=== PATIENT | female | born 1945 | race Caucasian/White ===

== ENCOUNTER 2020-09-10 06:59 | Outpatient (REF) | payer MEDICARE, SELFPAY ==
[2020-09-10 11:09] LABS: MANUAL DIFF FLAG NO
[2020-09-10 11:28] LABS: Eosinophils Absolute Auto 0.1 X10*3/uL (0.0-0.4); Eosinophils Percent Auto 2.5 % (0-4); Hematocrit 43.2 % (37-47); Imm Gran Abs Auto 0.01 X10*3/uL (0.00-0.03); Imm Gran Pct Auto 0.3 % (0.0-0.4); Lymphocytes Absolute Auto 1.2 X10*3/uL (1.2-4.9); Lymphocytes Percent Auto 29.4 % (20-40); Mean Corpuscular HGB Conc 32.4 g/dl (31.0-35.0); Mean Corpuscular Hemoglobin 30.8 pg (27.0-33.0); Mean Corpuscular Volume 94.9 fL (80-98); Mean Platelet Volume 10.9 fL (9.4-12.3); Monocytes Absolute Auto 0.4 X10*3/uL (0.1-1.2); Monocytes Percent Auto 10.6 % (2-11); Neutrophils Absolute Auto 2.2 X10*3/uL (2.0-8.3); Neutrophils Percent Auto 56.2 % (45-73); Platelet Count 166 X10*3/uL (160-400); Red Blood Count 4.55 X10*6/uL (4.20-5.50)
[2020-09-10 11:48] LABS: Alanine Aminotransferase 24 U/L (0-31); Albumin Level 4.3 g/dL (3.5-5.0); Alkaline Phosphatase 57 U/L (39-117); Anion Gap 13 (12-20); Aspartate Amino Transferase 24 U/L (5-31); Bilirubin Total 0.5 mg/dL (0.0-1.0); Blood Urea Nitrogen 16 mg/dL (9-16); Calcium 8.9 mg/dL (8.4-10.2); Carbon Dioxide 27 mmol/L (22-29); Chloride 106 mmol/L (96-108); Cholesterol 165 mg/dL; Estimated Glomerular Filt Rate 53; Glucose Fasting 85 mg/dL (60-99); HDL Cholesterol 88 mg/dL; LDL Cholesterol Calculated 64 mg/dl; Potassium 4.1 mmol/l (3.3-5.1); Sodium 142 mmol/L (135-145); Total Protein 6.4 g/dL (6.5-8.0); Triglycerides 69 mg/dL
[2020-09-10 12:13] LABS: Folate 15.7 ng/mL (> or = 4.0); Vitamin B12 1002 pg/mL (200-900)
[2020-09-14 11:51] LABS: Vitamin D 25-OH, D2 <4 ng/mL; Vitamin D 25-OH, D3 48 ng/mL; Vitamin D 25-OH, Total 48 ng/mL (30-100)
== END 2020-09-10 07:00 | disposition home or self-care (01) ==
LOC: HO.HMGCLDS 06:59
PROVIDERS: PCP Internal Medicine; Visit Provider Internal Medicine
DX: E78.5 Hyperlipidemia, unspecified (principal); I25.10 Atherosclerotic heart disease of native coronary artery without angina pectoris; I10 Essential (primary) hypertension; E55.9 Vitamin D deficiency, unspecified
CPT/HCPCS: 36415; 80053; 80061; 82306; 82607; 82746; 85025

== ENCOUNTER 2021-03-05 06:52 | Outpatient (REF) | payer MEDICARE, SELFPAY ==
[2021-03-05 11:24] LABS: Glucose Urine UA NEG (NEG); Leukocyte Esterase Urine TRACE (NEG); Nitrite Urine NEG (NEG); Urine Blood NEG (NEG); Urine Ketones NEG (NEG); Urine Protein NEG (NEG-TRACE)
[2021-03-05 11:25] LABS: Appearance Urine CLEAR; Color Urine YELLOW
[2021-03-05 11:31] LABS: Hematocrit 42.3 % (37-47); Hemoglobin 13.5 g/dl (12.0-16.0); Mean Corpuscular HGB Conc 31.9 g/dl (31.0-35.0); Mean Corpuscular Hemoglobin 30.3 pg (27.0-33.0); Mean Corpuscular Volume 94.8 fL (80-98); Mean Platelet Volume 10.8 fL (9.4-12.3); Platelet Count 175 X10*3/uL (160-400); Red Blood Count 4.46 X10*6/uL (4.20-5.50); Red Cell Distribution Width 13.1 % (11.0-16.0); White Blood Count 3.7 X10*3/uL (4.8-10.8)
[2021-03-05 11:38] LABS: Bacteria Urine TRACE /LPF; RBC Urine 0-2 /HPF (0); Squamous Epithelial Cell Urine 1+ /LPF
[2021-03-05 11:46] LABS: Alanine Aminotransferase 20 U/L (0-31); Albumin Level 4.2 g/dL (3.5-5.0); Alkaline Phosphatase 55 U/L (39-117); Anion Gap 12 (12-20); Aspartate Amino Transferase 23 U/L (5-31); Bilirubin Total 0.4 mg/dL (0.0-1.0); Blood Urea Nitrogen 15 mg/dL (9-16); Calcium 8.6 mg/dL (8.4-10.2); Carbon Dioxide 28 mmol/L (22-29); Chloride 107 mmol/L (96-108); Cholesterol 164 mg/dL; Estimated Glomerular Filt Rate > 60; Glucose Fasting 86 mg/dL (60-99); HDL Cholesterol 87 mg/dL; LDL Cholesterol Calculated 63 mg/dl; Sodium 143 mmol/L (135-145); Total Protein 6.2 g/dL (6.5-8.0); Triglycerides 71 mg/dL
[2021-03-05 11:58] LABS: TSH reflex Free T4 2.34 uIU/mL (0.32-4.0)
== END 2021-03-05 06:53 | disposition home or self-care (01) ==
LOC: HO.HMGCLDS 06:52
PROVIDERS: PCP Internal Medicine; Referring Provider Internal Medicine Cardiovascular Disease; Visit Provider Internal Medicine
DX: I10 Essential (primary) hypertension (principal); E78.5 Hyperlipidemia, unspecified; I25.10 Atherosclerotic heart disease of native coronary artery without angina pectoris
CPT/HCPCS: 36415; 80053; 80061; 81001; 84443; 85027

== ENCOUNTER 2021-03-11 12:51 | Outpatient (REF) | payer MEDICARE, SELFPAY ==
[2021-03-11 14:08] LABS: Glucose Urine UA NEG (NEG); Leukocyte Esterase Urine NEG (NEG); MANUAL DIFF FLAG NO; Nitrite Urine NEG (NEG); PH 6.5 (5.0-8.0); Specific Gravity - Urine <= 1.005 (1.005-1.025); Urine Blood NEG (NEG); Urine Ketones NEG (NEG); Urine Protein NEG (NEG-TRACE)
[2021-03-11 14:12] LABS: Appearance Urine CLEAR; Color Urine STRAW
[2021-03-11 14:16] LABS: RBC Urine 0 /HPF (0); Squamous Epithelial Cell Urine 1+ /LPF; WBC Urine 0 /HPF (0-4)
[2021-03-11 14:25] LABS: Basophils Absolute Auto 0.1 X10*3/uL (0.0-0.2); Basophils Percent Auto 1.1 % (0-2); Eosinophils Absolute Auto 0.1 X10*3/uL (0.0-0.4); Eosinophils Percent Auto 2.2 % (0-4); Hematocrit 41.6 % (37-47); Hemoglobin 13.7 g/dl (12.0-16.0); Imm Gran Abs Auto 0.01 X10*3/uL (0.00-0.03); Imm Gran Pct Auto 0.2 % (0.0-0.4); Lymphocytes Absolute Auto 0.9 X10*3/uL (1.2-4.9); Lymphocytes Percent Auto 19.8 % (20-40); Mean Corpuscular HGB Conc 32.9 g/dl (31.0-35.0); Mean Corpuscular Hemoglobin 31.1 pg (27.0-33.0); Mean Corpuscular Volume 94.3 fL (80-98); Mean Platelet Volume 10.7 fL (9.4-12.3); Monocytes Absolute Auto 0.5 X10*3/uL (0.1-1.2); Monocytes Percent Auto 10.3 % (2-11); Neutrophils Percent Auto 66.4 % (45-73); Platelet Count 195 X10*3/uL (160-400); Red Blood Count 4.41 X10*6/uL (4.20-5.50); Red Cell Distribution Width 12.9 % (11.0-16.0); White Blood Count 4.6 X10*3/uL (4.8-10.8)
[2021-03-11 14:32] LABS: Estimated Average Glucose 105 mg/dL; Hemoglobin A1c % 5.3 %
[2021-03-11 14:43] LABS: Iron 99 mcg/dL (30-160); Percent Iron Saturation 26 % (15-50); Rheumatoid Factor < 15.0 IU/mL (<15.0); Total Iron Binding Capacity 375 mcg/dL (228-428); Unsaturated Iron Binding 276 ug/dL
[2021-03-11 14:54] LABS: Thyroid Stimulating Hormone 2.82 uIU/mL (0.32-4.0)
[2021-03-11 15:10] LABS: Folate > 20.0 ng/mL (> or = 4.0); Vitamin B12 959 pg/mL (200-900)
[2021-03-11 16:25] LABS: Erythrocyte Sedimentation Rate 7 MM/HR (0-20)
[2021-03-12 06:07] LABS: Thyroglobulin Antibodies <1 IU/mL (< or = 1)
[2021-03-12 11:41] LABS: Immunoglobulin G 609 mg/dL (600-1540)
[2021-03-12 12:33] LABS: Antibody to SS-A Antigen <1.0 NEG AI (<1.0 NEG); Antibody to SS-B Antigen <1.0 NEG AI (<1.0 NEG)
[2021-03-12 13:22] LABS: Complement C3 93 mg/dL (83-193)
[2021-03-12 13:46] LABS: Anti Nuclear Antibody Screen NEGATIVE (NEGATIVE)
[2021-03-16 07:17] LABS: Vitamin B6 53.7 ng/mL (2.1-21.7)
== END 2021-03-11 12:52 | disposition home or self-care (01) ==
LOC: HO.HMGCLDS 12:51
PROVIDERS: Internal Medicine; PCP Internal Medicine; Visit Provider Oral Medicinist
DX: I10 Essential (primary) hypertension (principal); E78.5 Hyperlipidemia, unspecified; I25.10 Atherosclerotic heart disease of native coronary artery without angina pectoris; K14.6 Glossodynia; K11.7 Disturbances of salivary secretion
CPT/HCPCS: 36415; 81001; 82607; 82746; 82784; 83036; 83540; 84207; 84443; 85025; 85652; 86038; 86039; 86160; 86235; 86431; 86800

== ENCOUNTER 2021-07-29 11:16 | Outpatient (REF) | payer MEDICARE, SELFPAY | END 2021-07-29 11:17 | disposition home or self-care (01) | LOC: HO.LNP 11:16 | PROVIDERS: Visit Provider Hospitalist | DX: R30.0 Dysuria (principal) | CPT/HCPCS: 87086 ==

== ENCOUNTER 2021-10-04 08:45 | Outpatient (REF) | payer MEDICARE, SELFPAY ==
--- NOTE | ~2021-10-04 | CT_ITS ---
EXAMINATION: CT SINUS WITHOUT CONTRAST CLINICAL INFORMATION: Chronic frontal sinusitis COMPARISON: None TECHNIQUE: Axial images through the paranasal sinuses without contrast. Sagittal and coronal reconstructions on the technologist workstation were performed. This CT examination was performed using dose optimization techniques as appropriate, variously including the following: *Automated exposure control *Adjustment of mA and/or kV according to patient size (this includes techniques or standardized protocols for targeted exams where dose is matched to indication/reason for exam; i.e. extremities or head) *Use of iterative reconstruction technique DLP: 72 mGy-cm FINDINGS: There is a small polyp or cyst in the floor of the left maxillary sinus and right posterior ethmoid sinus. The paranasal sinuses are otherwise clear. No opacification or air-fluid level to suggest sinusitis is seen. The ostiomeatal complexes are patent bilaterally. The nasal septum is deviated slightly to the right. There is a left kamilla bullosa. The orbits are normal. Visualized intracranial structures are normal. The mastoid air cells and middle ears are clear. The temporomandibular joints are normal. CT/CT sinus wo con IMPRESSION: Small polyps or cysts in the right maxillary sinus and right posterior ethmoid sinus. The paranasal sinuses are otherwise clear. No evidence of sinusitis.
== END 2021-10-04 08:46 | disposition home or self-care (01) ==
LOC: HO.CT 08:45
PROVIDERS: PCP Internal Medicine; Visit Provider Internal Medicine
DX: J32.1 Chronic frontal sinusitis (principal)
CPT/HCPCS: 70486

== ENCOUNTER → 2021-12-29 09:42 | Outpatient (REF) | payer MEDICARE, SELFPAY ==
--- NOTE | 2021-12-29 09:50 | ECG_ITS ---
Test Reason : preproc exam Blood Pressure : / mmHG Vent. Rate : 065 BPM Atrial Rate : 065 BPM P-R Int : 178 ms QRS Dur : 084 ms QT Int : 406 ms P-R-T Axes : 069 019 042 degrees QTc Int : 422 ms Normal sinus rhythm Low voltage QRS Borderline ECG No previous ECGs available Referred By: Po Mares Electronically Signed By:Jesus Kern
== END ==
LOC: HO.CARD 09:42
PROVIDERS: PCP Internal Medicine; Visit Provider Nurse Practitioner Family
DX: Z01.818 Encounter for other preprocedural examination (principal); I25.10 Atherosclerotic heart disease of native coronary artery without angina pectoris; I10 Essential (primary) hypertension; E78.00 Pure hypercholesterolemia, unspecified; M35.00 Sjogren syndrome, unspecified; M48.061 Spinal stenosis, lumbar region without neurogenic claudication
CPT/HCPCS: 93005

== ENCOUNTER 2021-12-31 11:21 | Outpatient (REF) | payer MEDICARE, SELFPAY ==
--- NOTE | ~2021-12-31 | US_ITS ---
EXAMINATION: US SOFT TISSUE NECK CLINICAL INFORMATION: Glossodynia COMPARISON: Sinus CT September 2021 TECHNIQUE: Grayscale and color imaging of the bilateral parotid and submandibular glands using a linear transducer FINDINGS: The parotid and submandibular glands are normal in echotexture and symmetric in size. No focal lesion, calcification or fluid collection is seen. No adjacent lymphadenopathy is seen. US/US soft tiss head and/or neck IMPRESSION: Normal-appearing bilateral parotid and submandibular glands.
== END 2021-12-31 11:22 | disposition home or self-care (01) ==
LOC: HO.HMGCX 11:21
PROVIDERS: Visit Provider Internal Medicine
DX: K14.6 Glossodynia (principal); K11.7 Disturbances of salivary secretion; M35.00 Sjogren syndrome, unspecified
CPT/HCPCS: 76536

== ENCOUNTER 2022-01-04 06:57 | Outpatient (REF) | payer MEDICARE, SELFPAY ==
[2022-01-04 11:36] LABS: MANUAL DIFF FLAG NO
[2022-01-04 11:45] LABS: Basophils Absolute Auto 0.1 X10*3/uL (0.0-0.2); Basophils Percent Auto 1.5 % (0-2); Eosinophils Absolute Auto 0.2 X10*3/uL (0.0-0.4); Eosinophils Percent Auto 3.9 % (0-4); Hemoglobin 13.3 g/dl (12.0-16.0); Imm Gran Abs Auto 0.01 X10*3/uL (0.00-0.03); Imm Gran Pct Auto 0.2 % (0.0-0.4); Lymphocytes Absolute Auto 1.1 X10*3/uL (1.2-4.9); Lymphocytes Percent Auto 26.4 % (20-40); Mean Corpuscular HGB Conc 32.4 g/dl (31.0-35.0); Mean Corpuscular Hemoglobin 30.4 pg (27.0-33.0); Mean Corpuscular Volume 93.8 fL (80.0-98.0); Mean Platelet Volume 11.6 fL (9.4-12.3); Monocytes Absolute Auto 0.6 X10*3/uL (0.1-1.2); Monocytes Percent Auto 14.3 % (2-11); Neutrophils Absolute Auto 2.2 x10*3/uL (2.0-8.3); Neutrophils Percent Auto 53.7 % (45-73); Platelet Count 176 X10*3/uL (160-400); Red Blood Count 4.37 X10*6/uL (4.20-5.50); Red Cell Distribution Width 12.3 % (11.0-16.0); White Blood Count 4.1 X10*3/uL (4.8-10.8)
[2022-01-04 11:52] LABS: INTERNATIONAL NORM RATIO 0.9 (0.9-1.1); Prothrombin Time 10.5 SEC (9.9-13.0)
[2022-01-04 11:54] LABS: Alanine Aminotransferase 35 U/L (0-31); Albumin Level 4.1 g/dL (3.5-5.0); Alkaline Phosphatase 103 U/L (39-117); Anion Gap 9 (12-20); Aspartate Amino Transferase 28 U/L (5-31); Bilirubin Total 0.4 mg/dL (0.0-1.0); Blood Urea Nitrogen 13 mg/dL (9-16); Calcium 9.2 mg/dL (8.4-10.2); Carbon Dioxide 30 mmol/L (22-29); Chloride 108 mmol/L (96-108); Estimated Glomerular Filt Rate > 60; Glucose Fasting 87 mg/dL (60-99); Potassium 3.9 mmol/L (3.3-5.1); Sodium 143 mmol/L (135-145); Total Protein 6.4 g/dL (6.5-8.0)
[2022-01-04 11:56] LABS: Partial Thromboplastin Time 29.8 SEC (24.1-38.0)
== END 2022-01-04 06:58 | disposition home or self-care (01) ==
LOC: HO.HMGCLDS 06:57
PROVIDERS: Absent Provider Neurological Surgery; PCP Internal Medicine; Referring Provider Internal Medicine Cardiovascular Disease; Visit Provider Nurse Practitioner Family
DX: Z01.818 Encounter for other preprocedural examination (principal); E78.00 Pure hypercholesterolemia, unspecified; I10 Essential (primary) hypertension; M35.00 Sjogren syndrome, unspecified; M48.061 Spinal stenosis, lumbar region without neurogenic claudication; I25.10 Atherosclerotic heart disease of native coronary artery without angina pectoris
CPT/HCPCS: 36415; 80053; 85025; 85610; 85730

== ENCOUNTER 2022-01-26 08:10 | Outpatient (REF) | payer MEDICARE, SELFPAY ==
[2022-01-26 08:22] LABS: MANUAL DIFF FLAG NO
[2022-01-26 08:33] LABS: Basophils Percent Auto 0.5 % (0-2); Eosinophils Absolute Auto 0.1 X10*3/uL (0.0-0.4); Eosinophils Percent Auto 1.6 % (0-4); Hematocrit 33.8 % (37.0-47.0); Imm Gran Abs Auto 0.02 X10*3/uL (0.00-0.03); Imm Gran Pct Auto 0.3 % (0.0-0.4); Lymphocytes Absolute Auto 0.9 X10*3/uL (1.2-4.9); Lymphocytes Percent Auto 14.8 % (20-40); Mean Corpuscular HGB Conc 32.5 g/dl (31.0-35.0); Mean Corpuscular Hemoglobin 29.8 pg (27.0-33.0); Mean Corpuscular Volume 91.6 fL (80.0-98.0); Mean Platelet Volume 11.1 fL (9.4-12.3); Monocytes Absolute Auto 0.6 X10*3/uL (0.1-1.2); Monocytes Percent Auto 9.5 % (2-11); Neutrophils Absolute Auto 4.6 x10*3/uL (2.0-8.3); Neutrophils Percent Auto 73.3 % (45-73); Platelet Count 180 X10*3/uL (160-400); Red Blood Count 3.69 X10*6/uL (4.20-5.50); Red Cell Distribution Width 12.4 % (11.0-16.0); White Blood Count 6.2 X10*3/uL (4.8-10.8)
[2022-01-26 08:46] LABS: Alanine Aminotransferase 51 U/L (0-31); Albumin Level 3.5 g/dL (3.5-5.0); Alkaline Phosphatase 92 U/L (39-117); Anion Gap 12 (12-20); Aspartate Amino Transferase 62 U/L (5-31); Bilirubin Total 0.6 mg/dL (0.0-1.0); Blood Urea Nitrogen 9 mg/dL (9-16); Calcium 8.2 mg/dL (8.4-10.2); Carbon Dioxide 26 mmol/L (22-29); Chloride 104 mmol/L (96-108); Estimated Glomerular Filt Rate > 60; Glucose Random 98 mg/dL (60-115); Potassium 3.6 mmol/L (3.3-5.1); Sodium 138 mmol/L (135-145); Total Protein 5.5 g/dL (6.5-8.0)
== END 2022-01-26 08:11 | disposition home or self-care (01) ==
LOC: HO.MMNH2L 08:10
PROVIDERS: Visit Provider Family Medicine
DX: Z98.890 Other specified postprocedural states (principal)
CPT/HCPCS: 36415; 80053; 85025

== ENCOUNTER 2022-01-31 00:43 | Outpatient (REF) | payer MEDICARE, SELFPAY ==
[2022-01-31 07:03] LABS: Hematocrit 33.9 % (37.0-47.0); Hemoglobin 10.8 g/dl (12.0-16.0); Mean Corpuscular HGB Conc 31.9 g/dl (31.0-35.0); Mean Corpuscular Hemoglobin 29.9 pg (27.0-33.0); Mean Corpuscular Volume 93.9 fL (80.0-98.0); Mean Platelet Volume 10.8 fL (9.4-12.3); Platelet Count 221 X10*3/uL (160-400); Red Blood Count 3.61 X10*6/uL (4.20-5.50); White Blood Count 6.1 X10*3/uL (4.8-10.8)
[2022-01-31 07:24] LABS: Anion Gap 14 (12-20); Blood Urea Nitrogen 11 mg/dL (9-16); Calcium 8.5 mg/dL (8.4-10.2); Carbon Dioxide 24 mmol/L (22-29); Chloride 109 mmol/L (96-108); Estimated Glomerular Filt Rate > 60; Glucose Random 89 mg/dL (60-115); Potassium 3.8 mmol/L (3.3-5.1); Sodium 143 mmol/L (135-145)
== END 2022-01-31 00:44 | disposition home or self-care (01) ==
LOC: HO.MMNH2L 00:43
PROVIDERS: Visit Provider Family Medicine
DX: Z98.890 Other specified postprocedural states (principal)
CPT/HCPCS: 36415; 80048; 85027

== ENCOUNTER 2022-02-07 00:32 | Outpatient (REF) | payer MEDICARE, SELFPAY | END 2022-02-07 00:33 | disposition home or self-care (01) | LOC: HO.MMNH2L 00:32 | PROVIDERS: Visit Provider Family Medicine | DX: Z13.89 Encounter for screening for other disorder (principal) ==

== ENCOUNTER 2022-02-07 13:00 | Outpatient (RCR) | payer MEDICARE, SELFPAY | END 2022-05-18 14:07 | disposition home or self-care (01) | LOC: HO.PTCHIC 13:00 | PROVIDERS: PCP Internal Medicine; Visit Provider Nurse Practitioner Family | DX: M43.26 Fusion of spine, lumbar region (principal); M85.88 Other specified disorders of bone density and structure, other site | CPT/HCPCS: 97110; 97162 ==

== ENCOUNTER 2022-04-20 07:01 | Outpatient (REF) | payer MEDICARE, SELFPAY ==
[2022-04-20 09:12] LABS: B Type Natriuretic Peptide < 10 pg/mL (<100)
[2022-04-20 11:11] LABS: MANUAL DIFF FLAG NO
[2022-04-20 11:43] LABS: Basophils Absolute Auto 0.1 X10*3/uL (0.0-0.2); Basophils Percent Auto 1.3 % (0-2); Eosinophils Absolute Auto 0.1 X10*3/uL (0.0-0.4); Eosinophils Percent Auto 3.5 % (0-4); Hematocrit 42.2 % (37.0-47.0); Hemoglobin 13.4 g/dl (12.0-16.0); Imm Gran Abs Auto 0.01 X10*3/uL (0.00-0.03); Imm Gran Pct Auto 0.3 % (0.0-0.4); Lymphocytes Absolute Auto 1.1 X10*3/uL (1.2-4.9); Lymphocytes Percent Auto 30.4 % (20-40); Mean Corpuscular HGB Conc 31.8 g/dl (31.0-35.0); Mean Corpuscular Hemoglobin 29.8 pg (27.0-33.0); Mean Platelet Volume 10.8 fL (9.4-12.3); Monocytes Absolute Auto 0.5 X10*3/uL (0.1-1.2); Monocytes Percent Auto 12.5 % (2-11); Platelet Count 181 X10*3/uL (160-400); Red Blood Count 4.49 X10*6/uL (4.20-5.50); White Blood Count 3.8 X10*3/uL (4.8-10.8)
[2022-04-20 11:44] LABS: Appearance Urine HAZY; Color Urine YELLOW; Glucose Urine UA NEG (NEG); Leukocyte Esterase Urine TRACE (NEG); Nitrite Urine POS (NEG); Urine Blood TRACE (NEG); Urine Ketones NEG (NEG); Urine Protein NEG (NEG-TRACE)
[2022-04-20 12:03] LABS: Bacteria Urine 2+ /LPF
[2022-04-20 12:04] LABS: Squamous Epithelial Cell Urine TRACE /LPF
[2022-04-20 12:04] LABS: Alanine Aminotransferase 22 U/L (0-31); Albumin Level 4.3 g/dL (3.5-5.0); Alkaline Phosphatase 74 U/L (39-117); Anion Gap 12 (12-20); Aspartate Amino Transferase 19 U/L (5-31); Bilirubin Total 0.3 mg/dL (0.0-1.0); Blood Urea Nitrogen 9 mg/dL (9-16); Calcium 9.7 mg/dL (8.4-10.2); Carbon Dioxide 27 mmol/L (22-29); Chloride 108 mmol/L (96-108); Cholesterol 162 mg/dL; Estimated Glomerular Filt Rate 57; Glucose Random 90 mg/dL (60-115); HDL Cholesterol 73 mg/dL; LDL Cholesterol Calculated 64 mg/dl; Potassium 3.8 mmol/L (3.3-5.1); Sodium 143 mmol/L (135-145); Total Protein 6.7 g/dL (6.5-8.0); Triglycerides 128 mg/dL
[2022-04-20 12:11] LABS: Free T4 (Free Thyroxine) 0.79 ng/dL (0.71-1.85); Thyroid Stimulating Hormone 3.52 uIU/mL (0.32-4.0); Vitamin D 25-OH Total 48.3 ng/mL (>30)
[2022-04-20 12:18] LABS: Vitamin B12 609 pg/mL (200-900)
[2022-04-20 12:33] LABS: Erythrocyte Sedimentation Rate 5 MM/HR (0-20)
== END 2022-04-20 07:02 | disposition home or self-care (01) ==
LOC: HO.HMGCLDS 07:01
PROVIDERS: Absent Provider Internal Medicine Cardiovascular Disease; Visit Provider Internal Medicine
DX: E78.00 Pure hypercholesterolemia, unspecified (principal); E55.9 Vitamin D deficiency, unspecified; I25.10 Atherosclerotic heart disease of native coronary artery without angina pectoris
CPT/HCPCS: 36415; 80053; 80061; 81001; 82306; 82607; 82746; 83880; 84439; 84443; 85025; 85652

== ENCOUNTER → 2022-04-26 08:44 | Outpatient (REF) | payer OTHER, SELFPAY ==
--- NOTE | 2022-04-26 08:51 | ECG_ITS ---
Test Reason : K11.7 Blood Pressure : / mmHG Vent. Rate : 075 BPM Atrial Rate : 075 BPM P-R Int : 174 ms QRS Dur : 084 ms QT Int : 384 ms P-R-T Axes : 071 034 060 degrees QTc Int : 428 ms Normal sinus rhythm Possible Left atrial enlargement Low voltage QRS Nonspecific T wave abnormality Abnormal ECG When compared with ECG of 29-DEC-2021 09:53, No significant change was found Referred By: Elva Davison Electronically Signed By:ALEJANDRO BETTENCOURT
== END ==
LOC: HO.CARD 08:44
PROVIDERS: Absent Provider Internal Medicine Cardiovascular Disease; PCP Internal Medicine; Visit Provider Internal Medicine
DX: K11.7 Disturbances of salivary secretion (principal)
CPT/HCPCS: 93005

== ENCOUNTER → 2022-07-29 07:50 | Outpatient (BNVA) | payer OTHER, SELFPAY | PROVIDERS: PCP Internal Medicine; Visit Provider Student in an Organized Health Care Education/Training Program | DX: M35.00 Sjogren syndrome, unspecified (principal) | CPT/HCPCS: 99202 ==

== ENCOUNTER 2022-08-01 07:14 | Outpatient (REF) | payer OTHER, SELFPAY ==
[2022-08-01 11:11] LABS: MANUAL DIFF FLAG NO
[2022-08-01 11:35] LABS: Basophils Absolute Auto 0.1 X10*3/uL (0.0-0.2); Basophils Percent Auto 1.7 % (0-2); Eosinophils Absolute Auto 0.1 X10*3/uL (0.0-0.4); Eosinophils Percent Auto 3.1 % (0-4); Hemoglobin 13.3 g/dl (12.0-16.0); Imm Gran Abs Auto 0.01 X10*3/uL (0.00-0.03); Imm Gran Pct Auto 0.2 % (0.0-0.4); Lymphocytes Absolute Auto 1.1 X10*3/uL (1.2-4.9); Lymphocytes Percent Auto 25.1 % (20-40); Mean Corpuscular HGB Conc 32.4 g/dl (31.0-35.0); Mean Corpuscular Hemoglobin 29.9 pg (27.0-33.0); Mean Corpuscular Volume 92.1 fL (80.0-98.0); Mean Platelet Volume 11.4 fL (9.4-12.3); Monocytes Absolute Auto 0.5 X10*3/uL (0.1-1.2); Monocytes Percent Auto 10.7 % (2-11); Neutrophils Absolute Auto 2.5 x10*3/uL (2.0-8.3); Neutrophils Percent Auto 59.2 % (45-73); Platelet Count 164 X10*3/uL (160-400); Red Blood Count 4.45 X10*6/uL (4.20-5.50); White Blood Count 4.2 X10*3/uL (4.8-10.8)
[2022-08-01 11:49] LABS: Alanine Aminotransferase 16 U/L (0-31); Albumin Level 4.3 g/dL (3.5-5.0); Alkaline Phosphatase 73 U/L (39-117); Anion Gap 14 (12-20); Aspartate Amino Transferase 18 U/L (5-31); Bilirubin Total 0.4 mg/dL (0.0-1.0); Blood Urea Nitrogen 13 mg/dL (9-16); C Reactive Protein 0.03 mg/dL (< or = 0.50); Calcium 9.1 mg/dL (8.4-10.2); Carbon Dioxide 27 mmol/L (22-29); Chloride 107 mmol/L (96-108); Estimated Glomerular Filt Rate > 60; Glucose Random 88 mg/dL (60-115); Potassium 4.1 mmol/L (3.3-5.1); Rheumatoid Factor < 15.0 IU/mL (<15.0); Sodium 144 mmol/L (135-145); Total Protein 6.5 g/dL (6.5-8.0)
[2022-08-01 12:14] LABS: Erythrocyte Sedimentation Rate 7 MM/HR (0-20)
[2022-08-03 00:36] LABS: Prot Elec - Albumin 4.2 g/dL (3.8-4.8); Prot Elec - Alpha1 0.3 g/dL (0.2-0.3); Prot Elec - Alpha2 0.7 g/dL (0.5-0.9); Prot Elec - Beta 1 0.5 g/dL (0.4-0.6); Prot Elec - Beta 2 0.3 g/dL (0.2-0.5); Prot Elec - Gamma 0.6 g/dL (0.8-1.7); Prot Elec - Total Protein 6.5 g/dL (6.1-8.1)
[2022-08-03 12:47] LABS: IgA 143 mg/dL (70-320); IgG 625 mg/dL (600-1540); IgM 36 mg/dL (50-300)
[2022-08-04 12:42] LABS: Immunoglobulin G Subclass 1 325 mg/dL (382-929); Immunoglobulin G Subclass 2 200 mg/dL (241-700); Immunoglobulin G Subclass 3 18 mg/dL (22-178); Immunoglobulin G Subclass 4 34.5 mg/dL (4-86); Immunoglobulin G Total 607 mg/dL (600-1540)
== END 2022-08-01 07:15 | disposition home or self-care (01) ==
LOC: HO.HMGCLDS 07:14
PROVIDERS: PCP Internal Medicine; Visit Provider Student in an Organized Health Care Education/Training Program
DX: M35.00 Sjogren syndrome, unspecified (principal)
CPT/HCPCS: 36415; 80053; 82784; 84165; 85025; 85652; 86140; 86334; 86431

== ENCOUNTER → 2022-08-26 08:54 | Outpatient (BNVA) | payer OTHER, SELFPAY | PROVIDERS: PCP Internal Medicine; Visit Provider Student in an Organized Health Care Education/Training Program | DX: M35.00 Sjogren syndrome, unspecified (principal) | CPT/HCPCS: 99212 ==

== ENCOUNTER 2022-12-19 11:43 | Outpatient (REF) | payer OTHER, SELFPAY ==
[2022-12-19 14:03] LABS: Appearance Urine Clear; Color Urine Yellow; Glucose Urine UA Negative (Negative); Leukocyte Esterase Urine Small (1+) (Negative); Nitrite Urine Positive (Negative); Specific Gravity - Urine <= 1.005 (1.005-1.025); UMIC TRIGGER UA YES; Urine Blood Trace (Negative); Urine Ketones Negative (Negative); Urine Protein Negative (Neg-Trace)
[2022-12-19 14:08] LABS: Bacteria Urine 4+ (None Seen); Hyaline Casts Urine 0-2 /LPF (0-2); MANUAL DIFF FLAG NO; RBC Urine 0-2 /HPF (0-2); Squamous Epithelial Cell Urine 0-2 /HPF (0-2)
[2022-12-19 14:21] LABS: Basophils Absolute Auto 0.1 X10*3/uL (0.0-0.2); Basophils Percent Auto 0.9 % (0-2); Eosinophils Absolute Auto 0.1 X10*3/uL (0.0-0.4); Eosinophils Percent Auto 2.2 % (0-4); Hematocrit 39.6 % (37.0-47.0); Imm Gran Abs Auto 0.02 X10*3/uL (0.00-0.03); Imm Gran Pct Auto 0.4 % (0.0-0.4); Lymphocytes Percent Auto 18.3 % (20-40); Mean Corpuscular HGB Conc 32.8 g/dl (31.0-35.0); Mean Corpuscular Hemoglobin 30.8 pg (27.0-33.0); Mean Corpuscular Volume 93.8 fL (80.0-98.0); Mean Platelet Volume 11.4 fL (9.4-12.3); Monocytes Absolute Auto 0.5 X10*3/uL (0.1-1.2); Monocytes Percent Auto 8.4 % (2-11); Neutrophils Absolute Auto 3.8 x10*3/uL (2.0-8.3); Neutrophils Percent Auto 69.8 % (45-73); Platelet Count 185 X10*3/uL (160-400); Red Blood Count 4.22 X10*6/uL (4.20-5.50); Red Cell Distribution Width 12.7 % (11.0-16.0); White Blood Count 5.5 X10*3/uL (4.8-10.8)
[2022-12-19 14:51] LABS: Alanine Aminotransferase 36 U/L (0-31); Albumin Level 4.1 g/dL (3.5-5.0); Alkaline Phosphatase 77 U/L (39-117); Anion Gap 15 (12-20); Aspartate Amino Transferase 18 U/L (5-31); Bilirubin Total 0.5 mg/dL (0.0-1.0); Blood Urea Nitrogen 16 mg/dL (9-16); Calcium 8.8 mg/dL (8.4-10.2); Carbon Dioxide 23 mmol/L (22-29); Chloride 107 mmol/L (96-108); Cholesterol 149 mg/dL; Estimated Glomerular Filt Rate > 60; Glucose Random 108 mg/dL (60-115); HDL Cholesterol 60 mg/dL; LDL Cholesterol Calculated 44 mg/dl; Potassium 3.9 mmol/L (3.3-5.1); Sodium 141 mmol/L (135-145); Total Protein 6.4 g/dL (6.5-8.0); Triglycerides 225 mg/dL
[2022-12-19 15:08] LABS: Folate 12.7 ng/mL (> or = 4.0); Free T4 (Free Thyroxine) 0.74 ng/dL (0.71-1.85); Thyroid Stimulating Hormone 1.75 uIU/mL (0.32-4.0); Vitamin B12 595 pg/mL (200-900)
== END 2022-12-19 11:44 | disposition home or self-care (01) ==
LOC: HO.HMGCLDS 11:43
PROVIDERS: Visit Provider Internal Medicine
DX: K14.6 Glossodynia (principal); E78.00 Pure hypercholesterolemia, unspecified
CPT/HCPCS: 36415; 80053; 80061; 81001; 82607; 82746; 84439; 84443; 85025

== ENCOUNTER 2023-04-21 06:50 | Outpatient (REF) | payer OTHER, SELFPAY ==
[2023-04-21 11:33] LABS: MANUAL DIFF FLAG NO
[2023-04-21 11:59] LABS: Basophils Absolute Auto 0.1 X10*3/uL (0.0-0.2); Basophils Percent Auto 1.3 % (0-2); Eosinophils Absolute Auto 0.2 X10*3/uL (0.0-0.4); Eosinophils Percent Auto 3.9 % (0-4); Hematocrit 41.7 % (37.0-47.0); Hemoglobin 13.4 g/dl (12.0-16.0); Imm Gran Abs Auto 0.01 X10*3/uL (0.00-0.03); Imm Gran Pct Auto 0.3 % (0.0-0.4); Lymphocytes Absolute Auto 1.2 X10*3/uL (1.2-4.9); Lymphocytes Percent Auto 30.5 % (20-40); Mean Corpuscular HGB Conc 32.1 g/dl (31.0-35.0); Mean Corpuscular Hemoglobin 30.5 pg (27.0-33.0); Mean Platelet Volume 10.9 fL (9.4-12.3); Monocytes Absolute Auto 0.4 X10*3/uL (0.1-1.2); Monocytes Percent Auto 11.3 % (2-11); Neutrophils Percent Auto 52.7 % (45-73); Platelet Count 187 X10*3/uL (160-400); Red Blood Count 4.39 X10*6/uL (4.20-5.50); Red Cell Distribution Width 13.3 % (11.0-16.0); White Blood Count 3.8 X10*3/uL (4.8-10.8)
[2023-04-21 12:13] LABS: Estimated Average Glucose 111 mg/dL; Hemoglobin A1c % 5.5 %
[2023-04-21 12:26] LABS: Alanine Aminotransferase 17 U/L (0-31); Alkaline Phosphatase 59 U/L (39-117); Anion Gap 12 (12-20); Aspartate Amino Transferase 17 U/L (5-31); Bilirubin Total 0.4 mg/dL (0.0-1.0); Blood Urea Nitrogen 12 mg/dL (9-16); Calcium 9.1 mg/dL (8.4-10.2); Carbon Dioxide 27 mmol/L (22-29); Chloride 109 mmol/L (96-108); Cholesterol 138 mg/dL; Estimated Glomerular Filt Rate > 60; Glucose Random 93 mg/dL (60-115); HDL Cholesterol 63 mg/dL; LDL Cholesterol Calculated 60 mg/dl; Potassium 4.1 mmol/L (3.3-5.1); Sodium 144 mmol/L (135-145); Total Protein 6.1 g/dL (6.5-8.0); Triglycerides 75 mg/dL
[2023-04-21 12:45] LABS: Folate 13.4 ng/mL (> or = 4.0); Free T4 (Free Thyroxine) 0.78 ng/dL (0.71-1.85); Thyroid Stimulating Hormone 2.41 uIU/mL (0.32-4.0); Vitamin B12 653 pg/mL (200-900)
== END 2023-04-21 06:51 | disposition home or self-care (01) ==
LOC: HO.HMGCLDS 06:50
PROVIDERS: Absent Provider Internal Medicine Cardiovascular Disease; PCP Internal Medicine; Visit Provider Internal Medicine
DX: E78.00 Pure hypercholesterolemia, unspecified (principal); R73.9 Hyperglycemia, unspecified
CPT/HCPCS: 36415; 80053; 80061; 82607; 82746; 83036; 84439; 84443; 85025

== ENCOUNTER 2023-05-10 08:08 | Outpatient (REF) | payer OTHER, SELFPAY ==
[2023-05-10 15:11] LABS: Appearance Urine Cloudy; Color Urine Yellow; Glucose Urine UA Negative (Negative); Leukocyte Esterase Urine Large (3+) (Negative); Nitrite Urine Negative (Negative); PH 6.5 (5.0-9.0); UMIC TRIGGER UA YES; Urine Blood Small (1+) (Negative); Urine Ketones Negative (Negative); Urine Protein Negative (Neg-Trace)
[2023-05-10 15:23] LABS: Bacteria Urine 2+ (None Seen); Squamous Epithelial Cell Urine 0-2 /HPF (0-2); WBC Urine >50 /HPF (0-5)
== END 2023-05-10 08:09 | disposition home or self-care (01) ==
LOC: HO.HMGCLDS 08:08
PROVIDERS: PCP Internal Medicine; Visit Provider Internal Medicine
DX: R30.0 Dysuria (principal)
CPT/HCPCS: 81001; 81003

== ENCOUNTER 2023-05-25 07:06 | Outpatient (REF) | payer OTHER, SELFPAY | END 2023-05-25 07:07 | disposition home or self-care (01) | LOC: HO.HMGCLDS 07:06 | PROVIDERS: PCP Internal Medicine; Visit Provider Internal Medicine | DX: N39.41 Urge incontinence (principal); R39.9 Unspecified symptoms and signs involving the genitourinary system | CPT/HCPCS: 81001 ==

== ENCOUNTER 2023-08-11 08:33 | Outpatient (AMB) | payer OTHER, SELFPAY ==
[2023-08-11 08:46] VITALS: BP 130/70; PULSE 80; TEMP 36.6; O2SAT 97; BMI 22.8
--- NOTE | 2023-08-11 08:46 | MHC.OFFWIV ---
Intake Vital Signs 08/11/23 08:46 Height 4 ft 11 in Weight 51.256 kg BMI 22.8 BP 130/70 Blood Pressure Location Rt brachial Position Sitting Pulse 80 Pulse Source Pulse Oximeter Temp 97.8 F Temp Source Temporal Artery Scan Pulse Oximetry (%) 97 Intake Visit Reasons: EP, UTI? Intake Note: pt is here for c/o possible uti Patient Tobacco Use Status: Never used Tobacco Allergies codeine Allergy (Unknown, Verified 08/11/23 08:46) Unknown hydrocodone [From Vicodin] Allergy (Unknown, Verified 08/11/23 08:46) Unknown tramadol Allergy (Unknown, Verified 08/11/23 08:46) Unknown Do you need a note to return to daycare/school/sports/work: No HPI HPI Comments History of Present Illness Details 0911 78 yo F presents w/ urinary frequency, urgency and dyuria X 2 days. Has frequent UTIs and this feels like her typical. No fevers, chills, cp, sob, nausea, vomiting, mcgill, back pain, hematuria PE benign Likely uti vs cystis unlikely sepsis, pylo, kidney stone Plan- atbx. PCP follow up. Advised to return w. new or worsening sx. 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 Lumbar stenosis Vitamin D deficiency HTN (hypertension) CAD (coronary artery disease) Surgical History History of back surgery H/O spinal fusion Family History Father Heart disease Mother Breast cancer Social History Housing: Apartment Alcohol intake: never Patient Tobacco Use Status: Never used Tobacco e-Cigarette/Vaping Use: Never Used Second Hand Smoke Exposure: No service: No Current occupational status: retired Cognitive needs: No Hearing needs: No Vision needs: Yes Review of Systems Const Details: Constitutional : No Weight loss, No Fever, No Chills, No Fatigue, No Malaise ENT/Mouth : No sore throat, No Rhinorrhea Eyes: No Eye Pain, No Swelling, No Redness Cardiovascular : No Chest Pain, No SOB, No Dyspnea on Exertion, No Orthopnea, No Edema, No Palpitations Respiratory : No Cough, No Sputum, No Wheezing Gastrointestinal : No Nausea, No Vomiting, No Diarrhea, No Constipation, No abdominal Pain, No Hematochezia, No Melena Genitourinary : + Dysuria, + Urinary Frequency, No Hematuria, Musculoskeletal : No joint pain, No Myalgias, No Joint Swelling Skin : No Skin Lesions, No rash Neuro : No Weakness, No Numbness, No Dizziness, No Headache Psych : No Anxiety/Panic, No Depression All other systems reviewed and are negative All systems reviewed & are unremarkable except as noted in HPI and below Physical Exam Vital Signs: Last Vital Signs Temp 97.8 F 08/11/23 08:46 Pulse 80 08/11/23 08:46 BP 130/70 08/11/23 08:46 Pulse Ox 97 08/11/23 08:46 BMI result Body Mass Index 22.8 vss Appearance: Alert.? Oriented X3.? No acute distress.? Head: Normocephalic, atraumatic, no step-offs or deformities Eyes: Pupils equal, round and reactive to light.? CVS: Normal heart rate and rhythm.? Pulses normal.? Respiratory: No respiratory distress.? Breath sounds normal.? Abdomen: Soft and nontender.? Skin: Skin warm and dry.? Normal skin color.? Normal skin turgor.? Extremities: No lower extremity edema.? No calf ttp. 5/5 strength to bilateral upper and lower extremities Back: No CVA tenderness bilaterally Neuro: Oriented X 3.? No motor deficit.? No sensory deficit. CN 2-12 intact Results AMB Urinalysis, Automated UA Leukoctes 500 Babs/uL Last Edit by Brooks Brar CMA on 08/11/23 08:55 UA Nitrite Negative Last Edit by Brooks Brar CMA on 08/11/23 08:55 UA Urobilinogen 0.2 mg/dL Last Edit by Brooks Brar CMA on 08/11/23 08:55 UA Protein 15 mg/dL Last Edit by Brooks Brar CMA on 08/11/23 08:55 UA pH 6.0 Last Edit by Brooks Brar CMA on 08/11/23 08:55 UA Blood 80 Davidson/uL Last Edit by Brooks Brar CMA on 08/11/23 08:55 UA Specific [place] 1.015 Last Edit by Brooks Brar CMA on 08/11/23 08:55 UA Ketone Negative Last Edit by Brooks Brar CMA on 08/11/23 08:55 UA Bilirubin 0 mg/dL Last Edit by Brooks Brar CMA on 08/11/23 08:55 UA Glucose 0 mg/dL Last Edit by Brooks Brar CMA on 08/11/23 08:55 Results Reviewed Results Reviewed: Laboratory Last Values Urine pH (Auto) 6.0 08/11/23 08:53 Specific [place] (Auto) 1.015 08/11/23 08:53 Urine Protein (Auto) 15 mg/dL 08/11/23 08:53 Glucose (UA)(Auto) 0 mg/dL 08/11/23 08:53 Urine Ketones (Auto) Negative 08/11/23 08:53 Urine Blood (Auto) 80 Davidson/uL 08/11/23 08:53 Urine Nitrite (Auto) Negative 08/11/23 08:53 Urine Bilirubin (Auto) 0 mg/dL 08/11/23 08:53 Urine Urobilinogen (Auto) 0.2 mg/dL 08/11/23 08:53 Leukocyte Esterase (Auto) 500 Babs/uL 08/11/23 08:53 Assessment & Plan Assessment & Plan (1) Acute UTI: Code(s): N39.0 - Urinary tract infection, site not specified Plan Take your medications as prescribed. If you were prescribed antibiotics today, it is important that you take your medication to their entirety, do not skip any doses, do not finish them early. Follow-up with your primary care provider this week. Return to the emergency department with new or worsening symptoms. In case of emergency call 911 Orders: Orders AMB Urinalysis Automated Today Z13.9 - Encounter for screening, unspecified Medications: New phenazopyridine (Pyridium) 200 mg PO TID 6 tabs 0RF 6 doses cefuroxime axetil 250 mg PO BID 14 tabs 0RF 7 days Coding Level of Care Code Est Pt Level 3 (53899) Diagnoses Acute UTI N39.0
== END 2023-08-11 10:39 | disposition home or self-care (01) ==
PROVIDERS: PCP Internal Medicine; Visit Provider Physician Assistant
DX: N39.0 Urinary tract infection, site not specified (principal); R35.0 Frequency of micturition
CPT/HCPCS: 81003; 99213

== ENCOUNTER 2023-08-23 08:27 | Outpatient (AMB) | payer OTHER, SELFPAY ==
[2023-08-23 08:41] VITALS: BP 120/70; PULSE 68; O2SAT 93; BMI 23.0
--- NOTE | 2023-08-23 08:41 | MHC.PC.OV ---
Vital Signs 08/23/23 08:41 Height 4 ft 11 in Weight 114 lb 2 oz BMI 23.0 BP 120/70 Blood Pressure Location Lt brachial Position Sitting Pulse 68 Pulse Source Pulse Oximeter Pulse Oximetry (%) 93 Oxygen Delivery Method Room Air Intake Visit Reasons: cad, HTN Intake Note: Patient is here to follow up on CAD, HTN. Deliverer Outside Required: No Rock Climbing Instructor: Not Required per policy Accompanied by: Self / Same As Patient Allergies codeine Allergy (Unknown, Verified 08/23/23 08:41) Unknown hydrocodone [From Vicodin] Allergy (Unknown, Verified 08/23/23 08:41) Unknown tramadol Allergy (Unknown, Verified 08/23/23 08:41) Unknown Tobacco use date assessed: 08/23/23 Fall risk assessment: No Falls in past year Last assessed Fall Risk: 08/23/23 Dental Screening Dental Screen Date: 08/23/23 Did you have a dental visit in the last 12 months?: Yes Did you have a dental problem in the last 6 months where you did not have access to dental care?: No Was dental information given to patient?: Patient has dentist HPI cad, HTN HPI Details 78-year-old female with Sjogren's disease burning mouth syndrome coronary artery disease hypertension generalized anxiety disorder hypercholesterolemia and GERD last seen in April 2023 having physical exam at that time. Patient is here for follow-up. Review of the notes August 11 [facility] for ch[facility] and dysuria patient was prescribed cefuroxime 250 twice a day for 7 days. No before that in June ER visit for headache status post pseudomeningocele drainage out patient with neurosurgeon question of high suspicion CSF. with coronary artery disease patient follows up with cardiology May 2023(non STEMI 2019 status post PCI LAD with transient ischemic cardiomyopathy) the spine drainage did not get solved and now with bump on the lumbar are. 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 Lumbar stenosis Vitamin D deficiency HTN (hypertension) CAD (coronary artery disease) Surgical History History of back surgery H/O spinal fusion Family History Father Heart disease Mother Breast cancer Social History Housing: Apartment Alcohol intake: never Patient Tobacco Use Status: Never used Tobacco e-Cigarette/Vaping Use: Never Used Second Hand Smoke Exposure: No service: No Current occupational status: retired Cognitive needs: No Hearing needs: No Vision needs: Yes Questionnaire Thrive Questionnaire Date Thrive assessed: 12/14/22 NGA-7 AMB Questionnaire NGA-7 Date NGA - 7 assessed: 12/14/22 Source: Developed by Drs. Kole Vazquez, Livia Marie, Caden Bowman and colleagues, with an educational justus from [employer]. Physical exam (Primary Care) Vital Signs: Last Vital Signs Pulse 68 08/23/23 08:41 BP 120/70 08/23/23 08:41 Pulse Ox 93 08/23/23 08:41 Oxygen Delivery Method Room Air 08/23/23 08:41 BMI result Body Mass Index 23.0 Tobacco/Smoking Status: Tobacco use Status Tobacco use date assessed 08/23/23 08/23/23 08:48 Patient Tobacco Use Status Never used Tobacco 08/23/23 08:41 e-Cigarette/Vaping Use Never Used 08/23/23 08:41 Thrive Assessment: Date of Thrive Assessment Date Thrive assessed 12/14/22 08/23/23 08:41 Const General: alert; No acute distress Eyes Conjunctivae: conjunctivae normal Resp Auscultation: clear to auscultation bilaterally Cardio Rate: regular rate Rhythm: regular rhythm GI Inspection: Yes normal to inspection Extrem General: Yes normal to inspection and No edema Office Procedures Flu Questionnaire Does the patient have a severe egg allergy?: No Does the patient have severe life threatening allergies?: No Does the patient have a fever or illness today?: No Has the patient ever had Guillain-Pointblank Syndrome?: No Has the patient ever had any past reaction to a flu shot?: No Comment: afebrile. patient consented for flu shot today. Immunizations flu vacc [id number] 6mos up(PF) 60 mcg(15 mcgx4)/0.5 mL IM syringe Performing Provider: Elva Davison MD [facility] Administered by: Gaurang Galdamez RN on 08/23/23 09:05 Dose Route Admin Location Dispensed Lot Number Expiration Date [place] [employer] 0.5 mL IM Left Deltoid 0.5 mL [id number] 05/19/24 [id number] [employer] VIS Given Date VIS Provided VIS Publication Date 08/23/23 Single Vaccine 21 Eligibility Eligibility Date Funding Source Not [facility] Eligible 08/23/23 Private Administration Comments: tolerated well Assessment and Plan Assessment & Plan (1) CAD (coronary artery disease): Comment: s/p NSTEMI SOWMYA 06/03/2019, Code(s): I25.10 - Atherosclerotic heart disease of [place]' coronary artery without angina pectoris Qualifiers: Associated angina: without angina Coronary Disease-Associated Artery/Lesion type: [place]' artery [place] vs. transplanted heart: [place]' heart Qualified Code(s): I25.10 - Atherosclerotic heart disease of [place]' coronary artery without angina pectoris Plan: Control the cholesterol, weight, blood pressure continue with aspirin 81 mg once a day (2) HTN (hypertension): Code(s): I10 - Essential (primary) hypertension Qualifiers: Hypertension type: primary hypertension Qualified Code(s): I10 - Essential (primary) hypertension Plan: Continue with blood pressure medication. Decrease salt intake and exercise patient on metoprolol 12.5 mg once a day and amlodipine 3.75 mg once a day (3) Sjogren's disease: Code(s): M35.00 - Sjogren syndrome, unspecified Plan: Continue with pilocarpine 5 mg once a day and cevilemine (4) Hypercholesterolemia: Code(s): E78.00 - Pure hypercholesterolemia, unspecified Plan: Avoid fried foods, chicken skin, eggs, butter margarine, pastries and meat. Be it pork or beef they have a lot of cholesterol April 2023 last blood work patient is on atorvastatin 40 mg once a day (5) GERD (gastroesophageal reflux disease): Code(s): K21.9 - Gastro-esophageal reflux disease without esophagitis Plan: Avoid the foods that causes that usually spicy foods, tomato products, juices, coffee, soda and foods that your sensitive to. After eating do not lie down, allow 3-4 hours before in lie down. And keep the head of bed above 30 degrees to avoid the acid from going up. (6) Generalized anxiety disorder: Comment: Decline any referral for counseling Code(s): F41.1 - Generalized anxiety disorder Plan: Continue with therapy (7) Status post lumbar spine surgery for decompression of spinal cord: Code(s): Z98.890 - Other specified postprocedural states Plan: Review of the notes was recently in the hospital for headache Orders: Orders Influenza [id number] Immunization Today Z23 - Encounter for immunization Medications: Refilled clonazepam 0.5 mg PO BEDTIME 90 days 90 tabs 1RF K14.6 - Glossodynia Coding Level of Care Code Est Pt Level 4 (56442) Diagnoses Coronary artery disease involving [place]lowa dee-ni' coronary artery of [place]' heart without angina pectoris I25.10 Associated angina: without angina Coronary Disease-Associated Artery/Lesion type: [place]' artery [place] vs. transplanted heart: [place]' heart Primary hypertension I10 Hypertension type: primary hypertension Sjogren's disease M35.00 Hypercholesterolemia E78.00 GERD (gastroesophageal reflux disease) K21.9 Generalized anxiety disorder F41.1 Status post lumbar spine surgery for decompression of spinal cord Z98.890
== END 2023-08-23 09:19 | disposition home or self-care (01) ==
PROVIDERS: PCP Internal Medicine; Visit Provider Internal Medicine
DX: I25.10 Atherosclerotic heart disease of native coronary artery without angina pectoris (principal); I10 Essential (primary) hypertension; M35.00 Sjogren syndrome, unspecified; E78.00 Pure hypercholesterolemia, unspecified; K21.9 Gastro-esophageal reflux disease without esophagitis; F41.1 Generalized anxiety disorder; Z98.890 Other specified postprocedural states; Z23 Encounter for immunization
CPT/HCPCS: 90471; 90686; 99214

== ENCOUNTER 2023-08-29 08:56 | Outpatient (AMB) | payer OTHER, SELFPAY ==
--- NOTE | 2023-08-29 10:56 | MHC.OFFWIV ---
Intake Vital Signs 08/29/23 11:04 Height 4 ft 11 in Weight 114 lb BMI 23.0 BP 122/70 Blood Pressure Location Rt brachial Position Sitting Pulse 74 Pulse Source Pulse Oximeter Temp 97.4 F Temp Source Temporal Artery Scan Pulse Oximetry (%) 98 Oxygen Delivery Method Room Air Intake Visit Reasons: EST/uti (lobby) Intake Note: pt is here for c/o uti Patient Tobacco Use Status: Never used Tobacco Allergies codeine Allergy (Unknown, Verified 08/29/23 11:04) Unknown hydrocodone [From Vicodin] Allergy (Unknown, Verified 08/29/23 11:04) Unknown tramadol Allergy (Unknown, Verified 08/29/23 11:04) Unknown Do you need a note to return to daycare/school/sports/work: Yes HPI HPI Comments History of Present Illness Details 78-year-old female history of UTIs presents for UTI symptoms. Patient has been experiencing lower vaginal pain burning with urination several days she attempted from the walk-in clinic but has been close. Denies fever chills new back pain. 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 Lumbar stenosis Vitamin D deficiency HTN (hypertension) CAD (coronary artery disease) Surgical History History of back surgery H/O spinal fusion Family History Father Heart disease Mother Breast cancer Social History Housing: Apartment Alcohol intake: never Patient Tobacco Use Status: Never used Tobacco e-Cigarette/Vaping Use: Never Used Second Hand Smoke Exposure: No service: No Current occupational status: retired Cognitive needs: No Hearing needs: No Vision needs: Yes Review of Systems Reports dysuria and Reports pelvic pain Physical Exam Vital Signs: Last Vital Signs Temp 97.4 F 08/29/23 11:04 Pulse 74 08/29/23 11:04 BP 122/70 08/29/23 11:04 Pulse Ox 98 08/29/23 11:04 Oxygen Delivery Method Room Air 08/29/23 11:04 BMI result Body Mass Index 23.0 Const General: healthy appearing, comfortable, no acute distress and alert Orientation/consciousness: patient oriented x3 Limitations: no limitations HEENT Head: Yes normal to inspection Ears: hearing grossly normal bilaterally Resp Effort & Inspection: normal respiratory effort and able to speak in complete sentences Cardio Rate: regular rate General: No CVA tenderness Back/Spine/Pelvis Back: No CVA tenderness Skin General skin exam: no rashes or lesions noted Neuro General: patient oriented x3 Extrem General: Yes normal to inspection Results AMB Urinalysis, Automated UA Leukoctes 500 Babs/uL Last Edit by Brooks Brar CMA on 08/29/23 11:13 UA Nitrite Negative Last Edit by Brooks Brar CMA on 08/29/23 11:13 UA Urobilinogen 0.2 mg/dL Last Edit by Brooks Brar CMA on 08/29/23 11:13 UA Protein 30 mg/dL Last Edit by Brooks Brar CMA on 08/29/23 11:13 UA pH 6.0 Last Edit by Brooks Brar CMA on 08/29/23 11:13 UA Blood 200 Davidson/uL Last Edit by Brooks Brar CMA on 08/29/23 11:13 UA Specific [place] 1.010 Last Edit by Brooks Brar CMA on 08/29/23 11:13 UA Ketone Negative Last Edit by Brooks Brar CMA on 08/29/23 11:13 UA Bilirubin 0 mg/dL Last Edit by Brooks Brar CMA on 08/29/23 11:13 UA Glucose 0 mg/dL Last Edit by Brooks Brar CMA on 08/29/23 11:13 Results Reviewed Results Reviewed: Laboratory Last Values Urine pH (Auto) 6.0 08/29/23 11:13 Specific [place] (Auto) 1.010 08/29/23 11:13 Urine Protein (Auto) 30 mg/dL 08/29/23 11:13 Glucose (UA)(Auto) 0 mg/dL 08/29/23 11:13 Urine Ketones (Auto) Negative 08/29/23 11:13 Urine Blood (Auto) 200 Davidson/uL 08/29/23 11:13 Urine Nitrite (Auto) Negative 08/29/23 11:13 Urine Bilirubin (Auto) 0 mg/dL 08/29/23 11:13 Urine Urobilinogen (Auto) 0.2 mg/dL 08/29/23 11:13 Leukocyte Esterase (Auto) 500 Babs/uL 08/29/23 11:13 Assessment & Plan Assessment & Plan (1) UTI (urinary tract infection): Code(s): N39.0 - Urinary tract infection, site not specified Plan signs and symptoms consistent with the UTI. urinalysis performed shows positive leukocytes. Will prescribed Keflex Discharge instructions, follow up and treatment are discussed with patient in my usual fashion. Alternatives in treatment are also discussed. The patient will return for worsening symptoms or as needed. Advised that any labs/imaging ordered will be followed up on and contact made if further treatment needed. Counseled that patient's condition may require further evaluation and/or treatment. Symptoms of concern for worsening disorder discussed in detail in my customary manner. Patient does verbalize understanding of the plan, there are no apparent barriers to communication. The patient is given the opportunity to ask questions and have them answered to his/her satisfaction Orders: Orders AMB Urinalysis Automated Today Z13.9 - Encounter for screening, unspecified Medications: New cephalexin 500 mg PO BID 7 days 14 caps 0RF Coding Level of Care Code Est Pt Level 3 (26912) Diagnoses UTI (urinary tract infection) N39.0
[2023-08-29 11:04] VITALS: BP 122/70; PULSE 74; TEMP 36.3; O2SAT 98; BMI 23.0
== END 2023-08-29 11:26 | disposition home or self-care (01) ==
PROVIDERS: PCP Internal Medicine; Visit Provider Physician Assistant
DX: N39.0 Urinary tract infection, site not specified (principal); R30.9 Painful micturition, unspecified
CPT/HCPCS: 81003; 99213

== ENCOUNTER 2023-09-07 09:00 | Outpatient (AMB) | payer OTHER, SELFPAY ==
--- NOTE | 2023-09-07 09:21 | AM.OFFWIN_ITS ---
Intake Vital Signs 09/07/23 09:22 Height 4 ft 11 in Weight 50.802 kg BMI 22.6 BP 130/70 Blood Pressure Location Rt brachial Position Sitting Pulse 52 Pulse Source Pulse Oximeter Temp 97.4 F Temp Source Temporal Artery Scan Intake Visit Reasons: EP, UTI? Intake Note: Pt is here c/o UTI symptoms. Patient Tobacco Use Status: Never used Tobacco Allergies codeine Allergy (Unknown, Verified 09/07/23 09:22) Unknown hydrocodone [From Vicodin] Allergy (Unknown, Verified 09/07/23:22) Unknown tramadol Allergy (Unknown, Verified 09/07/23:) Unknown Do you need a note to return to daycare/school/sports/work: No HPI HPI Comments History of Present Illness Details 923 78 year old femal hx of htn, anxiety pre ents w/ urinary frequency, urgency, dysuria X1 day worsening no fevers, chills, flank pain, nausea, vomiting, abdominal pain, chest pain or shortness of breath. Patient reports recurrent UTIs recently started started on estrace, and has been on 3 atbx per patient in a short amount of time. No recent urine cultures to review will send one today physical exam benign. Likely UTI ( 3+ lukeuks on dip) versus cystitis. Unlikely pyelonephritis, obstructing uropathy, sepsis. plan at this time is to discharge patient with antibiotics. Educated patient on diagnosis and treatment plan, answered all question, patient verbalizes understanding. At this time patient will be discharged home, advised to return with new or worsening symptoms. Educated on worrisome signs and symptoms and when to return. At this time I feel comfortable discharge home. 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 Lumbar stenosis Vitamin D deficiency HTN (hypertension) CAD (coronary artery disease) Surgical History History of back surgery H/O spinal fusion Family History Father Heart disease Mother Breast cancer Social History Housing: Apartment Alcohol intake: never Patient Tobacco Use Status: Never used Tobacco e-Cigarette/Vaping Use: Never Used Second Hand Smoke Exposure: No service: No Current occupational status: retired Cognitive needs: No Hearing needs: No Vision needs: Yes Review of Systems Const Details: Constitutional : No Weight loss, No Fever, No Chills, No Fatigue, No Malaise ENT/Mouth : No sore throat, No Rhinorrhea Eyes: No Eye Pain, No Swelling, No Redness Cardiovascular : No Chest Pain, No SOB, No Dyspnea on Exertion, No Orthopnea, No Edema, No Palpitations Respiratory : No Cough, No Sputum, No Wheezing Gastrointestinal : No Nausea, No Vomiting, No Diarrhea, No Constipation, No abdominal Pain, No Hematochezia, No Melena Genitourinary : No Dysuria, No Urinary Frequency, No Hematuria, Musculoskeletal : No joint pain, No Myalgias, No Joint Swelling Skin : No Skin Lesions, No rash Neuro : No Weakness, No Numbness, No Dizziness, No Headache Psych : No Anxiety/Panic, No Depression All other systems reviewed and are negative All systems reviewed & are unremarkable except as noted in HPI and below Physical Exam Vital Signs: Last Vital Signs Temp 97.4 F 09/07/23 09:22 Pulse 52 09/07/23 09:22 BP 130/70 09/07/23 09:22 BMI result Body Mass Index 22.6 vss Appearance: Alert.? Oriented X3.? No acute distress.? Head: Normocephalic, atraumatic, no step-offs or deformities Eyes: Pupils equal, round and reactive to light.? Neck: Normal inspection.? Neck supple.? CVS: Normal heart rate and rhythm.? Pulses normal.? Respiratory: No respiratory distress.? Breath sounds normal.? Abdomen: Soft and nontender.? Skin: Skin warm and dry.? Normal skin color.? Normal skin turgor.? Extremities: No lower extremity edema.? No calf ttp. 5/5 strength to bilateral upper and lower extremities Neuro: Oriented X 3.? No motor deficit.? No sensory deficit. CN 2-12 intact Results AMB Urinalysis, Automated UA Leukoctes 500 Babs/uL Last Edit by Raine Dasilva CMA on 09/07/23 09:36 UA Nitrite Negative Last Edit by Raine Dasilva CMA on 09/07/23 09:36 UA Urobilinogen 0.2 mg/dL Last Edit by Raine Dasilva, SONIYA on 09/07/23 09:36 UA Protein 15 mg/dL Last Edit by Raine Dasilva, SONIYA on 09/07/23 09:36 UA pH 6.0 Last Edit by Raine Dasilva, SONIYA on 09/07/23 09:36 UA Blood 80 [place]/uL Last Edit by Raine Dasilva, [employer] on 09/07/23 09:36 UA Specific [place] 1.015 Last Edit by Raine Dasilva, [employer] on 09/07/23 09:3 6 UA Ketone Negative Last Edit by Raine Dasilva, SONIYA on 09/07/23 09:36 UA Bilirubin 0 mg/dL Last Edit by Raine Dasilva, SONIYA on 09/07/23 09:36 UA Glucose 0 mg/dL Last Edit by Raine Dasilva, SONIYA on 09/07/23 09:36 Assessment & Plan Assessment & Plan (1) UTI symptoms: Code(s): R39.9 - Unspecified symptoms and signs involving the genitourinary system Plan Take your medications as prescribed. If you were prescribed antibiotics today, it is important that you take your medication to their entirety, do not skip any doses, do not finish them early. Follow-up with your primary care provider this week. Return to the emergency department with new or worsening symptoms. Such as fevers, chills, chest pain, shortness of breath, nausea, vomiting, dizziness, headache, vision changes, lethargy In case of emergency call 911 Orders: Orders AMB Urinalysis Automated Today Z13.9 - Encounter for screening, unspecified UA CC w/rflx Micro + Cult Today N39.0 - Urinary tract infection, site not specified Medications: New cefuroxime axetil 250 mg PO BID 7 days 14 tabs 0RF phenazopyridine (Pyridium) 200 mg PO TID 6 tabs 0RF 6 doses Coding Level of Care Code Est Pt Level 3 (61370) Diagnoses UTI symptoms R39.9
[2023-09-07 09:22] VITALS: BP 130/70; PULSE 52; TEMP 36.3; BMI 22.6
== END 2023-09-07 10:43 | disposition home or self-care (01) ==
PROVIDERS: PCP Internal Medicine; Visit Provider Physician Assistant
DX: Z13.9 Encounter for screening, unspecified (principal); R39.9 Unspecified symptoms and signs involving the genitourinary system
CPT/HCPCS: 81003; 99213

== ENCOUNTER 2023-09-07 13:24 | Outpatient (REF) | payer OTHER, SELFPAY ==
[2023-09-07 13:35] LABS: Appearance Urine Turbid; Color Urine Yellow; Glucose Urine UA Negative (Negative); Leukocyte Esterase Urine Large (3+) (Negative); Nitrite Urine Negative (Negative); PH 6.5 (5.0-9.0); UMIC TRIGGER UACC YES; Urine Blood Moderate (2+) (Negative); Urine Ketones Negative (Negative); Urine Protein Trace mg/dL (Neg-Trace)
[2023-09-07 13:40] LABS: Bacteria Urine 4+ (None Seen); Hyaline Casts Urine 0-2 /LPF (0-2); Squamous Epithelial Cell Urine 0-2 /HPF (0-2); UACC Culture Trigger YES; WBC Urine >50 /HPF (0-5)
== END 2023-09-07 13:25 | disposition home or self-care (01) ==
LOC: HO.LNP 13:24
PROVIDERS: Visit Provider Physician Assistant
DX: N39.0 Urinary tract infection, site not specified (principal)
CPT/HCPCS: 81001; 83993; 87086; 87088; 87186

== ENCOUNTER 2023-09-15 08:16 | Outpatient (AMB) | payer OTHER, SELFPAY ==
--- NOTE | 2023-09-15 08:27 | AM.OFFWIN_ITS ---
Intake Vital Signs 09/15/23 08:28 Height 4 ft 11 in Weight 116 lb 5 oz BMI 23.5 BP 128/82 Blood Pressure Location Rt brachial Position Sitting Pulse 82 Oxygen Delivery Method Room Air Intake Visit Reasons: EP ?UTI Patient Tobacco Use Status: Never used Tobacco Allergies codeine Allergy (Unknown, Verified 09/15/23 08:33) Unknown hydrocodone [From Vicodin] Allergy (Unknown, Verified 09/15/23 08:33) Unknown tramadol Allergy (Unknown, Verified 09/15/23 08:33) Unknown Medication List - Last Reviewed 09/15/23 by Elieser Kwong MA acetaminophen (Acetaminophen Extra Strength) 500 mg PO QID PRN amlodipine 3.75 mg PO DAILY aspirin 81 mg PO DAILY atorvastatin 40 mg PO DAILY Bifidobacterium infantis (Align) 4 mg PO DAILY 90 days calcium citrate (Citracal) PO BID cefuroxime axetil 250 mg PO BID 7 days cephalexin 500 mg PO BID 7 days cevimeline 1 cap PO BID cholecalciferol (vitamin D3) 25 mcg PO .3x per week clonazepam 0.5 mg PO BEDTIME 90 days cranberry extract 200 mg PO DAILY cyclosporine 0.05% (Restasis) 1 drp ophthalmic (eye) BID docusate sodium (Stool Softener) 100 mg PO BID estradiol 0.01%(0.1mg/gram) (Estrace) 1 g vaginal 2XW gabapentin 300 mg PO BEDTIME 90 days Lactobacillus rhamnosus GG (Culturelle) 1 cap PO DAILY metoprolol succinate ER 12.5 mg (1/2 x 25 mg) PO DAILY mirtazapine 15 mg PO BEDTIME omeprazole 40 mg PO BID 90 days pilocarpine HCl 5 mg PO DAILY polyethylene glycol 3350 (Miralax) 17 grams PO DAILY psyllium husk (Metamucil) 0.4 grams orally; 3x a week zolpidem ER 6.25 mg PO BEDTIME PRN 90 days HPI EP ?UTI HPI Details Patient is 78-year-old female came in today to be evaluated for possible urinary tract infection Patient was seen August 29 in walk-in clinic for similar symptoms of frequency and discomfort suprapubic She was treated with cephalexin Urine culture grew E coli sensitive to multiple medications This time I am prescribing Macrobid 100 mg b.i.d. for 7 days We will resend cultures again. 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 Lumbar stenosis Vitamin D deficiency HTN (hypertension) CAD (coronary artery disease) Surgical History History of back surgery H/O spinal fusion Family History Father Heart disease Mother Breast cancer Social History Housing: Apartment Alcohol intake: never Patient Tobacco Use Status: Never used Tobacco e-Cigarette/Vaping Use: Never Used Second Hand Smoke Exposure: No service: No Current occupational status: retired Cognitive needs: No Hearing needs: No Vision needs: Yes Review of Systems Const All systems reviewed & are unremarkable except as noted in HPI and below Physical Exam Vital Signs: Last Vital Signs Pulse 82 09/15/23 08:28 BP 128/82 09/15/23 08:28 Oxygen Delivery Method Room Air 09/15/23 08:28 BMI result Body Mass Index 23.5 Const General: no acute distress Orientation/consciousness: patient oriented x3 Eyes General: appearance normal, both eyes and all related structures Resp Effort & Inspection: normal respiratory effort and able to speak in complete sentences Auscultation: clear to auscultation bilaterally Cardio Other: S1 S2 GI Other: Mild suprapubic discomfort with deep pressure General: Yes no CVA tenderness Back/Spine/Pelvis Back: no CVA tenderness Neuro General: patient oriented x3 Psych Mental Status: mental status grossly normal Results AMB Urinalysis, Automated UA Leukoctes 500 Bbas/uL Last Edit by Vesna Mcknight CMA on 09/15/23 08:38 UA Nitrite Negative Last Edit by Vesna Mcknight CMA on 09/15/23 08:38 UA Urobilinogen 0.2 mg/dL Last Edit by Vesna Mcknight CMA on 09/15/23 08:38 UA Protein 0 mg/dL Last Edit by Vesna Mcknight CMA on 09/15/23 08:38 UA pH 6.0 Last Edit by Vesna Mcknight CMA on 09/15/23 08:38 UA Blood 80 [place]/uL Last Edit by Vesna Mcknight CMA on 09/15/23 08:38 UA Specific [place] 1.010 Last Edit by Vesna Mcknight CMA on 09/15/23 08:38 UA Ketone Negative Last Edit by Vesna Mcknight CMA on 09/15/23 08:38 UA Bilirubin 0 mg/dL Last Edit by Vesna Mcknight CMA on 09/15/23 08:38 UA Glucose 0 mg/dL Last Edit by Vesna Mcknight CMA on 09/15/23 08:38 Results Reviewed Results Reviewed: Laboratory Last Values Urine pH (Auto) 6.0 09/15/23 08:36 Specific [place] (Auto) 1.010 09/15/23 08:36 Urine Protein (Auto) 0 mg/dL 09/15/23 08:36 Glucose (UA)(Auto) 0 mg/dL 09/15/23 08:36 Urine Ketones (Auto) Negative 09/15/23 08:36 Urine Blood (Auto) 80 [place]/uL 09/15/23 08:36 Urine Nitrite (Auto) Negative 09/15/23 08:36 Urine Bilirubin (Auto) 0 mg/dL 09/15/23 08:36 Urine Urobilinogen (Auto) 0.2 mg/dL 09/15/23 08:36 Leukocyte Esterase (Auto) 500 Babs/uL 09/15/23 08:36 Assessment & Plan Assessment & Plan (1) Suprapubic discomfort: Code(s): R10.2 - Pelvic and perineal pain (2) Cystitis: Code(s): N30.90 - Cystitis, unspecified without hematuria (3) Frequency of urination: Code(s): R35.0 - Frequency of micturition (4) Multiple medical problems: Code(s): R69 - Illness, unspecified Plan Patient is 78-year-old female came in today to be evaluated for possible urinary tract infection Patient was seen August 29 in walk-in clinic for similar symptoms of frequency and discomfort suprapubic She was treated with cephalexin Urine culture grew E coli sensitive to multiple medications This time I am prescribing Macrobid 100 mg b.i.d. for 7 days We will resend cultures again. There is no fever chills is no nausea vomiting there is no new back pain We talked about personal hygiene as well I would recommend that she cleans herself with the water rather than tissue paper after urinating and bowel movement Patient says that she already have appointment with urologist in October that was booked through her PCP Orders: Orders AMB Urinalysis Automated Today Z13.9 - Encounter for screening, unspecified Urine Culture Today N30.90 - Cystitis, unspecified without hematuria, R10.2 - Pelvic and perineal pain, R35.0 - Frequency of micturition Medications: New nitrofurantoin monohyd/m-cryst 100 mg (Macrobid) must administer with a meal/food 100 mg PO Q12H 20 caps 0RF 10 days Coding Level of Care Code Est Pt Level 3 (76157) Diagnoses Suprapubic discomfort R10.2 Cystitis N30.90 Frequency of urination R35.0 Multiple medical problems R69
[2023-09-15 08:28] VITALS: BP 128/82; PULSE 82; BMI 23.5
== END 2023-09-15 09:05 | disposition home or self-care (01) ==
PROVIDERS: PCP Internal Medicine; Visit Provider Internal Medicine
DX: R10.2 Pelvic and perineal pain (principal); N30.90 Cystitis, unspecified without hematuria; R35.0 Frequency of micturition; R69 Illness, unspecified
CPT/HCPCS: 81003; 99213

== ENCOUNTER 2023-09-15 11:20 | Outpatient (REF) | payer OTHER, SELFPAY | END 2023-09-15 11:21 | disposition home or self-care (01) | LOC: HO.LNP 11:20 | PROVIDERS: Visit Provider Internal Medicine | DX: R10.2 Pelvic and perineal pain (principal); N30.90 Cystitis, unspecified without hematuria; R35.0 Frequency of micturition | CPT/HCPCS: 87086; 87088; 87186 ==

== ENCOUNTER 2023-10-30 08:50 | Outpatient (REF) | payer OTHER, SELFPAY ==
[2023-10-30 16:20] LABS: Urine Cytology See Pathology rpt
== END 2023-10-30 08:51 | disposition home or self-care (01) ==
LOC: HO.LAB 08:50
PROVIDERS: PCP Internal Medicine; Visit Provider Urology
DX: R35.0 Frequency of micturition (principal); N30.90 Cystitis, unspecified without hematuria; N32.81 Overactive bladder; R32 Unspecified urinary incontinence
CPT/HCPCS: 81003; 87086; 88112; 99202

== ENCOUNTER 2023-10-30 08:50 | Outpatient (AMB) | payer OTHER, SELFPAY ==
--- NOTE | 2023-10-30 08:50 | A.OFFVIS_ITS ---
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 Past Medical history Xerostomia, CAD, Htn, lumbar stenosis Surgical history includes but is not limited to back surgery The patient complains of daytime urinary frequency every 1-2 hours, urinary incontinence, wears a pad, denies nocturia wakes up about 4 AM and leaks before getting to the bathroom, denies hematuria, has dysuria associated with UTI symptoms, denies history of kidney stones, denies history of nicotine use. She states she was prescribed medication for her bladder symptoms in the past that made her dry mouth worse I have reviewed chart, urine cultures reviewed, the patient was last treated for UTI in August. States she has had more that 4 UTIs this year. The patient states she was advised and is using OTC cranberry supplements. I have discussed workup to include evaluation of the upper tracts and consideration for cystoscopy evaluation. 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 Lumbar stenosis Vitamin D deficiency HTN (hypertension) CAD (coronary artery disease) Surgical History History of back surgery H/O spinal fusion Family History Father Heart disease Mother Breast cancer Social History Housing: Apartment Alcohol intake: never Patient Tobacco Use Status: Never used Tobacco e-Cigarette/Vaping Use: Never Used Second Hand Smoke Exposure: No service: No Current occupational status: retired Cognitive needs: No Hearing needs: No Vision needs: Yes Review of Systems Const All systems reviewed & are unremarkable except as noted in HPI and below Reports no additional complaints Eyes Reports no additional complaints ENT Reports no additional complaints Card Denies dyspnea Resp Denies cough and Denies dyspnea GI Reports no additional complaints Reports no additional complaints Musc Reports no additional complaints Skin/Breast Denies rash and Denies unusual bruising Neuro Reports no additional complaints Psych Reports no additional complaints Endo Reports no additional complaints Juan Miguel/Lymph Reports no additional complaints Aller/Immun Reports no additional complaints Physical Exam Const General: cooperative, healthy appearing and no acute distress Orientation/consciousness: patient oriented x3 HEENT Head: Yes normal to inspection, Yes normocephalic and Yes atraumatic Eyes Conjunctivae: conjunctivae normal Neck Neck: Yes normal visual inspection and Yes trachea midline Chest Chest palpation & inspection: normal inspection of the chest Resp Effort & Inspection: normal respiratory effort Cardio Rate: regular rate GI Inspection: Yes normal to inspection Skin General skin exam: no rashes or lesions noted Neuro General: patient oriented x3 Extrem General: No edema Psych Appearance: grossly normal Results AMB Urinalysis, Automated UA Leukoctes 70 Babs/uL Last Edit by TANIA Cervantes on 10/30/23 09:24 1+ Arpit Aguayo 10/30/23 09:24 UA Nitrite Negative Last Edit by TANIA Cervantes on 10/30/23 09:24 UA Urobilinogen 0.2 mg/dL Last Edit by TANIA Cervantes on 10/30/23 09:2 4 UA Protein 0 mg/dL Last Edit by TANIA Cervantes on 10/30/23 09:24 UA pH 6.0 Last Edit by TANIA Cervantes on 10/30/23 09:24 UA Blood 10 [place]/uL Last Edit by Arpit Acharyairez, RMA on 10/30/23 09:24 UA Specific [place] 1.005 Last Edit by Arpit Aguayo A on 10/30/23 09: 24 UA Ketone Negative Last Edit by Arpit Aguayo A on 10/30/23 09:24 UA Bilirubin 0 mg/dL Last Edit by Xinandres Acharyablanca A on 10/30/23 09:24 UA Glucose 0 mg/dL Last Edit by Xinandres Acharyablanca A on 10/30/23 09:24 Results Reviewed Results Reviewed: Laboratory Last Values Urine pH (Auto) 6.0 10/30/23 08:52 Specific [place] (Auto) 1.005 10/30/23 08:52 Urine Protein (Auto) 0 mg/dL 10/30/23 08:52 Glucose (UA)(Auto) 0 mg/dL 10/30/23 08:52 Urine Ketones (Auto) Negative 10/30/23 08:52 Urine Blood (Auto) 10 [place]/uL 10/30/23 08:52 Urine Nitrite (Auto) Negative 10/30/23 08:52 Urine Bilirubin (Auto) 0 mg/dL 10/30/23 08:52 Urine Urobilinogen (Auto) 0.2 mg/dL 10/30/23 08:52 Leukocyte Esterase (Auto) 70 Babs/uL 10/30/23 08:52 Collected: 09/15/23 Status: COMP Req#: [id number] Received: 09/15/23 Source: [facility] Sp Desc: Clean Cat Subm Dr: Xin Ponce MD Ordered: Urine Culture Procedure Result Verified Site Urine Culture Final 09/17/23 Organism 1 Escherichia coli Quant > 100,000 cfu/mL E coli M.I.C. RX --------- --- Ampicillin 4 S Ceftriaxone <=0.25 S Gentamicin <=1 S Levofloxacin <=0.12 S Nitrofurantoin <=16 S Trimethoprim/Sulfamethoxazole <=20 S Assessment & Plan Assessment & Plan (1) Frequency of urination: Code(s): R35.0 - Frequency of micturition (2) Cystitis: Code(s): N30.90 - Cystitis, unspecified without hematuria (3) UTI (urinary tract infection): Code(s): N39.0 - Urinary tract infection, site not specified (4) OAB (overactive bladder): Code(s): N32.81 - Overactive bladder (5) Urinary incontinence: Code(s): R32 - Unspecified urinary incontinence Plan Plan: renal US Myrbetriq 50 mg daily FU office cysto urine c/s, urine cytology Orders: Orders AMB Urinalysis Automated Today Z13.9 - Encounter for screening, unspecified Medications: New mirabegron ER (Myrbetriq) 50 mg PO DAILY 90 tabs 3RF Patient Instructions: The patient had an opportunity to ask questions regarding treatment plan. All questions were answered.Laboratory studies and physical exam results were discussed and reviewed in detail. No major barriers to understanding were identified. The patient expressed understanding and agreement with the above treatment plan. The patient is aware they should contact our office by phone for worsening of their current condition or the appearance of new symptoms. Compliance is encouraged with any medications and followup testing that is ordered. It is a privilege to be allowed the opportunity to participate in the urologic care of your patient. If you have any questions or concerns regarding treatment for the above conditions please do not hesitate to contact me. The office telephone contact is [phone]. This note is constructed in part using voice recognition software. While every effort has been made to ensure accuracy professional model errors may have been included. Yours sincerely, Jimmy Mcgill MD Coding Level of Care Code New Pt Level 4 (19874) Diagnoses Frequency of urination R35.0 Cystitis N30.90 UTI (urinary tract infection) N39.0 OAB (overactive bladder) N32.81 Urinary incontinence R32
== END 2023-10-30 10:06 | disposition home or self-care (01) ==
PROVIDERS: PCP Internal Medicine; Visit Provider Urology
DX: R35.0 Frequency of micturition (principal); N30.90 Cystitis, unspecified without hematuria; N39.0 Urinary tract infection, site not specified; N32.81 Overactive bladder; R32 Unspecified urinary incontinence; Z13.9 Encounter for screening, unspecified
CPT/HCPCS: 99204

== ENCOUNTER 2023-12-11 12:49 | Outpatient (REF) | payer OTHER, SELFPAY ==
--- NOTE | ~2023-12-11 | US_ITS ---
EXAMINATION: US RETROPERITONEAL COMPLETE (RENAL) CLINICAL INFORMATION: Overactive bladder. COMPARISON: CT abdomen and pelvis 04/21/2017. TECHNIQUE: Real-time imaging of the kidneys and bladder. FINDINGS: RIGHT KIDNEY: 9.6 x 3.6 x 4.6 cm (SAG x AP x TRV). The kidney is normal in size, contour, and echogenicity. Renal cortical thickness is normal. No calculi or focal parenchymal lesions. No hydronephrosis. LEFT KIDNEY: 9.1 x 5.0 x 3.9 cm (SAG x AP x TRV). The kidney is normal in size, contour, and echogenicity. Renal cortical thickness is normal. No calculi or focal parenchymal lesions. No hydronephrosis. BLADDER: Well distended and normal. Bilateral ureteral jets are demonstrated. Prevoid bladder volume is 320 mL. Postvoid bladder volume is 21.5 mL. US/US retroperitoneal comp IMPRESSION: 1. Normal appearance of the kidneys. 2. Minimal post void residual.
== END 2023-12-11 12:50 | disposition home or self-care (01) ==
LOC: HO.HMGCX 12:49
PROVIDERS: PCP Internal Medicine; Visit Provider Urology
DX: N32.81 Overactive bladder (principal); R35.0 Frequency of micturition; R10.2 Pelvic and perineal pain; N30.90 Cystitis, unspecified without hematuria
CPT/HCPCS: 76770

== ENCOUNTER 2023-12-14 08:37 | Outpatient (AMB) | payer OTHER, SELFPAY ==
[2023-12-14 08:41] VITALS: BP 138/86; PULSE 74; O2SAT 99; BMI 23.0
--- NOTE | 2023-12-14 08:41 | MHC.PC.OV ---
Vital Signs 12/14/23 08:41 Height 4 ft 11 in Weight 114 lb 0.2 oz BMI 23.0 BP 138/86 Blood Pressure Location Lt brachial Position Sitting Pulse 74 Pulse Source Pulse Oximeter Pulse Oximetry (%) 99 Oxygen Delivery Method Room Air Intake Visit Reasons: Burning mouth syndrome State Inspector Required: No Allergies codeine Allergy (Unknown, Verified 12/14/23 08:41) Unknown hydrocodone [From Vicodin] Allergy (Unknown, Verified 12/14/23 08:41) Unknown tramadol Allergy (Unknown, Verified 12/14/23 08:41) Unknown Tobacco use date assessed: 12/14/23 Fall risk assessment: No Falls in past year Last assessed Fall Risk: 12/14/23 Dental Screening Dental Screen Date: 12/14/23 Was dental information given to patient?: Patient has dentist HPI Burning mouth syndrome HPI Details 78-year-old female with a history of coronary artery disease non STEMI 2019 status post PCI lad and transient ischemic cardiomyopathy subsequently having PCI to LAD hypertension Sjogren's disease hypercholesterolemia GERD generalized anxiety disorder coming in for follow-up. Patient has a history of lumbar spinal surgery with a leak on the lumbar area.. Review of the notes had an ultrasound done under urologist due to overactive bladder showing normal appearance of the kidneys and minimal postvoid . Patient was given Myrbetriq 50 mg residual November 2023 patient also has followed up with Cardiology November 2023 Dr. Hussein. 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 How often do you have a drink containing alcohol?: Never 2. How many drinks containing alcohol do you have on a typical day when you are drinking?: 1 or 2 3. How often do you have six or more drinks on one occasion?: Never Total Score: 0 NGA-7 AMB Questionnaire NGA-7 Date NGA - 7 assessed: 12/14/23 Source: Developed by Drs. Kole Vazquez, Livia Marie, Caden Bowman and colleagues, with an educational justus from [employer]. Physical exam (Primary Care) Vital Signs: Last Vital Signs Pulse 74 12/14/23 08:41 BP 138/86 12/14/23 08:41 Pulse Ox 99 12/14/23 08:41 Oxygen Delivery Method Room Air 12/14/23 08:41 BMI result Body Mass Index 23.0 Tobacco/Smoking Status: Tobacco use Status Tobacco use date assessed 12/14/23 12/14/23 08:47 Patient Tobacco Use Status Never used Tobacco 12/14/23 08:47 e-Cigarette/Vaping Use Never Used 12/14/23 08:47 Thrive Assessment: Date of Thrive Assessment Date Thrive assessed 12/14/22 12/14/23 08:47 Const General: alert; No acute distress Eyes Conjunctivae: conjunctivae normal Resp Auscultation: clear to auscultation bilaterally Cardio Rate: regular rate Rhythm: regular rhythm GI Inspection: Yes normal to inspection Extrem General: Yes normal to inspection and No edema Assessment and Plan Assessment & Plan (1) CAD (coronary artery disease): Comment: s/p NSTEMI SOWMYA 06/03/2019, Code(s): I25.10 - Atherosclerotic heart disease of [place] coronary artery without angina pectoris Qualifiers: Coronary Disease-Associated Artery/Lesion type: [place] artery [place] vs. transplanted heart: [place] heart Associated angina: without angina Qualified Code(s): I25.10 - Atherosclerotic heart disease of [place] coronary artery without angina pectoris Plan: Control the cholesterol, weight, blood pressure, continue with aspirin 81 mg once a day (2) HTN (hypertension): Code(s): I10 - Essential (primary) hypertension Qualifiers: Hypertension type: primary hypertension Qualified Code(s): I10 - Essential (primary) hypertension Plan: Continue with blood pressure medication. Decrease salt intake and exercise amlodipine 3.75 mg once a day metoprolol 12.5 mg once a day (3) Hypercholesterolemia: Code(s): E78.00 - Pure hypercholesterolemia, unspecified Plan: Avoid fried foods, chicken skin, eggs, butter margarine, pastries and meat. 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 But post procedure needs 4 days of lying down (6) OAB (overactive bladder): Code(s): N32.81 - Overactive bladder Plan: Patient follows up with urology and has been placed on mirabegron (7) Generalized anxiety disorder: Comment: Decline any referral for counseling Code(s): F41.1 - Generalized anxiety disorder Plan: Continue with present medication (8) Burning mouth syndrome: Code(s): K14.6 - Glossodynia Plan: Continue with present medication Orders: Orders Comprehensive Met. Panel 5 Months E78.00 - Pure hypercholesterolemia, unspecified Thyroid Stimulating Hormone 5 Months E78.00 - Pure hypercholesterolemia, unspecified Lipid Panel 5 Months E78.00 - Pure hypercholesterolemia, unspecified Vitamin D 25-OH Total 5 Months E78.00 - Pure hypercholesterolemia, unspecified Complete Blood Count Auto Diff 5 Months E78.00 - Pure hypercholesterolemia, unspecified Free T4 (Free Thyroxine) 5 Months E78.00 - Pure hypercholesterolemia, unspecified Vitamin B12 and Folate 5 Months E78.00 - Pure hypercholesterolemia, unspecified Coding Level of Care Code Est Pt Level 4 (37717) Diagnoses Coronary artery disease involving ven[place] coronary artery of [place] heart without angina pectoris I25.10 Coronary Disease-Associated Artery/Lesion type: [place] artery [place] vs. 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
== END 2023-12-14 09:14 | disposition home or self-care (01) ==
PROVIDERS: PCP Internal Medicine; Visit Provider Internal Medicine
DX: I25.10 Atherosclerotic heart disease of native coronary artery without angina pectoris (principal); M35.00 Sjogren syndrome, unspecified; I10 Essential (primary) hypertension; E78.00 Pure hypercholesterolemia, unspecified; K21.9 Gastro-esophageal reflux disease without esophagitis; G97.82 Other postprocedural complications and disorders of nervous system; N32.81 Overactive bladder; F41.1 Generalized anxiety disorder; K14.6 Glossodynia
CPT/HCPCS: 99214

== ENCOUNTER 2023-12-28 09:27 | Outpatient (AMB) | payer OTHER, SELFPAY ==
--- NOTE | 2023-12-28 09:32 | A.OFFVIS_ITS ---
Intake Intake Visit Reasons: cysto/US Intake Note: Patient presents today for a CYSTOSCOPY Procedure: Meds: Myrbetriq Allergies to Antibiotic: No Known Allergies Blood Thinner: Apirin Disposable Uro-G Cystoscope Cannula: Lot: [id number] Exp: 04/02/2025 Manager Alliance Required: No Accompanied by: Self / Same As Patient Allergies codeine Allergy (Unknown, Verified 12/28/23 09:33) Unknown hydrocodone [From Vicodin] Allergy (Unknown, Verified 12/28/23 09:33) Unknown tramadol Allergy (Unknown, Verified 12/28/23 09:33) Unknown HPI HPI Comments History of Present Illness Details Kavita is being evaluated for recurrent UTI she is here for office cystoscopy. She was last evaluated on 10/30/2023, started on Myrbetriq 50 mg daily for urinary symptoms of frequency. She is here in follow-up and had renal cell performed. Urine cytology sent on 10/30/2023-negative for malignant cells. Renal ultrasound performed on 12/11/2023-kidneys within normal limits. Cystoscopy findings: Multifocal erythematous changes no noted suggestive of cystitis Review of chart: 10/30/2023 Kavita is an 78-year-old female who is here for evaluation for recurrent UTI's. Past Medical history Xerostomia, CAD, Htn, lumbar stenosis Surgical history includes but is not limited to back surgery The patient complains of daytime urinary frequency every 1-2 hours, urinary incontinence, wears a pad, denies nocturia wakes up about 4 AM and leaks before getting to the bathroom, denies hematuria, has dysuria associated with UTI symptoms, denies history of kidney stones, denies history of nicotine use. She states she was prescribed medication for her bladder symptoms in the past that made her dry mouth worse I have reviewed chart, urine cultures reviewed, the patient was last treated for UTI in August. States she has had more that 4 UTIs this year. The patient states she was advised and is using OTC cranberry supplements. I have discussed workup to include evaluation of the upper tracts and consideration for cystoscopy evaluation. Plan: Cystoscopy findings consistent with cystitis. 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 Lumbar stenosis Vitamin D deficiency HTN (hypertension) CAD (coronary artery disease) Surgical History (Updated 12/28/23 @ 09:34 by TANIA Cervantes) Hx of cystoscopy History of back surgery H/O spinal fusion Family History Father Heart disease Mother Breast cancer Social History Housing: Apartment Alcohol intake: never Patient Tobacco Use Status: Never used Tobacco e-Cigarette/Vaping Use: Never Used Second Hand Smoke Exposure: No service: No Current occupational status: retired Cognitive needs: No Hearing needs: No Vision needs: Yes Office Procedures Cystoscopy Consent Discussed risk and benefit or proposed procedure with the patient. Information consent for procedure given to the patient. Discussed technical aspects, risks, benefits and alternatives in full. Addressed all of the patient's questions and concerns regarding the procedure. The patient demonstrated knowledge and under standing. They wish to proceed with this procedure. Preparation The patient was prepped in the usual manner. A specification manager was present and in the room. Genitalia was prepped with betadine solution in a sterile manner. Lidocaine Jelly 2% was placed into the urethra and 16Fr flexible Olympus cystoscope was inserted into the meatus after adequate lubrication. Procedure Time out per protocol performed. Bladder Inspection Bladder Inspection: The bladder was inspected in its entirety with utilization retroflexion displaying: Tumor(s): Erythematous changes noted Trabeculation: Not applicable Mucosal Erthema: [id number] Orifices: normal shape and position Urethra: normal Cystoscopy findings: Multifocal erythematous changes no noted suggestive of cystitis [id number] DISPOSABLE SCOPE URO-G FLEXIBLE SCOPE Procedure code (CPT) selection complete Office Meds lidocaine HCl 2 % mucosal jelly in applicator Performing Provider: Jimmy Mcgill MD Performing Location: [facility] [place] [facility] Administered by: Thaddeus Carvajal LPN on 12/28/23 09:57 Dose Route Admin Location Dispensed Lot Number Expiration Date NDC Client Relationship Consultant 10 mL intra-urethral 20 mL naproxen 500 mg tablet Performing Provider: Jimmy Mcgill MD Performing Location: [facility] [place] [facility] Administered by: Thaddeus Carvajal LPN on 12/28/23 09:57 Dose Route Admin Location Dispensed Lot Number Expiration Date NDC Client Relationship Consultant 500 mg PO 1 tab ciprofloxacin HCl 500 mg tablet Performing Provider: Jimmy Mcgill MD Performing Location: [facility] [place] [facility] Administered by: Thaddeus Carvajal LPN on 12/28/23 09:57 Dose Route Admin Location Dispensed Lot Number Expiration Date NDC Client Relationship Consultant 500 mg PO 1 tab Results AMB Urinalysis, Automated UA Leukoctes 125 Babs/uL Last Edit by TANIA Cervatnes on 12/28/23 09:54 2+ Arpit Aguayo 12/28/23 09:54 UA Nitrite Positive Last Edit by TANIA Cervantes on 12/28/23 10:19 UA Nitrite previously reported as Negative Arpit Aguayo 12/28/23 10:19 UA Urobilinogen 0.2 mg/dL Last Edit by TANIA Cervantes on 12/28/23 09:5 4 UA Protein 15 mg/dL Last Edit by TANIA Cervantes on 12/28/23 09:54 UA pH 7.0 Last Edit by TANIA Cervantes on 12/28/23 09:54 UA Blood 25 [place]/uL Last Edit by TANIA Cervantes on 12/28/23 09:54 1+ Arpit Aguayo 12/28/23 09:54 UA Specific [place] 1.010 Last Edit by TANIA Cervantes on 12/28/23 09: 54 UA Ketone Negative Last Edit by TANIA Cervantes on 12/28/23 09:54 UA Bilirubin 0 mg/dL Last Edit by TANIA Cervantes on 12/28/23 09:54 UA Glucose 0 mg/dL Last Edit by TANIA Cervantes on 12/28/23 09:54 Results Reviewed Results Reviewed: Laboratory Last Values Urine pH (Auto) 7.0 12/28/23 09:52 Specific [place] (Auto) 1.010 12/28/23 09:52 Urine Protein (Auto) 15 mg/dL 12/28/23 09:52 Glucose (UA)(Auto) 0 mg/dL 12/28/23 09:52 Urine Ketones (Auto) Negative 12/28/23 09:52 Urine Blood (Auto) 25 [place]/uL 12/28/23 09:52 Urine Nitrite (Auto) Positive 12/28/23 09:52 Urine Bilirubin (Auto) 0 mg/dL 12/28/23 09:52 Urine Urobilinogen (Auto) 0.2 mg/dL 12/28/23 09:52 Leukocyte Esterase (Auto) 125 Babs/uL 12/28/23 09:52 Date of Service: 12/11/23 EXAMINATION: US RETROPERITONEAL COMPLETE (RENAL) CLINICAL INFORMATION: Overactive bladder. COMPARISON: CT abdomen and pelvis 04/21/2017. TECHNIQUE: Real-time imaging of the kidneys and bladder. FINDINGS: RIGHT KIDNEY: 9.6 x 3.6 x 4.6 cm (SAG x AP x TRV). The kidney is normal in size, contour, and echogenicity. Renal cortical thickness is normal. No calculi or focal parenchymal lesions. No hydronephrosis. LEFT KIDNEY: 9.1 x 5.0 x 3.9 cm (SAG x AP x TRV). The kidney is normal in size, contour, and echogenicity. Renal cortical thickness is normal. No calculi or focal parenchymal lesions. No hydronephrosis. BLADDER: Well distended and normal. Bilateral ureteral jets are demonstrated. Prevoid bladder volume is 320 mL. Postvoid bladder volume is 21.5 mL. IMPRESSION: 1. Normal appearance of the kidneys. 2. Minimal post void residual. Assessment & Plan Assessment & Plan (1) Frequency of urination: Code(s): R35.0 - Frequency of micturition (2) Cystitis: Code(s): N30.90 - Cystitis, unspecified without hematuria (3) UTI (urinary tract infection): Code(s): N39.0 - Urinary tract infection, site not specified (4) OAB (overactive bladder): Code(s): N32.81 - Overactive bladder (5) Urinary incontinence: Code(s): R32 - Unspecified urinary incontinence Plan Cystoscopy findings consistent with cystitis. Antibiotic suppressive therapy Bactrim daily Orders: Orders AMB Cystoscopy 12/28/23 N32.81 - Overactive bladder, R35.0 - Frequency of micturition, N39.41 - Urge incontinence Urine Culture 12/28/23 N39.0 - Urinary tract infection, site not specified AMB Urinalysis Automated 12/28/23 Z13.9 - Encounter for screening, unspecified Medications: New sulfamethoxazole-trimethoprim 800-160 mg (Bactrim DS) 1 tab PO BID 10 tabs 0RF sulfamethoxazole-trimethoprim 400-80 mg (Bactrim) 1 tab PO DAILY 45 tabs 0RF Coding Level of Care Code Est Pt Level 4 (95823) Diagnoses Frequency of urination R35.0 Cystitis N30.90 UTI (urinary tract infection) N39.0 OAB (overactive bladder) N32.81 Urinary incontinence R32 CPT Codes Cystoscopy - CPT: 32081-[id number] ([id number])
== END 2023-12-28 10:26 | disposition home or self-care (01) ==
PROVIDERS: PCP Internal Medicine; Visit Provider Urology
DX: N30.90 Cystitis, unspecified without hematuria (principal)
CPT/HCPCS: 52000; 99214

== ENCOUNTER 2023-12-28 09:27 | Outpatient (REF) | payer OTHER, SELFPAY | END 2023-12-28 09:28 | disposition home or self-care (01) | LOC: HO.LAB 09:27 | PROVIDERS: PCP Internal Medicine; Visit Provider Urology | DX: N39.0 Urinary tract infection, site not specified (principal); N32.81 Overactive bladder; R35.0 Frequency of micturition; N39.41 Urge incontinence | CPT/HCPCS: 52000; 81003; 87086; 99212 ==

== ENCOUNTER 2024-03-01 09:33 | Outpatient (REF) | payer OTHER, SELFPAY ==
[2024-03-01 10:56] LABS: Appearance Urine Turbid; Color Urine Yellow; Glucose Urine UA Negative (Negative); Leukocyte Esterase Urine Large (3+) (Negative); Nitrite Urine Negative (Negative); PH 6.5 (5.0-9.0); UMIC TRIGGER UA YES; Urine Blood Small (1+) (Negative); Urine Ketones Negative (Negative); Urine Protein Negative (Neg-Trace)
[2024-03-01 11:15] LABS: Bacteria Urine 2+ (None Seen); WBC Urine >50 /HPF (0-5)
== END 2024-03-01 09:34 | disposition home or self-care (01) ==
LOC: HO.HMGCLDS 09:33
PROVIDERS: PCP Internal Medicine; Visit Provider Urology
DX: N39.0 Urinary tract infection, site not specified (principal)
CPT/HCPCS: 81001; 87086

== ENCOUNTER 2024-03-28 10:07 | Outpatient (AMB) | payer OTHER, SELFPAY ==
--- NOTE | 2024-03-28 10:11 | A.OFFVIS_ITS ---
Intake Visit Reasons: 3m follow up Intake Note: Patient presents today for a 3 months follow-up: Meds- Myrbetriq Allergies to Antibiotic- No Known Allergies Blood Thinner- Aspirin PVR, 100 mL Assistant Corporation Counsel Required: No Accompanied by: Self / Same As Patient Allergies codeine Allergy (Unknown, Verified 03/28/24 10:13) Unknown hydrocodone [From Vicodin] Allergy (Unknown, Verified 03/28/24 10:13) Unknown tramadol Allergy (Unknown, Verified 03/28/24 10:13) Unknown Medication List - Last Reconciled 03/28/24 by Jimmy Mcgill MD acetaminophen (Acetaminophen Extra Strength) 500 mg PO QID PRN amlodipine 3.75 mg PO DAILY aspirin 81 mg PO DAILY atorvastatin 40 mg PO DAILY Bifidobacterium infantis (Align) 4 mg PO DAILY 90 days calcium citrate (Citracal) PO BID cevimeline 1 cap PO BID cholecalciferol (vitamin D3) 25 mcg PO .3x per week clonazepam 0.5 mg PO BEDTIME 90 days cranberry extract 400 mg PO DAILY cyclosporine 0.05% (Restasis) 1 drp ophthalmic (eye) BID docusate sodium (Stool Softener) 100 mg PO BID estradiol 0.01%(0.1mg/gram) (Estrace) 1 g vaginal 2XW gabapentin 300 mg PO BEDTIME 90 days Lactobacillus rhamnosus GG (Culturelle) 1 cap PO DAILY metoprolol succinate ER 12.5 mg (1/2 x 25 mg) PO DAILY mirabegron ER (Myrbetriq) 50 mg PO DAILY mirtazapine 15 mg PO BEDTIME nitrofurantoin monohyd/m-cryst 100 mg (Macrobid) 100 mg PO BID 3 days omeprazole 40 mg PO BID 90 days pilocarpine HCl 5 mg PO DAILY polyethylene glycol 3350 (Miralax) 17 grams PO DAILY psyllium husk (Metamucil) 0.4 grams orally; 3x a week zolpidem ER 6.25 mg PO BEDTIME PRN 90 days HPI Comments Details: 03/28/24--Kavita is an 78-year-old female who is here for evaluation for recurrent UTI's and OAB symptoms. Past Medical history Xerostomia, CAD, Htn, lumbar stenosis Surgical history includes but is not limited to back surgery. She is currently on Keflex antibiotic suppression therapy. Pt had UTI symptoms last month. She was treated with Macrobid. She states currently she is doing well denies dysuria or gross hematuria. plan Cont. Myrbetriq 25 mg daily, cranberry supplementation, discont Abx suppression, fu in 4 months. Review of chart: 12/28/23--Kavita is being evaluated for recurrent UTI she is here for office cystoscopy. She was last evaluated on 10/30/2023, started on Myrbetriq 50 mg daily for urinary symptoms of frequency. She is here in follow-up and had renal cell performed. Urine cytology sent on 10/30/2023-negative for malignant cells. Renal ultrasound performed on 12/11/2023-kidneys within normal limits. Cystoscopy findings: Multifocal erythematous changes no noted suggestive of cystitis. Plan: Cystoscopy findings consistent with cystitis. Antibiotic suppressive therapy Bactrim daily 10/30/2023 Kavita is an 78-year-old female who is here for evaluation for recurrent UTI's. Past Medical history Xerostomia, CAD, Htn, lumbar stenosis Surgical history includes but is not limited to back surgery The patient complains of daytime urinary frequency every 1-2 hours, urinary incontinence, wears a pad, denies nocturia wakes up about 4 AM and leaks before getting to the bathroom, denies hematuria, has dysuria associated with UTI symptoms, denies history of kidney stones, denies history of nicotine use. She states she was prescribed medication for her bladder symptoms in the past that made her dry mouth worse. I have reviewed chart, urine cultures reviewed, the patient was last treated for UTI in August. States she has had more that 4 UTIs this year. The patient states she was advised and is using OTC cranberry supplements. I have discussed workup to include evaluation of the upper tracts and consideration for cystoscopy evaluation. 03/28/24--plan Cont. 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 Lumbar stenosis Vitamin D deficiency HTN (hypertension) CAD (coronary artery disease) Surgical History Hx of cystoscopy History of back surgery H/O spinal fusion Family History Father Heart disease Mother Breast cancer Social History Housing: Apartment Alcohol intake: never Patient Tobacco Use Status: Never used Tobacco e-Cigarette/Vaping Use: Never Used Second Hand Smoke Exposure: No service: No Current occupational status: retired Cognitive needs: No Hearing needs: No Vision needs: Yes Review of Systems Const All systems reviewed & are unremarkable except as noted in HPI and below Reports no additional complaints Eyes Reports no additional complaints ENT Reports no additional complaints Card Reports no additional complaints Resp Reports no additional complaints GI Reports no additional complaints Reports as per HPI Musc Reports no additional complaints Skin/Breast Reports system reviewed and no additional complaints, except as documented Neuro Reports no additional complaints Psych Reports no additional complaints Endo Reports no additional complaints Juan Miguel/Lymph Reports no additional complaints Aller/Immun Reports no additional complaints Office Procedures Post Void Residual Post Residual Void Post Void Residual (PVR): 100 [id number] Void Residual by ultrasound Results AMB Urinalysis, Automated UA Leukoctes 0 Babs/uL Last Edit by TANIA Cervantes on 03/28/24 10:29 UA Nitrite Negative Last Edit by TANIA Cervantes on 03/28/24 10:29 UA Urobilinogen 0.2 mg/dL Last Edit by TANIA Cervantes on 03/28/24 10:2 9 UA Protein 0 mg/dL Last Edit by TANIA Cervantes on 03/28/24 10:29 UA pH 6.5 Last Edit by TANIA Cervantes on 03/28/24 10:29 UA Blood 25 Davidson/uL Last Edit by TANIA Cervantes on 03/28/24 10:29 1+ Arpit Aguayo 03/28/24 10:29 UA Specific [place] 1.010 Last Edit by TANIA Cervantes on 03/28/24 10: 29 UA Ketone Negative Last Edit by TANIA Crevantes on 03/28/24 10:29 UA Bilirubin 0 mg/dL Last Edit by TANIA Cervantes on 03/28/24 10:29 UA Glucose 0 mg/dL Last Edit by TANIA Cervantes on 03/28/24 10:29 Results Reviewed Results Reviewed: Laboratory Last Values Urine pH (Auto) 6.5 03/28/24 10:28 Specific [place] (Auto) 1.010 03/28/24 10:28 Urine Protein (Auto) 0 mg/dL 03/28/24 10:28 Glucose (UA)(Auto) 0 mg/dL 03/28/24 10:28 Urine Ketones (Auto) Negative 03/28/24 10:28 Urine Blood (Auto) 25 Davidson/uL 03/28/24 10:28 Urine Nitrite (Auto) Negative 03/28/24 10:28 Urine Bilirubin (Auto) 0 mg/dL 03/28/24 10:28 Urine Urobilinogen (Auto) 0.2 mg/dL 03/28/24 10:28 Leukocyte Esterase (Auto) 0 Babs/uL 03/28/24 10:28 Collected: 03/01/24 Status: COMP Req#: [id number] Received: 03/01/24-1027 Source: [facility] Sp Desc: Clean Cat Subm Dr: Jimmy Mcgill MD Ordered: Urine Culture Procedure Result Verified Urine Culture Final 03/03/24 Organism 1 Streptococcus viridans group Quant > 100,000 cfu/mL Susceptibility not routinely performed on this isolate. Assessment & Plan Assessment & Plan (1) Frequency of urination: Code(s): R35.0 - Frequency of micturition Category: Medical (2) Cystitis: Code(s): N30.90 - Cystitis, unspecified without hematuria Category: Medical (3) UTI (urinary tract infection): Code(s): N39.0 - Urinary tract infection, site not specified Category: Medical (4) OAB (overactive bladder): Code(s): N32.81 - Overactive bladder Category: Medical (5) Urinary incontinence: Code(s): R32 - Unspecified urinary incontinence Category: Medical Plan Cont. Myrbetriq 25 mg daily, cranberry supplementation, discont Abx suppression, fu in 4 months Orders: Orders AMB Post Void Residual by ultrasound Today N39.8 - Other specified disorders of urinary system AMB Urinalysis Automated Today Z13.9 - Encounter for screening, unspecified Medications: Refilled mirabegron ER (Myrbetriq) 50 mg PO DAILY 90 tabs 3RF Discontinued cephalexin Discontinued Reason: Doctor's Order 250 mg PO ONCE 90 days 90 caps 1RF UTI suppression N39.0 - Urinary tract infection, site not specified Coding Level of Care Code Est Pt Level 4 (95853) Diagnoses Frequency of urination R35.0 Cystitis N30.90 UTI (urinary tract infection) N39.0 OAB (overactive bladder) N32.81 Urinary incontinence R32 CPT Codes Post Residual Void - PVR CPT Code: 02557-Vfob Void Residual by ultrasound ([id number])
== END 2024-03-28 10:52 | disposition home or self-care (01) ==
PROVIDERS: PCP Internal Medicine; Visit Provider Urology
DX: R35.0 Frequency of micturition (principal); N30.90 Cystitis, unspecified without hematuria; N39.0 Urinary tract infection, site not specified; N32.81 Overactive bladder; R32 Unspecified urinary incontinence; Z13.9 Encounter for screening, unspecified
CPT/HCPCS: 99214

== ENCOUNTER → 2024-03-28 10:07 | Outpatient (BNVA) | payer OTHER, SELFPAY | PROVIDERS: PCP Internal Medicine; Visit Provider Urology | DX: R35.0 Frequency of micturition (principal); R32 Unspecified urinary incontinence; N30.90 Cystitis, unspecified without hematuria; N39.0 Urinary tract infection, site not specified; N32.81 Overactive bladder | CPT/HCPCS: 51798; 81003; 99212 ==

== ENCOUNTER 2024-04-12 15:08 | Outpatient (REF) | payer OTHER, SELFPAY ==
[2024-04-12 16:39] LABS: Appearance Urine Cloudy; Color Urine Yellow; Glucose Urine UA Negative (Negative); Leukocyte Esterase Urine Large (3+) (Negative); Nitrite Urine Negative (Negative); PH 7.5 (5.0-9.0); UMIC TRIGGER UA YES; Urine Blood Moderate (2+) (Negative); Urine Ketones Negative (Negative); Urine Protein Negative (Neg-Trace)
[2024-04-12 16:42] LABS: Bacteria Urine None Seen (None Seen); Hyaline Casts Urine 0-2 /LPF (0-2); WBC Urine >50 /HPF (0-5)
== END 2024-04-12 15:09 | disposition home or self-care (01) ==
LOC: HO.HMGCLDS 15:08
PROVIDERS: PCP Internal Medicine; Visit Provider Urology
DX: N39.0 Urinary tract infection, site not specified (principal)
CPT/HCPCS: 81001; 87086

== ENCOUNTER 2024-04-14 04:28 | Emergency (ER) | payer OTHER, SELFPAY ==
--- NOTE | ~2024-04-14 | CT_ITS ---
EXAMINATION: CT abdomen pelvis w IV con CLINICAL INFORMATION: Reason for Exam abd pain COMPARISON: No prior CT available for comparison. TECHNIQUE: Multidetector volumetric imaging was performed from the superior aspect of the liver through the pubic symphysis 85 mL Omnipaque 350 injected Sagittal and coronal reformatted images were obtained on the technologist's workstation. This CT examination was performed using dose optimization techniques as appropriate, variously including the following: *Automated exposure control *Adjustment of mA and/or kV according to patient size (this includes techniques or standardized protocols for targeted exams where dose is matched to indication/reason for exam; i.e. extremities or head) *Use of iterative reconstruction technique DLP: 296 mGy-cm FINDINGS: LOWER THORAX: Included lung bases are clear. HEPATOBILIARY: No focal hepatic lesions. No biliary ductal dilatation. GALLBLADDER: Distended gallbladder, no gallstones. SPLEEN: Spleen is normal in size. PANCREAS: No focal mass or ductal dilatation. STOMACH AND GASTROINTESTINAL TRACT: Stomach is grossly unremarkable. No evidence of bowel obstruction. There is circumferential wall thickening involving the almost the entire colon and sigmoid colon, nonspecific CT finding and can be seen in patient with infection or inflammatory process, colitis, IBD, less commonly neoplastic. Ischemia is in the differential however is less likely given the large segment of involvement. ADRENALS: No adrenal nodules. KIDNEYS/URETERS: No hydronephrosis, stones or solid mass lesions. URINARY BLADDER: Partially decompressed. PELVIC VISCERA: There is left adnexal cyst 2.7 cm most likely of left ovarian origin, no free fluid or air in the pelvis. No bulky adenopathy. PERITONEUM: No free air or fluid. LYMPH NODES: No lymphadenopathy. VASCULAR:Abdominal aorta normal in size, no aneurysm found. 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 There is a fluid-filled cystic mass lower back measures 7 x 5.3 cm extending from the posterior element of vertebrae through the paravertebral muscle and subcutaneous fat abutting the skin dermis. The attenuation of which is similar to CSF fluid and may be synovial cyst or dural sac/nerve sheet cysts. CT/CT abdomen pelvis w IV con IMPRESSION: 1. There is circumferential wall thickening involving the almost the entire colon and sigmoid colon, nonspecific CT finding and can be seen in patient with infection or inflammatory process, colitis, IBD, less commonly neoplastic. Ischemia is in the differential however is less likely given the large segment of involvement. 2. Left adnexal cyst 2.7 cm most likely of left ovarian origin. Findings are overwhelmingly likely to represent a benign functional cyst and no followup imaging recommended. 3. 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 4. Large Fluid-filled cystic mass lower back 7 x 5.3 cm extending from the posterior element of vertebrae through the paravertebral muscle and subcutaneous fat abutting the skin dermis. The attenuation of which is similar to CSF fluid and may be synovial cyst or dural sac/versus nerve sheath cyst, recommend contrast-enhanced lumbar spine MRI for further investigation..
[2024-04-14 04:31] VITALS: BP 112/60; BP 133/68; PULSE 76; RESP 18; O2SAT 95; BMI 22.1
[2024-04-14 04:49] LABS: Basophils Percent Auto 0.3 % (0-2); Eosinophils Percent Auto 0.2 % (0-4); Hematocrit 40.8 % (37.0-47.0); Hemoglobin 13.6 g/dl (12.0-16.0); Imm Gran Abs Auto 0.04 X10*3/uL (0.00-0.03); Imm Gran Pct Auto 0.4 % (0.0-0.4); Lymphocytes Absolute Auto 0.3 X10*3/uL (1.2-4.9); MANUAL DIFF FLAG SCAN; Mean Corpuscular HGB Conc 33.3 g/dl (31.0-35.0); Mean Corpuscular Hemoglobin 31.1 pg (27.0-33.0); Mean Corpuscular Volume 93.4 fL (80.0-98.0); Mean Platelet Volume 9.9 fL (9.4-12.3); Monocytes Absolute Auto 0.2 X10*3/uL (0.1-1.2); Neutrophils Absolute Auto 9.8 x10*3/uL (2.0-8.3); Neutrophils Percent Auto 94.1 % (45-73); Platelet Count 141 X10*3/uL (160-400); Red Blood Count 4.37 X10*6/uL (4.20-5.50); Red Cell Distribution Width 12.5 % (11.0-16.0); SCAN SMEAR FLAG 1; White Blood Count 10.4 X10*3/uL (4.8-10.8)
[2024-04-14 05:04] LABS: Alanine Aminotransferase 14 U/L (0-31); Albumin Level 4.3 g/dL (3.5-5.0); Alkaline Phosphatase 60 U/L (39-117); Anion Gap 13 (12-20); Aspartate Amino Transferase 17 U/L (5-31); Bilirubin Total 0.6 mg/dL (0.0-1.0); Blood Urea Nitrogen 14 mg/dL (9-16); Calcium 9.3 mg/dL (8.4-10.2); Carbon Dioxide 23 mmol/L (22-29); Chloride 108 mmol/L (96-108); Creatinine Clr Calc Pharmacy 33.2; Estimated Glomerular Filt Rate 55; Glucose Random 156 mg/dL (60-115); Lipase 37 U/L (8-78); Potassium 3.8 mmol/L (3.3-5.1); Sodium 140 mmol/L (135-145); Total Protein 6.8 g/dL (6.5-8.0)
[2024-04-14 05:21] LABS: SLIDE REVIEW VERIFIED
[2024-04-14 06:02] VITALS: BP 117/66; PULSE 74; RESP 16; TEMP 36.7; O2SAT 94
--- NOTE | 2024-04-14 06:38 | ED.GENADULT ---
HPI - General Adult General Chief complaint: Nausea/Vomiting/Diarrhea Stated complaint: nausea, vomiting Time Seen by Provider: 04/14/24 06:37 Source: patient and EMS Mode of arrival: EMS Limitations: no limitations History of Present Illness ED Provider: Madonna Luke PA-C HPI narrative: Patient is an 78 year old assigned female at with a history of CAD, HTN, GERD, Sjogren's, OAB, and recurrent UTIs - follows with Dr. Mendoza, presenting to the emergency department today with abdominal pain, diarrhea, and nausea. Patient states that she has been on 2 different antibiotics over the last month for a recurrent UTI. Patient states that she was recently started on a new one on 04/13/2024. Patient states that she woke up with lower abdominal pain and multiple episodes of diarrhea. Patient states that her roomate did have c.diff. Patient denies any dizziness, lightheadedness, vomiting, fever, chills, blurry vision, double vision, loss of vision, chest pain, difficulty breathing, shortness of breath, back pain, night sweats, pain with urination, increased urinary frequency, increased urinary urgency, blood in her urine or stool, syncope or a near syncopal episode, recent trauma or falls, bowel incontinence, bladder incontinence, bowel retention, bladder retention, or any other complaints at this time. Onset (ago): hour(s) Location: abdomen Radiation: non-radiation Severity: mild Severity scale (1-10): 3 Relieving factors: none Exacerbating factors: none Associated symptoms: nausea/vomiting Treatments prior to arrival: none Related Data Home Medications ?Medication ?Instructions ?Recorded ?Confirmed aspirin 81 mg tablet,delayed 81 mg PO DAILY 09/16/20 03/28/24 release atorvastatin 40 mg tablet 40 mg PO DAILY 09/16/20 03/28/24 docusate sodium 100 mg capsule 100 mg PO BID 09/16/20 03/28/24 (Stool Softener) polyethylene glycol 3350 17 gram 17 g PO DAILY 09/16/20 03/28/24 oral powder packet (Miralax) Lactobacillus rhamnosus GG 10 1 cap PO DAILY 03/11/21 03/28/24 billion cell capsule (Culturelle) amlodipine 2.5 mg tablet 3.75 mg PO DAILY 09/10/21 03/28/24 cholecalciferol (vitamin D3) 25 25 mcg PO .3x per week 09/10/21 03/28/24 mcg (1,000 unit) capsule calcium citrate [Citracal] PO BID 07/29/22 03/28/24 cyclosporine 0.05 % eye drops in a 1 drp ophthalmic (eye) BID 07/29/22 03/28/24 dropperette (Restasis) psyllium husk 0.4 gram capsule 0.4 g PO .COMPLEX 02/27/23 03/28/24 (Metamucil) acetaminophen 500 mg tablet 500 mg PO QID PRN 05/01/23 03/28/24 (Acetaminophen Extra Strength) cranberry extract 200 mg capsule 400 mg PO DAILY 03/28/24 03/28/24 Previous Rx's ?Medication ?Instructions ?Recorded metoprolol succinate 25 mg 12.5 mg (1/2 x 25 mg) PO DAILY #90 03/29/23 tablet,extended release 24 hr tabs Bifidobacterium infantis 4 mg 4 mg PO DAILY 90 days #90 caps 11/27/23 capsule (Align) gabapentin 300 mg capsule 300 mg PO BEDTIME 90 days #90 caps 12/12/23 zolpidem 6.25 mg tablet,extended 6.25 mg PO BEDTIME PRN insomnia 90 01/24/24 release,multiphase days #90 tabs estradiol 0.01% (0.1 mg/gram) 1 g vaginal 2XW #42.5 grams 02/07/24 vaginal cream (Estrace) mirtazapine 15 mg tablet 15 mg PO BEDTIME #90 tabs 02/19/24 clonazepam 0.5 mg disintegrating 0.5 mg PO BEDTIME 90 days #90 tabs 02/28/24 tablet omeprazole 40 mg capsule,delayed 40 mg PO BID 90 days #180 caps 03/24/24 release pilocarpine HCl 5 mg tablet 5 mg PO DAILY PM #90 tabs 03/24/24 mirabegron 50 mg tablet,extended 50 mg PO DAILY #90 tabs 03/28/24 release 24 hr (Myrbetriq) cevimeline 30 mg capsule 1 cap PO BID #180 caps 04/10/24 nitrofurantoin 100 mg PO BID 5 days #10 caps 04/12/24 monohydrate/macrocrystals 100 mg capsule (Macrobid) Allergies Allergy/AdvReac Type Severity Reaction Status Date / Time codeine Allergy Unknown Unknown Verified 04/14/24 04:36 hydrocodone [From Vicodin] Allergy Unknown Unknown Verified 04/14/24 04:36 tramadol Allergy Unknown Unknown Verified 04/14/24 04:36 Review of Systems Constitutional: Constitutional: Reports no additional constitutional complaints, Denies chills, Denies fever(s) and Denies night sweats Eyes: Eyes: Reports no additional eye complaints, Denies blurry vision, Denies change in vision, Denies diplopia, Denies eye discharge, Denies loss of vision and Denies eye pain ENT: Denies dizziness Cardiovascular: Cardiovascular: Reports no additional cardiovascular complaints, Denies chest pain, Denies lightheadedness, Denies Loss of Consciousness and Denies dyspnea Respiratory: Respiratory: Reports no additional respiratory complaints and Denies dyspnea Gastrointestinal: Gastrointestinal: Reports no additional gastrointestinal complaints, Reports abdominal pain, Denies melena, Denies hematochezia, Denies change in bowel habits, Denies change in stool character, Reports diarrhea and Reports nausea Genitourinary: Genitourinary: Denies hematuria, Denies urinary frequency, Denies dysuria, Denies urinary incontinence, Denies urinary hesitancy and Denies urinary urgency Musculoskeletal: Musculoskeletal: Reports no additional musculoskeletal complaints, Denies numbness and Denies tingling Neurologic: Denies dizziness, Denies loss of vision, Denies numbness and Denies tingling Psychiatric: Psychiatric: Reports no additional psychiatric complaints Endocrine: Endocrine: Reports no additional endocrine complaints Hematologic/Lymphatic: Hematologic/Lymphatic: Reports no additional hematologic/lymphatic complaints Allergic/Immunologic: Allergic/Immunologic: Reports no additional allergic/immunologic complaints COUNT INCLUDES THE [facility] Past Medical History Attestation statement: The following information was validated with the patient. 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 Lumbar stenosis Vitamin D deficiency HTN (hypertension) CAD (coronary artery disease) Surgical History Hx of cystoscopy History of back surgery H/O spinal fusion Family History Family History Father Heart disease Mother Breast cancer Social History Social History Housing: Apartment Alcohol intake: never Patient Tobacco Use Status: Never used Tobacco Smoked in Last 30 Days: No e-Cigarette/Vaping Use: Never Used Second Hand Smoke Exposure: No Use of substances other than those prescribed or required for medical reasons: No Advance Directives: No Advance Directives Information Provided: Yes Do you have a plan to hurt others: No Plan service: No Current occupational status: retired Cognitive needs: No Hearing needs: No Vision needs: Yes Physical Exam ED Vital Signs: Vital Signs - 24 hr 04/14/24 04:31 04/14/24 06:02 04/14/24 07:25 Temperature 98.0 F 98.1 F Pulse Rate 76 74 80 Respiratory Rate 18 16 18 Blood Pressure 133/68 117/66 162/82 H Pulse Oximetry 95 94 94 Oxygen Delivery Method Room Air Room Air Room Air 04/14/24 11:38 04/14/24 12:05 Temperature 97.6 F 97.6 F Pulse Rate 84 84 Respiratory Rate 13 13 Blood Pressure 138/80 138/80 Pulse Oximetry 96 96 Oxygen Delivery Method Room Air Room Air BMI result Body Mass Index 22.1 Const General: cooperative, no acute distress, alert and awake Nutritional Appearance: well nourished Orientation/consciousness: patient oriented x3 Limitations: no limitations HENMT Head: Yes normal to inspection and Yes atraumatic Ears: hearing grossly normal bilaterally and external ears normal General nose exam: Normal external nose present, no nasal discharge noted and no epistaxis Face and sinus: Yes normal facial exam, No abrasion and No laceration Mouth: Normal oral and palatal mucosa present, no drooling and no muffled voice Eyes General: appearance normal, both eyes and all related structures Periorbital: periorbital findings normal Eyelids: Yes eyelids normal Conjunctivae: conjunctivae normal Pupils: Equal, round and reactive pupils present EOM: EOMs intact bilaterally Neck Neck: Yes normal visual inspection, Yes full ROM and Yes no lymphadenopathy Chest Chest palpation & inspection: normal inspection of the chest Resp Effort & Inspection: normal respiratory effort and able to speak in complete sentences GI Inspection: Yes normal to inspection Palpation (GI): Soft to palpation, not firm, nontender, no guarding and not rigid Neuro General: patient oriented x3 and moves all extremities Cranial nerves: Yes Equal, round and reactive pupils present Cognition (Neuro): normal cognition Motor exam (neuro): 5/5 motor strength present throughout Sensory Exam: Normal double simultaneous stimulation for sensation Coordination: [id number] test normal Extrem General: Yes normal to inspection, Yes full ROM and Yes capillary refill normal Psych Appearance: grossly normal Mental Status: mental status grossly normal Affect: normal affect Attitude: cooperative Thought process: Normal thought process present Thought content: Normal thought content present Insight: Good insight present (Psych) Medications Administered Discontinued Medications Generic Name Dose Route Start Last Admin Trade Name Wanda PRN Reason Stop Dose Admin Sodium Chloride 1,000 mls @ 999 mls/hr 04/14/24 06:45 04/14/24 09:17 Ns IV 04/14/24 07:45 Infused .Q1H1M RADHA Infusion Ceftriaxone Sodium 1 gm/ 50 mls @ 100 mls/hr 04/14/24 06:45 04/14/24 08:36 Sodium Chloride IV 04/14/24 07:14 Infused ONCE ONE Infusion Iohexol 85 ml 04/14/24 08:05 04/14/24 08:05 Iohexol 350 Mg/Ml 100 Ml Infus..Btl IV 04/14/24 08:06 85 ml ONCE ONE Administration Medical Decision Making Medical Decision Making [facility] Narrative: Patient is an 78 year old assigned female at with a history of CAD, HTN, GERD, Sjogren's, OAB, and recurrent UTIs presenting to the emergency department today with diarrhea and weakness. Patient's physical exam was unremarkable. Patient's blood work was unremarkable. Patient's CT abdomen pelvis showed evidence of colitis, a left adnexal cyst that requires no further imaging, and a fluid-filled cystic mass of the low back that is chronic for the patient after a failed back surgery. Patient's clinical presentation is most consistent with a colitis that is likely further aggravated by the patient taking her medication with yogurt. I explained to the patient that she should continue her course of Macrobid for her UTI and avoid taking it with dairy products as she continues to have diarrhea. I explained my physical exam findings as well as all test results to the patient. I answered all questions asked by the patient. I stressed the importance of the patient taking her medication as prescribed. I stressed the importance of the patient following up with her primary care provider and her urologist. I stressed the importance of the patient returning to the emergency department immediately if her symptoms were to worsen or if she were to develop any dizziness, shortness of breath, difficulty breathing, chest pain, blurry vision, loss of vision, nausea, vomiting, abdominal pain, fever, chills, back pain, or any other complaints. Patient verbalized agreement and understanding with this treatment plan and discharge. Differential Diagnosis Differential Diagnoses: The differential diagnosis associated with the presentation includes Colitis Medication reaction Admission/Observation Consideration of admission/observation: Escalation of care including admission/observation considered Patient would have been admitted to the hospital had her work up had any findings where hospital admission was appropriate and her clinical presentation warranted hospital admission. Lab Data [facility] Lab Attestation statement: I reviewed the patient's lab results. My interpretation of these results are in the [facility] Rationale portion of this note. 04/14/24 04:45 04/14/24 04:45 Labs: Lab Results 04/14/24 04/14/24 Range/Units 04:45 07:23 WBC 10.4 (4.8-10.8) X10*3/uL RBC 4.37 (4.20-5.50) X10*6/uL Hgb 13.6 (12.0-16.0) g/dl Hct 40.8 (37.0-47.0) % MCV 93.4 (80.0-98.0) fL MCH 31.1 (27.0-33.0) pg MCHC 33.3 (31.0-35.0) g/dl RDW 12.5 (11.0-16.0) % Plt Count 141 L (160-400) X10*3/uL MPV 9.9 (9.4-12.3) fL Immature Gran % (Auto) 0.4 (0.0-0.4) % Neut % (Auto) 94.1 H (45-73) % Lymph % (Auto) 3.0 L (20-40) % [place] % (Auto) 2.0 (2-11) % Eos % (Auto) 0.2 (0-4) % Baso % (Auto) 0.3 (0-2) % Lymph # (Auto) 0.3 L (1.2-4.9) X10*3/uL [place] # (Auto) 0.2 (0.1-1.2) X10*3/uL Eos # (Auto) 0.0 (0.0-0.4) X10*3/uL Baso # (Auto) 0.0 (0.0-0.2) X10*3/uL Abs Immat Gran (auto) 0.04 H (0.00-0.03) X10*3/uL Absolute Neuts (auto) 9.8 H (2.0-8.3) x10*3/uL Absolute Nucleated RBC 0.000 (0.0-0.012) X10*3/uL Nucleated RBC % (auto) 0.0 (0.0-0.2) /100WBC Smear Tech's Comments VERIFIED Sodium 140 (135-145) mmol/L Potassium 3.8 (3.3-5.1) mmol/L Chloride 108 (96-108) mmol/L Carbon Dioxide 23 (22-29) mmol/L Anion Gap 13 (12-20) BUN 14 (9-16) mg/dL Creatinine 0.97 (0.5-1.4) mg/dL Estim Creat Clear Calc 33.2 Estimated GFR 55 Random Glucose 156 H (60-115) mg/dL Lactic Acid 1.3 (0.5-2.0) mmol/L Calcium 9.3 (8.4-10.2) mg/dL Total Bilirubin 0.6 (0.0-1.0) mg/dL AST 17 (5-31) U/L ALT 14 (0-31) U/L Alkaline Phosphatase 60 (39-117) U/L Total Protein 6.8 (6.5-8.0) g/dL Albumin 4.3 (3.5-5.0) g/dL Lipase 37 (8-78) U/L Independent Interpretation I performed an independent interpretation of an: CT Scan Interpretation: My interpretation is in agreement with the radiologist's impression of this imaging study. EXAMINATION: CT abdomen pelvis w IV con CLINICAL INFORMATION: Reason for Exam abd pain COMPARISON: No prior CT available for comparison. TECHNIQUE: Multidetector volumetric imaging was performed from the superior aspect of the liver through the pubic symphysis 85 mL Omnipaque 350 injected Sagittal and coronal reformatted images were obtained on the technologist's workstation. This CT examination was performed using dose optimization techniques as appropriate, variously including the following: *Automated exposure control *Adjustment of mA and/or kV according to patient size (this includes techniques or standardized protocols for targeted exams where dose is matched to indication/reason for exam; i.e. extremities or head) *Use of iterative reconstruction technique DLP: 296 mGy-cm FINDINGS: LOWER THORAX: Included lung bases are clear. HEPATOBILIARY: No focal hepatic lesions. No biliary ductal dilatation. GALLBLADDER: Distended gallbladder, no gallstones. SPLEEN: Spleen is normal in size. PANCREAS: No focal mass or ductal dilatation. STOMACH AND GASTROINTESTINAL TRACT: Stomach is grossly unremarkable. No evidence of bowel obstruction. There is circumferential wall thickening involving the almost the entire colon and sigmoid colon, nonspecific CT finding and can be seen in patient with infection or inflammatory process, colitis, IBD, less commonly neoplastic. Ischemia is in the differential however is less likely given the large segment of involvement. ADRENALS: No adrenal nodules. KIDNEYS/URETERS: No hydronephrosis, stones or solid mass lesions. URINARY BLADDER: Partially decompressed. PELVIC VISCERA: There is left adnexal cyst 2.7 cm most likely of left ovarian origin, no free fluid or air in the pelvis. No bulky adenopathy. PERITONEUM: No free air or fluid. LYMPH NODES: No lymphadenopathy. VASCULAR:Abdominal aorta normal in size, no aneurysm found. 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 There is a fluid-filled cystic mass lower back measures 7 x 5.3 cm extending from the posterior element of vertebrae through the paravertebral muscle and subcutaneous fat abutting the skin dermis. The attenuation of which is similar to CSF fluid and may be synovial cyst or dural sac/nerve sheet cysts. CT/CT abdomen pelvis w IV con IMPRESSION: 1. There is circumferential wall thickening involving the almost the entire colon and sigmoid colon, nonspecific CT finding and can be seen in patient with infection or inflammatory process, colitis, IBD, less commonly neoplastic. Ischemia is in the differential however is less likely given the large segment of involvement. 2. Left adnexal cyst 2.7 cm most likely of left ovarian origin. Findings are overwhelmingly likely to represent a benign functional cyst and no followup imaging recommended. 3. 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 4. Large Fluid-filled cystic mass lower back 7 x 5.3 cm extending from the posterior element of vertebrae through the paravertebral muscle and subcutaneous fat abutting the skin dermis. The attenuation of which is similar to CSF fluid and may be synovial cyst or dural sac/versus nerve sheath cyst, recommend contrast-enhanced lumbar spine MRI for further investigation.. Dictated By: Zaira Hightower MD Signed By: Electronically signed by Zaira Hightower MD 04/14/24 [id number] Radiology Impression Discussion of test interpretation with radiology: I have reviewed the radiologist's reading. Independent Historian Clinical information obtained from an independent historian. History obtained from or confirmed by: EMS (EMS provided additional history and confirmed the history provided by the patient.) Discharge Plan Discharge Clinical Impression: Diarrhea, Colitis Patient Disposition: Home, Self-Care Instructions: Acute Diarrhea (ED), Colitis (ED) Additional Instructions: Follow up with your primary care provider. Return to the emergency department immediately if your symptoms worsen or if you develop any dizziness, shortness of breath, difficulty breathing, chest pain, blurry vision, loss of vision, nausea, vomiting, abdominal pain, fever, chills, back pain, or any other complaints. Prescriptions: No Action metoprolol succinate 25 mg tablet extended release 24 hr 12.5 mg PO DAILY Qty: 90 1RF Align 4 mg capsule 4 mg PO DAILY 90 Days Qty: 90 3RF gabapentin 300 mg capsule 300 mg PO BEDTIME 90 Days Qty: 90 3RF zolpidem 6.25 mg tablet,ext release multiphase 6.25 mg PO BEDTIME PRN (Reason: insomnia) 90 Days Qty: 90 1RF estradiol [Estrace] 0.01 % (0.1 mg/gram) cream 1 g vaginal 2XW Qty: 42.5 0RF mirtazapine 15 mg tablet 15 mg PO BEDTIME Qty: 90 1RF clonazepam 0.5 mg tablet,disintegrating 0.5 mg PO BEDTIME 90 Days Qty: 90 0RF omeprazole 40 mg capsule,delayed release(DR/EC) 40 mg PO BID 90 Days Qty: 180 0RF pilocarpine HCl 5 mg tablet 5 mg PO DAILY Qty: 90 0RF cevimeline 30 mg capsule 1 cap PO BID Qty: 180 0RF nitrofurantoin monohyd/m-cryst [Macrobid] 100 mg capsule 100 mg PO BID 5 Days Qty: 10 0RF Rx Instructions: must administer with a meal/food atorvastatin 40 mg tablet 40 mg PO DAILY aspirin 81 mg tablet,delayed release (DR/EC) 81 mg PO DAILY docusate sodium [Stool Softener] 100 mg capsule 100 mg PO BID polyethylene glycol 3350 [Miralax] 17 gram powder in packet 17 g PO DAILY calcium citrate PO BID Culturelle 10 billion cell capsule 1 cap PO DAILY cholecalciferol (vitamin D3) 25 mcg (1,000 unit) capsule 25 mcg PO .3x per week amlodipine 2.5 mg tablet 3.75 mg PO DAILY psyllium husk [Metamucil] 0.4 gram capsule 0.4 g PO .COMPLEX Rx Instructions: 0.4 grams orally; 3x a week acetaminophen [Acetaminophen Extra Strength] 500 mg tablet 500 mg PO QID PRN cyclosporine [Restasis] 0.05 % dropperette 1 drp ophthalmic (eye) BID Myrbetriq 50 mg tablet extended release 24 hr 50 mg PO DAILY Qty: 90 3RF cranberry extract 200 mg capsule 400 mg PO DAILY Rx Instructions: administer with a meal Referrals: Elva Davison MD [Primary Care Provider] - Interventions: ED Discharge Assessment Last Done: 04/14/24 12:05 Discharge Date/Time: 04/14/24 12:06 Print Language: [place]
[2024-04-14 07:25] VITALS: BP 162/82; PULSE 80; RESP 18; TEMP 36.7; O2SAT 94
[2024-04-14] MEDS: 0.9 % Sodium Chloride 1,000 ML 999 ML IV (07:36)
[2024-04-14] MEDS: cefTRIAXone sodium 1 GM in 0.9 % Sodium Chloride 50 ML IV (07:36)
[2024-04-14 07:42] LABS: Lactic Acid 1.3 mmol/L (0.5-2.0)
[2024-04-14] MEDS: iohexoL 350 MG/ML 100 ML INFUS..BTL 85 ML IV (08:05)
--- NOTE | 2024-04-14 08:21 | PC.NURSE ---
Pt alert and oriented, breathing even and unlabored, skin slightly clammy. Reports 4 episodes of diarrhea starting around 130AM this morning, nauseous and upset stomach. Reports recent ABX use for UTI (Macrobid). Denies any cough, vomiting, CP or SOB. VSS, afebrile at this time.
[2024-04-14 11:38] VITALS: BP 138/80; PULSE 84; RESP 13; TEMP 36.4; O2SAT 96
[2024-04-14 12:05] VITALS: BP 138/80; PULSE 84; RESP 13; TEMP 36.4; O2SAT 96
--- NOTE | 2024-04-16 12:39 | PC.NURSE ---
PT NOTIFIED OF STREP INFECTION R EYE. ABX SENT IN FOR CEFTIN BY ARNAUD [place]AY. PT AWARE MED SENT TO PHARMACY
== END 2024-04-14 12:06 | disposition home or self-care (01) ==
PROVIDERS: Physician Assistant Medical; Emergency Provider Student in an Organized Health Care Education/Training Program; PCP Internal Medicine
DX: K52.9 Noninfective gastroenteritis and colitis, unspecified (principal); I10 Essential (primary) hypertension; Z87.440 Personal history of urinary (tract) infections
CPT/HCPCS: 36415; 74177; 80053; 83605; 83690; 85025; 87040; 87147; 87205; 96361; 96374; 99284; J0696; Q9967

== ENCOUNTER 2024-04-24 07:03 | Outpatient (REF) | payer OTHER, SELFPAY ==
[2024-04-24 10:40] LABS: MANUAL DIFF FLAG NO
[2024-04-24 10:42] LABS: Basophils Absolute Auto 0.1 X10*3/uL (0.0-0.2); Basophils Percent Auto 1.5 % (0-2); Eosinophils Absolute Auto 0.1 X10*3/uL (0.0-0.4); Eosinophils Percent Auto 2.1 % (0-4); Hematocrit 39.8 % (37.0-47.0); Hemoglobin 13.2 g/dl (12.0-16.0); Imm Gran Abs Auto 0.01 X10*3/uL (0.00-0.03); Imm Gran Pct Auto 0.3 % (0.0-0.4); Lymphocytes Percent Auto 29.5 % (20-40); Mean Corpuscular HGB Conc 33.2 g/dl (31.0-35.0); Mean Corpuscular Hemoglobin 31.4 pg (27.0-33.0); Mean Corpuscular Volume 94.8 fL (80.0-98.0); Mean Platelet Volume 10.1 fL (9.4-12.3); Monocytes Absolute Auto 0.4 X10*3/uL (0.1-1.2); Monocytes Percent Auto 11.2 % (2-11); Neutrophils Absolute Auto 1.9 x10*3/uL (2.0-8.3); Neutrophils Percent Auto 55.4 % (45-73); Platelet Count 206 X10*3/uL (160-400); Red Cell Distribution Width 12.6 % (11.0-16.0); White Blood Count 3.4 X10*3/uL (4.8-10.8)
[2024-04-24 11:11] LABS: Alanine Aminotransferase 15 U/L (0-31); Albumin Level 4.1 g/dL (3.5-5.0); Alkaline Phosphatase 53 U/L (39-117); Anion Gap 13 (12-20); Aspartate Amino Transferase 19 U/L (5-31); Bilirubin Total 0.4 mg/dL (0.0-1.0); Blood Urea Nitrogen 10 mg/dL (9-16); Calcium 9.4 mg/dL (8.4-10.2); Carbon Dioxide 26 mmol/L (22-29); Chloride 107 mmol/L (96-108); Cholesterol 147 mg/dL (<200); Estimated Glomerular Filt Rate > 60; Glucose Random 85 mg/dL (60-115); HDL Cholesterol 63 mg/dL (>40); LDL Cholesterol Calculated 59 mg/dL (<100); Potassium 3.8 mmol/L (3.3-5.1); Sodium 142 mmol/L (135-145); Total Protein 6.6 g/dL (6.5-8.0); Triglycerides 125 mg/dL (<150)
[2024-04-24 11:13] LABS: Free T4 (Free Thyroxine) 0.67 ng/dL (0.71-1.85); Thyroid Stimulating Hormone 6.01 uIU/mL (0.32-4.0); Vitamin D 25-OH Total 55.2 ng/mL (>30)
[2024-04-24 11:23] LABS: Folate 8.2 ng/mL (> or = 4.0); Vitamin B12 728 pg/mL (200-900)
== END 2024-04-24 07:04 | disposition home or self-care (01) ==
LOC: HO.HMGCLDS 07:03
PROVIDERS: PCP Internal Medicine; Visit Provider Internal Medicine
DX: E78.00 Pure hypercholesterolemia, unspecified (principal)
CPT/HCPCS: 36415; 80053; 80061; 82306; 82607; 82746; 84439; 84443; 85025

== ENCOUNTER 2024-05-02 11:01 | Outpatient (AMB) | payer OTHER, SELFPAY ==
[2024-05-02 11:03] VITALS: BP 128/62; PULSE 63; O2SAT 98; BMI 22.5
--- NOTE | 2024-05-02 11:03 | A.OFFPC_ITS ---
Vital Signs 05/02/24 11:03 Height 5 ft Weight 115 lb BMI 22.5 BP 128/62 Blood Pressure Location Lt brachial Position Sitting Pulse 63 Pulse Source Pulse Oximeter Pulse Oximetry (%) 98 Oxygen Delivery Method Room Air Intake Visit Reasons: Annual Exam Allergies nitrofurantoin Allergy (Intermediate, Verified 05/02/24 11:17) colitis codeine Allergy (Unknown, Verified 05/02/24 11:03) Unknown hydrocodone [From Vicodin] Allergy (Unknown, Verified 05/02/24 11:03) Unknown tramadol Allergy (Unknown, Verified 05/02/24 11:03) Unknown Medication List - Last Reconciled 05/02/24 by Elva Montero Po, acetaminophen (Acetaminophen Extra Strength) 500 mg PO QID PRN amlodipine 3.75 mg PO DAILY aspirin 81 mg PO DAILY atorvastatin 40 mg PO DAILY Bifidobacterium infantis (Align) 4 mg PO DAILY 90 days calcium citrate (Citracal) PO BID cephalexin 250 mg PO ONCE cevimeline 1 cap PO BID cholecalciferol (vitamin D3) 25 mcg PO .3x per week clonazepam 0.5 mg PO BEDTIME 90 days cranberry extract 400 mg PO DAILY cyclosporine 0.05% (Restasis) 1 drp ophthalmic (eye) BID docusate sodium (Stool Softener) 100 mg PO BID estradiol 0.01%(0.1mg/gram) (Estrace) 1 g vaginal 2XW gabapentin 300 mg PO BEDTIME 90 days metoprolol succinate ER 12.5 mg (1/2 x 25 mg) PO DAILY mirabegron ER (Myrbetriq) 50 mg PO DAILY mirtazapine 15 mg PO BEDTIME omeprazole 40 mg PO BID 90 days pilocarpine HCl 5 mg PO DAILY polyethylene glycol 3350 (Miralax) 17 grams PO DAILY varenicline (Tyrvaya) 1 spray intranasal BID zolpidem ER 6.25 mg PO BEDTIME PRN 90 days Tobacco use date assessed: 12/14/23 Fall risk assessment: No Falls in past year Last assessed Fall Risk: 05/02/24 Dental Screening Dental Screen Date: 12/14/23 HPI Annual Exam HPI Details 79-year-old female with coronary artery disease hypertension hypercholesterolemia GERD generalized anxiety disorder overactive bladder and burning mouth syndrome last seen in 12/09/2023. Review of the notes ER visit in 04/14/2024 for nausea vomiting diarrhea patient had recurrent UTI and is being followed up by Urology and had recent new antibiotic given had a CT of the abdomen showing colitis. 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 Lumbar stenosis Vitamin D deficiency HTN (hypertension) CAD (coronary artery disease) Surgical History Hx of cystoscopy History of back surgery H/O spinal fusion Family History Father Heart disease Mother Breast cancer Social History Housing: Apartment Alcohol intake: never Patient Tobacco Use Status: Never used Tobacco e-Cigarette/Vaping Use: Never Used Second Hand Smoke Exposure: No service: No Current occupational status: retired Cognitive needs: No Hearing needs: No Vision needs: Yes Questionnaire PHQ-9 Over the last 2 weeks, how often have you been bothered by any of the following problems? 1. Little interest or pleasure in doing things: several days 2. Feeling down, depressed, or hopeless: several days 3. Trouble falling or staying asleep, or sleeping too much: several days 4. Feeling tired or having little energy: not at all 5. Poor appetite or overeating: not at all 6. Feeling bad about yourself - or that you are a failure or have let yourself or your family down: not at all 7. Trouble concentrating on things, such as reading the newspaper or watching television: not at all 8. Moving or speaking so slowly that other people could have noticed. Or the opposite - being so fidgety or restless that you have been moving around a lot more than usual: not at all 9. Thoughts that you would be better off or of hurting yourself in some way: not at all Total score: 3 Depression Screening Interpretation: Negative Depression Screening Done: Yes Source: Developed by Drs. Kole Vazquez, Livia Marie, Caden Bowman and colleagues, with an educational justus from [employer]. Thrive Questionnaire Date Thrive assessed: 05/02/24 I am a: Patient What is your living situation today?: I have a steady place to live Within the past 12 months, did the food you bought not last and you didn't have the money to get more?: Never true Within the past 12 months, did you worry whether your food would run out before you got money to buy more?: Never true Do you have trouble paying for medicines?: No Do you have trouble getting transportation to medical appointments?: No Do you have trouble paying your heating and electricity bill?: No Do you have trouble taking care of your child, family member or friend?: No Do you have trouble with day-to-day activities such as bathing, preparing meals, shopping, managing finances, etc.?: No Are you currently unemployed and looking for a job?: No Are you interested in more education?: No Currently or been in a relationship where the following occur: no concerns reported THRIVE Score: 0 AUDIT C Alcohol Use Questionnaire (AUDIT-C) 1. How often do you have a drink containing alcohol?: Never 2. How many drinks containing alcohol do you have on a typical day when you are drinking?: 1 or 2 3. How often do you have six or more drinks on one occasion?: Never Total Score: 0 NGA-7 AMB Questionnaire NGA-7 Date NGA - 7 assessed: 12/14/23 Source: Developed by Drs. Kole Vazquez, Livia Marie, Caden Bowman and colleagues, with an educational justus from [employer]. Review of Systems Const Denies poor appetite and Denies weakness Eyes Denies no additional complaints ENT Reports Normal hearing present, Denies dizziness, Denies nasal congestion, Denies tinnitus and Denies sore throat Card Denies chest pain, Denies syncope, Denies rapid heart rate and Denies dyspnea Resp Denies cough and Denies dyspnea GI Denies change in stool character, Reports constipation, Denies diarrhea, Denies nausea and Denies vomiting Denies urinary frequency, Denies difficulty voiding and Denies dysuria Neuro Reports Normal hearing present, Denies confusion, Denies dizziness, Denies syncope and Denies weakness Psych Denies confusion Physical exam (Primary Care) Vital Signs: Oxygen Delivery Method Room Air 05/02/24 11:03 BMI result Body Mass Index 22.5 Tobacco/Smoking Status: Tobacco use Status Tobacco use date assessed 12/14/23 12/14/23 08:47 Patient Tobacco Use Status Never used Tobacco 04/14/24 06:39 e-Cigarette/Vaping Use Never Used 12/14/23 08:47 Depression Screening Interpretation: Negative Thrive Assessment: Date of Thrive Assessment Date Thrive assessed 12/14/22 12/14/23 08:47 Currently or been in a relationship where the following occur: no concerns reported Const General: No confusion Orientation/consciousness: No confusion HENMT Head: Yes normocephalic Ears: external ears normal and TM's normal bilaterally Face and sinus: Yes normal facial exam Mouth: moist mucous membranes Throat: Yes tonsils normal Eyes Conjunctivae: conjunctivae normal Pupils: Equal, round and reactive pupils present and Pupil accommodation reflex normal Direct Ophthalmoscopy: normal light reflex Neck Neck: No lymphadenopathy Thyroid: Thyroid normal Chest Chest palpation & inspection: normal inspection of the chest Resp Effort & Inspection: normal respiratory effort and no audible wheezes Auscultation: clear to auscultation bilaterally, no crackles, no wheezes and lung sounds not diminished Cardio Rate: regular rate Rhythm: regular rhythm Peripheral pulses: radial pulses present and dorsalis pedis present GI Other: guaiac negative Palpation (GI): no masses Auscultation: normal bowel sounds and normoactive bowel sounds Rectal Exam - Female: deferred Skin General skin exam: no rashes or lesions noted Rashes: no rashes Neuro General: No confusion Cranial nerves: Yes Equal, round and reactive pupils present and Yes Normal hearing present Cognition (Neuro): normal cognition Gait exam (Neuro): Normal gait present Motor exam (neuro): 5/5 motor strength present throughout Deep tendon reflexes (DTR's): Right brachioradialis reflex intensity grade: 2+, Left brachioradialis reflex intensity grade: 2+, Right patellar reflex intensity grade: 2+ and Left patellar reflex intensity grade: 2+ Extrem General: No edema Assessment and Plan Assessment & Plan (1) Annual physical exam: Code(s): Z00.00 - Encounter for general adult medical examination without abnormal findings Plan: Patient is advised to eat healthy, keep well hydrated, keep active and have adequate sleep. (2) CAD (coronary artery disease): Comment: s/p NSTEMI SOWMYA 06/03/2019, Code(s): I25.10 - Atherosclerotic heart disease of [place] coronary artery without angina pectoris Qualifiers: Coronary Disease-Associated Artery/Lesion type: [place] artery [place] vs . transplanted heart: [place] heart Associated angina: without angina Qualified Code(s): I25.10 - Atherosclerotic heart disease of [place] coronary artery without angina pectoris Plan: Control the cholesterol, weight, blood pressure, diabetes continue with aspirin 81 mg once a day (3) HTN (hypertension): Code(s): I10 - Essential (primary) hypertension Qualifiers: Hypertension type: primary hypertension Qualified Code(s): I10 - Essential (primary) hypertension Plan: Continue with blood pressure medication. Decrease salt intake and exercise patient on amlodipine 3.75 mg once a day metoprolol 12.5 mg once a day (4) Lumbar stenosis: Comment: f/u [facility], November 2021 MRI lumbar spinal stenosis with exiting nerve root impingement Code(s): M48.061 - Spinal stenosis, lumbar region without neurogenic claudication Qualifiers: Neurogenic claudication status: without neurogenic claudication Qualified Code(s): M48.061 - Spinal stenosis, lumbar region without neurogenic claudication Plan: Continue with gabapentin 300 mg at bedtime (5) Generalized anxiety disorder: Comment: Decline any referral for counseling Code(s): F41.1 - Generalized anxiety disorder Plan: Continue with clonazepam as needed (6) Sjogren's disease: Code(s): M35.00 - Sjogren syndrome, unspecified Plan: Patient has been placed on cevimeline to help with the burning mouth syndrome (7) Hypercholesterolemia: Code(s): E78.00 - Pure hypercholesterolemia, unspecified Plan: Avoid fried foods, chicken skin, eggs, butter margarine, pastries and meat. Be it pork or beef they have a lot of cholesterol takes atorvastatin 40 mg once a day LDL goal of less than 70 and triglyceride of less than 150 (8) GERD (gastroesophageal reflux disease): Code(s): K21.9 - Gastro-esophageal reflux disease without esophagitis Plan: Avoid the foods that causes that usually spicy foods, tomato products, juices, coffee, soda and foods that your sensitive to. After eating do not lie down, allow 3-4 hours before in lie down. And keep the head of bed above 30 degrees to avoid the acid from going up. (9) OAB (overactive bladder): Code(s): N32.81 - Overactive bladder Plan: Timed voiding meaning every 1-2 hours even if you do not feel like urinating empty the bladder, avoid drinks with high sweet content like juices or caffeine that makes her urinate, 2 hours before you sleep hold liquids so that in the morning you do not get the bladder to be too full. Patient on mirabegron follows up with urology (10) Recurrent UTI: Code(s): N39.0 - Urinary tract infection, site not specified Plan: Patient follows up with urology Orders: Orders Complete Blood Count Auto Diff 2 Months N32.81 - Overactive bladder XR DEXA axial skeleton Today M48.061 - Spinal stenosis, lumbar region without neurogenic claudication, M81.0 - Age-related osteoporosis without current pathological fracture Coding Level of Care Code Est Pt Prev Care >65y(26453) Diagnoses Annual physical exam Z00.00 Coronary artery disease involving [place] coronary artery of [place] heart without angina pectoris I25.10 Coronary Disease-Associated Artery/Lesion type: [place] artery [place] vs. transplanted heart: [place] heart Associated angina: without angina Primary hypertension I10 Hypertension type: primary hypertension Spinal stenosis of lumbar region without neurogenic claudication M48.061 Neurogenic claudication status: without neurogenic claudication Generalized anxiety disorder F41.1 Sjogren's disease M35.00 Hypercholesterolemia E78.00 GERD (gastroesophageal reflux disease) K21.9 OAB (overactive bladder) N32.81 Recurrent UTI N39.0 Additional Codes PHQ-9 - 24661 - PHQ-9 Billing: ([id number])
== END 2024-05-02 11:49 | disposition home or self-care (01) ==
PROVIDERS: PCP Internal Medicine; Visit Provider Internal Medicine
DX: Z00.00 Encounter for general adult medical examination without abnormal findings (principal); M35.00 Sjogren syndrome, unspecified; I25.10 Atherosclerotic heart disease of native coronary artery without angina pectoris; I10 Essential (primary) hypertension; M48.061 Spinal stenosis, lumbar region without neurogenic claudication; F41.1 Generalized anxiety disorder; E78.00 Pure hypercholesterolemia, unspecified; K21.9 Gastro-esophageal reflux disease without esophagitis; N32.81 Overactive bladder; N39.0 Urinary tract infection, site not specified
CPT/HCPCS: 99397

== ENCOUNTER 2024-05-31 09:46 | Outpatient (REF) | payer OTHER, SELFPAY ==
--- NOTE | ~2024-05-31 | MM_ITS ---
EXAMINATION: BONE DENSITOMETRY CLINICAL INDICATION: Age-related osteoporosis without current pathological fracture. COMPARISON: This is the patient's baseline examination. TECHNIQUE: Using a [employer] DXA System (software version: 13.1) manufactured by [employer], dual-energy x-ray absorptiometry was performed of the lumbar spine and left hip. The images are of good technical quality. Summary results are attached. FINDINGS: LEFT FEMUR, NECK: BMD 0.857 g/cm2, Z-score 1.2, T-score -1.3, osteopenia. LEFT FEMUR, TOTAL: BMD 0.871 g/cm2, Z-score 1.3, T-score -1.1, osteopenia. AP SPINE L2-L4 (excluding L1): The data of L1-L4 has been changed to exclude the L1 vertebral body, because degenerative sclerosis at this level may cause overestimation of lumbar spine density. BMD 1.150 g/cm2, Z-score 1.9, T-score -0.4, normal. IDENTIFIED RISK FACTORS: Menopause, height loss. HISTORY OF FRACTURE: None listed. MEDICATIONS: Calcium, vitamin D. MM/XR DEXA axial skeleton IMPRESSION: 1. DIAGNOSIS: Osteopenia based on the lowest T-score value of -1.3 in the femoral neck applying World Health Organization criteria. 2. 10-YEAR FRACTURE RISK PREDICTION, FRAX: Major osteoporotic fracture (clinical spine, forearm, hip or shoulder) 12.0%. Hip fracture 2.9%. 3. Treatment Recommendations: NOF guidelines recommend consideration for treatment in postmenopausal women and men age 50 and older presenting with the following: -A hip or vertebral (clinical or morphometric) fracture. -T-score less than or equal to -2.5 at the femoral neck or spine after appropriate evaluation to exclude secondary causes. -Low bone mass at the hip or spine and a 10-year fracture probability by FRAX of greater than or equal to 3% for hip fracture or greater than or equal to 20% for major osteoporotic fracture based on the [place] adapted WHO algorithm. 4. Other Recommendations: All treatment decisions require clinical judgment and consideration of individual patient factors, including patient preferences, comorbidities, previous drug use, risk factors not captured in the FRAX model (e.g. frailty, falls, vitamin D deficiency, increased bone turnover, interval significant decline in bone density) and possible under or overestimation of fracture risk by FRAX. Additional medical evaluation for secondary cause of low bone mineral density may be appropriate. FUTURE SCAN RECOMMENDATION: People with diagnosed cases of osteoporosis or at high risk for fracture should have regular bone mineral density tests. For patients eligible for Medicare, routine testing is allowed once every 2 years. The testing frequency can be increased to one year for patients who have rapidly progressing disease, those who are receiving or discontinuing medical therapy to restore bone mass, or have additional risk factors.
== END 2024-05-31 09:47 | disposition home or self-care (01) ==
LOC: HO.MAMMO 09:46
PROVIDERS: PCP Internal Medicine; Visit Provider Internal Medicine
DX: M81.0 Age-related osteoporosis without current pathological fracture (principal); M48.061 Spinal stenosis, lumbar region without neurogenic claudication
CPT/HCPCS: 77080

== ENCOUNTER 2024-06-09 08:35 | Emergency (ER) | payer OTHER, SELFPAY ==
[2024-06-09 08:40] VITALS: BP 186/99; PULSE 80; RESP 16; TEMP 36.4; O2SAT 97; BMI 22.7
--- NOTE | 2024-06-09 08:51 | ED_ITS ---
HPI - Female Genitourinary General Chief complaint: Urogenital-Female Stated complaint: UTI Time Seen by Provider: 06/09/24 08:43 Source: patient Mode of arrival: ambulatory Limitations: no limitations History of Present Illness HPI Narrative: This is 79 years old patient presented to the emergency department with urinary symptoms since by a.m.. She states she has burning during urination. She has history of recurrent UTI she was on Keflex for 3 month. She had a cystoscopy done by urology with negative cytology ,renal ultrasound as well which was within normal limits. Cystoscopy finding were multifocal erythematous changes consistent with cystitis. No fever no vomiting no systemic symptoms reported by the patient MD elicited complaint: dysuria Onset (ago): hour(s) (4) Severity: mild Female Urogenital Radiation: Non-Radiating Quality of pain: cramping Consistency: constant Exacerbating factors: none Related Data Home Medications ?Medication ?Instructions ?Recorded ?Confirmed aspirin 81 mg tablet,delayed 81 mg PO DAILY 09/16/20 05/02/24 release atorvastatin 40 mg tablet 40 mg PO DAILY 09/16/20 05/02/24 docusate sodium 100 mg capsule 100 mg PO BID 09/16/20 05/02/24 (Stool Softener) polyethylene glycol 3350 17 gram 17 g PO DAILY 09/16/20 05/02/24 oral powder packet (Miralax) amlodipine 2.5 mg tablet 3.75 mg PO DAILY 09/10/21 05/02/24 cholecalciferol (vitamin D3) 25 25 mcg PO .3x per week 09/10/21 05/02/24 mcg (1,000 unit) capsule calcium citrate [Citracal] PO BID 07/29/22 05/02/24 cyclosporine 0.05 % eye drops in a 1 drp ophthalmic (eye) BID 07/29/22 05/02/24 dropperette (Restasis) acetaminophen 500 mg tablet 500 mg PO QID PRN 05/01/23 05/02/24 (Acetaminophen Extra Strength) cranberry extract 200 mg capsule 400 mg PO DAILY 03/28/24 05/02/24 cephalexin 250 mg capsule 250 mg PO ONCE 05/02/24 05/02/24 varenicline 0.03 mg/spray nasal 1 spray intranasal BID 05/02/24 05/02/24 spray (Tyrvaya) Previous Rx's ?Medication ?Instructions ?Recorded metoprolol succinate 25 mg 12.5 mg (1/2 x 25 mg) PO DAILY #90 03/29/23 tablet,extended release 24 hr tabs Bifidobacterium infantis 4 mg 4 mg PO DAILY 90 days #90 caps 11/27/23 capsule (Align) gabapentin 300 mg capsule 300 mg PO BEDTIME 90 days #90 caps 12/12/23 zolpidem 6.25 mg tablet,extended 6.25 mg PO BEDTIME PRN insomnia 90 01/24/24 release,multiphase days #90 tabs estradiol 0.01% (0.1 mg/gram) 1 g vaginal 2XW #42.5 grams 02/07/24 vaginal cream (Estrace) mirtazapine 15 mg tablet 15 mg PO BEDTIME #90 tabs 02/19/24 clonazepam 0.5 mg disintegrating 0.5 mg PO BEDTIME 90 days #90 tabs 02/28/24 tablet omeprazole 40 mg capsule,delayed 40 mg PO BID 90 days #180 caps 03/24/24 release pilocarpine HCl 5 mg tablet 5 mg PO DAILY PM #90 tabs 03/24/24 mirabegron 50 mg tablet,extended 50 mg PO DAILY #90 tabs 03/28/24 release 24 hr (Myrbetriq) cevimeline 30 mg capsule 1 cap PO BID #180 caps 04/10/24 cefpodoxime 100 mg tablet 100 mg PO BID #10 tabs 06/09/24 Allergies Allergy/AdvReac Type Severity Reaction Status Date / Time nitrofurantoin Allergy Intermediate colitis Verified 06/09/24 08:43 codeine Allergy Unknown Unknown Verified 06/09/24 08:43 hydrocodone [From Vicodin] Allergy Unknown Unknown Verified 06/09/24 08:43 tramadol Allergy Unknown Unknown Verified 06/09/24 08:43 Review of Systems Constitutional: Constitutional: Reports no additional constitutional complaints ENT: Reports system reviewed and no additional complaints, except as documented Cardiovascular: Cardiovascular: Reports no additional cardiovascular complaints Respiratory: Respiratory: Reports no additional respiratory complaints PMFSH Past Medical History Attestation statement: The following information was validated with the patient. 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 Lumbar stenosis Vitamin D deficiency HTN (hypertension) CAD (coronary artery disease) Surgical History Hx of cystoscopy History of back surgery H/O spinal fusion Family History Family History Father Heart disease Mother Breast cancer Social History Social History Housing: Apartment Alcohol intake: never Patient Tobacco Use Status: Never used Tobacco e-Cigarette/Vaping Use: Never Used Second Hand Smoke Exposure: No Advance Directives: Yes Advance Directives Information Provided: No Advance Directives on File: No Do you have a plan to hurt others: No Plan service: No Current occupational status: retired Cognitive needs: No Hearing needs: No Vision needs: Yes Physical Exam Vital Signs: Vital Signs: Last Vital Signs Temp 97.6 F 06/09/24 08:40 Pulse 80 06/09/24 08:40 Resp 16 06/09/24 08:40 BP 186/99 H 06/09/24 08:40 Pulse Ox 97 06/09/24 08:40 O2 Del Method Room Air 06/09/24 08:40 BMI result Body Mass Index 22.7 Const: Other: Anxious appearing not acute distress General: cooperative Orientation/consciousness: patient oriented x3 Limitations: no limitations HEENT: Head: Yes normal to inspection Mouth: Normal oral and palatal mucosa present Neck: Neck: Yes normal visual inspection Chest: Chest palpation & inspection: normal inspection of the chest Resp: Effort & Inspection: normal respiratory effort Auscultation: clear to auscultation bilaterally Cardio: Jugular venous distension: no JVD Rate: regular rate Rhythm: regular rhythm GI: Inspection: Yes normal to inspection Palpation (GI): Soft to palpation, not firm and nontender Percussion: Yes normal to percussion Skin: General skin exam: no rashes or lesions noted Lesions: no lesions Rashes: no rashes Neuro: General: patient oriented x3 Cranial nerves: Yes CN's II-XII intact bilaterally Course Reevaluation(s) Reevaluation #1: UA noted, more than 50 WBC, we will discharge the patient on p.o. antibiotic pending urinary culture, she is nontoxic she looks well I do not think she needs any blood work today Time: 09:33 Medical Decision Making Medical Decision Making [facility] Narrative: Patient presented with UTI symptoms will obtain UA and reassess Differential Diagnosis Differential Diagnoses: The differential diagnosis associated with the presentation includes UTI/pyelonephritis/cystitis Admission/Observation Consideration of admission/observation: Escalation of care including admission/observation considered Lab Data [facility] Lab Attestation statement: I reviewed the patient's lab results. Labs: Lab Results 06/09/24 Range/Units 09:08 Urine Color Yellow Urine Appearance Turbid Urine pH 6.5 (5.0-9.0) Ur Specific [place] 1.015 (1.005-1.025) Urine Protein 100 (2+) H (Neg-Trace) mg/dL Urine Glucose (UA) Negative (Negative) mg/dL Urine Ketones Negative (Negative) mg/dL Urine Blood Large (3+) H (Negative) Urine Nitrite Negative (Negative) Ur Leukocyte Esterase Large (3+) H (Negative) Urine RBC >20 H (0-2) /HPF Urine WBC >50 H (0-5) /HPF Ur Squamous Epith Cells 0-2 (0-2) /HPF Urine Bacteria 1+ (None Seen) Hyaline Casts 0-2 (0-2) /LPF External Record Review External record reviewed: Inpatient record and Office record Prescription Management I considered prescription management with: Antibiotic Discharge Plan Discharge Clinical Impression: Acute UTI Patient Disposition: Home, Self-Care Instructions: Acute Urinary Retention in Women (ED) Additional Instructions: You urinalysis showed inflammatory cell (WBC) we will start you on antibiotic pending the culture result please call your primary care provider or Urology for follow-up. If culture negative you can discontinue the antibiotic Prescriptions: New cefpodoxime 100 mg tablet 100 mg PO BID Qty: 10 0RF Rx Instructions: must administer with a meal/food No Action metoprolol succinate 25 mg tablet extended release 24 hr 12.5 mg PO DAILY Qty: 90 1RF Align 4 mg capsule 4 mg PO DAILY 90 Days Qty: 90 3RF gabapentin 300 mg capsule 300 mg PO BEDTIME 90 Days Qty: 90 3RF zolpidem 6.25 mg tablet,ext release multiphase 6.25 mg PO BEDTIME PRN (Reason: insomnia) 90 Days Qty: 90 1RF estradiol [Estrace] 0.01 % (0.1 mg/gram) cream 1 g vaginal 2XW Qty: 42.5 0RF mirtazapine 15 mg tablet 15 mg PO BEDTIME Qty: 90 1RF clonazepam 0.5 mg tablet,disintegrating 0.5 mg PO BEDTIME 90 Days Qty: 90 0RF omeprazole 40 mg capsule,delayed release(DR/EC) 40 mg PO BID 90 Days Qty: 180 0RF pilocarpine HCl 5 mg tablet 5 mg PO DAILY Qty: 90 0RF cevimeline 30 mg capsule 1 cap PO BID Qty: 180 0RF atorvastatin 40 mg tablet 40 mg PO DAILY aspirin 81 mg tablet,delayed release (DR/EC) 81 mg PO DAILY docusate sodium [Stool Softener] 100 mg capsule 100 mg PO BID polyethylene glycol 3350 [Miralax] 17 gram powder in packet 17 g PO DAILY calcium citrate PO BID cholecalciferol (vitamin D3) 25 mcg (1,000 unit) capsule 25 mcg PO .3x per week amlodipine 2.5 mg tablet 3.75 mg PO DAILY cephalexin 250 mg capsule 250 mg PO ONCE Tyrvaya 0.03 mg/spray spray, metered, non-aerosol 1 spray intranasal BID Rx Instructions: administer into each nostril; approximately 12 hours apart acetaminophen [Acetaminophen Extra Strength] 500 mg tablet 500 mg PO QID PRN cyclosporine [Restasis] 0.05 % dropperette 1 drp ophthalmic (eye) BID Myrbetriq 50 mg tablet extended release 24 hr 50 mg PO DAILY Qty: 90 3RF cranberry extract 200 mg capsule 400 mg PO DAILY Rx Instructions: administer with a meal Referrals: Po,Elva Montero MD [Primary Care Provider] - 2 days Print Language: Kinyarwanda
[2024-06-09 09:15] LABS: Appearance Urine Turbid; Color Urine Yellow; Glucose Urine UA Negative (Negative); Leukocyte Esterase Urine Large (3+) (Negative); Nitrite Urine Negative (Negative); PH 6.5 (5.0-9.0); Specific Gravity - Urine 1.015 (1.005-1.025); UMIC TRIGGER UACC YES; Urine Blood Large (3+) (Negative); Urine Ketones Negative (Negative); Urine Protein 100 (2+) mg/dL (Neg-Trace)
[2024-06-09 09:18] LABS: Bacteria Urine 1+ (None Seen); Hyaline Casts Urine 0-2 /LPF (0-2); RBC Urine >20 /HPF (0-2); Squamous Epithelial Cell Urine 0-2 /HPF (0-2); UACC Culture Trigger YES; WBC Urine >50 /HPF (0-5)
[2024-06-09 09:41] VITALS: BP 149/89; PULSE 77; RESP 18; TEMP 36.6; O2SAT 97
== END 2024-06-09 09:42 | disposition home or self-care (01) ==
PROVIDERS: Emergency Provider Emergency Medicine; PCP Internal Medicine
DX: N39.0 Urinary tract infection, site not specified (principal); R30.0 Dysuria; R25.2 Cramp and spasm; Z79.899 Other long term (current) drug therapy
CPT/HCPCS: 81001; 87086; 99282; 99283

== ENCOUNTER 2024-06-14 07:21 | Outpatient (REF) | payer OTHER, SELFPAY ==
[2024-06-14 10:20] LABS: Appearance Urine Clear; Color Urine Yellow; Glucose Urine UA Negative (Negative); Leukocyte Esterase Urine Small (1+) (Negative); Nitrite Urine Negative (Negative); UMIC TRIGGER UA YES; Urine Blood Negative (Negative); Urine Ketones Negative (Negative); Urine Protein Negative (Neg-Trace)
[2024-06-14 10:26] LABS: Bacteria Urine None Seen (None Seen); Hyaline Casts Urine 0-2 /LPF (0-2); RBC Urine 0-2 /HPF (0-2)
== END 2024-06-14 07:22 | disposition home or self-care (01) ==
LOC: HO.HMGCLDS 07:21
PROVIDERS: PCP Internal Medicine; Visit Provider Urology
DX: N39.0 Urinary tract infection, site not specified (principal); B95.2 Enterococcus as the cause of diseases classified elsewhere
CPT/HCPCS: 81001; 87086; 87088; 87186

== ENCOUNTER 2024-07-08 11:03 | Outpatient (REF) | payer OTHER, SELFPAY ==
[2024-07-08 13:11] LABS: MANUAL DIFF FLAG NO
[2024-07-08 13:30] LABS: Basophils Absolute Auto 0.1 X10*3/uL (0.0-0.2); Basophils Percent Auto 1.3 % (0-2); Eosinophils Absolute Auto 0.1 X10*3/uL (0.0-0.4); Eosinophils Percent Auto 1.8 % (0-4); Hematocrit 39.2 % (37.0-47.0); Hemoglobin 13.2 g/dl (12.0-16.0); Imm Gran Abs Auto 0.01 X10*3/uL (0.00-0.03); Imm Gran Pct Auto 0.2 % (0.0-0.4); Lymphocytes Absolute Auto 1.2 X10*3/uL (1.2-4.9); Lymphocytes Percent Auto 25.6 % (20-40); Mean Corpuscular HGB Conc 33.7 g/dl (31.0-35.0); Mean Corpuscular Hemoglobin 31.8 pg (27.0-33.0); Mean Corpuscular Volume 94.5 fL (80.0-98.0); Monocytes Absolute Auto 0.5 X10*3/uL (0.1-1.2); Monocytes Percent Auto 11.2 % (2-11); Neutrophils Absolute Auto 2.7 x10*3/uL (2.0-8.3); Neutrophils Percent Auto 59.9 % (45-73); Platelet Count 158 X10*3/uL (160-400); Red Blood Count 4.15 X10*6/uL (4.20-5.50); Red Cell Distribution Width 12.4 % (11.0-16.0); White Blood Count 4.6 X10*3/uL (4.8-10.8)
[2024-07-08 14:04] LABS: Free T4 (Free Thyroxine) 0.77 ng/dL (0.71-1.85); Thyroid Stimulating Hormone 1.86 uIU/mL (0.32-4.0)
== END 2024-07-08 11:04 | disposition home or self-care (01) ==
LOC: HO.HMGCLDS 11:03
PROVIDERS: PCP Internal Medicine; Visit Provider Internal Medicine
DX: R79.89 Other specified abnormal findings of blood chemistry (principal); N32.81 Overactive bladder
CPT/HCPCS: 36415; 84439; 84443; 85025

== ENCOUNTER 2024-07-29 11:42 | Outpatient (AMB) | payer OTHER, SELFPAY ==
--- NOTE | 2024-07-29 11:44 | A.OFFVIS_ITS ---
Intake Visit Reasons: 4m follow up/PVR Intake Note: Patient is Present for PVR/UA Check Urology Med: Myrbetriq,Cephalexin Antibiotic Allergy:Nitrofuratoin Blood Thinner: Aspirin Patient has a recent Urine Culture Done on 06/14/2024 and was treated with Levofloxacin Last PVR: 100 Todays PVR: 19 Patient states she is still taking Antibiotic that was last prescribed to her Currently she denies any symptoms of UTI Web Interface Developer Required: No Real Estate Underwriter: Real Estate Underwriter Present Accompanied by: Daughter Allergies nitrofurantoin Allergy (Intermediate, Verified 09/05/24 14:40) colitis codeine Allergy (Unknown, Verified 09/05/24 14:40) Unknown hydrocodone [From Vicodin] Allergy (Unknown, Verified 09/05/24 14:40) Unknown tramadol Allergy (Unknown, Verified 09/05/24 14:40) Unknown HPI Comments Details: 07/29/24--Kavita is an 79-year-old female who is here for evaluation for recurrent UTI's and OAB symptoms. Past Medical history Xerostomia, CAD, Htn, lumbar stenosis. She is currently on Keflex antibiotic suppression therapy. She has intermittent urinary incontinence on Myrbetriq 25 mg daily. Will cont Myrbetriq 25 mg daily, cranberry supplementation, discont Abx suppression, fu in 4 months. Review of chart: 03/28/24--Kavita is an 78-year-old female who is here for evaluation for recurrent UTI's and OAB symptoms. Past Medical history Xerostomia, CAD, Htn, lumbar stenosis Surgical history includes but is not limited to back surgery. She is currently on Keflex antibiotic suppression therapy. Pt had UTI symptoms last m onth. She was treated with Macrobid. She states currently she is doing well denies dysuria or gross hematuria. plan Cont. Myrbetriq 25 mg daily, cranberry supplementation, discont Abx suppression, fu in 4 months. 12/28/23--Kavita is being evaluated for recurrent UTI she is here for office cystoscopy. She was last evaluated on 10/30/2023, started on Myrbetriq 50 mg daily for urinary symptoms of frequency. She is here in follow-up and had renal cell performed. Urine cytology sent on 10/30/2023-negative for malignant cells. Renal ultrasound performed on 12/11/2023-kidneys within normal limits. Cystoscopy findings: Multifocal erythematous changes no noted suggestive of cystitis. Plan: Cystoscopy findings consistent with cystitis. Antibiotic suppressive therapy Bactrim daily 10/30/2023 Kavita is an 78-year-old female who is here for evaluation for recurrent UTI's. Past Medical history Xerostomia, CAD, Htn, lumbar stenosis. Surgical history includes but is not limited to back surgery. The patient complains of daytime urinary frequency every 1-2 hours, urinary incontinence, wears a pad, denies nocturia wakes up about 4 AM and leaks before getting to the bathroom, denies hematuria, has dysuria associated with UTI symptoms, denies history of kidney stones, denies history of nicotine use. She states she was prescribed medication for her bladder symptoms in the past that made her dry mouth worse. I have reviewed chart, urine cultures reviewed, the patient was last treated for UTI in August. States she has had more that 4 UTIs this year. The patient states she was advised and is using OTC cranberry supplements. I have discussed workup to include evaluation of the upper tracts and consideration for cystoscopy evaluation. 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 Lumbar stenosis Vitamin D deficiency HTN (hypertension) CAD (coronary artery disease) Surgical History Hx of cystoscopy History of back surgery H/O spinal fusion Family History Father Heart disease Mother Breast cancer Social History Housing: Apartment Alcohol intake: never Patient Tobacco Use Status: Never used Tobacco e-Cigarette/Vaping Use: Never Used Second Hand Smoke Exposure: No service: No Current occupational status: retired Cognitive needs: No Hearing needs: No Vision needs: Yes Review of Systems Const All systems reviewed & are unremarkable except as noted in HPI and below Reports no additional complaints Eyes Reports no additional complaints ENT Reports no additional complaints Card Reports no additional complaints Resp Reports no additional complaints GI Reports no additional complaints Reports as per HPI Musc Reports no additional complaints Skin/Breast Reports system reviewed and no additional complaints, except as documented Neuro Reports no additional complaints Psych Reports no additional complaints Endo Reports no additional complaints Juan Miguel/Lymph Reports no additional complaints Aller/Immun Reports no additional complaints Office Procedures Post Void Residual Post Residual Void Post Void Residual (PVR): 19 [id number]-[id number] Void Residual by ultrasound Results AMB Urinalysis, Automated UA Leukoctes 0 Babs/uL Last Edit by Arlyn Vu [facility] on 07/29/24 12:04 UA Nitrite Negative Last Edit by Arlyn Vu, A on 07/29/24 12:04 UA Urobilinogen 0.2 mg/dL Last Edit by Arlyn Vu, A on 07/29/24 12:0 4 UA Protein 0 mg/dL Last Edit by Arlyn Vu A on 07/29/24 12:04 UA pH 7.0 Last Edit by Arlyn Vu, A on 07/29/24 12:04 UA Blood 25 [place]/uL Last Edit by Arlyn Vu [facility] on 07/29/24 12:04 UA Specific [place] 1.005 Last Edit by Arlyn Vu [facility] on 07/29/24 12: 04 UA Ketone Negative Last Edit by Arlyn Vu, A on 07/29/24 12:04 UA Bilirubin 0 mg/dL Last Edit by Arlyn Vu, A on 07/29/24 12:04 UA Glucose 0 mg/dL Last Edit by Arlyn Vu, A on 07/29/24 12:04 Results Reviewed Results Reviewed: Laboratory Last Values Urine pH (Auto) 7.0 07/29/24 12:02 Specific [place] (Auto) 1.005 07/29/24 12:02 Urine Protein (Auto) 0 mg/dL 07/29/24 12:02 Glucose (UA)(Auto) 0 mg/dL 07/29/24 12:02 Urine Ketones (Auto) Negative 07/29/24 12:02 Urine Blood (Auto) 25 [place]/uL 07/29/24 12:02 Urine Nitrite (Auto) Negative 07/29/24 12:02 Urine Bilirubin (Auto) 0 mg/dL 07/29/24 12:02 Urine Urobilinogen (Auto) 0.2 mg/dL 07/29/24 12:02 Leukocyte Esterase (Auto) 0 Babs/uL 07/29/24 12:02 Collected: 03/01/24 Status: COMP Req#: [id number] Received: 03/01/24-1026 Source: [facility] Sp Desc: Clean Cat Subm Dr: Jimmy Mcgill MD Ordered: Urine Culture Procedure Result Verified Urine Culture Final 03/03/24 Organism 1 Streptococcus viridans group Quant > 100,000 cfu/mL Susceptibility not routinely performed on this isolate. Date of Service: 04/14/24 EXAMINATION: CT abdomen pelvis w IV con CLINICAL INFORMATION: Reason for Exam abd pain COMPARISON: No prior CT available for comparison. TECHNIQUE: Multidetector volumetric imaging was performed from the superior aspect of the liver through the pubic symphysis 85 mL Omnipaque 350 injected Sagittal and coronal reformatted images were obtained on the technologist's workstation. This CT examination was performed using dose optimization techniques as appropriate, variously including the following: *Automated exposure control *Adjustment of mA and/or kV according to patient size (this includes techniques or standardized protocols for targeted exams where dose is matched to indication/reason for exam; i.e. extremities or head) *Use of iterative reconstruction technique DLP: 296 mGy-cm FINDINGS: LOWER THORAX: Included lung bases are clear. HEPATOBILIARY: No focal hepatic lesions. No biliary ductal dilatation. GALLBLADDER: Distended gallbladder, no gallstones. SPLEEN: Spleen is normal in size. PANCREAS: No focal mass or ductal dilatation. STOMACH AND GASTROINTESTINAL TRACT: Stomach is grossly unremarkable. No evidence of bowel obstruction. There is circumferential wall thickening involving the almost the entire colon and sigmoid colon, nonspecific CT finding and can be seen in patient with infection or inflammatory process, colitis, IBD, less commonly neoplastic. Ischemia is in the differential however is less likely given the large segment of involvement. ADRENALS: No adrenal nodules. KIDNEYS/URETERS: No hydronephrosis, stones or solid mass lesions. URINARY BLADDER: Partially decompressed. PELVIC VISCERA: There is left adnexal cyst 2.7 cm most likely of left ovarian origin, no free fluid or air in the pelvis. No bulky adenopathy. PERITONEUM: No free air or fluid. LYMPH NODES: No lymphadenopathy. VASCULAR:Abdominal aorta normal in size, no aneurysm found. 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 There is a fluid-filled cystic mass lower back measures 7 x 5.3 cm extending from the posterior element of vertebrae through the paravertebral muscle and subcutaneous fat abutting the skin dermis. The attenuation of which is similar to CSF fluid and may be synovial cyst or dural sac/nerve sheet cysts. IMPRESSION: 1. There is circumferential wall thickening involving the almost the entire colon and sigmoid colon, nonspecific CT finding and can be seen in patient with infection or inflammatory process, colitis, IBD, less commonly neoplastic. Ischemia is in the differential however is less likely given the large segment of involvement. 2. Left adnexal cyst 2.7 cm most likely of left ovarian origin. Findings are overwhelmingly likely to represent a benign functional cyst and no followup imaging recommended. 3. 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 4. Large Fluid-filled cystic mass lower back 7 x 5.3 cm extending from the posterior element of vertebrae through the paravertebral muscle and subcutaneous fat abutting the skin dermis. The attenuation of which is similar to CSF fluid and may be synovial cyst or dural sac/versus nerve sheath cyst, recommend contrast-enhanced lumbar spine MRI for further investigation.. Assessment & Plan Assessment & Plan (1) Frequency of urination: Code(s): R35.0 - Frequency of micturition Category: Medical (2) Cystitis: Code(s): N30.90 - Cystitis, unspecified without hematuria Category: Medical (3) UTI (urinary tract infection): Code(s): N39.0 - Urinary tract infection, site not specified Category: Medical (4) OAB (overactive bladder): Code(s): N32.81 - Overactive bladder Category: Medical (5) Urinary incontinence: Code(s): R32 - Unspecified urinary incontinence Category: Medical Plan cont Myrbetriq 25 mg daily, cranberry supplementation, discont Abx suppression, fu in 4 months. Orders: Orders AMB Post Void Residual by ultrasound 07/29/24 R32 - Unspecified urinary incontinence AMB Urinalysis Automated 07/29/24 Z13.9 - Encounter for screening, unspecified Patient Instructions: The patient had an opportunity to ask questions regarding treatment plan. The patient expressed understanding and agreement with the above treatment plan. The patient is aware they should contact our office by phone for worsening of their current condition or the appearance of new symptoms. Compliance is encoura ged with any medications and followup testing that is ordered. It is a privilege to be allowed the opportunity to participate in the urologic care of your patient. If you have any questions or concerns regarding treatment for the above conditions please do not hesitate to contact me. The office telephone contact is [phone]. This note is constructed in part using voice recognition software. While every effort has been made to ensure accuracy senior engineer errors may have been included. Yours sincerely, Jimmy Mcgill MD Coding Level of Care Code Est Pt Level 3 (30756) Diagnoses Frequency of urination R35.0 Cystitis N30.90 UTI (urinary tract infection) N39.0 OAB (overactive bladder) N32.81 Urinary incontinence R32 CPT Codes Post Residual Void - PVR CPT Code: 56248-Abfq Void Residual by ultrasound ([id number])
== END 2024-07-29 12:26 | disposition home or self-care (01) ==
PROVIDERS: PCP Internal Medicine; Visit Provider Urology
DX: R35.0 Frequency of micturition (principal); N30.90 Cystitis, unspecified without hematuria; N39.0 Urinary tract infection, site not specified; N32.81 Overactive bladder; R32 Unspecified urinary incontinence
CPT/HCPCS: 99213

== ENCOUNTER → 2024-07-29 11:42 | Outpatient (BNVA) | payer OTHER, SELFPAY | PROVIDERS: PCP Internal Medicine; Visit Provider Urology | DX: R32 Unspecified urinary incontinence (principal); N32.81 Overactive bladder; N30.90 Cystitis, unspecified without hematuria; Z79.2 Long term (current) use of antibiotics | CPT/HCPCS: 51798; 81003; 99212 ==

== ENCOUNTER 2024-09-05 14:21 | Outpatient (AMB) | payer OTHER, SELFPAY ==
--- NOTE | 2024-09-05 14:34 | MHC.OFFVIS ---
Vital Signs 09/05/24 14:39 Height 5 ft Weight 114 lb 10.246 oz BMI 22.4 Intake Visit Reasons: Sjogren syndrome, Lip Bx Intake Note: This patient presents for sjogren's syndrome, Lip biopsy. Pt c/o; reports no complaints at this time. 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 Accompanied by: Other Relationship Allergies nitrofurantoin Allergy (Intermediate, Verified 09/05/24 14:40) colitis codeine Allergy (Unknown, Verified 09/05/24 14:40) Unknown hydrocodone [From Vicodin] Allergy (Unknown, Verified 09/05/24 14:40) Unknown tramadol Allergy (Unknown, Verified 09/05/24 14:40) Unknown Medication List - Last Reconciled 09/05/24 by Lefty Deshpande MD acetaminophen (Acetaminophen Extra Strength) 500 mg PO QID PRN amlodipine 3.75 mg PO DAILY aspirin 81 mg PO DAILY atorvastatin 40 mg PO DAILY Bifidobacterium infantis (Align) 4 mg PO DAILY 90 days calcium citrate (Citracal) PO BID cefpodoxime 100 mg PO BID cephalexin 250 mg PO ONCE cephalexin 250 mg PO ONCE 90 days cephalexin 250 mg PO ONCE 90 days cevimeline 1 cap PO BID cholecalciferol (vitamin D3) 25 mcg PO .3x per week clonazepam 0.5 mg PO BEDTIME 90 days cranberry extract 400 mg PO DAILY cyclosporine 0.05% (Restasis) 1 drp ophthalmic (eye) BID docusate sodium (Stool Softener) 100 mg PO BID estradiol 0.01%(0.1mg/gram) (Estrace) 1 g vaginal 2XW gabapentin 300 mg PO BEDTIME 90 days levofloxacin 250 mg PO DAILY 5 days metoprolol succinate ER 12.5 mg (1/2 x 25 mg) PO DAILY mirabegron ER (Myrbetriq) 50 mg PO DAILY mirtazapine 15 mg PO BEDTIME omeprazole 40 mg PO BID 90 days pilocarpine HCl 5 mg PO DAILY polyethylene glycol 3350 (Miralax) 17 grams PO DAILY varenicline (Tyrvaya) 1 spray intranasal BID zolpidem ER 6.25 mg PO BEDTIME PRN 90 days HPI HPI Sjogren syndrome, Lip Bx: Details: [age] year old female referred for a lip biopsy. She has a long history of arthritis, joint pains, severe mouth dryness and had been referred for lip biopsy to rule out Sjogren's disease. She says she was supposed to have this biopsy many years ago but she was on Brilinta so this was not done. She is being followed in [place] but seems to have had multiple visits already without any biopsy so she was eventually referred to me. 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 Lumbar stenosis Vitamin D deficiency HTN (hypertension) CAD (coronary artery disease) Surgical History Hx of cystoscopy History of back surgery H/O spinal fusion Family History Father Heart disease Mother Breast cancer Social History Housing: Apartment Alcohol intake: never Patient Tobacco Use Status: Never used Tobacco e-Cigarette/Vaping Use: Never Used Second Hand Smoke Exposure: No service: No Current occupational status: retired Cognitive needs: No Hearing needs: No Vision needs: Yes Review of Systems Const Denies chills and Denies fever(s) Card Denies chest pain, Denies dyspnea and Denies dyspnea on exertion Resp Denies cough, Denies dyspnea and Denies dyspnea on exertion GI Denies hematochezia and Denies change in bowel habits Denies hematuria Musc Reports abnormal gait, Reports back pain, Reports arthralgias and Reports limited range of motion Neuro Reports abnormal gait, Denies focal weakness and Denies convulsions Psych Denies depression and Denies mood swings Physical Exam Vital Signs: BMI result Body Mass Index 22.4 Const General: comfortable and no acute distress Orientation/consciousness: patient oriented x3 Neck Neck: Yes no lymphadenopathy Resp Auscultation: clear to auscultation bilaterally Cardio Rhythm: regular rhythm GI Palpation (GI): Soft to palpation, nontender and no guarding Neuro General: patient oriented x3 Office Procedures Excision Details: An area of the inner lower lip was prepped with Betadine. Lidocaine 1% was used for local anesthesia. I made wedge shaped excision of the lip mucosa and underlying fatty tissue measuring about 5 mm. I closed the incision with full-thickness chromic 4-0 interrupted sutures. There was good hemostasis afterwards. [id number] face/ear/eyelid/nose/lip/mucous membrane <0.5cm Procedure code (CPT) selection complete Assessment & Plan Assessment & Plan (1) Sjogren's disease: Code(s): M35.00 - Sjogren syndrome, unspecified Category: Medical Plan: She has a constellation of symptoms as described above suggestive of Sjogren's disease. She was referred to me for lip biopsy. I explained to the technique of this procedure. I reviewed the risks, benefits, and alternatives and she gave consent Lip biopsy was done here in the office today. She was given wound care instructions. We will send the results of the biopsy to her doctor in [facility]. Coding Level of Care Code New Pt Level 3 (16221) Diagnoses Sjogren's disease M35.00 CPT Codes Face/Ear/Eyelid/Nose/Lip/Mucous Membrane - CPT: 48873-[id number] face/ear/eyelid/nose/lip/mucous membrane <0.5cm ([id number])
[2024-09-05 14:39] VITALS: BMI 22.4
== END 2024-09-05 15:11 | disposition home or self-care (01) ==
PROVIDERS: PCP Internal Medicine; Visit Provider Surgery
DX: M35.00 Sjogren syndrome, unspecified (principal)
CPT/HCPCS: 11440; 99203

== ENCOUNTER 2024-09-05 14:21 | Outpatient (REF) | payer OTHER, SELFPAY | END 2024-09-05 14:22 | disposition home or self-care (01) | LOC: HO.LNP 14:21 | PROVIDERS: PCP Internal Medicine; Visit Provider Surgery | DX: M35.00 Sjogren syndrome, unspecified (principal) | CPT/HCPCS: 11440; 88305; 88312; 99202 ==

== ENCOUNTER → 2024-09-06 12:31 | Outpatient (BNVA) | payer OTHER, SELFPAY | PROVIDERS: PCP Internal Medicine ==

== ENCOUNTER 2024-09-06 12:57 | Outpatient (REF) | payer OTHER, SELFPAY ==
[2024-09-06 16:25] LABS: Appearance Urine Cloudy; Color Urine Yellow; Glucose Urine UA Negative (Negative); Leukocyte Esterase Urine Large (3+) (Negative); Nitrite Urine Negative (Negative); Specific Gravity - Urine <= 1.005 (1.005-1.025); UMIC TRIGGER UA YES; Urine Blood Moderate (2+) (Negative); Urine Ketones Negative (Negative); Urine Protein Negative (Neg-Trace)
[2024-09-06 16:58] LABS: Bacteria Urine None Seen (None Seen); Hyaline Casts Urine 0-2 /LPF (0-2); RBC Urine 0-2 /HPF (0-2); Squamous Epithelial Cell Urine 0-2 /HPF (0-2); WBC Urine 21-50 /HPF (0-5)
== END 2024-09-06 12:58 | disposition home or self-care (01) ==
LOC: HO.HMGCLDS 12:57
PROVIDERS: PCP Internal Medicine; Visit Provider Urology
DX: N39.0 Urinary tract infection, site not specified (principal); N32.81 Overactive bladder; R32 Unspecified urinary incontinence
CPT/HCPCS: 81001; 87086

== ENCOUNTER 2024-10-09 14:26 | Emergency (ER) | payer OTHER, SELFPAY ==
--- NOTE | ~2024-10-09 | XR_ITS ---
EXAMINATION: XR CHEST CLINICAL INFORMATION: SOB COMPARISON: Chest CT dated May 30, 2019. Chest x-ray dated October 08, 2017. TECHNIQUE: Portable AP view of the chest was obtained. FINDINGS: There is no acute radiographic finding. No infiltrate, effusion, pneumothorax, or adenopathy is seen. The cardiovascular structures, mediastinum, diaphragm and soft tissues appear unremarkable. Degenerative changes of the spine with partially imaged lumbar dextroscoliosis. XR/XR chest 1V IMPRESSION: No acute finding. Electronically signed by: Gregory Brooks MD 10/09/2024 03:43 PM [facility]
[2024-10-09 14:34] VITALS: BP 164/89; PULSE 77; O2SAT 99
--- NOTE | 2024-10-09 14:50 | ECG_ITS ---
Test Reason : SOB Blood Pressure : / mmHG Vent. Rate : 071 BPM Atrial Rate : 071 BPM P-R Int : 166 ms QRS Dur : 084 ms QT Int : 382 ms P-R-T Axes : 036 -13 015 degrees QTc Int : 415 ms Normal sinus rhythm Inferior infarct , age undetermined Cannot rule out Anterior infarct , age undetermined Abnormal ECG When compared with ECG of 26-APR-2022 08:59, Inferior infarct is now Present Referred By: Hiram Martinez Electronically Signed By:SAMEERA QUINTERO MD
--- NOTE | 2024-10-09 14:52 | ED_ITS ---
HPI - SOB/Dyspnea General Chief Complaint: Dyspnea Stated Complaint: difficulty breathing, vss Time Seen by Provider: 10/09/24 14:40 Source: patient and EMS Mode of arrival: EMS Limitations: no limitations History of Present Illness ED Provider: DR. Martinez HPI Narrative: 79-year-old female presented by EMS for evaluation of 2 weeks' history of shortness of breath that is worsening over the past 2 weeks, no cough, no fever, no chills, patient sleeps on recliner required the head to be high, there is exertional shortness of breath for any minimal exercises which is not normal for the patient, no lower extremity swelling or tenderness, no chest pain, patient progressively been having increased shortness of breath patient was blaming Sjogren's disease especially patient feels very dry throat, difficulty swallowing due to severe dryness. PCP told her to come to the ED for further evaluation. No recent prolonged immobilization, no recent travel, no lower extremity swelling or tenderness , no coughing, no fever, chills. Related Data Home Medications ?Medication ?Instructions ?Recorded ?Confirmed aspirin 81 mg tablet,delayed 81 mg PO DAILY 09/16/20 09/05/24 release atorvastatin 40 mg tablet 40 mg PO DAILY 09/16/20 09/05/24 docusate sodium 100 mg capsule 100 mg PO BID 09/16/20 09/05/24 (Stool Softener) polyethylene glycol 3350 17 gram 17 g PO DAILY 09/16/20 09/05/24 oral powder packet (Miralax) amlodipine 2.5 mg tablet 3.75 mg PO DAILY 09/10/21 09/05/24 cholecalciferol (vitamin D3) 25 25 mcg PO .3x per week 09/10/21 09/05/24 mcg (1,000 unit) capsule calcium citrate [Citracal] PO BID 07/29/22 09/05/24 cyclosporine 0.05 % eye drops in a 1 drp ophthalmic (eye) BID 07/29/22 09/05/24 dropperette (Restasis) acetaminophen 500 mg tablet 500 mg PO QID PRN 05/01/23 09/05/24 (Acetaminophen Extra Strength) cranberry extract 200 mg capsule 400 mg PO DAILY 03/28/24 09/05/24 cephalexin 250 mg capsule 250 mg PO ONCE 05/02/24 09/05/24 Previous Rx's ?Medication ?Instructions ?Recorded metoprolol succinate 25 mg 12.5 mg (1/2 x 25 mg) PO DAILY #90 03/29/23 tablet,extended release 24 hr tabs Bifidobacterium infantis 4 mg 4 mg PO DAILY 90 days #90 caps 11/27/23 capsule (Align) gabapentin 300 mg capsule 300 mg PO BEDTIME 90 days #90 caps 12/12/23 omeprazole 40 mg capsule,delayed 40 mg PO BID 90 days #180 caps 03/24/24 release mirabegron 50 mg tablet,extended 50 mg PO DAILY #90 tabs 03/28/24 release 24 hr (Myrbetriq) cefpodoxime 100 mg tablet 100 mg PO BID #10 tabs 06/09/24 cephalexin 250 mg capsule 250 mg PO ONCE UTI suppression 90 06/17/24 days #90 caps cephalexin 250 mg capsule 250 mg PO ONCE UTI suppression 90 06/17/24 days #90 caps levofloxacin 250 mg tablet 250 mg PO DAILY 5 days #5 tabs 06/17/24 cevimeline 30 mg capsule 1 cap PO BID #180 caps 07/10/24 zolpidem 6.25 mg tablet,extended 6.25 mg PO BEDTIME PRN insomnia 90 07/17/24 release,multiphase days #90 tabs varenicline 0.03 mg/spray nasal 1 spray intranasal BID #8.4 mL 07/26/24 spray (Tyrvaya) mirtazapine 15 mg tablet 15 mg PO BEDTIME #90 tabs 08/07/24 clonazepam 0.5 mg disintegrating 0.5 mg PO BEDTIME 90 days #90 tabs 08/20/24 tablet ciprofloxacin HCl 500 mg tablet 500 mg PO BID 5 days #10 tabs 09/09/24 estradiol 0.01% (0.1 mg/gram) 1 g vaginal 2XW #42.5 grams 09/17/24 vaginal cream (Estrace) pilocarpine HCl 5 mg tablet 5 mg PO DAILY PM #90 tabs 10/01/24 Allergies Allergy/AdvReac Type Severity Reaction Status Date / Time nitrofurantoin Allergy Intermediate colitis Verified 10/09/24 14:54 codeine Allergy Unknown Unknown Verified 10/09/24 14:54 hydrocodone [From Vicodin] Allergy Unknown Unknown Verified 10/09/24 14:54 tramadol Allergy Unknown Unknown Verified 10/09/24 14:54 Review of Systems 2 Review of Systems: All other systems are reviewed and are negative Constitutional: Reports as per HPI and Reports no additional constitutional complaints Eyes: Reports as per HPI and Reports no additional eye complaints Reports system reviewed and no additional complaints, except as documented Cardiovascular: Reports as per HPI and Reports no additional cardiovascular complaints Respiratory: Reports as per HPI and Reports no additional respiratory complaints Gastrointestinal: Reports as per HPI and Reports no additional gastrointestinal complaints Genitourinary: Reports no additional female genitourinary complaints Musculoskeletal: Reports no additional musculoskeletal complaints Skin/Breast: Reports system reviewed and no additional complaints, except as docu Psychiatric: Reports no additional psychiatric complaints Endocrine: Reports no additional endocrine complaints Hematologic/Lymphatic: Reports no additional hematologic/lymphatic complaints Allergic/Immunologic: Reports no additional allergic/immunologic complaints Reports system reviewed and no additional complaints, except as documented and Reports Abnormal speech present [facility] Past Medical History Medical History Multiple medical problems Headache Pre-operative clearance 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 Lumbar stenosis Vitamin D deficiency HTN (hypertension) CAD (coronary artery disease) Surgical History Hx of cystoscopy History of back surgery H/O spinal fusion Family History Family History Father Heart disease Mother Breast cancer Social History Social History Housing: Apartment Alcohol intake: never Patient Tobacco Use Status: Never used Tobacco Smoked in Last 30 Days: No e-Cigarette/Vaping Use: Never Used Second Hand Smoke Exposure: No Use of substances other than those prescribed or required for medical reasons: No Advance Directives: No Advance Directives Information Provided: Yes Do you have a plan to hurt others: No Plan service: No Current occupational status: retired Cognitive needs: No Hearing needs: No Vision needs: Yes Physical Exam 2 Vital Signs: Vital Signs: Last Vital Signs Temp 98.1 F 10/09/24 15:04 Pulse 73 10/09/24 15:04 Resp 14 10/09/24 15:04 BP 180/91 H 10/09/24 15:04 Pulse Ox 100 10/09/24 15:04 O2 Del Method Nasal Cannula 10/09/24 15:04 O2 Flow Rate 2 10/09/24 15:04 BMI result Body Mass Index 23.7 Vital signs have been reviewed and appear to be correct. Blood pressure elevated. Heart rate normal. Respiratory rate normal. Temperature normal. Oxygen saturation normal. Appearance: Alert. Oriented X3. No acute distress. Head: Normal external exam. Normocephalic. Atraumatic. No Denise signs noted. No raccoon eyes noted Eyes: PERRLA. EOMI. Conjunctiva and sclera normal. Eyelids normal. ENT: TM's Normal. Pharynx normal. Uvula midline. Moist mucous membranes. No trismus noted. No drooling noted. No muffled voice noted. Neck: Normal inspection. Neck supple. FROM. No adenopathy. Thyroid Normal. No meningeal signs. No neck mass noted. CVS: Normal heart rate and rhythm. Heart sound normal. No murmurs noted. Pulses normal throughout. Respiratory: No respiratory distress. Painless inspiration. Breath sounds normal. No wheezes/rales/rhonchi noted. Chest nontender. No accessory muscle usage noted or decreased air movement noted. Abdomen: Soft and nontender. Bowel sounds normal in all 4 quadrants. No distention noted. No organomegaly noted. No visible injury noted. Back: No CVA tenderness. Full range of motion noted. Skin: Skin warm and dry. Normal skin color. Normal skin turgor. No rashes/lesions/lacerations noted. Extremities: No lower extremity edema. Extremities exhibit normal range of motion. Extremities nontender. Neuro: Oriented X 3. Cranial nerve exam: II-XII are grossly intact No motor deficit. No sensory deficit. Reflexes normal. Course Reevaluation(s) Reevaluation #1: patient at low risk for pulmonary embolism was negative D-dimer. Negative troponin with no ischemic changes on the EKG. Chest x-ray is unremarkable for or acute infiltrate. Patient's symptoms is likely secondary to Sjogren's disease and upper respiratory dryness. 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 Time: 17:50 Medical Decision Making Differential Diagnosis Differential Diagnoses: The differential diagnosis associated with the presentation includes ( Pulmonary embolism, ACS, pneumonia, pneumothorax, pleural effusion, Sjogren syndrome, electrolyte derangement, severe anemia.) Admission/Observation Consideration of admission/observation: Escalation of care including admission/observation considered Lab Data MDM Lab Attestation statement: I reviewed the patient's lab results. 10/09/24 15:50 10/09/24 15:50 Labs: Lab Results 10/09/24 10/09/24 Range/Units 15:50 16:38 WBC 4.3 L (4.8-10.8) X10*3/uL RBC 4.18 L (4.20-5.50) X10*6/uL Hgb 12.8 (12.0-16.0) g/dl Hct 38.1 (37.0-47.0) % MCV 91.1 (80.0-98.0) fL MCH 30.6 (27.0-33.0) pg MCHC 33.6 (31.0-35.0) g/dl RDW 12.6 (11.0-16.0) % Plt Count 163 (160-400) X10*3/uL MPV 10.0 (9.4-12.3) fL Immature Gran % (Auto) 0.5 H (0.0-0.4) % Neut % (Auto) 69.9 (45-73) % Lymph % (Auto) 14.5 L (20-40) % Gonzales % (Auto) 12.1 H (2-11) % Eos % (Auto) 2.1 (0-4) % Baso % (Auto) 0.9 (0-2) % Lymph # (Auto) 0.6 L (1.2-4.9) X10*3/uL Gonzales # (Auto) 0.5 (0.1-1.2) X10*3/uL Eos # (Auto) 0.1 (0.0-0.4) X10*3/uL Baso # (Auto) 0.0 (0.0-0.2) X10*3/uL Abs Immat Gran (auto) 0.02 (0.00-0.03) X10*3/uL Absolute Neuts (auto) 3.0 (2.0-8.3) x10*3/uL Absolute Nucleated RBC 0.000 (0.0-0.012) X10*3/uL Nucleated RBC % (auto) 0.0 (0.0-0.2) /100WBC PT 10.6 L (10.9-12.4) SEC INR 0.9 (0.9-1.1) D-Dimer High Sensitivty < 150 NG/ML Sodium 140 (135-145) mmol/L Potassium 4.0 (3.3-5.1) mmol/L Chloride 106 (96-108) mmol/L Carbon Dioxide 25 (22-29) mmol/L Anion Gap 13 (12-20) BUN 13 (9-16) mg/dL Creatinine 0.76 (0.5-1.4) mg/dL Estim Creat Clear Calc 45.1 Estimated GFR > 60 Random Glucose 96 (60-115) mg/dL Lactic Acid 0.8 (0.5-2.0) mmol/L Calcium 9.3 (8.4-10.2) mg/dL Total Bilirubin 0.3 (0.0-1.0) mg/dL Direct Bilirubin 0.1 (0.0-0.5) mg/dL AST 25 (5-31) U/L ALT 23 (0-31) U/L Alkaline Phosphatase 89 (39-117) U/L Troponin I High Sens < 2.7 (<3.5-17.0) ng/L B-Natriuretic Peptide 17 (<100) pg/mL Total Protein 6.8 (6.5-8.0) g/dL Albumin 4.3 (3.5-5.0) g/dL Lipase 41 (8-78) U/L Urine Color Yellow Urine Appearance Clear Urine pH 7.5 (5.0-9.0) Ur Specific [place] <= 1.005 (1.005-1.025) Urine Protein Negative (Neg-Trace) mg/dL Urine Glucose (UA) Negative (Negative) mg/dL Urine Ketones Negative (Negative) mg/dL Urine Blood Negative (Negative) Urine Nitrite Negative (Negative) Ur Leukocyte Esterase Negative (Negative) Influenza Type A (PCR) NEGATIVE (Negative) Influenza Type B (PCR) NEGATIVE (Negative) RSV RNA Qual (PCR) NEGATIVE (Negative) SARS-CoV-2 RNA (RT-PCR) NEGATIVE (Negative) Independent Interpretation I performed an independent interpretation of an: Plain X-Ray ( Chest: No acute findings.) Radiology Impression Discussion of test interpretation with radiology: I have reviewed the radiologist's reading. Chronic Conditions Patient?s care impacted by: Other ( Sjogren syndrome) Scores Heart Score History: -0- slightly suspicious ECG: -1- non specific repolarization disturbance Age: -0- < or = 45 Risk factory: -1- 1 or 2 risk factors Troponin: -0- < or = normal limit Score: 2 Risk: 1.7% Wells DVT Alternative Dx as likely as or more likely than DVT: -2 Score: -2 2-tier Risk: unlikely risk (5%) 3-tier Risk: low risk (3%) Discharge Plan Discharge Clinical Impression: Sjogren's disease, Dyspnea Patient Disposition: Home, Self-Care Instructions: Sjogren Syndrome (DC) Prescriptions: No Action metoprolol succinate 25 mg tablet extended release 24 hr 12.5 mg PO DAILY Qty: 90 1RF Align 4 mg capsule 4 mg PO DAILY 90 Days Qty: 90 3RF gabapentin 300 mg capsule 300 mg PO BEDTIME 90 Days Qty: 90 3RF omeprazole 40 mg capsule,delayed release(DR/EC) 40 mg PO BID 90 Days Qty: 180 0RF levofloxacin 250 mg tablet 250 mg PO DAILY 5 Days Qty: 5 0RF cephalexin 250 mg capsule 250 mg PO ONCE 90 Days Qty: 90 1RF cephalexin 250 mg capsule 250 mg PO ONCE 90 Days Qty: 90 1RF cevimeline 30 mg capsule 1 cap PO BID Qty: 180 1RF zolpidem 6.25 mg tablet,ext release multiphase 6.25 mg PO BEDTIME PRN (Reason: insomnia) 90 Days Qty: 90 0RF Tyrvaya 0.03 mg/spray spray, metered, non-aerosol 1 spray intranasal BID Qty: 8.4 0RF Rx Instructions: administer into each nostril; approximately 12 hours apart mirtazapine 15 mg tablet 15 mg PO BEDTIME Qty: 90 0RF clonazepam 0.5 mg tablet,disintegrating 0.5 mg PO BEDTIME 90 Days Qty: 90 0RF ciprofloxacin HCl 500 mg tablet 500 mg PO BID 5 Days Qty: 10 0RF estradiol [Estrace] 0.01 % (0.1 mg/gram) cream 1 g vaginal 2XW Qty: 42.5 0RF pilocarpine HCl 5 mg tablet 5 mg PO DAILY Qty: 90 0RF cefpodoxime 100 mg tablet 100 mg PO BID Qty: 10 0RF Rx Instructions: must administer with a meal/food atorvastatin 40 mg tablet 40 mg PO DAILY aspirin 81 mg tablet,delayed release (DR/EC) 81 mg PO DAILY docusate sodium [Stool Softener] 100 mg capsule 100 mg PO BID polyethylene glycol 3350 [Miralax] 17 gram powder in packet 17 g PO DAILY calcium citrate PO BID cholecalciferol (vitamin D3) 25 mcg (1,000 unit) capsule 25 mcg PO .3x per week amlodipine 2.5 mg tablet 3.75 mg PO DAILY cephalexin 250 mg capsule 250 mg PO ONCE acetaminophen [Acetaminophen Extra Strength] 500 mg tablet 500 mg PO QID PRN cyclosporine [Restasis] 0.05 % dropperette 1 drp ophthalmic (eye) BID Myrbetriq 50 mg tablet extended release 24 hr 50 mg PO DAILY Qty: 90 3RF cranberry extract 200 mg capsule 400 mg PO DAILY Rx Instructions: administer with a meal Referrals: Po,Elva Montero MD [Primary Care Provider] - Sukhjinder Lopez MD [Physician] - Print Language: Chinese
[2024-10-09 14:53] VITALS: BMI 23.7
[2024-10-09 15:04] VITALS: BP 180/91; PULSE 73; RESP 14; TEMP 36.7; O2SAT 100
[2024-10-09 15:58] LABS: MANUAL DIFF FLAG NO
[2024-10-09 16:00] LABS: Basophils Percent Auto 0.9 % (0-2); Eosinophils Absolute Auto 0.1 X10*3/uL (0.0-0.4); Eosinophils Percent Auto 2.1 % (0-4); Hematocrit 38.1 % (37.0-47.0); Hemoglobin 12.8 g/dl (12.0-16.0); Imm Gran Abs Auto 0.02 X10*3/uL (0.00-0.03); Imm Gran Pct Auto 0.5 % (0.0-0.4); Lymphocytes Absolute Auto 0.6 X10*3/uL (1.2-4.9); Lymphocytes Percent Auto 14.5 % (20-40); Mean Corpuscular HGB Conc 33.6 g/dl (31.0-35.0); Mean Corpuscular Hemoglobin 30.6 pg (27.0-33.0); Mean Corpuscular Volume 91.1 fL (80.0-98.0); Monocytes Absolute Auto 0.5 X10*3/uL (0.1-1.2); Monocytes Percent Auto 12.1 % (2-11); Neutrophils Percent Auto 69.9 % (45-73); Platelet Count 163 X10*3/uL (160-400); Red Blood Count 4.18 X10*6/uL (4.20-5.50); Red Cell Distribution Width 12.6 % (11.0-16.0); White Blood Count 4.3 X10*3/uL (4.8-10.8)
[2024-10-09 16:10] LABS: INTERNATIONAL NORM RATIO 0.9 (0.9-1.1); Prothrombin Time 10.6 SEC (10.9-12.4)
[2024-10-09 16:13] LABS: D Dimer High Sensitivity < 150 NG/ML
[2024-10-09 16:15] LABS: Lactic Acid 0.8 mmol/L (0.5-2.0)
[2024-10-09 16:16] LABS: Alanine Aminotransferase 23 U/L (0-31); Albumin Level 4.3 g/dL (3.5-5.0); Alkaline Phosphatase 89 U/L (39-117); Anion Gap 13 (12-20); Aspartate Amino Transferase 25 U/L (5-31); Bilirubin Direct 0.1 mg/dL (0.0-0.5); Bilirubin Total 0.3 mg/dL (0.0-1.0); Blood Urea Nitrogen 13 mg/dL (9-16); Calcium 9.3 mg/dL (8.4-10.2); Carbon Dioxide 25 mmol/L (22-29); Chloride 106 mmol/L (96-108); Creatinine Clr Calc Pharmacy 45.1; Estimated Glomerular Filt Rate > 60; Glucose Random 96 mg/dL (60-115); Lipase 41 U/L (8-78); Sodium 140 mmol/L (135-145); Total Protein 6.8 g/dL (6.5-8.0)
[2024-10-09 16:22] LABS: B Type Natriuretic Peptide 17 pg/mL (<100)
[2024-10-09 16:29] LABS: Troponin-I High Sensitivity < 2.7 ng/L (<3.5-17.0)
[2024-10-09 16:52] LABS: Appearance Urine Clear; Color Urine Yellow; Glucose Urine UA Negative (Negative); Leukocyte Esterase Urine Negative (Negative); Nitrite Urine Negative (Negative); PH 7.5 (5.0-9.0); Specific Gravity - Urine <= 1.005 (1.005-1.025); Urine Blood Negative (Negative); Urine Ketones Negative (Negative); Urine Protein Negative (Neg-Trace)
[2024-10-09 17:05] LABS: Influenza A PCR NEGATIVE (Negative); Influenza B PCR NEGATIVE (Negative); Resp Syncy Virus RNA Qual PCR NEGATIVE (Negative); SARS COV2 PCR INHOUSE NEGATIVE (Negative)
== END 2024-10-09 18:56 | disposition home or self-care (01) ==
PROVIDERS: Emergency Provider Emergency Medicine; PCP Internal Medicine
DX: R06.02 Shortness of breath (principal); R06.00 Dyspnea, unspecified; M35.00 Sjogren syndrome, unspecified; Z03.818 Encounter for observation for suspected exposure to other biological agents ruled out; J38.3 Other diseases of vocal cords; E78.00 Pure hypercholesterolemia, unspecified; I10 Essential (primary) hypertension; Z79.82 Long term (current) use of aspirin; Z79.02 Long term (current) use of antithrombotics/antiplatelets; Z79.899 Other long term (current) drug therapy
CPT/HCPCS: 0241U; 36415; 71045; 80048; 80076; 81003; 83605; 83690; 83880; 84484; 85025; 85379; 85610; 87040; 93005; 99284; 99285

== ENCOUNTER → 2024-10-09 14:50 | Outpatient (BNV) | payer OTHER, SELFPAY | PROVIDERS: Emergency Provider Emergency Medicine; PCP Internal Medicine; Visit Provider Internal Medicine Cardiovascular Disease | DX: R06.02 Shortness of breath (principal) | CPT/HCPCS: 93010 ==

== ENCOUNTER 2024-10-11 14:49 | Outpatient (AMB) | payer OTHER, SELFPAY ==
--- NOTE | 2024-10-11 14:54 | A.OFFVIS_ITS ---
Vital Signs 10/11/24 14:55 Height 5 ft Weight 114 lb 0.64 oz BMI 22.3 BP 162/80 H Blood Pressure Location Lt brachial Position Sitting Pulse 72 Pulse Source Pulse Oximeter Pulse Oximetry (%) 99 Oxygen Delivery Method Room Air Intake Visit Reasons: ED follow up - Dyspnea Seasonal Recruiter Required: No Allergies nitrofurantoin Allergy (Intermediate, Verified 10/11/24 14:57) colitis codeine Allergy (Unknown, Verified 10/11/24 14:57) Unknown hydrocodone [From Vicodin] Allergy (Unknown, Verified 10/11/24 14:57) Unknown tramadol Allergy (Unknown, Verified 10/11/24 14:57) Unknown HPI Comments Details: The patient is here for pulmonary evaluation. The patient is an 79 year woman with a known history of Sjogren's presenting with worsening respiratory symptoms. Apparently she has been having issues with the breathing for some time. Although seems like it is getting worse. She feels a burning sensation in the throat feels like it throat is very dry and difficult to breathe as well as difficult to swallow. Denies any choking episodes. She does have reflux disease and she takes medications for that. Her symptoms became very severe and she call her primary care who recommended she go to the ER. There she had blood work done which is reassuring and she also had a chest x-ray done which also reassuring. A my examination she is able to take deep breath but in between she does have issues with shallow breathing. Denies any significant phlegm production. Denies any obvious aspiration events. 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 Lumbar stenosis Vitamin D deficiency HTN (hypertension) CAD (coronary artery disease) Surgical History Hx of cystoscopy History of back surgery H/O spinal fusion Family History Father Heart disease Mother Breast cancer Social History Housing: Apartment Alcohol intake: never Patient Tobacco Use Status: Never used Tobacco e-Cigarette/Vaping Use: Never Used Second Hand Smoke Exposure: No service: No Current occupational status: retired Cognitive needs: No Hearing needs: No Vision needs: Yes Review of Systems Const Denies fever(s) ENT Reports dysphagia and Reports dry mouth Card Denies chest pain, Reports dyspnea and Reports dyspnea on exertion Resp Reports pain on inspiration, Reports dyspnea, Reports dyspnea on exertion and Denies wheezing GI Reports dysphagia Musc Reports myalgias Skin/Breast Denies rash Neuro Reports no additional complaints Juan Miguel/Lymph Reports no additional complaints Aller/Immun Denies wheezing Physical Exam Vital Signs: Last Vital Signs Pulse 72 10/11/24 14:55 BP 162/80 H 10/11/24 14:55 Pulse Ox 99 10/11/24 14:55 Oxygen Delivery Method Room Air 10/11/24 14:55 BMI result Body Mass Index 22.3 Const General: comfortable HEENT Head: Yes normocephalic Neck Neck: Yes supple Chest Chest palpation & inspection: normal inspection of the chest Resp Effort & Inspection: tachypneic Auscultation: no crackles, no rales, no rhonchi, no wheezes and diminished lung sounds Cardio Heart sounds: S1 normal heart sound present and S2 normal heart sound present GI Palpation (GI): Soft to palpation Skin General skin exam: no rashes or lesions noted Extrem General: Yes no clubbing, cyanosis or edema Assessment & Plan Assessment & Plan (1) Dysphagia: Code(s): R13.10 - Dysphagia, unspecified Category: Medical Qualifiers: Dysphagia type: oral phase Qualified Code(s): R13.11 - Dysphagia, oral phase (2) Vocal cord dysfunction: Code(s): J38.3 - Other diseases of vocal cords Category: Medical (3) Dyspnea: Code(s): R06.00 - Dyspnea, unspecified Category: Medical Qualifiers: Dyspnea type: unspecified Qualified Code(s): R06.00 - Dyspnea, unsp ecified Plan start plaquenil start Breo barium swallow PFTs speech eval amd management for vocal cord dysfuction consider laryngoscopy / probe F/U 2-3 months Orders: Orders FL barium swallow 10/11/24 K21.9 - Gastro-esophageal reflux disease without esophagitis PFT pulmonary function test Today R06.00 - Dyspnea, unspecified Referrals Speech and Hearing Referral J38.3 - Other diseases of vocal cords Medications: New fluticasone furoate-vilanterol 100-25 mcg/dose (Breo Ellipta) 1 inh inhalation DAILY 30 days 60 ea 11RF hydroxychloroquine (Plaquenil) 200 mg PO DAILY 30 days 30 tabs 6RF Coding Level of Care Code New Pt Level 4 (19879) Diagnoses Oral phase dysphagia R13.11 Dysphagia type: oral phase Vocal cord dysfunction J38.3 Dyspnea, unspecified type R06.00 Dyspnea type: unspecified Time Spent (min) 40
[2024-10-11 14:55] VITALS: BP 162/80; PULSE 72; O2SAT 99; BMI 22.3
== END 2024-10-11 15:28 | disposition home or self-care (01) ==
PROVIDERS: PCP Internal Medicine; Visit Provider Hospitalist
DX: R13.11 Dysphagia, oral phase (principal); J38.3 Other diseases of vocal cords; R06.00 Dyspnea, unspecified
CPT/HCPCS: 99204

== ENCOUNTER → 2024-10-11 14:49 | Outpatient (BNVA) | payer OTHER, SELFPAY | PROVIDERS: PCP Internal Medicine; Visit Provider Hospitalist | DX: R06.00 Dyspnea, unspecified (principal); J38.3 Other diseases of vocal cords; R13.11 Dysphagia, oral phase | CPT/HCPCS: 99202 ==

== ENCOUNTER 2024-10-28 08:46 | Outpatient (AMB) | payer OTHER, SELFPAY ==
--- NOTE | 2024-10-27 20:12 | A.OFFVIS_ITS ---
Intake Visit Reasons: 3m follow up Intake Note: Patient is present for 3 month follow med review Urology Med: Myrbetriq Antibiotic Allergy: Nitrofurantoin Blood Thinner: Aspirin Patient Symptoms: No symptoms at this moment. Patient states she does not know if Carrollbetriq is helping, she cannot hold her urine Assurance Senior Manager Required: No Allergies nitrofurantoin Allergy (Intermediate, Verified 10/28/24 08:52) colitis codeine Allergy (Unknown, Verified 10/28/24 08:52) Unknown hydrocodone [From Vicodin] Allergy (Unknown, Verified 10/28/24 08:52) Unknown tramadol Allergy (Unknown, Verified 10/28/24 08:52) Unknown Medication List - Last Reconciled 10/28/24 by Jimmy Mcgill MD acetaminophen (Acetaminophen Extra Strength) 500 mg PO QID PRN amlodipine 3.75 mg PO DAILY aspirin 81 mg PO DAILY atorvastatin 40 mg PO DAILY Bifidobacterium infantis (Align) 4 mg PO DAILY 90 days calcium citrate (Citracal) PO BID cephalexin 250 mg PO ONCE 90 days cevimeline 1 cap PO BID cholecalciferol (vitamin D3) 25 mcg PO .3x per week clonazepam 0.5 mg PO BEDTIME 90 days cranberry extract 400 mg PO DAILY cyclosporine 0.05% (Restasis) 1 drp ophthalmic (eye) BID docusate sodium (Stool Softener) 100 mg PO BID estradiol 0.01%(0.1mg/gram) (Estrace) 1 g vaginal 2XW fluticasone furoate-vilanterol 100-25 mcg/dose (Breo Ellipta) 1 inh inhalation DAILY 30 days gabapentin 300 mg PO BEDTIME 90 days hydroxychloroquine (Plaquenil) 200 mg PO DAILY 30 days metoprolol succinate ER 12.5 mg (1/2 x 25 mg) PO DAILY mirtazapine 15 mg PO BEDTIME omeprazole 40 mg PO BID 90 days pilocarpine HCl 5 mg PO DAILY polyethylene glycol 3350 (Miralax) 17 grams PO DAILY varenicline (Tyrvaya) 1 spray intranasal BID vibegron (Gemtesa) 75 mg PO DAILY zolpidem ER 6.25 mg PO BEDTIME PRN 90 days HPI Comments Details: 10/28/24--Telehealth FU--3 month FU--Kavita is an 79-year-old female who is here for evaluation for recurrent UTI's and OAB symptoms. Past Medical history Xerostomia, CAD, Htn, lumbar stenosis. She was on Keflex antibiotic suppression therapy. She states she had a breakthrough infection and was seen at urgent care and treated with a different abx. She still has urinary incontinence on Myrbetriq 25 mg daily, I have discussed trial of gemtesa. Review of chart: 07/29/24--Kavita is an 79-year-old female who is here for evaluation for recurrent UTI's and OAB symptoms. Past Medical history Xerostomia, CAD, Htn, lumbar stenosis. She is currently on Keflex antibiotic suppression therapy. She has intermittent urinary incontinence on Myrbetriq 25 mg daily. Will cont Myrbetriq 25 mg daily, cranberry supplementation, discont Abx suppression, fu in 4 months. 03/28/24--Kavita is an 78-year-old female who is here for evaluation for recurrent UTI's and OAB symptoms. Past Medical history Xerostomia, CAD, Htn, lumbar stenosis Surgical history includes but is not limited to back surgery. She is currently on Keflex antibiotic suppression therapy. Pt had UTI symptoms last month. She was treated with Macrobid. She states currently she is doing well denies dysuria or gross hematuria. plan Cont. Myrbetriq 25 mg daily, cranberry supplementation, discont Abx suppression, fu in 4 months. 12/28/23--Kavita is being evaluated for recurrent UTI she is here for office cystoscopy. She was last evaluated on 10/30/2023, started on Myrbetriq 50 mg daily for urinary symptoms of frequency. She is here in follow-up and had renal cell performed. Urine cytology sent on 10/30/2023-negative for malignant cells. Renal ultrasound performed on 12/11/2023-kidneys within normal limits. Cystoscopy findings: Multifocal erythematous changes no noted suggestive of cystitis. Plan: Cystoscopy findings consistent with cystitis. Antibiotic suppressive therapy Bactrim daily 10/30/2023 Kavita is an 78-year-old female who is here for evaluation for recurrent UTI's. Past Medical history Xerostomia, CAD, Htn, lumbar stenosis. Surgical history includes but is not limited to back surgery. The patient complains of daytime urinary frequency every 1-2 hours, urinary incontinence, wears a pad, denies nocturia wakes up about 4 AM and leaks before getting to the bathroom, denies hematuria, has dysuria associated with UTI symptoms, denies history of kidney stones, denies history of nicotine use. She states she was prescribed medication for her bladder symptoms in the past that made her dry mouth worse. I have reviewed chart, urine cultures reviewed, the patient was last treated for UTI in August. States she has had more that 4 UTIs this year. The patient states she was advised and is using OTC cranberry supplements. I have discussed workup to include evaluation of the upper tracts and consideration for cystoscopy evaluation. 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 Lumbar stenosis Vitamin D deficiency HTN (hypertension) CAD (coronary artery disease) Surgical History Hx of cystoscopy History of back surgery H/O spinal fusion Family History Father Heart disease Mother Breast cancer Social History Housing: Apartment Alcohol intake: never Patient Tobacco Use Status: Never used Tobacco e-Cigarette/Vaping Use: Never Used Second Hand Smoke Exposure: No service: No Current occupational status: retired Cognitive needs: No Hearing needs: No Vision needs: Yes Review of Systems Const All systems reviewed & are unremarkable except as noted in HPI and below Reports no additional complaints Eyes Reports no additional complaints ENT Reports no additional complaints Card Reports no additional complaints Resp Reports no additional complaints GI Reports no additional complaints Reports as per HPI Musc Reports no additional complaints Skin/Breast Reports system reviewed and no additional complaints, except as documented Neuro Reports no additional complaints Psych Reports no additional complaints Endo Reports no additional complaints Juan Miguel/Lymph Reports no additional complaints Aller/Immun Reports no additional complaints Telehealth Telehealth Telehealth Platform: [facility] Location of provider rendering services: practice address Location of patient: address on file Patient Identification confirmed using: Name, : Yes Telehealth method: voice only Patient verbally consented to treatment: Yes Patient verbally consented to billing insurance company: Yes Patient informed of any privacy concerns related to visit: Yes Minutes spent on Phone/Video with Pt.: 18 Results Reviewed Results Reviewed: Collected: 03/01/24 Status: COMP Req#: [id number] Received: 03/01/24 Source: [facility] Sp Desc: Clean Cat Subm Dr: Jimmy Mcgill MD Ordered: Urine Culture Procedure Result Verified Urine Culture Final 03/03/24 Organism 1 Streptococcus viridans group Quant > 100,000 cfu/mL Susceptibility not routinely performed on this isolate. Date of Service: 04/14/24 EXAMINATION: CT abdomen pelvis w IV con CLINICAL INFORMATION: Reason for Exam abd pain COMPARISON: No prior CT available for comparison. TECHNIQUE: Multidetector volumetric imaging was performed from the superior aspect of the liver through the pubic symphysis 85 mL Omnipaque 350 injected Sagittal and coronal reformatted images were obtained on the technologist's workstation. This CT examination was performed using dose optimization techniques as appropriate, variously including the following: *Automated exposure control *Adjustment of mA and/or kV according to patient size (this includes techniques or standardized protocols for targeted exams where dose is matched to indication/reason for exam; i.e. extremities or head) *Use of iterative reconstruction technique DLP: 296 mGy-cm FINDINGS: LOWER THORAX: Included lung bases are clear. HEPATOBILIARY: No focal hepatic lesions. No biliary ductal dilatation. GALLBLADDER: Distended gallbladder, no gallstones. SPLEEN: Spleen is normal in size. PANCREAS: No focal mass or ductal dilatation. STOMACH AND GASTROINTESTINAL TRACT: Stomach is grossly unremarkable. No evidence of bowel obstruction. There is circumferential wall thickening involving the almost the entire colon and sigmoid colon, nonspecific CT finding and can be seen in patient with infection or inflammatory process, colitis, IBD, less commonly neoplastic. Ischemia is in the differential however is less likely given the large segment of involvement. ADRENALS: No adrenal nodules. KIDNEYS/URETERS: No hydronephrosis, stones or solid mass lesions. URINARY BLADDER: Partially decompressed. PELVIC VISCERA: There is left adnexal cyst 2.7 cm most likely of left ovarian origin, no free fluid or air in the pelvis. No bulky adenopathy. PERITONEUM: No free air or fluid. LYMPH NODES: No lymphadenopathy. VASCULAR:Abdominal aorta normal in size, no aneurysm found. 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 There is a fluid-filled cystic mass lower back measures 7 x 5.3 cm extending from the posterior element of vertebrae through the paravertebral muscle and subcutaneous fat abutting the skin dermis. The attenuation of which is similar to CSF fluid and may be synovial cyst or dural sac/nerve sheet cysts. IMPRESSION: 1. There is circumferential wall thickening involving the almost the entire colon and sigmoid colon, nonspecific CT finding and can be seen in patient with infection or inflammatory process, colitis, IBD, less commonly neoplastic. Ischemia is in the differential however is less likely given the large segment of involvement. 2. Left adnexal cyst 2.7 cm most likely of left ovarian origin. Findings are overwhelmingly likely to represent a benign functional cyst and no followup imaging recommended. 3. 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 4. Large Fluid-filled cystic mass lower back 7 x 5.3 cm extending from the posterior element of vertebrae through the paravertebral muscle and subcutaneous fat abutting the skin dermis. The attenuation of which is similar to CSF fluid and may be synovial cyst or dural sac/versus nerve sheath cyst, recommend contrast-enhanced lumbar spine MRI for further investigation.. Assessment & Plan Assessment & Plan (1) Frequency of urination: Code(s): R35.0 - Frequency of micturition Category: Medical (2) Cystitis: Code(s): N30.90 - Cystitis, unspecified without hematuria Category: Medical (3) OAB (overactive bladder): Code(s): N32.81 - Overactive bladder Category: Medical (4) Urinary incontinence: Code(s): R32 - Unspecified urinary incontinence Category: Medical (5) Recurrent UTI: Code(s): N39.0 - Urinary tract infection, site not specified Category: Medical Plan DC Myrbetriq replace with Gemtesa 75 mg daily, cont estrace cream. do not use applicator, use small amount on fingertip and apply vaginally M-F Medications: New vibegron (Gemtesa) 75 mg PO DAILY 30 tabs 10RF Changed From estradiol 0.01%(0.1mg/gram) (Estrace) 1 g vaginal 2XW 42.5 grams 0RF N39.0 - Urinary tract infection, site not specified To estradiol 0.01%(0.1mg/gram) (Estrace) Use pea-sized amount on fingertip placed vaginally Monday through Monday at bedtime vaginally as directed from medical doctor.; 42.5 grams 1RF Vaginal atrophy N39.0 - Urinary tract infection, site not specified Patient Instructions: The patient had an opportunity to ask questions regarding treatment plan. The patient expressed understanding and agreement with the above treatment plan. The patient is aware they should contact our office by phone for worsening of their current condition or the appearance of new symptoms. Compliance is encouraged with any medications and followup testing that is ordered. It is a privilege to be allowed the opportunity to participate in the urologic care of your patient. If you have any questions or concerns regarding treatment for the above conditions please do not hesitate to contact me. The office telephone contact is [phone]. This note is constructed in part using voice recognition software. While every effort has been made to ensure accuracy handmade tile artist errors may have been included. Yours sincerely, Jimmy Mcgill MD Coding Level of Care Code Tele Est Pt Level 4 (01067) Diagnoses Frequency of urination R35.0 Cystitis N30.90 OAB (overactive bladder) N32.81 Urinary incontinence R32 Recurrent UTI N39.0
--- OUTSIDE RECORDS SUMMARY | 2024-10-30 13:31 | XMS_ITS | Data Portability ---
Author Organization [employer] Address [address] [place] [id number] Care Team Providers Care Cyber Crime Investigator Name Role Phone JATIN CAMILA Primary Care Provider Assessment No assessment recorded. Plan of Treatment Reminders Order Date Submit Date Provider Last Modified By Organization Details Last Modified Time Details Appointments None record ed. Lab None record ed. Referral None record ed. Procedures None record ed. Surgeries None record ed. Imaging None record ed. Medication Orders None record ed. Patient TargetsNo targets recorded. Patient InstructionsNo instructions recorded. Reason for Referral None Reported. Medical Equipment None Reported. Medications Name Sig Start Date Stop Date Status Note LastModified by Organization Details LastModified Time atorvastatin 40 mg tablet TAKE 1 TABLET BY MOUTH ONCE DAILY active Not Available Not Available No t Available pilocarpine 5 mg tablet TAKE 1 TABLET BY MOUTH ONCE DAILY IN THE EVENING active Not Available Not Available Not Available cefuroxime axetil 250 mg tablet TAKE 1 TABLET BY MOUTH TWICE DAILY FOR 7 DAYS active Not Available Not Available No t Available cefpodoxime 100 mg tablet TAKE 1 TABLET BY MOUTH TWICE DAILY; MUST ADMINISTER WITH A MEAL/FOOD active Not Available Not Available No t Available sulfamethoxa zole 400 mg-trimethop rim 80 mg tablet TAKE 1 TABLET BY MOUTH ONCE DAILY active Not Available Not Available No t Available cephalexin 250 mg capsule TAKE 1 CAPSULE BY MOUTH ONCE DAILY FOR UTI SUPPRESSION FOR 90 DAYS active Not Available Not Available Not Available phenazopyrid ine 200 mg tablet TAKE 1 TABLET BY MOUTH THREE TIMES DAILY active Not Available Not Available Not Available amlodipine 2.5 mg tablet TAKE 1 & 1/2 (ONE & ONE-HALF) TABLETS BY MOUTH ONCE DAILY active Not Available Not Available No t Available levofloxacin 250 mg tablet TAKE 1 TABLET BY MOUTH ONCE DAILY FOR 5 DAYS active Not Available Not Available No t Available sulfamethoxa zole 800 mg-trimethop rim 160 mg tablet TAKE 1 TABLET BY MOUTH TWICE DAILY active Not Available Not Available No t Available omeprazole 40 mg capsule,krystyna yed release TAKE 1 CAPSULE BY MOUTH TWICE DAILY active Not Available Not Available No t Available cevimeline 30 mg capsule TAKE 1 CAPSULE BY MOUTH TWICE DAILY active Not Available Not Available No t Available gabapentin 300 mg capsule TAKE 1 CAPSULE BY MOUTH AT BEDTIME active Not Available Not Available No t Available mirtazapine 15 mg tablet TAKE 1 TABLET BY MOUTH AT BEDTIME active Not Available Not Available No t Available metoprolol succinate ER 25 mg tablet,exten ded release 24 hr TAKE 1/2 (ONE-HALF) TABLET BY MOUTH ONCE DAILY active Not Available Not Available No t Available estradiol 0.01% (0.1 mg/gram) vaginal cream INSERT 1 GRAM VAGINALLY 2 TIMES A WEEK active Not Available Not Available No t Available tobramycin 0.3 %-dexamethas one 0.1 % eye drops,suspen shelby INSTILL 1 DROP INTO LEFT EYE THREE TIMES DAILY FOR 7-10 DAYS active Not Available Not Available No t Available cyclosporine 0.05 % eye drops in a dropperette INSTILL 1 DROP INTO EACH EYE TWICE DAILY active Not Available Not Available Not Available clonazepam 0.5 mg disintegrati ng tablet DISSOLVE 1 TABLET IN MOUTH AT BEDTIME active Not Available Not Available No t Available nitrofuranto in monohydrate/ macrocrystal s 100 mg capsule TAKE 1 CAPSULE BY MOUTH TWICE DAILY WITH A MEAL/FOOD FOR 5 DAYS active Not Available Not Available N ot Available zolpidem ER 6.25 mg tablet,exten ded release,mult iphase TAKE 1 TABLET BY MOUTH AT BEDTIME NEEDED FOR INSOMNIA active Not Available Not Available No t Available sodium fluoride 1.1 %-potassium nitrate 5 % dental paste BRUSH TEETH DIRECTED active Not Available Not Available Not Available PreviDent 5000 Dry Mouth 1.1 % dental paste USE TO BRUSH TEETH DIRECTED BY THE DOCTOR active Not Available Not Available No t Available Align 4 mg capsule TAKE 1 CAPSULE BY MOUTH ONCE DAILY active Not Available Not Available No t Available Myrbetriq 50 mg tablet,exten ded release TAKE 1 TABLET BY MOUTH ONCE DAILY active Not Available Not Available No t Available Tyrvaya 0.03 mg/spray nasal spray USE 1 SPRAY IN EACH NOSTRIL TWICE DAILY active Not Available Not Available Not Available Vitals Date Recorded Oxygen saturation Oxygen saturation in Arterial blood by Pulse oximetry Body weight Heart rate Respiratory rate Body temperature Systolic blood pressure Diastolic blood pressure Provider Name and Address Organization Details Last Updated DateTime 4 98 % 98 % 63450.3 04 g 70 /min 18 /min 98.8 [degF] 176 mm[Hg] 96 mm[Hg] Not Available [facility] - production 14:26:10 Social History None recorded. Functional Status None recorded. Mental Status None recorded. Family History Nothing Reported. Medical History No medical history recorded. Gynecological HistoryNo gynecological history recorded. Obstetrics History GPAL:G 0 P 0 0 0 0 Past Encounters Encounter ID Performer Location Encounter Start Date Encounter Closed Date Diagnosis/Indication Diagnosis SNOMED-CT Code Diagnosis ICD10 Code [id number] Karo Hernandez MD [facility] [address] [place] [address] 07/24/2024 14:26:00 07/24/2024 22:33:12 Contusion of left great toe [id number] S90.112A Health Concerns Section Related Observation LastModified by Organization Detai ls LastModified Time None Recorded Concern Status LastModified by Organization Details LastModified Time None Recorded Advance Directives Directive None Recorded Payers Encounter Date Sequence Insurance Name Policy Number Policy Franklin Covered Member ID Franklin Member ID Guarantor Name 07/24/2024 1 [facility] - DOS ON OR AFTER 2023 - DUAL ELIGIBLE - CARE HOME OPTIONS AND ONE CARE (MEDICARE REPLACEMENT/ADV ANTAGE - HMO) Kavita Roman [id number] Kavita Roman Notes Date Note Type Note Provider Name and Address Organization Details Recorded Time 07/24/2024 text/html This is an 79yo F who presents for evaluation of her left great toe bruising and slight swelling. States yesterday she noticed some bruising near the toenail extending outward. There is not really any pain. She is able to walk without difficulty or pain. No known injury to the toe. No drainage or redness. Has been soaking it in Epsom salts. Wonders if there is anything that needs to be done about it. [facility] Nurse Triage Notes (Maura Benitez): Reason For Request: big toe on left foot is swollen and looks infected Chief Complaints: Injury PMH: Heart Disease Allergies: No Known Comments: Patient reporting signs of injury to 1st toe of left foot. Appears bruised and swollen. No drainage. Soaking in epsom salt. No known injury. Denies pain to toe. Patient is on a prophylactic antibiotic Keflex for frequent UTI. ................... ................... ................... ................... ................... ................... ................... ........ Decorator Mannequin Note From Truong Bragg: Pt redness discoloration in left big toe near nail bed. Pt denies pain but sts she feels something but can? t describe. Denies bleeding or discharge. Denies injury. Baseline vitals assessed , afebrile, pt able to walk without pain. [facility] contacted and advised pt to continue with epson salt soak. Pt advised to monitor for worsening pain redness or discharge/bleeding or tightness of area. Pt advised to go to ER if that occurs. Pt education on signs indicating the ER. Pt advised to follow up with pcp if symptoms persist. ................... ................... ................... ................... ................... ................... ................... ........ Disposition: Emil Hernandez MD [address] [facility],[address], [place], [address], RenrenmoneyCHRISTOPHE SCALES 07/24/2024 15:01:28 OBGyn Episode No OBEpisode recorded.
== END 2024-10-28 16:52 | disposition home or self-care (01) ==
LOC: HO.HUSH 08:46
PROVIDERS: PCP Internal Medicine; Visit Provider Urology
DX: R35.0 Frequency of micturition (principal); N32.81 Overactive bladder; R32 Unspecified urinary incontinence; N39.0 Urinary tract infection, site not specified
CPT/HCPCS: 99442

== ENCOUNTER 2024-11-04 08:44 | Outpatient (AMB) | payer OTHER, SELFPAY ==
--- NOTE | 2024-11-04 08:48 | A.OFFPC_ITS ---
Vital Signs 11/04/24 08:50 Height 5 ft Weight 113 lb 2 oz BMI 22.1 BP 120/80 Blood Pressure Location Lt brachial Position Sitting Intake Visit Reasons: sjogrens Intake Note: Patient is here to follow up on Sjogrens disease. Landscape Architect Required: No Barrel Lathe Operator Outside: Present Accompanied by: Staff Allergies nitrofurantoin Allergy (Intermediate, Verified 11/04/24 08:49) colitis codeine Allergy (Unknown, Verified 11/04/24 08:49) Unknown hydrocodone [From Vicodin] Allergy (Unknown, Verified 11/04/24 08:49) Unknown tramadol Allergy (Unknown, Verified 11/04/24 08:49) Unknown Tobacco use date assessed: 11/04/24 Fall risk assessment: No Falls in past year Last assessed Fall Risk: 11/04/24 Dental Screening Dental Screen Date: 12/14/23 HPI sjogrens HPI Details 79-year-old female with coronary artery disease hypertension hypercholesterolemia GERD generalized anxiety disorder overactive bladder and burning mouth syndrome last seen April 2024. In review of the notes, patient was seen by urology 10/2024 discontinued Myrbetriq and started on Gemtesa and continue on estrace cream. Patient was seen by Pulmonology 09/2024 started on plaquenil and Breo advised to do barium swallow and PFTs. [place] was [place] [facility] for shortness of breath negative workup.?Patient was seen by General surgery for lip biopsy which suggested Sjogren syndrome and was advised to follow up with concrete mixer loader truck mounted. She tells us today she has not yet started the Gemtesa but has been using the Estrace cream. She is on a daily antibiotic for bacterial colonization of the bladder and has also been having urinary tract infections. She did recently start on the hydroxychloroquine as prescribed by her cushion cover inspector. Still complaining of dry mouth and dry throat with difficulty swallowing. She has no other concerns today. 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 Lumbar stenosis Vitamin D deficiency HTN (hypertension) CAD (coronary artery disease) Surgical History Hx of cystoscopy History of back surgery H/O spinal fusion Family History Father Heart disease Mother Breast cancer Social History Housing: Apartment Alcohol intake: never Patient Tobacco Use Status: Never used Tobacco e-Cigarette/Vaping Use: Never Used Second Hand Smoke Exposure: No service: No Current occupational status: retired Cognitive needs: No Hearing needs: No Vision needs: Yes Questionnaire Thrive Questionnaire Date Thrive assessed: 05/02/24 NGA-7 AMB Questionnaire NGA-7 Date NGA - 7 assessed: 12/14/23 Source: Developed by Drs. Kole Vazquez, Livia Marie, Caden Bowman and colleagues, with an educational justus from [employer]. Review of Systems Const Denies body aches, Denies chills, Denies fever(s), Denies headache(s) and Denies poor appetite Eyes Reports no additional complaints ENT Details: Dry mouth and nose Reports dysphagia, Denies dizziness, Denies headache(s) and Denies odynophagia Card Denies chest pain, Denies edema, Denies irregular heart rhythm, Denies lightheadedness and Denies dyspnea Resp Denies cough and Denies dyspnea GI Denies abdominal pain, Reports dysphagia, Denies nausea, Denies odynophagia and Denies vomiting Reports no additional complaints Musc Reports no additional complaints and Denies abnormal gait Skin/Breast Reports system reviewed and no additional complaints, except as documented Neuro Denies abnormal gait, Denies dizziness and Denies headache(s) Psych Reports no additional complaints Physical exam (Primary Care) Vital Signs: Last Vital Signs BP 120/80 11/04/24 08:50 BMI result Body Mass Index 22.1 Tobacco/Smoking Status: Tobacco use Status Tobacco use date assessed 11/04/24 11/04/24 08:52 Patient Tobacco Use Status Never used Tobacco 11/04/24 08:52 e-Cigarette/Vaping Use Never Used 11/04/24 08:52 Thrive Assessment: Date of Thrive Assessment Date Thrive assessed 05/02/24 11/04/24 08:52 Const General: cooperative, healthy appearing, comfortable and no acute distress Orientation/consciousness: patient oriented x3 HENMT Head: Yes normocephalic Ears: hearing grossly normal bilaterally General nose exam: Normal external nose present Eyes General: appearance normal, both eyes and all related structures Conjunctivae: conjunctivae normal Neck Neck: Yes full ROM and Yes no lymphadenopathy Resp Effort & Inspection: normal respiratory effort Auscultation: clear to auscultation bilaterally, no crackles, no rales, no rhonchi and no wheezes Cardio Rate: regular rate Rhythm: regular rhythm Skin General skin exam: no rashes or lesions noted Neuro General: patient oriented x3 Gait exam (Neuro): Normal gait present Extrem General: Yes normal to inspection, Yes full ROM and No edema Psych Affect: normal affect Attitude: cooperative Insight: Good insight present (Psych) Judgement: Good judgement present (Psych) Coding Level of Care Code Est Pt Level 4 (08698) Diagnoses TSH elevation R79.89 Coronary artery disease involving [place] coronary artery of [place] heart without angina pectoris I25.10 Coronary Disease-Associated Artery/Lesion type: [place] artery [place] vs. transplanted heart: [place] heart Associated angina: without angina Primary hypertension I10 Hypertension type: primary hypertension Hypercholesterolemia E78.00 Sjogren's disease M35.00 GERD (gastroesophageal reflux disease) K21.9 Assessment & Plan Assessment & Plan (1) TSH elevation: Code(s): R79.89 - Other specified abnormal findings of blood chemistry Category: Medical Plan: Continue to monitor thyroid function testing. Last labs were normal. (2) CAD (coronary artery disease): Comment: s/p NSTEMI SOWMYA 06/03/2019, Code(s): I25.10 - Atherosclerotic heart disease of [place] coronary artery without angina pectoris Category: Medical Qualifiers: Coronary Disease-Associated Artery/Lesion type: [place] artery [place] vs. transplanted heart: [place] heart Associated angina: without angina Qualified Code(s): I25.10 - Atherosclerotic heart disease of [place] coronary artery without angina pectoris Plan: Advised good control of cholesterol, blood pressure and blood sugar. (3) HTN (hypertension): Code(s): I10 - Essential (primary) hypertension Category: Medical Qualifiers: Hypertension type: primary hypertension Qualified Code(s): I10 - Essential (primary) hypertension Plan: Continue on current blood pressure medication. Avoid salt intake and encourage healthy diet and regular exercise. (4) Hypercholesterolemia: Code(s): E78.00 - Pure hypercholesterolemia, unspecified Category: Medical Plan: Avoid foods that are high in cholesterol such as red meat, fried foods, eggs and baked goods. Triglyceride goal of less than 150 and LDL goal of less than 70. Continue on atorvastatin 40 mg. Ordered for updated blood work to be completed before next appointment. (5) Sjogren's disease: Code(s): M35.00 - Sjogren syndrome, unspecified Category: Medical Plan: Currently working with cushion cover inspector and urology for management. Does not have a concrete mixer loader truck mounted and declines 1 at this time. Recently started on hydroxychloroquine by pulmonology we will also order for barium swallow and pulmonary function testing. Follow up in 3 months (6) GERD (gastroesophageal reflux disease): Code(s): K21.9 - Gastro-esophageal reflux disease without esophagitis Category: Medical Plan: Avoid trigger foods such as citrus, tomato products, soda, caffeine, spicy foods and other foods that may be irritating to your stomach. Avoid laying flat 3-4 hours after eating and elevate the head of the bed 30 degrees to prevent acid from moving into the esophagus. Patient to complete barium swallow. Plan This note was constructed using voice recognition software. While every effort has been made to ensure accuracy and economic developer, still areas may have been included sometimes these areas may affect the content or meeting of the given symptoms. Total time spent caring for the patient today was 30 minutes. This includes time spent before the visit reviewing the chart, time spent during the visit, and time spent after the visit and documentation. Orders: Orders Lipid Panel Today E78.00 - Pure hypercholesterolemia, unspecified, I25.10 - Atherosclerotic heart disease of [place] coronary artery without angina pectoris TSH reflex Free T4 Today R79.89 - Other specified abnormal findings of blood chemistry, Z00.00 - Encounter for general adult medical examination without abnormal findings Free T4 (Free Thyroxine) Today R79.89 - Other specified abnormal findings of blood chemistry, Z00.00 - Encounter for general adult medical examination without abnormal findings Complete Blood Count Auto Diff Today I25.10 - Atherosclerotic heart disease of [place] coronary artery without angina pectoris, Z00.00 - Encounter for general adult medical examination without abnormal findings Comprehensive Met. Panel Today I25.10 - Atherosclerotic heart disease of [place] coronary artery without angina pectoris, Z00.00 - Encounter for general adult medical examination without abnormal findings Vitamin B12 and Folate Today E78.00 - Pure hypercholesterolemia, unspecified, Z00.00 - Encounter for general adult medical examination without abnormal findin gs Vitamin D 25-OH Total Today E78.00 - Pure hypercholesterolemia, unspecified, Z00.00 - Encounter for general adult medical examination without abnormal findings
[2024-11-04 08:50] VITALS: BP 120/80; BMI 22.1
--- OUTSIDE RECORDS SUMMARY | 2024-11-04 08:52 | XMS_ITS | Data Portability ---
Author Organization [employer] Address [address] [place] [phone] Care Team Providers Care Stripper Cutter Machine Name Role Phone JATIN CAMILA Primary Care [...] Available Not Available No t Available Align (B.infantis) 4 mg capsule TAKE 1 CAPSULE BY [...] and Address Organization Details Last Updated DateTime 98 % 98 % 08740.3 04 g 70 /min 18 /min 98.8 [...] Diagnosis/Indication Diagnosis SNOMED-CT Code Diagnosis ICD10 Code [id number] Karo Hernandez MD [facility] - [facility] [address] [place] [address] 07/24/2024 14:26:00 07/24/2024 22:33:12 Contusion of left great toe [id number] S90.112A Health Concerns Section Related Observation LastModified by Organization Detai ls LastModified Time None Recorded Concern Status LastModified by Organization Details LastModified Time None Recorded Advance Directives Directive None Recorded Payers Encounter Date Sequence Insurance Name Policy Number Policy Franklin Covered Member ID Franklin Member ID Guarantor Name 07/24/2024 1 [facility] - DOS ON OR AFTER 2023 - DUAL ELIGIBLE - [employer] OPTIONS AND ONE CARE (MEDICARE REPLACEMENT/ADV ANTAGE - HMO) Kavita Roman [id number] Kavita Roman Notes Date Note Type Note [...] ................... ................... ................... ................... ................... ................... ........ Agronomy Advisor Note From Truong Bragg: Pt redness discoloration in left big toe near nail bed. Pt denies pain but sts she feels something but can? t describe. Denies bleeding or discharge. Denies injury. Baseline vitals assessed , afebrile, pt able to walk without pain. [facility] [place] and advised pt to continue with epson jian soak. Pt advised to monitor for worsening pain redness or discharge/bleeding or tightness of area. Pt advised to go to ER if that occurs. Pt education on signs indicating the ER. Pt advised to follow up with pcp if symptoms persist. ................... ................... ................... ................... ................... ................... ................... ........ Disposition: Fulfilled Karo Hernandez MD [address] [facility],[address], [place], [address], CHRISTOPHE ALVAREZ 07/24/2024 15:01:28 OBGyn Episode No OBEpisode recorded.
== END 2024-11-04 09:46 | disposition home or self-care (01) ==
PROVIDERS: PCP Internal Medicine
DX: I25.10 Atherosclerotic heart disease of native coronary artery without angina pectoris (principal); M35.00 Sjogren syndrome, unspecified; I10 Essential (primary) hypertension; E78.00 Pure hypercholesterolemia, unspecified; K21.9 Gastro-esophageal reflux disease without esophagitis

== ENCOUNTER → 2024-11-04 08:44 | Outpatient (BNVA) | payer OTHER, SELFPAY | PROVIDERS: PCP Internal Medicine | DX: R79.89 Other specified abnormal findings of blood chemistry (principal); I25.10 Atherosclerotic heart disease of native coronary artery without angina pectoris; I10 Essential (primary) hypertension; E78.00 Pure hypercholesterolemia, unspecified; M35.00 Sjogren syndrome, unspecified; K21.9 Gastro-esophageal reflux disease without esophagitis | CPT/HCPCS: 99212 ==

== ENCOUNTER 2024-11-29 08:50 | Outpatient (REF) | payer OTHER, SELFPAY ==
--- OUTSIDE RECORDS SUMMARY | 2024-11-29 08:53 | XMS_ITS | Data Portability ---
Author Organization [employer] Address [address] [place] [phone] Care Team Providers Care Decorator Store Name Role Phone JATIN CAMILA Primary Care [...] Last Updated DateTime 98 % 98 % 88728.3 04 g 70 /min 18 /min 98.8 [...] Diagnosis/Indication Diagnosis SNOMED-CT Code Diagnosis ICD10 Code Diagnosis Note [id number] Karo Hernandez MD [facility] - [facility] [address] [place] [address] 07/24/2024 14:26:00 07/24/2024 22:33:12 Contusion of left great toe [id number] S90.112A As noted, we were called to see this patient regarding concerns of atraumatic left great toe bruising. Evaluation in the field was performed by my shop helper colleague, as noted above, I provided real-time direction and supervisio n for this visit. The evaluation revealed what looks like a contusion of the toe with no signs of cellulitis , abscess, gout. There is no reported hx of injury. She is ambulatory per baseline. No acute medical interventi on required at this time. Pt advised to keep a close watch on the toe for progressio n of sx. If infection develops such as paronychia , this would require face to face evaluation for drainage. She should f/u with her PCP. Primary care, considerpo diatry referral if continues or if ingrown nail develops. Dispositio n: Remain at home We discussed the need to seek care urgently/e mergently in the setting of any new or worsening serious symptoms. Health Concerns Section Related Observation LastModified by Organization Detai ls LastModified Time None Recorded Concern Status LastModified by Organization Details LastModified Time None Recorded Advance Directives Directive None Recorded Payers Encounter Date Sequence Insurance Name Policy Number Policy Franklin Covered Member ID Franklin Member ID Guarantor Name 07/24/2024 1 [facility] - DOS ON OR AFTER 2023 - DUAL ELIGIBLE - [employer] OPTIONS AND ONE CARE (MEDICARE REPLACEMENT/ADV ANTAGE - HMO) Kavita Roman [id number] Kavita Janie Jessie Notes Date Note Type Note Provider Name [...] that needs to be done about it. [facility] Nurse Triage Notes (Maura Benitez): Reason For [...] ................... ................... ................... ................... ................... ................... ........ Classifier Tender Note From Truong Bragg: Pt redness discoloration in left big toe near nail bed. Pt denies pain but sts she feels something but can? t describe. Denies bleeding or discharge. Denies injury. Baseline vitals assessed , afebrile, pt able to walk without pain. [facility] contacted and advised pt to continue with [...] ........ Disposition: Fulfilled Karo Hernandez MD [address] [facility],[address], [place], [address], CHRISTOPHE ALVAREZ 07/24/2024 15:01:28 OBGyn Episode No OBEpisode recorded.
--- NOTE | 2024-11-29 09:02 | PFT_ITS ---
Flows: FEV1: 118 % of predicted at 1.95 L FVC: 125 % of predicted at 2.70 L FEV1/FVC: 72 % Bronchodilator response: Absent Volumes: Total lung capacity: 105 % of predicted at 4.41 L Residual volume: 90 % of predicted at 1.71 L Slow vital capacity: 120 % of predicted at 2.70 L Expiratory reserve volume: 141 % of predicted at 0.74 L Diffusion capacity: Normal Impression: No obstructive or restrictive ventilatory defect. No bronchodilator response. Normal pulmonary function test. MTDD
== END 2024-11-29 08:51 | disposition home or self-care (01) ==
LOC: HO.RESP 08:50
PROVIDERS: PCP Internal Medicine; Visit Provider Hospitalist
DX: R06.00 Dyspnea, unspecified (principal)
CPT/HCPCS: 74230; 92611; 94010; 94640; 94727; 94729

== ENCOUNTER → 2024-11-29 09:02 | Outpatient (BNV) | payer OTHER, SELFPAY | PROVIDERS: PCP Internal Medicine; Visit Provider Internal Medicine Pulmonary Disease | DX: R06.00 Dyspnea, unspecified (principal) | CPT/HCPCS: 94060; 94727; 94729 ==

== ENCOUNTER 2024-11-29 09:48 | Outpatient (REF) | payer OTHER, SELFPAY ==
--- NOTE | ~2024-11-29 | FL_ITS ---
EXAMINATION: Modified Barium Swallow CLINICAL INFORMATION: Dysphagia. COMPARISON: None. TECHNIQUE: Modified barium swallow was performed under lateral fluoroscopy with patient in standing position. Barium mixed with solids and liquids of different consistencies was administered by the speech pathologist. Examination was recorded in the fluoroscopy suite. FINDINGS: Trace laryngeal penetration is seen with thin consistency barium. No subglottic aspiration was observed during this examination. There is moderate cricopharyngeal achalasia present. FLUOROSCOPY TIME: 1 minute Number of Spot Images: N/A DOSE AREA PRODUCT: 3403 uGy-m2 (microgray-meter squared) FL/FL Modified Barium Swallow IMPRESSION: 1. Trace laryngeal penetration with thin consistency barium. No subglottic aspiration was observed during this examination. 2. Moderate cricopharyngeal achalasia. Refer to the speech therapy report for further clarification This procedure was performed by Bill Foote PA-C, and supervised by Dr. Lund Electronically signed by: Tolu Lund MD 11/29/2024 05:12 PM [facility] [place]
--- NOTE | 2024-11-29 13:40 | MHC.SL.IMP ---
Date of Plan of Treatment: 11/29/24 Onset of Symptoms/Illness: 10/28/24 Date Treatment Started: 11/29/24 Admitting Diagnosis: Sj?gren's syndrome Primary Speech & Language Diagnosis: R13.12 Oropharyngeal Phase Dysphagia Secondary Speech & Language Diagnosis: Reason for Today's Visit: 22057 Modified Barium Swallow Study Comments: Pre-evaluation Dietary Consistencies: Regular Pre-evaluation Liquid Consistency: Thin Pre-evaluation Medication Administration: Whole with Puree Medical History: Other: See below Sj?gren's syndrome Dysphagia Vocal cord dysfunction Multiple medical problems Headache Pre-operative clearance 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 She reports that it takes her longer to eat now, and has to avoid certain textures. She reports strategies of cutting food up, chewing food well, and alternating bites and sips. She has additional diagnosis of GERD and is schedule for a Barium Swallow on 12/12/24. Oral Motor Exam Facial Symmetry: Normal for Patient Facial Movement: Oral-Facial Facial Miscellaneous Observations: Mouth Occlusion: Normal Oral-Facial Teeth Characteristics: Intact/Normal Oral-Facial Teeth Miscellaneous Observation: Oral-Facial Lip Pucker Description: Normal Oral-Facial Smile (Lips) Description: Normal Oral-Facial Puff Cheeks Description: Normal Oral-Facial Lip Miscellaneous Comment: Tongue Size: Normal Tongue Frenum Length: Normal Tongue Excursion Description: Normal Tongue Range of Movement Description: Tongue Speed of Movement Description: Tongue Strength of Movement (against opposing pressure): Tongue Movement Characteristics: Tongue Movement Miscellaneous Observation: Oral motor exam unremarkable. Oral Expression Ability: No Impairment Is patient able to manage secretions?: Yes Is patient able to produce volitional cough?: Yes Food and Liquid Trials: Oral Impairment: Lip Closure: 0=No labial escape Oral Impairment: Tongue Control During Bolus Hold: 0=Cohesive bolus between tongue to palatal seal Oral Impairment: Bolus Preparation/Mastication: 0=Timely and efficient chewing and mashing Oral Impairment: Bolus Transport/Lingual Motion: 0=Brisk tongue motion Oral Impairment: Oral Residue: 2=Residue collection on oral structures Oral Impairment:Initiation of Pharyngeal Swallow: 3=Bolus head in pyriforms Pharyngeal Impairment: Soft Palate Elevation: 0=No bolus between soft palate (SP)/pharyngeal wall (PW) Pharyngeal Impairment: Laryngeal Elevation: 1=Partial thyroid cartilage/arytenoids to epiglottic petiole movement Pharyngeal Impairment: Anterior Hyoid Excursion: 1=Partial anterior movement Pharyngeal Impairment: Epiglottic Movement: 0=Complete inversion Pharyngeal Impairment: Laryngeal Vestibular Closure:: 1=Incomplete: narrow column air/contrast in laryngeal vestibule Pharyngeal Impairment: Pharyngeal Stripping Wave: 0=Present: complete Pharyngeal Impairment: Pharyngeal Contraction: Did not test Pharyngeal Impairment: Pharyngoesophageal Segment Openin=Partial distention/partial duration: partial obstruction of flow Pharyngeal Impairment: Tongue Base (TB) Retraction: 2=Narrow column of contrast/air between TB and posterior PW Pharyngeal Impairment: Pharyngeal Residue: 1=Trace residue within or on pharyngeal structures Pharyngeal Impairment: Esophageal Clearance Upright Position: Did not test Impressions and Recommendations Clinical Observations: Year of Onset or Diagnosis: 2023 Current (pre-evaluation) Intake/Diet: Route: PO Diet Grade: Regular Liquid Consistencies: Thin Pre-Study Functional Oral Intake Scale (FOIS): 7- Total oral intake with no restrictions Pain: None reported at time of study Barriers to Learning: OBJECTIVE: Time-out: performed at 10:40 Evaluation Start: 10:45; Stop: 10:55 Patient Positioning: Seated 70-90 degrees Viewing Planes: LATERAL ONLY Contrast: MBSImP? Standardized Protocol using commercially prepared, standardized Barium viscosities, including: Varibar? THIN LIQUID (40% w/v, <15 cps) , Varibar? PUDDING (40% w/v, <5060-8250 cps) , 1/2 Shortbread Cookie (1 x1 x.25 ) MBSImP ID: [id number] MBSImP Results: Lip closure for intraoral bolus containment could not be assessed due to logistical reasons not related to physiologic impairment. Tongue control during bolus hold maintained a cohesive bolus held between tongue to palate seal. Bolus preparation and mastication could not be assessed; solid not given due to logistical reasons or safety concerns unrelated to oral impairment. Bolus transport/lingual motion was with brisk tongue motion. Oral residue was a collection on oral structures. Initiation of the pharyngeal swallow occurred when the bolus head was in the pyriform sinuses. Soft palate elevation resulted in no bolus between the soft palate and the pharyngeal wall. Laryngeal elevation was decreased, with partial superior movement of the thyroid cartilage/partial approximation of the arytenoids to the epiglottic petiole. Anterior hyoid excursion demonstrated partial anterior movement. Epiglottic movement resulted in complete inversion. Laryngeal vestibular closure was incomplete, with a narrow column of air/contrast noted within the laryngeal vestibule at the height of the swallow. Pharyngeal stripping wave could not be assessed due to logistical reasons not related to physiologic impairment. Pharyngeal contraction could not be determined due to logistical reasons not related to physiologic impairment. Pharyngoesophageal segment opening demonstrated partial distension/partial duration, with partial obstruction of bolus flow. Tongue base retraction allowed a narrow column of contrast or air between the retracted tongue base and the posterior pharyngeal wall. Pharyngeal residue was a trace within or on pharyngeal structures. Esophageal clearance in the upright position could not be assessed due to logistical reasons not related to physiologic impairment. Oral Impairment Score: 5 (absence of score, component 1component 3) Pharyngeal Impairment Score: 6 (absence of score, component 12component 13) Esophageal Impairment Score: --- (absence of score, component 17) Laryngeal Penetration and Aspiration: Neither penetration nor aspiration was observed in today's study with Cookie, Pudding-thick, Thin. SUMMARY: Kavita was provided Thin Liquids, Puree, and Regular Solids. No aspiration was observed across administrations. Some mild penetration remained above the airway but was spontaneously removed with subsequent swallows. Puree and Regular Solid resulted in [id number] oropharyngeal residue. With Regular Solids she complained that it was sticky and made her mouth dry. Despite this residue, no aspiration or penetration was observed with solid consistencies. SOCIAL SCIENCES RESEARCH SCIENTIST recommending Pt continue to avoid solid foods that give her difficulty swallowing. She is already cutting up foods and has a humidifier in her apartment. Further recommendations pending the results of her Upper GI Barium Swallow. Liquid Intake Recommendation: Thin Liquid Intake Strategies: Unrestricted Dietary Recommendations: Regular Medication Administration: Whole with Puree Please contact the pharmacy regarding appropriate crushable or liquid drug formulations that are available whenever modified delivery is recommended. Compensatory Strategies Recommended: Sitting Upright (90 deg) Small Bites and Sips Alternate Liquids/Solids Rate of Ingestion Change Supervision during eating and or drinking: None Needed Recommended Treatments: Recommendation for Speech Therapy: NA:Typical Evaluation Text Comment: PLAN: Intake Recommendations: Route: PO Diet Grade: IDDSI Levels: 7-Easy to Chew Liquid Consistencies: IDDSI Levels: 0-Thin Post-Study Functional Oral Intake Scale (FOIS): 6- Total oral intake with no special preparation, but must avoid specific foods or liquid items Prognosis for Improvement: The prognosis for the patient to meet nutritional needs by mouth is good based on degree of impairment, stimulability for treatment, level of motivation, support system. [facility] Goals: ? The patient will tolerate the least restrictive diet with a safe/efficient swallow to maintain adequate nutrition and hydration. Short Term Goals: ? Diet ? Guidelines - The patient will comply with/recall the following guidelines/strategies: Rate of Ingestion Change, Liquid Wash, Additional Swallow(s) per Bolus. ? Education - The patient will verbalize/demonstrate understanding of the results of this evaluation, the above recommendations, and the swallowing guidelines. Timeline to reassess: PRN Stone Layout Marker Clinician/Clinical Fellow: No Supervisory Statement: N/A Speech Language Pathologist: Jorge Rodriguez M.A., CCC-SOCIAL SCIENCES RESEARCH SCIENTIST
== END 2024-11-29 09:49 | disposition home or self-care (01) ==
LOC: HO.XRAY 09:48
PROVIDERS: PCP Internal Medicine; Visit Provider Hospitalist
DX: Z13.89 Encounter for screening for other disorder (principal)
CPT/HCPCS: 74230; 92611

== ENCOUNTER → 2024-11-29 10:30 | Outpatient (BNV) | payer OTHER, SELFPAY | PROVIDERS: PCP Internal Medicine; Visit Provider Physician Assistant Surgical | DX: R13.11 Dysphagia, oral phase (principal) | CPT/HCPCS: 74230 ==

== ENCOUNTER 2024-12-10 09:43 | Outpatient (AMB) | payer OTHER, SELFPAY ==
[2024-12-10 09:44] VITALS: BP 150/82; PULSE 70; O2SAT 100; BMI 22.6
--- NOTE | 2024-12-10 09:44 | MHC.OFFVIS ---
Vital Signs 12/10/24 09:44 Height 5 ft Weight 115 lb 11.883 oz BMI 22.6 BP 150/82 H Blood Pressure Location Rt brachial Position Sitting Pulse 70 Pulse Source Pulse Oximeter Pulse Oximetry (%) 100 Oxygen Delivery Method Room Air Intake Visit Reasons: Dyspnea/PFT/Barium Swallow Follow Up Allergies nitrofurantoin Allergy (Intermediate, Verified 12/10/24 09:48) colitis codeine Allergy (Unknown, Verified 12/10/24 09:48) Unknown hydrocodone [From Vicodin] Allergy (Unknown, Verified 12/10/24 09:48) Unknown tramadol Allergy (Unknown, Verified 12/10/24 09:48) Unknown HPI Comments Details: The patient is an 79 year woman with a known history of Sjogren's presenting with worsening respiratory symptoms. Apparently she has been having issues with the breathing for some time. Although seems like it is getting worse. She feels a burning sensation in the throat feels like it throat is very dry and difficult to breathe as well as difficult to swallow. Denies any choking episodes. She does have reflux disease and she takes medications for that. Her symptoms became very severe and she call her primary care who recommended she go to the ER. There she had blood work done which is reassuring and she also had a chest x-ray done which also reassuring. A my examination she is able to take deep breath but in between she does have issues with shallow breathing. Denies any significant phlegm production. Denies any obvious aspiration events. 12/10/2024 the patient is here for a pulmonary follow-up visit. Overall she is told about the same. Still having difficulty breathing and comfortable sensation of the throat area primarily later in the night. Moderate severity. Does affect her sleep. She does take sleep aids. She did undergo pulmonary function studies which we personally reviewed. Appears to have a mild degree of COPD. Otherwise her lung volumes and diffusing capacity within normal limits. In addition to that she did have the modified barium swallow done by the speech pathologist. She demonstrated some thin barium penetration to the larynx but no overt aspiration. Explained to the patient that that might be a component of microaspiration. 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 She is scheduled for have a barium swallow next week to better address the esophagus. I do believe that the issues with the esophagus may be affecting her overall symptoms. We talked about promotility agents. Will try dose of Reglan at nighttime to see if this provides relief. The Plaquenil did not really help. She denies any significant improvement. Her roommate also noticed that she was low more confused. Therefore is not worth trying higher dose. She has tried magic mouthwash in the past and also other compounds including oral prednisone. This be something reasonable for her to try. She is also on the inhaler. She will continue to use that daily. 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 Lumbar stenosis Vitamin D deficiency HTN (hypertension) CAD (coronary artery disease) Surgical History Hx of cystoscopy History of back surgery H/O spinal fusion Family History Father Heart disease Mother Breast cancer Social History Housing: Apartment Alcohol intake: never Patient Tobacco Use Status: Never used Tobacco e-Cigarette/Vaping Use: Never Used Second Hand Smoke Exposure: No service: No Current occupational status: retired Cognitive needs: No Hearing needs: No Vision needs: Yes Review of Systems Const Denies fever(s) ENT Reports dysphagia and Reports dry mouth Card Denies chest pain, Reports dyspnea and Reports dyspnea on exertion Resp Reports pain on inspiration, Reports dyspnea, Reports dyspnea on exertion and Denies wheezing GI Reports dysphagia Musc Reports myalgias Skin/Breast Denies rash Neuro Reports no additional complaints Juan Miguel/Lymph Reports no additional complaints Aller/Immun Denies wheezing Physical Exam Vital Signs: Last Vital Signs Pulse 70 12/10/24 09:44 BP 150/82 H 12/10/24 09:44 Pulse Ox 100 12/10/24 09:44 Oxygen Delivery Method Room Air 12/10/24 09:44 BMI result Body Mass Index 22.6 Const General: comfortable HEENT Head: Yes normocephalic Neck Neck: Yes supple Chest Chest palpation & inspection: normal inspection of the chest Resp Effort & Inspection: tachypneic Auscultation: no crackles, no rales, no rhonchi, no wheezes and diminished lung sounds Cardio Heart sounds: S1 normal heart sound present and S2 normal heart sound present GI Palpation (GI): Soft to palpation Skin General skin exam: no rashes or lesions noted Extrem General: Yes no clubbing, cyanosis or edema Assessment & Plan Assessment & Plan (1) Dysphagia: Code(s): R13.10 - Dysphagia, unspecified Category: Medical Qualifiers: Dysphagia type: oral phase Qualified Code(s): R13.11 - Dysphagia, oral phase (2) Vocal cord dysfunction: Code(s): J38.3 - Other diseases of vocal cords Category: Medical (3) Dyspnea: Code(s): R06.00 - Dyspnea, unspecified Category: Medical Qualifiers: Dyspnea type: unspecified Qualified Code(s): R06.00 - Dyspnea, unspecified (4) COPD (chronic obstructive pulmonary disease): Comment: mild based on PFTs Code(s): J44.9 - Chronic obstructive pulmonary disease, unspecified Category: Medical Qualifiers: COPD type: chronic bronchitis Chronic bronchitis type: simple Qualified Code(s): J41.0 - Simple chronic bronchitis (5) Achalasia of esophagus: Code(s): K22.0 - Achalasia of cardia Category: Medical Plan stop plaquenil continue Breo barium swallow, may benefit from endoscopy dysphagia techniques provided reglan daily as needed prednisolone suspension x 10-14 days F/U 2-3 months Medications: New prednisolone sodium phosphate 5 mg (5 mL) PO DAILY 70 mL 0RF 14 days metoclopramide HCl (Reglan) 5 mg PO DAILY PRN 30 tabs 1RF difficulty swallowing Coding Level of Care Code Est Pt Level 4 (89744) Complex EM visit Add On G2211 Diagnoses Oral phase dysphagia R13.11 Dysphagia type: oral phase Vocal cord dysfunction J38.3 Dyspnea, unspecified type R06.00 Dyspnea type: unspecified Simple chronic bronchitis J41.0 COPD type: chronic bronchitis Chronic bronchitis type: simple Achalasia of esophagus K22.0 Time Spent (min) 20
--- OUTSIDE RECORDS SUMMARY | 2024-12-10 10:40 | XMS_ITS | Data Portability ---
Author Organization [employer] [place] [employer] Address [address] [place] [id number] Care Team Providers Care Promos Executive Producer Name Role Phone JATIN CAMILA Primary Care [...] Last Updated DateTime 98 % 98 % 70811.3 04 g 70 /min 18 /min 98.8 [...] SNOMED-CT Code Diagnosis ICD10 Code Diagnosis Note [id number] Karo Hernandez MD [address] - [facility] [address] [place] [phone] 07/24/2024 14:26:00 07/24/2024 22:33:12 Contusion of left great toe [id number] S90.112A As noted, we were called to see this patient regarding concerns of atraumatic left great toe bruising. Evaluation in the field was performed by my career services representative colleague, as noted above, I provided real-time [...] Member ID Guarantor Name 07/24/2024 1 [facility] - DOS ON OR AFTER 2023 - DUAL ELIGIBLE - CARE HOME OPTIONS AND ONE CARE (MEDICARE REPLACEMENT/ADV ANTAGE - HMO) Kavita Roman [id number] Kavita Janie Jessie Notes Date Note Type [...] that needs to be done about it. [facility] Nurse Triage Notes (Maura Benitez): [...] ................... ................... ................... ................... ................... ................... ........ Ballistic Expert Note From Truong Bragg: Pt redness discoloration [...] ........ Disposition: Fulfilled Karo Hernandez MD [address] [facility],[address], [place], [phone], CHRISTOPHE ALVAREZ 07/24/2024 15:01:28 OBGyn Episode No OBEpisode recorded.
--- OUTSIDE RECORDS SUMMARY | 2024-12-10 10:40 | XMS_ITS | Clinical Summary ---
Author Organization [facility] Address [address] [place] [address] Care Team Providers Care Supervisor Opening And Picking Name Role Phone Elva Davison MD Primary Care Provider [phone] Surgical History Surgery Date Site/Laterality Comments TONSILLECTOMY ADENOIDECTOMY, BILATERAL MYRINGOTOMY AND TUBES PROCEDURE: PA TONSILLECTOMY & ADENOIDECTOMY <AGE 10 BACK SURGERY 01/19/2022 PROCEDURE: HISTORICAL BACK SURGERY; COMMENT: Lumbar decomp by Dr. Sawyer Medical History Medical History Date Comments Essential hypertension DX:Essent ial hypertension Hyperlipidemia DX:Hyperlipidemi a Sjogren syndrome, unspecified (CMS/HCC) DX:Sjogren syndrome, unspecified (HCC) Insomnia DX:Insomnia Social History Tobacco Use Types Packs/Day Years Used Date Smoking Tobacco: Never Smokeless Tobacco: Never Alcohol Use Standard Drinks/Week Comments No 0 (1 standard drink = 0.6 oz pur e alcohol) Sex and Gender Information Value Date Recorded Sex Assigned at Not on file Gender Identity Not on file Sexual Orientation Not on file Obstetrics History Last Filed Vital Signs Vital Sign Reading Time Taken Comments Blood Pressure 120/70 12/05/2023 7:39 AM EST Sit ting L Arm Pulse 88 12/05/2023 7:39 AM EST Temperature - - Respiratory Rate - - Oxygen Saturation - - Inhaled Oxygen Concentration - - Weight 52.2 kg (115 lb) 12/05/2023 7:39 AM EST Height 149.9 cm (4' 11 ) 12/05/2023 7:39 AM EST Body Mass Index 23.23 12/05/2023 7:39 AM EST Plan of Treatment Health Maintenance Due Date Last Done Comments Pneumococcal Vaccine: 65+ Ye ars (1 of 2 - PCV) 1949 DTaP,Tdap,and Td Vaccines (1 - Tdap) 1962 Zoster Vaccines (1 of 2) 1993 RSV Immunization Patients 60 + Years Old (1 - 1-dose 75+ series) 2018 Cholesterol Screening (Lipid Panel) 10/19/2022 Depression Screening 10/19/2022 Falls Risk Assessment 10/19/2022 Social Influencers of Health Screening 10/19/2022 Hypertension/CHF/CAD Annual BMP Blood Test 10/27/2022 COVID-19 Vaccine (1 - 2023-2 5 season) 2024 Influenza Vaccine (#1) 2024 Osteoporosis Screening (Bone Density Screening) 09/14/2031 09/14/2021 HIB Vaccines Aged Out No longer eligi ble based on patient's age to complete this topic HPV Vaccines Aged Out No longer eligi ble based on patient's age to complete this topic Hepatitis A Vaccines Aged Out No long er eligible based on patient's age to complete this topic Hepatitis B Vaccines Aged Out No long er eligible based on patient's age to complete this topic IPV Vaccines Aged Out No longer eligi ble based on patient's age to complete this topic MMR Vaccines Aged Out No longer eligi ble based on patient's age to complete this topic Meningococcal ACWY Vaccine Aged Out N o longer eligible based on patient's age to complete this topic RSV Immunization Patients Un ketty 20 months Aged Out No longer eligible b ased on patient's age to complete this topic Varicella Vaccines Aged Out No longer eligible based on patient's age to complete this topic Procedures Procedure Name Priority Date/Time Associated Diagnosis Comments [facility] DEXA AXIAL SKELETON Routine 09/14/2021 11:43 AM EDT Encounter for screening for osteoporosis from Last 3 Months or Most Recently Relevant to Health Maintenance Results * [facility] DEXA AXIAL SKELETON (09/14/2021 11:43 AM EDT) Anatomical Region Laterality Modality Mammography 09/14/2021 8:48 AM EDT Narrative 09/14/2021 11:43 AM EDT [facility] Diagnostic Imaging Department [address] [place] [id number] Patient: ??KAVITA NAVARRETE ?/Age/Sex: 1945 - 76 - F Unit#: ??[id number] ? Location/Status: ??SPDIMAM/REG CLI ? Mnemonic/Ordering Site: ??MAMDEXAAX/SPMAM Ordering Physician: ??DEX TOLENTINO MD Aravind Dexa Axial Skeleton - 09/14/21942 History: Low estrogen state due to menopause. Height loss. Comparison: 10/14/15 Findings: Bone densitometry is performed utilizing dual energy x-ray absorptiometry (DXA) in the [employer] unit. The lumbar spine and proximal femora are evaluated in the AP projection. The FRAX questionaire was completed. The results indicate low bone mass (osteopenia), with a right femoral neck T- score of -1.5. There have been statistically significant decreases in bone mineral density in the bilateral total femurs since the previous study. ??The detailed DEXA report will be mailed to the referring physician's office. Dual[employer]em[employer] FRAX: 10-year Probability of Fracture: Major Osteoporotic 12.4 percent ??Hip 3.0 percent. IMPRESSION: Osteopenia. [id number] Dictating Physician: ??ALCIDES VANESSA MD Electronically Signed by: ??ALCIDES VANESSA MD Dic Date/Time: ??09/14/21 1142 Sign date/Time: ??09/14/21 1143 Procedure Note Alcides Vanessa MD - 11/09/2022 [facility] Diagnostic Imaging Department [address] [place], [place] [id number] Patient: KAVITA NAVARRETE /Age/Sex: 1945 - 76 - F Unit#: [id number] Location/Status: SPDIMAM/REG CLI Mnemonic/Ordering Site: MAMDEXAAX/SPMAM Ordering Physician: DEX TOLENTINO MD Aravind Dexa Axial Skeleton - 09/14/21942 History: Low estrogen state due to menopause. Height loss. Comparison: 10/14/15 Findings: Bone densitometry is performed utilizing dual energy x-ray absorptiometry(DXA) in the [employer] unit. The lumbar spine and proximal femora areevaluated in the AP projection. The FRAX questionaire was completed. The results indicate low bone mass (osteopenia), with a right femoral neckT- score of -1.5. There have been statistically significant decreases inbone mineral density in the bilateral total femurs since the previous study.The detailed DEXA report will be mailed to the referring physician's office. [employer]em[employer] FRAX: 10-year Probability of Fracture: Major Osteoporotic 12.4 percent Hip 3.0 percent. IMPRESSION: Osteopenia. 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 Health Care Decision (hx) 09/23/2021 AD GARCIA DIRECTIVE Health Care Decision (hx) 09/23/2021 AD GARCIA DIRECTIVE Health Care Decision (hx) 09/23/2021 AD GARCIA DIRECTIVE Health Care Decision (hx) 09/23/2021 AD GARCIA DIRECTIVE Health Care Decision (hx) 09/23/2021 AD GARCIA DIRECTIVE Health Care Decision (hx) 09/23/2021 AD GARCIA DIRECTIVE Health Care Decision (hx) 09/23/2021 AD GARCIA DIRECTIVE Health Care Decision (hx) 09/23/2021 AD GARCIA DIRECTIVE Health Care Decision (hx) 09/23/2021 AD GARCIA DIRECTIVE Health Care Decision (hx) 09/23/2021 AD GARCIA DIRECTIVE Health Care Decision (hx) 09/23/2021 AD GARCIA DIRECTIVE Care Teams Supervisor Opening And Picking Relationship Specialty Start Date End Date Elva Davison MD [address] [place] [address] [address] [facility] [place] [address] PCP - General Internal Medicine 03/19/21
--- OUTSIDE RECORDS SUMMARY | 2024-12-10 10:40 | XMS_ITS ---
Author Organization [facility] Address Unknown Problems Problem Status Start Date End Date FUSION OF SPINE, LUMBAR LULY ON (Primary) (M43.26 - ICD-10-CM) ACTIVE 01/25/2022 ENCOUNTER FOR SURGICAL AFTER CARE FOLLOWING SURGERY ON THE NERVOUS SYSTEM (Z48.811 - ICD-10-CM) ACTIVE 01/25/2022 OTHER SPECIFIED DISORDERS OF BONE DENSITY AND STRUCTURE, OTHER SITE (M85.88 - ICD-10-CM) ACTIVE 01/25/2022 ESSENTIAL (PRIMARY) HYPERTENSION (I10 - ICD-10-CM) ACT RISA 01/26/2022 HYPERLIPIDEMIA, UNSPECIFIED (E78.5 - ICD-10-CM) ACTIVE 01/26/2022 Encounters Encounter Performer Performer Role Encounter Diagnoses Location Date Discharge - Discharged to home or self care - Home - Private home/apt. with no home health services [facility] 2 02:27 pm EST - 2 03:27 pm EDT Immunizations Vaccine Date SARS-COV-2 (COVID-19) 08/17/2021 12:00 a m EDT SARS-COV-2 (COVID-19) 01/12/2021 12:00 a m EST SARS-COV-2 (COVID-19) 01/12/2021 12:00 a m EST Social History
== END 2024-12-10 10:25 | disposition home or self-care (01) ==
PROVIDERS: PCP Internal Medicine; Visit Provider Hospitalist
DX: R13.11 Dysphagia, oral phase (principal); J38.3 Other diseases of vocal cords; R06.00 Dyspnea, unspecified; J41.0 Simple chronic bronchitis; K22.0 Achalasia of cardia
CPT/HCPCS: 99214; G2211

== ENCOUNTER → 2024-12-10 09:43 | Outpatient (BNVA) | payer OTHER, SELFPAY | PROVIDERS: PCP Internal Medicine; Visit Provider Hospitalist | DX: J38.3 Other diseases of vocal cords (principal); J41.0 Simple chronic bronchitis; K21.9 Gastro-esophageal reflux disease without esophagitis; K22.0 Achalasia of cardia; R13.11 Dysphagia, oral phase; R06.00 Dyspnea, unspecified | CPT/HCPCS: 99212 ==

== ENCOUNTER 2024-12-12 08:46 | Outpatient (REF) | payer OTHER, SELFPAY ==
--- NOTE | ~2024-12-12 | FL_ITS ---
EXAMINATION: XR FLUOROSCOPY UPPER GI WITH AIR CLINICAL INFORMATION: Dysphagia. COMPARISON: None TECHNIQUE: Fluoroscopic air contrast upper GI examination was performed utilizing standard techniques with thin and thick barium and effervescent granules. Numerous spot images were obtained. FINDINGS: It Program Engagement Director view of the lateral neck demonstrates a significant grade 1/2 anterolisthesis of C4 on C5 with mild facet subluxation. Severe disc degeneration C5-6 and C6-7. Lateral cine images of the oropharynx and hypopharynx demonstrate normal swallow mechanism with normal epiglottic inversion and soft palate elevation. Laryngeal penetration is seen with thick consistency barium. No tracheal penetration, glottic or subglottic aspiration identified. No nasopharyngeal reflux present. Hypopharyngeal structures appear normal without evidence of mass or diverticulum. There is moderate cricopharyngeal achalasia present. Dual and single contrast images of the esophagus demonstrate a normal caliber and contour. There is a granular appearance of the esophageal mucosa, suggestive of esophagitis. . No evidence of stricture, mass, or ulcerations are identified. Esophageal peristalsis is moderately disorganized. A small type I hiatal hernia is present. Significant gastroesophageal reflux is seen up to the thoracic inlet. Dual contrast and single contrast images of the stomach demonstrated a normal contour. The areae gastricae have a thickened appearance, suggestive of gastritis. There are multiple tiny foci of contrast pooling in the fundus and body of the stomach that may represent small mucosal erosions. No masses are present. Contrast freely passed into the gastric antrum and duodenal bulb without delay. Single and air-contrast images of the duodenal bulb demonstrate no abnormality. The duodenal sweep has a normal appearance, course, and mucosal fold appearance. The imaged proximal jejunum has a normal fold pattern and caliber. FLUOROSCOPY TIME: 5 minutes and seconds Number of Spot Images: 7 Number of Cine: 16 DOSE AREA PRODUCT: 2171 uGy-m2 (microgray-meter squared) FL/FL barium swallow IMPRESSION: 1. Laryngeal penetration with thick barium. 2. Moderate cricopharyngeal achalasia. 3. Granular appearance of the esophageal mucosa, suggestive of esophagitis. 4. Moderate esophageal dysmotility. 5. Small type I hiatal hernia with severe gastroesophageal reflux. 6. Thickened appearance of the areae gastricae. In addition there are multiple tiny foci of contrast pooling in the fundus and body of the stomach. These findings are suggestive of erosive gastritis. Recommend correlation with EGD. 7. Incidentally noted severe degenerative disc disease C5-6 and C6-7, and a grade 1/2 anterolisthesis C4 on C5. Cannot exclude C4-5 cord impingement given the appearance. This procedure was performed by Bill Foote PA-C, and supervised by Dr. Lund Electronically signed by: Tolu Lund MD 12/12/2024 04:[address] [facility]
--- OUTSIDE RECORDS SUMMARY | 2024-12-12 09:14 | XMS_ITS | Data Portability ---
Author Organization [facility] Address [address] [place] [id number] Care Team Providers Care Medical/Surgery Registered Nurse Name Role Phone JATIN CAMILA Primary Care [...] Last Updated DateTime 98 % 98 % 30022.3 04 g 70 /min 18 /min 98.8 [...] SNOMED-CT Code Diagnosis ICD10 Code Diagnosis Note [id number] Karo Hernandez MD [address] - [address] [address] [place] [address] 07/24/2024 14:26:00 07/24/2024 22:33:12 Contusion of left great toe [id number] S90.112A As noted, we were called to see this patient regarding concerns of atraumatic left great toe bruising. Evaluation in the field was performed by my stna colleague, as noted above, I provided real-time [...] Franklin Member ID Guarantor Name 07/24/2024 1 [facility] [place] - DOS ON OR AFTER 2023 - DUAL ELIGIBLE - HALF-WAY OPTIONS AND ONE CARE (MEDICARE REPLACEMENT/ADV ANTAGE - HMO) Kavita Roman [id number] Kavita Janie Jessie Notes Date Note Type [...] that needs to be done about it. [facility] Nurse Triage Notes (Maura Benitez): [...] ................... ................... ................... ................... ................... ................... ........ Topper Press Operator Note From Truong Bragg: Pt redness discoloration in left big toe near nail bed. Pt denies pain but sts she feels something but can? t describe. Denies bleeding or discharge. Denies injury. Baseline vitals assessed , afebrile, pt able to walk without pain. [facility] [place] and [...] ........ Disposition: Fulfilled Karo Hernandez MD [address] [facility],[address], [place], [address], CHRISOTPHE ALVAREZ 07/24/2024 15:01:28 OBGyn Episode No OBEpisode recorded.
== END 2024-12-12 08:47 | disposition home or self-care (01) ==
LOC: HO.XRAY 08:46
PROVIDERS: PCP Internal Medicine; Visit Provider Hospitalist
DX: K21.9 Gastro-esophageal reflux disease without esophagitis (principal)
CPT/HCPCS: 74220

== ENCOUNTER → 2024-12-12 08:48 | Outpatient (BNV) | payer OTHER, SELFPAY | PROVIDERS: PCP Internal Medicine; Visit Provider Physician Assistant Surgical | DX: R13.10 Dysphagia, unspecified (principal) | CPT/HCPCS: 74246 ==

== ENCOUNTER 2025-01-27 11:13 | Outpatient (AMB) | payer OTHER, SELFPAY ==
--- NOTE | 2025-01-27 11:18 | MHC.OFFVIS ---
Intake Visit Reasons: 6m follow up Intake Note: Patient is present for 6 month follow up Urology Med: Gemtesa Antibiotic Allergy: Nitrofurantoin Blood Thinner: Aspirin PVR: 0ml's Buttonhole Marker Required: No Allergies nitrofurantoin Allergy (Intermediate, Verified 02/03/25 09:01) colitis codeine Allergy (Unknown, Verified 02/03/25 09:01) Unknown hydrocodone [From Vicodin] Allergy (Unknown, Verified 02/03/25 09:01) Unknown tramadol Allergy (Unknown, Verified 02/03/25 09:01) Unknown Medication List - Last Reconciled 01/27/25 by Jimmy Mcgill MD acetaminophen (Acetaminophen Extra Strength) 500 mg PO QID PRN amlodipine 3.75 mg PO DAILY aspirin 81 mg PO DAILY atorvastatin 40 mg PO DAILY Bifidobacterium infantis (Align (B.infantis)) 4 mg PO DAILY 90 days calcium citrate (Citracal) PO BID cephalexin 250 mg PO ONCE 90 days cevimeline 1 cap PO BID cholecalciferol (vitamin D3) 25 mcg PO .3x per week clonazepam 0.5 mg PO BEDTIME 90 days cranberry extract 400 mg PO DAILY cyclosporine 0.05% (Restasis) 1 drp ophthalmic (eye) BID docusate sodium (Stool Softener) 100 mg PO BID estradiol 0.01%(0.1mg/gram) (Estrace) Use pea-sized amount on fingertip placed vaginally Monday through Monday at bedtime vaginally as directed from medical doctor.; fluticasone furoate-vilanterol 100-25 mcg/dose (Breo Ellipta) 1 inh inhalation DAILY 30 days gabapentin 300 mg PO BEDTIME 90 days hydroxychloroquine (Plaquenil) 200 mg PO DAILY 30 days metoclopramide HCl (Reglan) 5 mg PO DAILY PRN metoprolol succinate ER 12.5 mg (1/2 x 25 mg) PO DAILY mirtazapine 15 mg PO BEDTIME omeprazole 40 mg PO BID 90 days pilocarpine HCl 5 mg PO DAILY polyethylene glycol 3350 (Miralax) 17 grams PO DAILY vibegron (Gemtesa) 75 mg PO DAILY zolpidem ER 6.25 mg PO BEDTIME PRN 90 days HPI Comments Details: 01/27/25-- 79-year-old female presenting with recurrent UTIs and overactive bladder. She has been treated with Keflex for UTIs and more recently transitioned from Myrbetric to Gemtesa 75 mg daily, reporting significant symptomatic improvement with the latter. Additionally, she has a history of xerostomia and lumbar spinal stenosis. She states that her symptoms related to Sj?gren's syndrome are being managed by a transportation modeler, identifying significant esophageal inflammation and dysphagia. An endoscopy is planned to further evaluate these symptoms, and potential esophageal dilation is considered due to swallowing difficulties. Urinary Symptoms Review - Increased frequency of urination due to overactive bladder - Previously on Myrbetric, now on Gemtesa 75 mg, with notable improvement - Prior treatment with Keflex for recurrent UTIs Review of Systems - Oral Cavity: Reports dry mouth (xerostomia). - Musculoskeletal: Reports lumbar discomfort owing to spinal stenosis. - Respiratory: Reports breathing difficulties related to Sj?gren's syndrome. - Gastrointestinal: Reports difficulty swallowing due to esophageal inflammation. 10/28/24--Telehealth FU--3 month FU--Kavita is an 79-year-old female who is here for evaluation for recurrent UTI's and OAB symptoms. Past Medical history Xerostomia, CAD, Htn, lumbar stenosis. She was on Keflex antibiotic suppression therapy. She states she had a breakthrough infection and was seen at urgent care and treated with a different abx. She still has urinary incontinence on Myrbetriq 25 mg daily, I have discussed trial of gemtesa. 07/29/24--Kavita is an 79-year-old female who is here for evaluation for recurrent UTI's and OAB symptoms. Past Medical history Xerostomia, CAD, Htn, lumbar stenosis. She is currently on Keflex antibiotic suppression therapy. She has intermittent urinary incontinence on Myrbetriq 25 mg daily. Will cont Myrbetriq 25 mg daily, cranberry supplementation, discont Abx suppression, fu in 4 months. 03/28/24--Kavita is an 78-year-old female who is here for evaluation for recurrent UTI's and OAB symptoms. Past Medical history Xerostomia, CAD, Htn, lumbar stenosis Surgical history includes but is not limited to back surgery. She is currently on Keflex antibiotic suppression therapy. Pt had UTI symptoms last month. She was treated with Macrobid. She states currently she is doing well denies dysuria or gross hematuria. plan Cont. Myrbetriq 25 mg daily, cranberry supplementation, discont Abx suppression, fu in 4 months. 12/28/23--Kavita is being evaluated for recurrent UTI she is here for office cystoscopy. She was last evaluated on 10/30/2023, started on Myrbetriq 50 mg daily for urinary symptoms of frequency. She is here in follow-up and had renal cell performed. Urine cytology sent on 10/30/2023-negative for malignant cells. Renal ultrasound performed on 12/11/2023-kidneys within normal limits. Cystoscopy findings: Multifocal erythematous changes no noted suggestive of cystitis. Plan: Cystoscopy findings consistent with cystitis. Antibiotic suppressive therapy Bactrim daily 10/30/2023 Kavita is an 78-year-old female who is here for evaluation for recurrent UTI's. Past Medical history Xerostomia, CAD, Htn, lumbar stenosis. Surgical history includes but is not limited to back surgery. The patient complains of daytime urinary frequency every 1-2 hours, urinary incontinence, wears a pad, denies nocturia wakes up about 4 AM and leaks before getting to the bathroom, denies hematuria, has dysuria associated with UTI symptoms, denies history of kidney stones, denies history of nicotine use. She states she was prescribed medication for her bladder symptoms in the past that made her dry mouth worse. I have reviewed chart, urine cultures reviewed, the patient was last treated for UTI in August. States she has had more that 4 UTIs this year. The patient states she was advised and is using OTC cranberry supplements. I have discussed workup to include evaluation of the upper tracts and consideration for cystoscopy evaluation. 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 Lumbar stenosis Vitamin D deficiency HTN (hypertension) CAD (coronary artery disease) Surgical History Hx of cystoscopy History of back surgery H/O spinal fusion Family History Father Heart disease Mother Breast cancer Social History Housing: Apartment Alcohol intake: never Patient Tobacco Use Status: Never used Tobacco e-Cigarette/Vaping Use: Never Used Second Hand Smoke Exposure: No service: No Current occupational status: retired Cognitive needs: No Hearing needs: No Vision needs: Yes (Glasses) Review of Systems Const All systems reviewed & are unremarkable except as noted in HPI and below Reports no additional complaints Eyes Reports no additional complaints ENT Reports no additional complaints Card Reports no additional complaints Resp Reports no additional complaints GI Reports no additional complaints Reports as per HPI Musc Reports no additional complaints Skin/Breast Reports system reviewed and no additional complaints, except as documented Neuro Reports no additional complaints Psych Reports no additional complaints Endo Reports no additional complaints Juan Miguel/Lymph Reports no additional complaints Aller/Immun Reports no additional complaints Office Procedures Post Void Residual Post Residual Void Post Void Residual (PVR): 0 02822-Ucsq Void Residual by ultrasound Assessment & Plan Assessment & Plan (1) Frequency of urination: Code(s): R35.0 - Frequency of micturition Category: Medical (2) Cystitis: Code(s): N30.90 - Cystitis, unspecified without hematuria Category: Medical (3) OAB (overactive bladder): Code(s): N32.81 - Overactive bladder Category: Medical (4) Urinary incontinence: Code(s): R32 - Unspecified urinary incontinence Category: Medical (5) Recurrent UTI: Code(s): N39.0 - Urinary tract infection, site not specified Category: Medical Plan Plan The patient continues on Gemtesa 75 mg daily for overactive bladder, experiencing notable improvement. Orders: Orders AMB Urinalysis Automated 01/27/25 Z13.9 - Encounter for screening, unspecified Patient Instructions: The patient had an opportunity to ask questions regarding treatment plan. The patient expressed understanding and agreement with the above treatment plan. The patient is aware they should contact our office by phone for worsening of their current condition or the appearance of new symptoms. Compliance is encouraged with any medications and followup testing that is ordered. It is a privilege to be allowed the opportunity to participate in the urologic care of your patient. If you have any questions or concerns regarding treatment for the above conditions please do not hesitate to contact me. The office telephone contact is [phone]. This note is constructed in part using voice recognition software. While every effort has been made to ensure accuracy energy trader errors may have been included. Yours sincerely, Jimmy Mcgill MD Scribe Plan - Not visible on output: Patient was informed and verbally consented to the use of an ambient scribe for clinic note documentation during this visit. Coding Level of Care Code Est Pt Level 4 (67919) Diagnoses Frequency of urination R35.0 Cystitis N30.90 OAB (overactive bladder) N32.81 Urinary incontinence R32 Recurrent UTI N39.0 CPT Codes Post Residual Void - PVR CPT Code: 59211-Sbmo Void Residual by ultrasound ([id number])
--- OUTSIDE RECORDS SUMMARY | 2025-01-27 12:47 | XMS_ITS | Clinical Summary ---
Author Organization [facility] [address] [facility] Address [address] [place] [address] Phone Care Team Providers Care Fence Erector Name Role Phone Elva Davison MD Primary Care Provider [phone] Allergies No known active allergies Medications omeprazole (PriLOSEC) [address] capsule Take 1 capsule (40 mg total) by mouth 2 (two) times a day. Active metoprolol succinate (TOPROL-XL) 25 mg 24 hr tablet Take 0.5 tablets (12.5 mg total) by mouth 1 (one) time each day. Active amLODIPine (NORVASC) 2.5 mg tablet Take 1.5 tablets (3.75 mg total) by mouth 1 (one) time each day. Active mirtazapine (REMERON) 15 mg tablet Take 1 tablet (15 mg total) by mouth. at bedtime. 024 Active gabapentin (NEURONTIN) 300 mg capsule Take 1 capsule (300 mg total) by mouth. 019 Active clonazePAM (KlonoPIN) 0.5 mg disintegrating tablet DISSOLVE 1 TABLET IN MOUTH AT BEDTIME 024 Active pilocarpine (SALAGEN) 5 mg tablet Take 1 tablet (5 mg total) by mouth. Active estradioL (ESTRACE) 0.01 % (0.1 mg/gram) vaginal cream Insert 1 g into the vagina 2 (two) times a week. Active Align, B.infantis, 4 mg capsule Take 1 capsule by mouth 1 (one) time each day. Active aspirin 81 mg chewable tablet Chew 1 tablet (81 mg total). 019 Active calcium citrate (CALCITRATE) 100 mg (475 mg) tablet Take by mouth. Active calcium citrate-vitamin D3 (CALTRATE MAXIMUM) 315 mg-6.25 mcg (250 unit) per tablet Take 1 tablet by mouth daily. Active PreviDent 5000 Dry Mouth 1.1 % paste USE TO BRUSH TEETH DIRECTED BY THE DOCTOR Active prednisoLONE sodium phosphate (PEDIAPRED) 5 mg base/5 mL (6.7 mg/5 mL) solution TAKE 5 ML BY MOUTH DAILY FOR 14 DAYS Active metoclopramide (REGLAN) 5 mg tablet TAKE 1 TABLET BY MOUTH ONCE DAILY NEEDED FOR DIFFICULTY SWALLOWING. 025 Active vonoprazan 20 mg tabletIndications :Erosive gastritis Take 1 tablet by mouth 1 (one) time each day. 90 tablet 3 025 2025 Active atorvastatin (LIPITOR) 40 mg tablet Take 1 tablet by mouth once daily 90 tablet 1 025 Active atorvastatin (LIPITOR) 40 mg tablet Take 1 tablet (40 mg total) by mouth daily. 2024 Discontinued vonoprazan 20 mg tabletIndications :Erosive gastritis Take 1 tablet by mouth 1 (one) time each day. 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 Sawyer on 01/19/2022. She has had some degree of low pressure headaches since that time and had a follow-up appointment with his clinic at [place] a few months ago. The plan to treat this continued leak was to drain the collection in anticipation of a reexploration surgery to repair the dural defect again and keep her in the hospital with the head of bed flat for several days. The patient did not wish to be restricted in bed for prolonged hospitalization again as she has been adherent with the recommendations to avoid strenuous activity including swimming and is only walking. I suspect that this pseudomeningocele is quite organized now after a year and a half and that she has not been able to resorb the fluid due to granulation tissue from previous surgeries. I do not think there is a current and persistent leak but the way to test this without surgery would be to perform a myelogram. This pseudomeningocele creased pressure when sitting in a car and leaning back on it but there are no referred issues of numbness, tingling or pain in her legs. On exam, she is bright and alert with a grapefruit sized ballotable mass in the mid lumbar region under a well-healed incision. She rises from the chair easily and has full strength. We made the decision to drain the pseudomeningocele here today and place a pressure dressing over it to remain for the next 3 days. There may be some fluid that collects just from the underlying fat and soft tissue however, if she has a terrible persistent headaches with the redevelopment of a very large mass, then we will presume there is a patent defect and she will have to consider reexploration. Under sterile technique, the skin was prepped with Betadine and a 25-gauge needle inserted in the midline through the thin midline scar with the immediate return of clear fluid (presumed CSF) drained into a 10 cc syringe. The syringe is were exchanged keeping the same needle in place until the skin completely subsided for a total of 90 cc. Bacitracin ointment, gauze and tight Medipore tape were placed. The patient experienced headache when trying to rise from a seated position and was placed laying down on the exam table to rest and sip water. We will see her back before the end of the week. Fusion of spine, lumbar region 01/25/2022 CAD (coronary artery disease) 12/18/2020 Overview (12/20/2024): NSTEMI in 2019 revealing PCI of the LAD with other vessels at the time of her cath showed normal LM, LCX 30% with mid 40% lesion, and RCA <30% Last Assessment & Plan: Stable. No angina symptoms. LDL excellent. Will continue current regimen. Hyperlipidemia 12/18/2020 Overview (12/20/2024): Last Assessment & Plan: Well-controlled. Hypertension 12/18/2020 Overview (12/20/2024): Last Assessment & Plan: Overall well-controlled. Asked her to check blood pressure with dizziness. If BPV's disease was not low, could increase amlodipine to 5 mg daily. Ischemic cardiomyopathy 12/18/2020 Overview (12/20/2024): LVEF 25-30% at the time of her AK in 2019 Recovery to normal Last Assessment & Plan: LV function has recovered. Encounters Date Type Department Care Team Description 01/16/2025 Telephone Gastroenterology - [address] [facility] [address] [phone] Philip Kelly MD 01/15/2025 Telephone Gastroenterology - [address] [place] [phone] Laisha Glynn PA 12/20/2024 10:20 AM EST Office Visit Gastroenterology - [address] [address] Laisha Glynn PA Erosive gastritis (Primary Dx); Oropharyngeal dysphagia from Last 3 Months Surgical History Surgery Date Site/Laterality Comments TONSILLECTOMY ADENOIDECTOMY, BILATERAL MYRINGOTOMY AND TUBES PROCEDURE: OR TONSILLECTOMY & ADENOIDECTOMY <AGE 10 BACK SURGERY 01/19/2022 PROCEDURE: HISTORICAL BACK SURGERY; COMMENT: Lumbar decomp by Dr. Sawyer COLONOSCOPY 11/26/2013 LUMBAR SPINE SURGERY complicated by spinal fluid leak ESOPHAGOGASTRODUODENOSCOPY 09/27/2021 ESOPHAGOGASTRODUODENOSCOPY 06/05/2005 active gastric ulcer COLONOSCOPY 08/14/2008 ESOPHAGOGASTRODUODENOSCOPY 05/24/2006 ESOPHAGOGASTRODUODENOSCOPY 03/30/1999 COLONOSCOPY 08/14/1997 ESOPHAGOGASTRODUODENOSCOPY Medical History Medical History Date Comments Essential hypertension DX:Essent ial hypertension Hyperlipidemia DX:Hyperlipidemi a Sjogren syndrome, unspecified (CMS/HCC) DX:Sjogren syndrome, unspecified (HCC) Insomnia DX:Insomnia Chronic constipation GERD (gastroesophageal reflux disease) Arthritis Myocardial infarction (CMS/HCC) Family History Medical History Relation Name Comments Colon cancer Father's Sister Stroke Mother Eil Navarrete Colon polyps Sister 1 Colon polyps Sister 2 Relation Name Status Comments Father's Sister Mother Eli Navarrete Sister 1 Sister 2 Alive Social History Tobacco Use Types Packs/Day Years Used Date Smoking Tobacco: Never Smokeless Tobacco: Never Tobacco Cessation:Counseling Given: Not Answered Alcohol Use Standard Drinks/Week Comments No 0 (1 standard drink = 0.6 oz pur e alcohol) Comments Unknown Sex and Gender Information Value Date Recorded Sex Assigned at Not on file Legal Sex Female 5:11 PM EST Gender Identity Not on file Sexual Orientation Not on file Obstetrics History Last Filed Vital Signs Vital Sign Reading Time Taken Comments Blood Pressure 120/70 12/05/2023 7:39 AM EST Sit ting L Arm Pulse 88 12/05/2023 7:39 AM EST Temperature - - Respiratory Rate - - Oxygen Saturation - - Inhaled Oxygen Concentration - - Weight 52.6 kg (116 lb) 12/20/2024 9:57 AM EST Height 152.4 cm (5') 12/20/2024 9:57 AM EST Body Mass Index 22.65 12/20/2024 9:57 AM EST Plan of Treatment Upcoming Encounters Date Type Department Care Team (Late st Contact Info) Description 02/21/2025 12:30 PM EDT Appointment [facility] Endoscopy [address] [place] [phone] Philip Kelly MD [address] [address] 03/06/2025 10:30 AM EDT Office Visit Gastroenterology - [address] [phone] Philip Kelly MD [address] [address] Health Maintenance Due Date Last Done Comments Zoster Vaccines (1 of 2) 1993 RSV Immunization Patients 60+ Years Old (1 - 1-dose 75+ series) 2018 Cholesterol Screening (Lipid Panel) 10/19/2022 Depression Screening 10/19/2022 Falls Risk Assessment 10/19/2022 Social Influencers of Health Screening 10/19/2022 Hypertension/CHF/CAD Annual BMP Blood Test 10/27/2022 Osteoporosis Screening (Bone Density Screening) 09/14/2031 09/14/2021 DTaP,Tdap,and Td Vaccines (3 - Td or Tdap) 04/29/2032 04/29/2022, 06/20/2007 Pneumococcal Vaccine: 50+ Years Completed 02/16/2015, 08/26/2009, 08/17/1999 COVID-19 Vaccine Completed 09/11/2024, , 08/19/2022, Additional history exists Influenza Vaccine Completed 09/11/2024, , 08/31/2022, Additional history exists HIB Vaccines Aged Out No longer eligi [...] patient's age to complete this topic Meningococcal B Vacine Aged Out No lo nger eligible based on patient's age to complete this topic RSV Immunization Patients Under 20 months Aged Out No longer eligible based on patient's age to complete this topic Varicella Vaccines Aged Out No longer eligible based on patient's age to complete this topic Procedures Procedure Name Priority Date/Time Associated Diagnosis Comments COLONOSCOPY Routine 12/23/2024 10:03 AM EST EXTERNAL ENDOSCOPY REPORT Routine 12/23/2024 10:00 AM EST ARAVIND DEXA AXIAL SKELETON Routine 09/14/2021 11:43 AM EDT Encounter for screening for osteoporosis from Last 3 Months or Most Recently Relevant to Health Maintenance Results * COLONOSCOPY (12/23/2024 10:03 AM EST) Anatomical Region Laterality Modality Endoscopy us Historical Provider GI~PROCEDURE ORDERABLES F inal Result * External Endoscopy (12/23/2024 10:00 AM EST) Anatomical Region Laterality Modality Endoscopy us Historical Provider GI~PROCEDURE ORDERABLES F inal Result * ARAVIND DEXA AXIAL SKELETON (09/14/2021 11:43 AM EDT) Anatomical Region Laterality Modality Mammography 09/14/2021 8:48 AM EDT Narrative 09/14/2021 11:43 AM EDT [facility] Diagnostic Imaging Department [address] [place] [address] Patient: ??KAVITA NAVARRETE SR ?/Age/Sex: 1945 - 76 - F Unit#: ??[id number] ? Location/Status: ??SPDIMAM/REG CLI ? Mnemonic/Ordering Site: ??MAMDEXAAX/SPMAM Ordering Physician: ??DEX TOLENTINO MD Aravind Dexa Axial Skeleton - 09/14/21 9769 History: Low estrogen state due to menopause. Height loss. Comparison: 11/25/15 Findings: Bone densitometry is performed utilizing dual energy x-ray absorptiometry (DXA) in the [employer] unit. The lumbar spine and proximal femora [...] 12.4 percent ??Hip 3.0 percent. IMPRESSION: Osteopenia. [id number] Dictating Physician: ??ALCIDES VANESSA MD Electronically Signed by: ??ALCIDES VANESSA MD Dic Date/Time: ??09/14/21 1142 Sign date/Time: ??09/14/21 1143 Procedure Note Alcides Vanessa MD - 11/09/2022 [facility] Diagnostic Imaging Department [address] [place] [address] Patient: KAVITA NAVARRETE /Age/Sex: 1945 - 76 - F Unit#: [id number] [facility] Ordering Physician: DEX TOLENTINO MD Aravind Dexa Axial Skeleton - 09/14/21 - 4019 History: Low estrogen state due to menopause. Height loss. Comparison: 10/14/15 Findings: Bone densitometry is performed utilizing dual energy x-ray absorptiometry(DXA) in the [employer] unit. The lumbar spine and proximal femora [...] 12.4 percent Hip 3.0 percent. IMPRESSION: Osteopenia. [id number] Dictating Physician: ALCIDES VANESSA MD Electronically Signed by: ALCIDES VANESSA MD Dic Date/Time: 09/14/21 1142 Sign date/Time: 09/14/21 1143 Dex Tolentino MD IMG BI PROCEDURES Final Result from Last 3 Months or Most Recently Relevant to Health Maintenance Insurance [facility] Member Subscriber Plan / Payer (Ef fective 2024-Present) Name:Kavita Navarrete Sr Relation to Subscriber:Self Name:Kavita Navarrete Sr Payer ID:[id number] Group ID:[id number] Type:Not on file Address: [address] [place] [address] MEDICAID - [place] Advance Directives Documents on File Type Date Recorded 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
--- OUTSIDE RECORDS SUMMARY | 2025-01-27 12:47 | XMS_ITS | Encounter Summary ---
Author Organization [facility] [place] [address] Care Team Providers Care Vehicle Technician Name Role Phone Elva Davison MD Primary Care Provider Encounter Details Date Type Department Care Team ([facility] st Contact Info) Description 01/16/2025 Telephone Gastroenterology - [address] [facility] [address] [place] [phone] Philip Kelly MD [address] [place] [address] Social History Tobacco Use Types Packs/Day Years Used Date Smoking Tobacco: Never Smokeless Tobacco: Never Alcohol Use Standard Drinks/Week Comments No 0 (1 standard drink = 0.6 oz pur e alcohol) Comments Unknown Sex and Gender Information Value Date Recorded Sex Assigned at Not on file Legal Sex Female 5:11 PM EST Gender Identity Not on file Sexual Orientation Not on file documented as of this encounter Progress Notes * Debbie Kat MA - 01/16/2025 2:32 PM EST SPOKE WITH PT. SHE IS WORKING WITH [facility] TO GET HER RX. * Debbie Kat MA - 01/16/2025 2:25 PM EST CALLED 3 TIMES. PHONE LINE IS BUSY. * Roxana Nair - 01/16/2025 1:56 PM EST Pt calling in regards of rx, states she needs to speak to someone brianne about it, please advise documented in this encounter Plan of Treatment Upcoming Encounters Date Type Department Care Team (Late st Contact Info) Description 02/21/2025 12:30 PM EDT Appointment [facility] Endoscopy [address] [place] [phone] Philip Kelly MD [address] [address] 03/06/2025 10:30 AM EDT Office Visit Gastroenterology - [address] [phone] Philip Kelly MD [address] [address] documented as of this encounter Visit Diagnoses Not on filedocumented in this encounter Care Teams Vehicle Technician Relationship Specialty Start Date End Date Saman, MD Elva [address] [place] [address] Dr Chiang [address] [facility] [place] [address] PCP - General Internal Medicine 03/19/21 documented as of this encounter
--- OUTSIDE RECORDS SUMMARY | 2025-01-27 12:47 | XMS_ITS ---
Author Organization [facility] Address [address] [place] [phone] Care Team Providers Care Uniform Attendant Name Role Phone Elva Davison Primary Care Provider Charity Weber [phone] REASON FOR VISIT SENIOR ENGINEERING TECH Encounters Encounter Location Date Provider Diagnosis [address] [address] 01/20/2025 Charity Champion Plan Of Treatment Next Appt Details Provider Name:Charity brooks, 04/09/2025 02:00:00 PM, [address] [place] [address], [phone], Progress Notes * Dante NAVARRETEOB: 3 (79 yo F)Acc No.[id number]:01/20/2025 Patient:?Grace NAVARRETEne :1945???Age:79 Y???Sex:Female Address:[facility] [place] [address] * true * Date:? Generated for Belkisi angi/Mackenzie/eTransmitting on:?01/27/2025 12:47 PM EDT
--- OUTSIDE RECORDS SUMMARY | 2025-01-27 12:47 | XMS_ITS | Encounter Summary ---
Author Organization [facility] [place] [address] Care Team Providers Care Web Development Intern Name Role Phone Elva Davison MD Primary Care Provider [phone] Encounter Details Date Type Department Care Team ([facility] st Contact Info) Description 01/15/2025 Telephone Gastroenterology - [address] [facility] [address] [place] [phone] Laisha Glynn PA [address] [place] [address] Social History Tobacco Use Types Packs/Day Years [...] Progress Notes * Debbie Kat MA - 01/15/2025 2:42 PM EST Spoke with patient. Patient is calling [facility] to check on RX * Marylu Menjivar - 01/15/2025 2:22 PM EST PT CALLED IN REGARDS TO THE REFILL STATUS OF THE VOQUENZA documented in this encounter Plan of Treatment Upcoming Encounters Date Type Department Care Team (Late st Contact Info) Description 02/21/2025 12:30 PM EDT Appointment [facility] Endoscopy [address] [place] [phone] Philip Kelly MD [address] [address] 03/06/2025 10:30 AM EDT Office Visit Gastroenterology - [address] [facility] [address] [phone] Philip Kelly MD [address] [address] documented as of this encounter Visit Diagnoses Not on filedocumented in this encounter Care Teams Web Development Intern Relationship Specialty Start Date End Date Saman, MD Elva [address] [place] [address] [address] [facility] [place] [address] PCP - General Internal Medicine 03/19/21 documented as of this encounter
--- OUTSIDE RECORDS SUMMARY | 2025-01-27 12:48 | XMS_ITS ---
Author Organization [facility] Care Team Providers Care Continuous Towel Roller Name Role Phone Mckay Cueva Unavailable Unavailable Anamaria Mathews Unavailable Unavailable Karo Romero Unavailable Unavailable Allergies and adverse reactions No Known Allergies Care Team Name Role Address Phone Organization Dates Mckay Cueva PCP [address], [address], [place] (Office): : [facility] 01/25/2022 - 02/02/2022 Anamaria Mathews Attending Physician [address], [address], [facility] (Office): : [facility] 01/25/2022 - 02/02/2022 Karo Romero Attending Physician [address] [place] [address], [address], [facility] (Office): [facility] 01/25/2022 - 02/02/2022 Immunizations Immunization Status Vaccine Details Vaccine Code CodeSystem Leonard e Notes SARS-COV-2 (COVID-19) completed SARS-COV-2 (COVID-19) vaccine, mRNA, spike protein, LNP, preservative free, 100 mcg/0.5mL dose or 50 mcg/0.25mL dose Step 1 of Multi-step with next step required 207 CVX created date: 01/28/2022 administered date: 08/17/2021 SARS-COV-2 (COVID-19) completed SARS-COV-2 (COVID-19) vaccine, mRNA, spike protein, LNP, preservative free, 100 mcg/0.5mL dose or 50 mcg/0.25mL dose Step 1 of Multi-step with next step required 207 CVX created date: 01/28/2022 administered date: 01/12/2021 SARS-COV-2 (COVID-19) completed SARS-COV-2 (COVID-19) vaccine, mRNA, spike protein, LNP, preservative free, 100 mcg/0.5mL dose or 50 mcg/0.25mL dose Step 1 of Multi-step with next step required 207 CVX created date: 01/28/2022 administered date: 01/12/2021 Mental Status Section Date Assessment Total Score Description 02/02/2022 BIMS 15 cognitively int act CAM 0 No delirium ind icated PHQ-9 00 Problems Problem # Description Date of onset Resolved Date Code CodeSystem Concern Status 1 ESSENTIAL (PRIMARY) HYPERTENSION 01/26/[address] active 2 HYPERLIPIDEMIA, UNSPECIFIED 01/26/[address] active 3 ENCOUNTER FOR SURGICAL AFTERCARE FOLLOWING SURGERY ON THE NERVOUS SYSTEM 01/25/[address] active 4 FUSION OF SPINE, LUMBAR REGION 01/25/[address] active 5 OTHER SPECIFIED DISORDERS OF BONE DENSITY AND STRUCTURE, OTHER SITE 01/25/[address] active Reason for Referral No Reasons for Referral Entered Social History Social History Observation Description Start Date End Date Code Code System Current Smoking Status Tobacco smoking consumption unknown 789332043 SNOMED CT Sex Assigned At Female 1945 [address]-8 [facility] Vital Signs Code Code System Vitals Name Values and Units Timing Information 9279-1 [facility] Respiratory Rate Value=18.0 Units=/m in 02/02/2022 8462-4 LOINC Blood Pressure-Diastolic Value=68 Un its=mmHg 02/02/2022 8480-6 LOINC Blood Pressure-Systolic Lquej=113 Un its=mmHg 02/02/2022 8310-5 [facility] Body Temperature Value=97.3 Units=?? F 02/02/2022 8867-4 [facility] Heart rate Value=72.0 Units=/min 98033-8 [facility] O2 % BldC Oximetry Value=96.0 Units= % 02/02/2022 90484-1 [facility] Pain Level Value=0.0 02/02/2022 8302-2 [facility] Height Value=60.0 Units=Inches 01/25/2022 41244-5 [facility] Weight Bgqaq=182.4 Units=Lbs 06/2022
--- OUTSIDE RECORDS SUMMARY | 2025-01-27 12:48 | XMS_ITS | Data Portability ---
Author Organization [place] [place] [facility] [employer] Address [address] [place] [address] Care Team Providers Care Traffic Warehouse Supervisor Name Role Phone JATIN CAMILA Primary Care [...] Last Updated DateTime 98 % 98 % 07410.3 04 g 70 /min 18 /min 98.8 [...] SNOMED-CT Code Diagnosis ICD10 Code Diagnosis Note 13222 Karo Hernandez MD Main - [facility] [address] [place] [address] 07/24/2024 14:26:00 07/24/2024 22:33:12 Contusion of left great toe [id number] 8738325 S90.112A As noted, we were called to see this patient regarding concerns of atraumatic left great toe bruising. Evaluation in the field was performed by my field sales engineer colleague, as noted above, I provided real-time [...] Franklin Member ID Guarantor Name 07/24/2024 1 [facility] - DOS ON OR AFTER 2023 - DUAL ELIGIBLE - PENITENTIARY OPTIONS AND ONE CARE (MEDICARE REPLACEMENT/ADV ANTAGE - HMO) Kavita Roman [id number] Kavita Janie Jessie Notes Date Note Type [...] that needs to be done about it. [facility] Nurse Triage Notes (Maura Benitez): Reason For [...] ................... ................... ................... ................... ................... ................... ........ Sweeper Operator Highways Note From Truong Bragg: Pt redness discoloration in left big toe near nail bed. Pt denies pain but sts she feels something but can? t describe. Denies bleeding or discharge. Denies injury. Baseline vitals assessed , afebrile, pt able to walk without pain. [facility] contacted and advised pt to continue with [...] ........ Disposition: Fulfilled Karo Hernandez MD 30 [facility],[address], [place], [address], ANAM CHRISTOPHE PERSAUD 07/24/2024 15:01:28 OBGyn Episode No OBEpisode recorded.
--- OUTSIDE RECORDS SUMMARY | 2025-01-27 12:48 | XMS_ITS | Patient Health Record ---
Author Organization [facility] Address [address] [place] [address] Care Team Providers Care Airline Security Representative Name Role Phone lEva Davison Primary Care Provider Charity Weber Unavailable [phone] Reason For Referral No Information Encounters Encounter Location Date Provider Diagnosis [facility] [address] [place] [address] 01/20/2025 Charity Champion Plan Of Treatment Next Appt Details Provider Name:Charity brooks, 04/09/2025 02:00:00 PM, [address] [place], [address], Insurance Providers Payer Name Payer Address Payer Phone Subscriber Number Group Number Insured Name Patient Relationship to Insured Coverage Start Date Coverage End Date [facility] [employer] Claims [address] [place] [id number] Kavita Roman Self - patient is the insured
== END 2025-01-27 11:59 | disposition home or self-care (01) ==
PROVIDERS: PCP Internal Medicine; Visit Provider Urology
DX: R35.0 Frequency of micturition (principal); N30.90 Cystitis, unspecified without hematuria; N32.81 Overactive bladder; R32 Unspecified urinary incontinence; N39.0 Urinary tract infection, site not specified
CPT/HCPCS: 99214

== ENCOUNTER → 2025-01-27 11:13 | Outpatient (BNVA) | payer OTHER, SELFPAY | PROVIDERS: PCP Internal Medicine; Visit Provider Urology | DX: R35.0 Frequency of micturition (principal); R32 Unspecified urinary incontinence; N30.90 Cystitis, unspecified without hematuria; N32.81 Overactive bladder; N39.0 Urinary tract infection, site not specified | CPT/HCPCS: 51798; 99212 ==

== ENCOUNTER 2025-01-30 09:28 | Outpatient (AMB) | payer OTHER, SELFPAY ==
--- NOTE | 2025-01-30 09:32 | MHC.OFFVIS ---
Vital Signs 01/30/25 09:33 Height 5 ft Weight 114 lb 10.246 oz BMI 22.4 BP 126/72 Blood Pressure Location Lt brachial Position Sitting Pulse 75 Pulse Source Pulse Oximeter Pulse Oximetry (%) 100 Oxygen Delivery Method Room Air Intake Visit Reasons: Dyspnea Allergies nitrofurantoin Allergy (Intermediate, Verified 01/30/25 09:37) colitis codeine Allergy (Unknown, Verified 01/30/25 09:37) Unknown hydrocodone [From Vicodin] Allergy (Unknown, Verified 01/30/25 09:37) Unknown tramadol Allergy (Unknown, Verified 01/30/25 09:37) Unknown HPI Comments Details: The patient is an 79 year woman with a known history of Sjogren's presenting with worsening respiratory symptoms. Apparently she has been having issues with the breathing for some time. Although seems like it is getting worse. She feels a burning sensation in the throat feels like it throat is very dry and difficult to breathe as well as difficult to swallow. Denies any choking episodes. She does have reflux disease and she takes medications for that. Her symptoms became very severe and she call her primary care who recommended she go to the ER. There she had blood work done which is reassuring and she also had a chest x-ray done which also reassuring. A my examination she is able to take deep breath but in between she does have issues with shallow breathing. Denies any significant phlegm production. Denies any obvious aspiration events. 12/10/2024 the patient is here for a pulmonary follow-up visit. Overall she is told about the same. Still having difficulty breathing and comfortable sensation of the throat area primarily later in the night. Moderate severity. Does affect her sleep. She does take sleep aids. She did undergo pulmonary function studies which we personally reviewed. Appears to have a mild degree of COPD. Otherwise her lung volumes and diffusing capacity within normal limits. In addition to that she did have the modified barium swallow done by the speech pathologist. She demonstrated some thin barium penetration to the larynx but no overt aspiration. Explained to the patient that that might be a component of microaspiration. 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 She is scheduled for have a barium swallow next week to better address the esophagus. I do believe that the issues with the esophagus may be affecting her overall symptoms. We talked about promotility agents. Will try dose of Reglan at nighttime to see if this provides relief. The Plaquenil did not really help. She denies any significant improvement. Her roommate also noticed that she was low more confused. Therefore is not worth trying higher dose. She has tried magic mouthwash in the past and also other compounds including oral prednisone. This be something reasonable for her to try. She is also on the inhaler. She will continue to use that daily. 01/30/2025 the patient is here for a pulmonary follow-up visit. She continues with similar symptoms difficulty breathing difficulty with choking episodes. She does have significant dysmotility. In addition to that likely microaspiration. She did try the prednisone but will keep her up at nighttime so she had to stop it. She wants to retry the hydroxychloroquine at the higher dose of 200 b.i.d.. That is okay. She develops any visual changes she can stop it. She does not have any medication interactions that I can see. She can try for a month and see if this is beneficial. In the meantime the patient should follow-up with Rheumatology based on the diagnosis and also to see there is any other alternative therapies. She does have an endoscopy scheduled soon to address the dysmotility and significant reflux disease. She continues on the Reglan that she has that at nighttime. She is monitoring closely for any tremors. This is because her symptoms are worse at nighttime. 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 Lumbar stenosis Vitamin D deficiency HTN (hypertension) CAD (coronary artery disease) Surgical History Hx of cystoscopy History of back surgery H/O spinal fusion Family History Father Heart disease Mother Breast cancer Social History Housing: Apartment Alcohol intake: never Patient Tobacco Use Status: Never used Tobacco e-Cigarette/Vaping Use: Never Used Second Hand Smoke Exposure: No service: No Current occupational status: retired Cognitive needs: No Hearing needs: No Vision needs: Yes Review of Systems Const Denies fever(s) ENT Reports dysphagia and Reports dry mouth Card Denies chest pain, Reports dyspnea and Reports dyspnea on exertion Resp Reports pain on inspiration, Reports dyspnea, Reports dyspnea on exertion and Denies wheezing GI Reports dysphagia Musc Reports myalgias Skin/Breast Denies rash Neuro Reports no additional complaints Juan Miguel/Lymph Reports no additional complaints Aller/Immun Denies wheezing Physical Exam Vital Signs: Last Vital Signs Pulse 75 01/30/25 09:33 BP 126/72 01/30/25 09:33 Pulse Ox 100 01/30/25 09:33 Oxygen Delivery Method Room Air 01/30/25 09:33 BMI result Body Mass Index 22.4 Const General: comfortable HEENT Head: Yes normocephalic Neck Neck: Yes supple Chest Chest palpation & inspection: normal inspection of the chest Resp Effort & Inspection: tachypneic Auscultation: no crackles, no rales, no rhonchi, no wheezes and diminished lung sounds Cardio Heart sounds: S1 normal heart sound present and S2 normal heart sound present GI Palpation (GI): Soft to palpation Skin General skin exam: no rashes or lesions noted Extrem General: Yes no clubbing, cyanosis or edema Assessment & Plan Assessment & Plan (1) Dysphagia: Code(s): R13.10 - Dysphagia, unspecified Category: Medical Qualifiers: Dysphagia type: oral phase Qualified Code(s): R13.11 - Dysphagia, oral phase (2) Vocal cord dysfunction: Code(s): J38.3 - Other diseases of vocal cords Category: Medical (3) Dyspnea: Code(s): R06.00 - Dyspnea, unspecified Category: Medical Qualifiers: Dyspnea type: unspecified Qualified Code(s): R06.00 - Dyspnea, unspecified (4) COPD (chronic obstructive pulmonary disease): Comment: mild based on PFTs Code(s): J44.9 - Chronic obstructive pulmonary disease, unspecified Category: Medical Qualifiers: COPD type: chronic bronchitis Chronic bronchitis type: simple Qualified Code(s): J41.0 - Simple chronic bronchitis (5) Achalasia of esophagus: Code(s): K22.0 - Achalasia of cardia Category: Medical (6) Sjogren's disease: Code(s): M35.00 - Sjogren syndrome, unspecified Category: Medical Plan Trial plaquenil 200mg BID continue Breo endoscopy pending, early February dysphagia techniques provided reglan daily as needed, monitor for tremors stpped prednisolone suspension stopped-causes insomnia Needs to f/u with Rheumatology F/U 4-6 months Medications: Changed From hydroxychloroquine (Plaquenil) 200 mg PO DAILY 30 days 30 tabs 6RF To hydroxychloroquine (Plaquenil) 200 mg PO BID 60 tabs 6RF 30 days Coding Level of Care Code Tele Est Pt Level 4 (74313) Complex EM visit Add On G2211 Diagnoses Oral phase dysphagia R13.11 Dysphagia type: oral phase Vocal cord dysfunction J38.3 Dyspnea, unspecified type R06.00 Dyspnea type: unspecified Simple chronic bronchitis J41.0 COPD type: chronic bronchitis Chronic bronchitis type: simple Achalasia of esophagus K22.0 Sjogren's disease M35.00 Time Spent (min) 17
[2025-01-30 09:33] VITALS: BP 126/72; PULSE 75; O2SAT 100; BMI 22.4
--- OUTSIDE RECORDS SUMMARY | 2025-01-30 11:07 | XMS_ITS | Encounter Summary ---
Author Organization [facility] [place] [address] Care Team Providers Care Machine Puller Name Role Phone Elva Davison MD Primary Care Provider [phone] Encounter Details Date Type Department Care Team ([facility] st Contact Info) Description 01/16/2025 Telephone Gastroenterology - [address] [facility] [address] [place] [phone] Philip Kelly MD [address] [place] [address] Social History Tobacco Use Types Packs/Day Years [...] Info) Description 02/21/2025 12:30 PM EDT Appointment [facility] Endoscopy [address] [place] [phone] Philip Kelly MD [address] [address] 03/06/2025 10:30 AM EDT Office Visit Gastroenterology - [address] [phone] Philip Kelly MD [address] [address] 04/25/2025 9:20 AM EDT Office Visit [facility] - [facility] [address] 300 [facility] 154 [place] [phone] Richelle Hussein MD 300 [facility] [address] [place] [address] documented as of this encounter Visit Diagnoses Not on filedocumented in this encounter Care Teams Machine Puller Relationship Specialty Start Date End Date Elva Davison MD [address] [place] [address] [address] [facility] [place] [address] PCP - General Internal Medicine 03/19/21 documented as of this encounter
--- OUTSIDE RECORDS SUMMARY | 2025-01-30 11:07 | XMS_ITS ---
Author Organization [facility] Address [address] [place] [address] Care Team Providers Care Painter Maintenance Name Role Phone Elva Davison Primary Care Provider Charity Weber [phone] REASON FOR VISIT MUTUAL FUNDS AGENT Encounters Encounter Location Date Provider Diagnosis [address] [address] 01/20/2025 Charity Champion Plan Of Treatment Next Appt Details Provider Name:Charity brooks, 04/09/2025 02:00:00 PM, [address] [place] [address], [phone], Progress Notes * Dante NAVARRETEOB: 3 (79 yo F)Acc No.[id number]:01/20/2025 Patient:?Grace NAVARRETEne :1945???Age:79 Y???Sex:Female Address:[facility] [place] [address] * true * Date:? Generated for Belkisi angi/Mackenzie/eTransmitting on:?01/30/2025 11:07 AM EDT
--- OUTSIDE RECORDS SUMMARY | 2025-01-30 11:07 | XMS_ITS | Clinical Summary ---
Author Organization [facility] Address [address] [place] [address] Phone Care Team Providers Care Track Maintainer Name Role Phone Elva Davison MD Primary Care Provider [phone] Allergies No known active allergies Medications omeprazole [...] MOUTH ONCE DAILY NEEDED FOR DIFFICULTY SWALLOWING. Active vonoprazan 20 mg tabletIndications :Erosive gastritis Take 1 tablet by mouth 1 (one) time each day. 90 tablet 3 025 2025 Active atorvastatin (LIPITOR) 40 mg tablet Take 1 tablet by mouth once daily 90 tablet 1 Active amLODIPine (NORVASC) 5 mg tablet Take 1 tablet (5 mg total) by mouth 1 (one) time each day. 30 each 1 025 2025 Active amLODIPine (NORVASC) 2.5 mg tablet Take 1.5 tablets (3.75 mg total) by mouth 1 (one) time each day. 2024 Discontinued atorvastatin (LIPITOR) 40 mg tablet Take 1 [...] a follow-up appointment with his clinic at [place] a few months ago. The plan to [...] LVEF 25-30% at the time of her [place] in 2019 Recovery to normal Last Assessment & Plan: LV function has recovered. Encounters Date Type Department Care Team Description 01/27/2025 Telephone [facility] - [address] [place] [phone] Richelle Hussein MD Hypertension 01/16/2025 Telephone Gastroenterology - [address] [place] [phone] Philip Kelly MD 01/15/2025 Telephone Gastroenterology - [address] [place] [address] Laisha Glynn PA 12/20/2024 10:20 AM EST Office Visit Gastroenterology - [address] [place] [phone] Laisha Glynn PA Erosive gastritis (Primary Dx); Oropharyngeal dysphagia from Last 3 Months Surgical History Surgery Date Site/Laterality Comments TONSILLECTOMY ADENOIDECTOMY, BILATERAL MYRINGOTOMY AND TUBES PROCEDURE: [place] TONSILLECTOMY & ADENOIDECTOMY <AGE 10 BACK SURGERY [...] GERD (gastroesophageal reflux disease) Arthritis Myocardial infarction (CMS/FORMERLY [facility]) Family History Medical History Relation Name Comments Colon cancer Father's Sister Stroke Mother Eli Navarrete Colon polyps Sister 1 Colon polyps [...] Info) Description 02/21/2025 12:30 PM EDT Appointment [facility] Endoscopy [address] [place] [phone] Philip Kelly MD [address] [address] 03/06/2025 10:30 AM EDT Office Visit Gastroenterology - [address] [facility] [address] [place] [address] Philip Kelly MD [address] [facility] [address] [place] [address] 04/25/2025 9:20 AM EDT Office Visit [facility] - [facility] [address] [facility] 154 [place] [phone] Richelle Hussein MD 300 [facility] 154 [place] [address] Health Maintenance Due Date Last Done Comments [...] AM EDT Narrative 09/14/2021 11:43 AM EDT [facility] Diagnostic Imaging Department [address] [place] [id number] Patient: ??KAVITA NAVARRETE SR ?/Age/Sex: 1945 - 76 - F Unit#: ??[id number] ? Location/Status: ??SPDIMAM/REG CLI ? Mnemonic/Ordering Site: ??MAMDEXAAX/SPMAM Ordering Physician: ??DEX TOLENTINO MD Aravind Dexa Axial Skeleton - 09/14/21942 History: Low estrogen state due to menopause. Height loss. Comparison: 10/14/15 Findings: Bone densitometry is performed utilizing dual energy x-ray absorptiometry (DXA) in the MedSocketigWellocities unit. The lumbar spine and proximal femora [...] 12.4 percent ??Hip 3.0 percent. IMPRESSION: Osteopenia. [id number] Dictating Physician: ??MERCEDES VANESSA MD Electronically Signed by: ??MERCEDES VANESSA MD Dic Date/Time: ??09/14/21 1142 Sign date/Time: ??09/14/21 1143 Procedure Note Mercedes Vanessa MD - 11/09/2022 [facility] Diagnostic Imaging Department [address] [place] [address] Patient: LANDONKAVITA SR /Age/Sex: 1945 - 76 - F Unit#: [id number] Location/Status: SPDIMAM/REG CLI Mnemonic/Ordering Site: MAMDEXAAX/SPMAM Ordering Physician: DEX TOLENTINO MD [facility] Dexa Axial Skeleton - 09/14/21942 History: Low estrogen state due to menopause. Height loss. Comparison: 10/14/15 Findings: Bone densitometry is performed utilizing dual energy x-ray absorptiometry(DXA) in the eMar unit. The lumbar spine and proximal femora [...] 12.4 percent Hip 3.0 percent. IMPRESSION: Osteopenia. 53512 Dictating Physician: MERCEDES VANESSA MD Electronically Signed by: MERCEDES VANESSA MD Dic Date/Time: 09/14/21 1142 Sign date/Time: 09/14/21 1143 us Dex Tolentino MD IMG BI PROCEDURES Final Result from Last 3 Months or Most Recently Relevant to Health Maintenance Insurance [facility] Member Subscriber Plan / Payer (Ef fective 2024-Present) Name:Kavita Navarrete Sr Relation to Subscriber:Self Name:Kavita Navarrete Sr Payer ID:[id number] Group ID:[id number] Type:Not on file Address: [address] [place] [address] MEDICAID - [place] Advance Directives Documents on File Type Date Recorded Patient Product Test Specialist Expl anation Health Care Decision (hx) 09/23/2021 [...] (hx) 09/23/2021 AD GARCIA DIRECTIVE Care Teams Track Maintainer Relationship Specialty Start Date End Date Elva Davison MD [address] [place] [address] [address] [facility] [place] [address] PCP - General Internal Medicine 03/19/21
--- OUTSIDE RECORDS SUMMARY | 2025-01-30 11:07 | XMS_ITS | Encounter Summary ---
Author Organization [facility] Address [address] [place] [address] Care Team Providers Care Senior Paralegal Name Role Phone Elva Davison MD Primary Care Provider [phone] Reason for Visit * Reason Onset Date Comments Hypertension 01/27/2025 Encounter Details Date Type Department Care Team (Late st Contact Info) Description 01/27/2025 Telephone [facility] - [facility] [address] [facility] 154 [place] [phone] Richelle Hussein MD 300 [facility] [address] [place] [address] Hypertension Social History Tobacco Use Types Packs/Day Years [...] as of this encounter Progress Notes * Lianna Marie RN - 01/28/2025 12:18 PM EDT I called patient to inquire where she wanted Amlodipine 5 mg qd #30 1 rf as requested sent. She stated [facility]. Ordered. She req 30 day supply 1 refill and stated will notify for a 90 day supply if she tolerates med/dose. I asked her to call in 1 week with readings or to send via My chart with date, time , BP pulse andto make sure she checks and documents in note that she checked 2 hrs after med. I advised she call sooner if any issues. * Yvonne Barnett MA - 01/27/2025 3:40 PM EDT Duplicate call on same NextImage Medicalhart message; pending provider review * Shikha Thornton - 01/27/2025 1:18 PM EDT Patient called and is concerned about her high blood pressure as of lately. Please give her a call back at [phone]. documented in this encounter Plan of Treatment Upcoming Encounters Date Type Department Care Team (Late st Contact Info) Description 02/21/2025 12:30 PM EDT Appointment [facility] Endoscopy [address] [place] [phone] Philip Kelly MD [address] [address] 03/06/2025 10:30 AM EDT Office Visit Gastroenterology - 299 [facility] [address] [address] Philip Kelly MD [address] [address] 04/25/2025 9:20 AM EDT Office Visit [facility] - [facility] [address] [phone] Richelle Hussein MD [address] [address] documented as of this encounter Visit Diagnoses Not on filedocumented in this encounter Care Teams Senior Paralegal Relationship Specialty Start Date End Date Elva Davison MD 2 [facility] [address] [facility] [place] [address] PCP - General Internal Medicine 03/19/21 documented as of this encounter
--- OUTSIDE RECORDS SUMMARY | 2025-01-30 11:07 | XMS_ITS | Data Portability ---
Author Organization [employer] [facility] Address [address] [place] [address] Care Team Providers Care Recording Studio Set Up Worker Name Role Phone JATIN CAMILA Primary Care Provider [phone] Assessment No assessment recorded. Plan of Treatment [...] Last Updated DateTime 98 % 98 % 51150.3 04 g 70 /min 18 /min 98.8 [...] SNOMED-CT Code Diagnosis ICD10 Code Diagnosis Note [id number] Karo Hernandez MD Main - instED [address] [place] [address] 07/24/2024 14:26:00 07/24/2024 22:33:12 Contusion of left great toe [id number] S90.112A As noted, we were called to see this patient regarding concerns of atraumatic left great toe bruising. Evaluation in the field was performed by my safety patrol officer colleague, as noted above, I provided real-time [...] Franklin Member ID Guarantor Name 07/24/2024 1 [facility] - DOS ON OR AFTER 2023 - DUAL ELIGIBLE - CARE HOME OPTIONS AND ONE CARE (MEDICARE REPLACEMENT/ADV ANTAGE - HMO) Kavita Roman [id number] Kavita Janie Jessie Notes Date Note Type [...] that needs to be done about it. [facility] Nurse Triage Notes (Maura Benitez): Reason For [...] ................... ................... ................... ................... ................... ................... ........ Culinary Worker Note From Truong Bragg: Pt redness discoloration in left big toe near nail bed. Pt denies pain but sts she feels something but can? t describe. Denies bleeding or discharge. Denies injury. Baseline vitals assessed , afebrile, pt able to walk without pain. [facility] contacted and advised pt to continue with [...] ........ Disposition: Fulfilled Karo Hernandez MD 30 [facility],[address], [place], [address], CHRISTOPHE ALVAREZ 07/24/2024 15:01:28 OBGyn Episode No OBEpisode recorded.
--- OUTSIDE RECORDS SUMMARY | 2025-01-30 11:07 | XMS_ITS | Encounter Summary ---
Author Organization [facility] [place] [address] Care Team Providers Care Product Management Intern Name Role Phone Elva Davison MD Primary Care Provider [phone] Encounter Details Date Type Department Care Team ([facility] st Contact Info) Description 01/15/2025 Telephone Gastroenterology - [address] [facility] [address] [place] [phone] Laisha Glynn PA [address] [place] [address] Social History Tobacco Use Types Packs/Day Years [...] Info) Description 02/21/2025 12:[address] [facility] Endoscopy [address] [place] [phone] Philip Kelly MD 299 [facility] [address] [place] [address] 03/06/2025 10:30 AM EDT Office Visit Gastroenterology - [address] [facility] [address] [place] [phone] Philip Kelly MD 299 [facility] [address] [place] [address] 04/25/2025 9:20 AM EDT Office Visit [facility] - [facility] [address] [facility] [address] [place] [phone] Richelle Hussein MD [address] [place] [address] documented as of this encounter Visit Diagnoses Not on filedocumented in this encounter Care Teams Product Management Intern Relationship Specialty Start Date End Date Elva Davison MD [address] [place] [address] [address] [facility] [place] [address] PCP - General Internal Medicine 03/19/21 documented as of this encounter
--- OUTSIDE RECORDS SUMMARY | 2025-01-30 11:08 | XMS_ITS ---
Author Organization [facility] Care Team Providers Care Carrier Driver Name Role Phone Mckay Cueva Unavailable Unavailable Anamaria Mathews Unavailable Unavailable Karo Romero Unavailable Unavailable Allergies and adverse reactions No Known Allergies Care Team Name Role Address Phone Organization Dates Mckay Cueva PCP [address], [address], [place] (Office): : [facility] 01/25/2022 - 02/02/2022 Anamaria Mathews Attending Physician [address], [address], [facility] (Office): : [facility] 01/25/2022 - 02/02/2022 Karo Romero Attending Physician [address] [place] [address], [address], [facility] (Office): [facility] 01/25/2022 - 02/02/2022 Immunizations Immunization Status Vaccine [...] Concern Status 1 ESSENTIAL (PRIMARY) HYPERTENSION 01/26/[address] active 2 HYPERLIPIDEMIA, UNSPECIFIED 01/26/[address] active 3 ENCOUNTER FOR SURGICAL AFTERCARE FOLLOWING SURGERY ON THE NERVOUS SYSTEM 01/25/[address] active 4 FUSION OF SPINE, LUMBAR REGION 01/25/[address] active 5 OTHER SPECIFIED DISORDERS OF BONE DENSITY AND STRUCTURE, OTHER SITE 01/25/[address] active Reason for Referral No Reasons for Referral Entered Social History Social History Observation Description Start Date End Date Code Code System Current Smoking Status Tobacco smoking consumption unknown 653431608 SNOMED CT Sex Assigned At Female 1945 35714-4 [facility] Vital Signs Code Code System Vitals Name Values and Units Timing Information 9279-1 [facility] Respiratory Rate Value=18.0 Units=/m in 02/02/2022 8462-4 LOINC Blood Pressure-Diastolic Value=68 Un its=mmHg 02/02/2022 8480-6 LOINC Blood Pressure-Systolic Wczaa=748 Un its=mmHg 02/02/2022 8310-5 [facility] Body Temperature Value=97.3 Units=?? F 02/02/2022 8867-4 [facility] Heart rate Value=72.0 Units=/min 06931-0 [facility] O2 % BldC Oximetry Value=96.0 Units= % 02/02/2022 25848-0 [facility] Pain Level Value=0.0 02/02/2022 8302-2 [facility] Height Value=60.0 Units=Inches 01/25/2022 89961-0 [facility] Weight Bozrn=829.4 Units=Lbs 06/2022
--- OUTSIDE RECORDS SUMMARY | 2025-01-30 11:08 | XMS_ITS | Patient Health Record ---
Author Organization [facility] Address [address] [place] [address] Care Team Providers Care Awake Overnight Monitor Name Role Phone Elva Davison Primary Care Provider Charity Weber Unavailable [phone] Reason For Referral No Information Encounters Encounter Location Date Provider Diagnosis [facility] [address] [place] [address] 01/20/2025 Charity Champion Plan Of Treatment Next Appt Details Provider Name:Charity brooks, 04/09/2025 02:00:00 PM, [address] [place], [address], Insurance Providers Payer Name Payer Address Payer Phone Subscriber Number Group Number Insured Name Patient Relationship to Insured Coverage Start Date Coverage End Date Pending Sale To [facility] [employer] Claims [address] [place] [id number] aKvita Roman Self - patient is the insured
== END 2025-01-30 10:02 | disposition home or self-care (01) ==
LOC: HO.HPS 09:28
PROVIDERS: PCP Internal Medicine; Visit Provider Hospitalist
DX: R06.00 Dyspnea, unspecified (principal); J41.0 Simple chronic bronchitis; R13.11 Dysphagia, oral phase; J38.3 Other diseases of vocal cords; K22.0 Achalasia of cardia; M35.00 Sjogren syndrome, unspecified
CPT/HCPCS: 99214; G2211

== ENCOUNTER → 2025-01-30 09:28 | Outpatient (BNVA) | payer OTHER, SELFPAY | PROVIDERS: PCP Internal Medicine; Visit Provider Hospitalist | DX: J38.3 Other diseases of vocal cords (principal); J41.0 Simple chronic bronchitis; R13.11 Dysphagia, oral phase; R06.00 Dyspnea, unspecified; K22.0 Achalasia of cardia; M35.00 Sjogren syndrome, unspecified | CPT/HCPCS: 99212 ==

== ENCOUNTER 2025-01-31 08:56 | Outpatient (REF) | payer OTHER, SELFPAY ==
--- OUTSIDE RECORDS SUMMARY | 2025-01-31 09:21 | XMS_ITS | Clinical Summary ---
Author Organization [facility] 299 [facility] Address [address] [place] [address] Phone Care Team Providers Care Oil Field Worker Name Role Phone Elva Davison MD Primary Care Provider [phone] Allergies No known active allergies Medications omeprazole (PriLOSEC) [address] capsule Take 1 capsule (40 mg total) by mouth 2 (two) times a day. Active metoprolol succinate (TOPROL-XL) 25 mg 24 hr tablet Take 0.5 tablets (12.5 mg total) by mouth 1 (one) time each day. Active mirtazapine (REMERON) 15 mg tablet Take 1 tablet (15 mg total) by mouth. at bedtime. Active gabapentin (NEURONTIN) 300 mg capsule Take [...] a follow-up appointment with his clinic at [place] a few months ago. The plan to [...] LVEF 25-30% at the time of her AR in 2019 Recovery to normal Last Assessment & Plan: LV function has recovered. Encounters Date Type Department Care Team Description 01/27/2025 Telephone [facility] - [address] [place] [phone] Richelle Hussein MD Hypertension 01/16/2025 Telephone Gastroenterology - [address] [place] [phone] Philip Kelly MD 01/15/2025 Telephone Gastroenterology - [address] [place] [address] Laisha Glynn PA 12/20/2024 10:20 AM EST Office Visit Gastroenterology - [address] [place] [phone] Laisha Glynn PA Erosive gastritis (Primary Dx); [...] (gastroesophageal reflux disease) Arthritis Myocardial infarction (CMS/FORMERLY [facility]) Family History Medical History Relation Name Comments [...] Description 02/21/2025 12:30 PM EDT Appointment [facility] Endoscopy [address] [place] [phone] Philip Kelly MD [address] [address] 03/06/2025 10:30 AM EDT Office Visit Gastroenterology - [address] [facility] [address] [place] [address] Philip Kelly MD [address] [place] [address] 04/25/2025 9:20 AM EDT Office Visit [facility] - [facility] [address] 300 [facility] [address] [place] [phone] Richelle Hussein MD 300 [facility] 154 [place] [address] Health Maintenance Due Date Last Done Comments [...] AM EDT Narrative 09/14/2021 11:43 AM EDT [facility] Diagnostic Imaging Department [address] [place] [id number] Patient: ??KAVITA NAVARRETE SR ?/Age/Sex: 1945 - 76 - F Unit#: ??[id number] ? Location/Status: ??SPDIMAM/REG CLI ? Mnemonic/Ordering Site: ??MAMDEXAAX/SPMAM Ordering Physician: ??DEX TOLENTINO MD Aravind Dexa Axial Skeleton - 09/14/21942 History: Low estrogen state due to menopause. Height loss. Comparison: 10/14/15 Findings: Bone densitometry is performed utilizing dual energy x-ray absorptiometry (DXA) in the [employer] unit. The lumbar spine and proximal femora [...] 12.4 percent ??Hip 3.0 percent. IMPRESSION: Osteopenia. [id number] Dictating Physician: ??MERCEDES VANESSA MD Electronically Signed by: ??MERCEDES VANESSA MD Dic Date/Time: ??09/14/21 1142 Sign date/Time: ??09/14/21 1143 Procedure Note Mercedes Vanessa MD - 11/09/2022 [facility] Diagnostic Imaging Department [address] [place] [address] Patient: LANDONKAVITA SR /Age/Sex: 1945 - 76 - F Unit#: [id number] Location/Status: SPDIMAM/REG CLI Mnemonic/Ordering Site: MAMDEXAAX/SPMAM Ordering Physician: DEX TOLENTINO MD [facility] Dexa Axial Skeleton - 09/14/21942 History: Low estrogen state due to menopause. Height loss. Comparison: 10/14/15 Findings: Bone densitometry is performed utilizing dual energy x-ray absorptiometry(DXA) in the [employer] unit. The lumbar spine and proximal femora [...] 12.4 percent Hip 3.0 percent. IMPRESSION: Osteopenia. [id number] Dictating Physician: MERCEDES VANESSA MD Electronically Signed by: MERCEDES VANESSA MD Dic Date/Time: 09/14/21 1142 Sign date/Time: 09/14/21 1143 us Dex Tolentino MD IMG BI PROCEDURES Final Result from Last 3 Months or Most Recently Relevant to Health Maintenance Insurance [facility] Member Subscriber Plan / Payer (Ef fective 2024-Present) Name:Kavita Navarrete Sr Relation to Subscriber:Self Name:Kavita Navarrete Sr Payer ID:[id number] Group ID:[id number] Type:Not on file Address: [address] [place] [address] MEDICAID - [place] Advance Directives Documents on File Type Date Recorded Patient Vehicle And Equipment Cleaner Expl anation Health Care Decision (hx) 09/23/2021 [...] (hx) 09/23/2021 AD GARCIA DIRECTIVE Care Teams Oil Field Worker Relationship Specialty Start Date End Date Elva Davison MD [address] [place] [address] [address] [facility] [place] [address] PCP - General Internal Medicine 03/19/21
--- OUTSIDE RECORDS SUMMARY | 2025-01-31 09:21 | XMS_ITS | Encounter Summary ---
Author Organization [facility] Address [address] [place] [address] Care Team Providers Care Geotechnical Intern Name Role Phone Elva Davison MD Primary Care Provider [phone] Reason for Visit * Reason Onset Date Comments Hypertension 01/27/2025 Encounter Details Date Type Department Care Team (Late st Contact Info) Description 01/27/2025 Telephone [facility] Associates - [facility] [address] [facility] [address] [place] [phone] Richelle Hussein MD 300 [facility] [address] [place] [address] Hypertension Social History Tobacco Use Types Packs/Day [...] 3:40 PM EDT Duplicate call on same Code71hart message; pending provider review * Shikha Thornton - 01/27/2025 1:18 PM EDT Patient called and is concerned about her high blood pressure as of lately. Please give her a call back at [phone]. documented in this encounter Plan of Treatment Upcoming Encounters Date Type Department Care Team (Late st Contact Info) Description 02/21/2025 12:30 PM EDT Appointment [facility] Endoscopy [address] [place] [phone] Philip Kelly MD [address] [address] 03/06/2025 10:30 AM EDT Office Visit Gastroenterology - 299 [facility] [address] [address] Philip Kelly MD [address] [address] 04/25/2025 9:20 AM EDT Office Visit [facility] - [facility] [address] [phone] Richelle Hussein MD [address] [address] documented as of this encounter Visit Diagnoses Not on filedocumented in this encounter Care Teams Geotechnical Intern Relationship Specialty Start Date End Date Elva Davison MD 2 [facility] [address] [facility] [place] [address] PCP - General Internal Medicine 03/19/21 documented as of this encounter
--- OUTSIDE RECORDS SUMMARY | 2025-01-31 09:21 | XMS_ITS | Patient Health Record ---
Author Organization [facility] Address [address] [place] [address] Care Team Providers Care Strategic Accounts Manager Name Role Phone Elva Davison Primary Care Provider Charity Weber Unavailable [phone] Reason For Referral No Information Encounters Encounter Location Date Provider Diagnosis [facility] [address] [place] [address] 01/20/2025 Charity Champion Plan Of Treatment Next Appt Details Provider Name:Charity brooks, 04/09/2025 02:00:00 PM, [address] [place], [address], Insurance Providers Payer Name Payer Address Payer Phone Subscriber Number Group Number Insured Name Patient Relationship to Insured Coverage Start Date Coverage End Date [facility] [employer] Claims [address] [place] [id number] Kavita Roman Self - patient is the insured
--- OUTSIDE RECORDS SUMMARY | 2025-01-31 09:21 | XMS_ITS ---
Author Organization [facility] Address [address] [place] [address] Care Team Providers Care Cryptological Technician Name Role Phone Elva Davison Primary Care Provider Charity Weber [phone] REASON FOR VISIT RESERVATIONS SPECIALIST Encounters Encounter Location Date Provider Diagnosis [address] [address] 01/20/2025 Charity Champion Plan Of Treatment Next Appt Details Provider Name:Charity brooks, 04/09/2025 02:00:00 PM, [address] [place] [address], [address], Progress Notes * Dante NAVARRETEOB: 3 (79 yo F)Acc No.[id number]:01/20/2025 Patient:?Grace NAVARRETEne :1945???Age:79 Y???Sex:Female Address:[facility] [place] [address] * true * Date:? Generated for Belkisi angi/Mackenzie/eTransmitting on:?01/31/2025 09:21 AM EDT
--- OUTSIDE RECORDS SUMMARY | 2025-01-31 09:21 | XMS_ITS | Encounter Summary ---
Author Organization [facility] [place] [address] Care Team Providers Care Radiation Oncology Nurse Name Role Phone Elva Davison MD Primary Care Provider [phone] Encounter Details Date Type Department Care Team ([facility] st Contact Info) Description 01/15/2025 Telephone Gastroenterology - 299 [address] [facility] [address] [place] [phone] Laisha Glynn PA [address] [place] [address] Social History Tobacco Use Types Packs/Day Years [...] Info) Description 02/21/2025 12:30 PM EDT Appointment [facility] Endoscopy [address] [place] [phone] Philip Kelly MD [address] [facility] [address] [place] [address] 03/06/2025 10:30 AM EDT Office Visit Gastroenterology - [address] [facility] [address] [place] [address] Philip Kelly MD 299 [facility] [address] [place] [address] 04/25/2025 9:20 AM EDT Office Visit [facility] Associates - [facility] [address] 300 [facility] 154 [place] [phone] Richelle Hussein MD [address] [place] [address] documented as of this encounter Visit Diagnoses Not on filedocumented in this encounter Care Teams Radiation Oncology Nurse Relationship Specialty Start Date End Date Elva Davison MD [address] [place] [address] [address] [facility] [place] [address] PCP - General Internal Medicine 03/19/21 documented as of this encounter
--- OUTSIDE RECORDS SUMMARY | 2025-01-31 09:21 | XMS_ITS | Encounter Summary ---
Author Organization [facility] [place] [address] Care Team Providers Care Brassiere Cup Mold Cutter Name Role Phone Elva Davison MD Primary Care Provider [phone] Encounter Details Date Type Department Care Team ([facility] st Contact Info) Description 01/16/2025 Telephone Gastroenterology - 299 [address] [facility] [address] [place] [phone] Philip Kelly MD [address] [place] [address] Social History Tobacco Use Types Packs/Day Years [...] Info) Description 02/21/2025 12:30 PM EDT Appointment [facility] Endoscopy [address] [place] [address] Philip Kelly MD [address] [address] 03/06/2025 10:30 AM EDT Office Visit Gastroenterology - [address] [phone] Philip Kelly MD [address] [address] 04/25/2025 9:20 AM EDT Office Visit [facility] Card[facility] Associates - [facility] [address] 300 [facility] 154 [place] [phone] Richelle Hussein MD 300 [facility] [address] [place] [address] documented as of this encounter Visit Diagnoses Not on filedocumented in this encounter Care Teams Brassiere Cup Mold Cutter Relationship Specialty Start Date End Date Elva Davison MD [address] [place] [address] Dr [address] [facility] [place] [address] PCP - General Internal Medicine 03/19/21 documented as of this encounter
--- OUTSIDE RECORDS SUMMARY | 2025-01-31 09:22 | XMS_ITS ---
Author Organization [facility] Care Team Providers Care Ski Lift Operator Name Role Phone Mckay Cueva Unavailable Unavailable Anamaria Mathews Unavailable Unavailable Karo Romero Unavailable Unavailable Allergies and adverse reactions No Known Allergies Care Team Name Role Address Phone Organization Dates Mckay Cueva PCP [address], [address], [place] (Office): : [facility] 01/25/2022 - 02/02/2022 Anamaria Mathews Attending Physician [address], [address], [facility] (Office): : [facility] 01/25/2022 - 02/02/2022 Karo Romero Attending Physician [address] [place] [address], [address], [facility] (Office): [facility] 01/25/2022 - 02/02/2022 Immunizations Immunization Status Vaccine [...] Concern Status 1 ESSENTIAL (PRIMARY) HYPERTENSION 01/26/[address] active 2 HYPERLIPIDEMIA, UNSPECIFIED 01/26/[address] active 3 ENCOUNTER FOR SURGICAL AFTERCARE FOLLOWING SURGERY ON THE NERVOUS SYSTEM 01/25/[address] active 4 FUSION OF SPINE, LUMBAR REGION 01/25/[address] active 5 OTHER SPECIFIED DISORDERS OF BONE DENSITY AND STRUCTURE, OTHER SITE 01/25/[address] active Reason for Referral No Reasons for Referral Entered Social History Social History Observation Description Start Date End Date Code Code System Current Smoking Status Tobacco smoking consumption unknown 887561192 SNOMED CT Sex Assigned At Female 1945 [address]-7 [facility] Vital Signs Code Code System Vitals Name Values and Units Timing Information 9279-1 [facility] Respiratory Rate Value=18.0 Units=/m in 02/02/2022 8462-4 LOINC Blood Pressure-Diastolic Value=68 Un its=mmHg 02/02/2022 8480-6 [facility]INC Blood Pressure-Systolic Vvtxp=462 Un its=mmHg 02/02/2022 8310-5 [facility] Body Temperature Value=97.3 Units=?? F 02/02/2022 8867-4 [facility] Heart rate Value=72.0 Units=/min 18400-9 [facility] O2 % BldC Oximetry Value=96.0 Units= % 02/02/2022 09522-8 [facility] Pain Level Value=0.0 02/02/2022 8302-2 [facility] Height Value=60.0 Units=Inches 01/25/2022 52614-6 [facility] Weight Sgdrg=118.4 Units=Lbs 06/2022
[2025-01-31 13:51] LABS: Appearance Urine Cloudy; Color Urine Yellow; Glucose Urine UA Negative (Negative); Leukocyte Esterase Urine Large (3+) (Negative); Nitrite Urine Negative (Negative); Specific Gravity - Urine <= 1.005 (1.005-1.025); UMIC TRIGGER UA YES; Urine Blood Moderate (2+) (Negative); Urine Ketones Negative (Negative); Urine Protein Negative (Neg-Trace)
[2025-01-31 14:13] LABS: Bacteria Urine 1+ (None Seen); Hyaline Casts Urine 0-2 /LPF (0-2); Squamous Epithelial Cell Urine 0-2 /HPF (0-2); WBC Urine >50 /HPF (0-5)
== END 2025-01-31 08:57 | disposition home or self-care (01) ==
LOC: HO.HMGCLDS 08:56
PROVIDERS: PCP Internal Medicine; Visit Provider Urology
DX: N39.0 Urinary tract infection, site not specified (principal); B96.89 Other specified bacterial agents as the cause of diseases classified elsewhere
CPT/HCPCS: 81001; 87086; 87088; 87186

== ENCOUNTER 2025-02-03 08:47 | Outpatient (AMB) | payer OTHER, SELFPAY ==
--- NOTE | 2025-02-03 08:52 | A.OFFPC_ITS ---
Vital Signs 02/03/25 08:55 Height 5 ft Weight 114 lb BMI 22.3 BP 122/74 Blood Pressure Location Lt brachial Position Sitting Pulse 71 Pulse Source Pulse Oximeter Temp 97.3 F Temp Source Temporal Artery Scan Pulse Oximetry (%) 100 Oxygen Delivery Method Room Air Intake Visit Reasons: sjogrens Intake Note: Patient is here to follow up on Sjorgrens. Group Home Counselor Required: No Administrative Job Titles: Present Accompanied by: Nurse Allergies nitrofurantoin Allergy (Intermediate, Verified 02/03/25 09:01) colitis codeine Allergy (Unknown, Verified 02/03/25 09:01) Unknown hydrocodone [From Vicodin] Allergy (Unknown, Verified 02/03/25 09:01) Unknown tramadol Allergy (Unknown, Verified 02/03/25 09:01) Unknown Medication List - Last Reconciled 02/03/25 by Fely Vang PA-C acetaminophen (Acetaminophen Extra Strength) 500 mg PO QID PRN amlodipine 5 mg PO DAILY aspirin 81 mg PO DAILY atorvastatin 40 mg PO DAILY Bifidobacterium infantis (Align (B.infantis)) 4 mg PO DAILY 90 days calcium citrate (Citracal) PO BID cephalexin 250 mg PO ONCE 90 days cevimeline 1 cap PO BID cholecalciferol (vitamin D3) 25 mcg PO .3x per week ciprofloxacin HCl 500 mg PO BID 5 days clonazepam 0.5 mg PO BEDTIME 90 days cranberry extract 400 mg PO DAILY cyclosporine 0.05% (Restasis) 1 drp ophthalmic (eye) BID docusate sodium (Stool Softener) 100 mg PO BID estradiol 0.01%(0.1mg/gram) (Estrace) Use pea-sized amount on fingertip placed vaginally Monday through Monday at bedtime vaginally as directed from medical doctor.; fluticasone furoate-vilanterol 100-25 mcg/dose (Breo Ellipta) 1 inh inhalation DAILY 30 days gabapentin 300 mg PO BEDTIME 90 days hydroxychloroquine (Plaquenil) 200 mg PO BID 30 days metoclopramide HCl (Reglan) 5 mg PO DAILY PRN metoprolol succinate ER 12.5 mg (1/2 x 25 mg) PO DAILY mirtazapine 15 mg PO BEDTIME pilocarpine HCl 5 mg PO DAILY polyethylene glycol 3350 (Miralax) 17 grams PO DAILY vibegron (Gemtesa) 75 mg PO DAILY vonoprazan (Voquezna) 20 mg PO DAILY zolpidem ER 6.25 mg PO BEDTIME PRN 90 days Tobacco use date assessed: 02/03/25 Fall risk assessment: 1 Fall in past year Last assessed Fall Risk: 02/03/25 Dental Screening Dental Screen Date: 02/03/25 Did you have a dental visit in the last 12 months?: Yes Did you have a dental problem in the last 6 months where you did not have access to dental care?: No Was dental information given to patient?: Patient has dentist HPI sjogrens HPI Details 79-year-old female with past medical his tory of coronary artery disease, hypertension, hypercholesterolemia, generalized anxiety disorder, GERD, overactive bladder and Sjogren's syndrome seen 10/2024 coming in for follow up. In review of the notes, patient was seen by pulmonology 01/30/2025 hydroxychloroquine was increased to twice daily, scheduled for endoscopy in February advised to follow up with Rheumatology.?Patient was seen by Urology 01/27/2025.?Seen by [facility] when 12/19/2024 recommending EGD for further evaluation of dysphagia. Presenting with a Urinary Tract Infection. She describes an acute onset of symptoms on a Monday morning with significant discomfort and urgency. Ciprofloxacin was prescribed subsequently following culture confirmation. In the past, similar UTI symptoms required the same antibiotic treatment. Hypertension management is ongoing. Amlodipine has been increased by motorcycle riding instructor recently due to marginally elevated measurements. Sj?gren's Syndrome is under investigation with the introduction of hydroxychloroquine recently ordered but requiring supervisor vat house consultation. EGD scheduled for 02/21/2025 by GI. 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 Lumbar stenosis Vitamin D deficiency HTN (hypertension) CAD (coronary artery disease) Surgical History Hx of cystoscopy History of back surgery H/O spinal fusion Family History Father Heart disease Mother Breast cancer Social History Housing: Apartment Alcohol intake: never Patient Tobacco Use Status: Never used Tobacco e-Cigarette/Vaping Use: Never Used Second Hand Smoke Exposure: No service: No Current occupational status: retired Cognitive needs: No Hearing needs: No Vision needs: Yes (Glasses) Questionnaire PHQ-9 Over the last 2 weeks, how often have you been bothered by any of the following problems? 1. Little interest or pleasure in doing things: not at all 2. Feeling down, depressed, or hopeless: not at all 3. Trouble falling or staying asleep, or sleeping too much: not at all 4. Feeling tired or having little energy: not at all 5. Poor appetite or overeating: not at all 6. Feeling bad about yourself - or that you are a failure or have let yourself or your family down: not at all 7. Trouble concentrating on things, such as reading the newspaper or watching television: not at all 8. Moving or speaking so slowly that other people could have noticed. Or the opposite - being so fidgety or restless that you have been moving around a lot more than usual: not at all 9. Thoughts that you would be better off or of hurting yourself in some way: not at all Total score: 0 Depression Screening Interpretation: Negative Depression Screening Done: Yes Source: Developed by Drs. Kole Vazquez, Livia Marie, Caden Bowman and colleagues, with an educational justus from [employer]. Thrive Questionnaire Date Thrive assessed: 02/03/25 I am a: Patient What is your living situation today?: I have a steady place to live Within the past 12 months, did the food you bought not last and you didn't have the money to get more?: Never true Within the past 12 months, did you worry whether your food would run out before you got money to buy more?: Never true Do you have trouble paying for medicines?: No Do you have trouble getting transportation to medical appointments?: No Do you have trouble paying your heating and electricity bill?: No Do you have trouble taking care of your child, family member or friend?: No Do you have trouble with day-to-day activities such as bathing, preparing meals, shopping, managing finances, etc.?: No Are you currently unemployed and looking for a job?: No Are you interested in more education?: No Please select the resources that you would like help with: None Currently or been in a relationship where the following occur: No concerns reported THRIVE Score: 0 AUDIT C Alcohol Use Questionnaire (AUDIT-C) 1. How often do you have a drink containing alcohol?: Never 3. How often do you have six or more drinks on one occasion?: Never Total Score: 0 NGA-7 AMB Questionnaire NGA-7 Date NGA - 7 assessed: 02/03/25 Feeling nervous, anxious, or on edge: 0 = Not at all Not being able to stop or control worryin = Not at all Worrying too much about different things: 0 = Not at all Trouble relaxin = Not at all Being so restless that it is hard to sit still: 0 = Not at all Becoming easily annoyed or irritable: 0 = Not at all Feeling afraid as if something awful might happen: 0 = Not at all Total NGA-7 score (0-4 normal; 5-9 mild; 10-14 moderate; 15-21 severe): 0 Source: Developed by Drs. Kole Vazquez, Livia Marie, Caden Bowman and colleagues, with an educational justus from [employer]. Review of Systems Const Denies body aches, Denies chills, Denies fever(s), Denies headache(s) and Denies poor appetite Eyes Reports no additional complaints ENT Reports dysphagia, Denies dizziness, Denies headache(s) and Reports odynophagia Card Denies chest pain, Denies syncope, Denies edema, Denies irregular heart rhythm, Denies lightheadedness and Denies dyspnea Resp Denies cough and Denies dyspnea GI Denies abdominal pain, Denies constipation, Reports dysphagia, Denies diarrhea, Denies nausea, Reports odynophagia and Denies vomiting Reports no additional complaints Musc Reports no additional complaints and Denies abnormal gait Skin/Breast Reports system reviewed and no additional complaints, except as documented Neuro Denies abnormal gait, Denies dizziness, Denies syncope and Denies headache(s) Psych Reports no additional complaints Physical exam (Primary Care) Vital Signs: Last Vital Signs Temp 97.3 F 02/03/25 08:55 Oxygen Delivery Method Room Air 02/03/25 08:55 BMI result Body Mass Index 22.3 Tobacco/Smoking Status: Tobacco use Status Tobacco use date assessed 11/04/24 02/03/25 08:53 Patient Tobacco Use Status Never used Tobacco 02/03/25 08:53 e-Cigarette/Vaping Use Never Used 02/03/25 08:53 PHQ-9: PHQ-9 Score PHQ-9: Total score 0 02/03/25 08:53 Depression Screening Interpretation: Negative Thrive Assessment: Date of Thrive Assessment Date Thrive assessed 02/03/25 02/03/25 08:53 Currently or been in a relationship where the following occur: No concerns reported Const General: cooperative, healthy appearing, comfortable and no acute distress Orientation/consciousness: patient oriented x3 HENMT Head: Yes normocephalic Ears: hearing grossly normal bilaterally General nose exam: Normal external nose present Eyes General: appearance normal, both eyes and all related structures Conjunctivae: conjunctivae normal Neck Neck: Yes full ROM and Yes no lymphadenopathy Resp Effort & Inspection: normal respiratory effort Auscultation: clear to auscultation bilaterally, no crackles, no rales, no rhonchi and no wheezes Cardio Rate: regular rate Rhythm: regular rhythm Skin General skin exam: no rashes or lesions noted Neuro General: patient oriented x3 Gait exam (Neuro): Normal gait present Extrem General: Yes normal to inspection, Yes full ROM and No edema Psych Affect: normal affect Attitude: cooperative Insight: Good insight present (Psych) Judgement: Good judgement present (Psych) Coding Level of Care Code Est Pt Level 3 (76757) Diagnoses TSH elevation R79.89 Coronary artery disease involving [place] coronary artery of [place] heart without angina pectoris I25.10 Coronary Disease-Associated Artery/Lesion type: [place] artery [place] vs. transplanted heart: [place] heart Associated angina: without angina Primary hypertension I10 Hypertension type: primary hypertension Hypercholesterolemia E78.00 Sjogren's disease M35.00 GERD (gastroesophageal reflux disease) K21.9 Achalasia of esophagus K22.0 Cystitis N30.90 Assessment & Plan Assessment & Plan (1) TSH elevation: Code(s): R79.89 - Other specified abnormal findings of blood chemistry Category: Medical Plan: Continue to monitor thyroid function testing. Last labs were normal. (2) CAD (coronary artery disease): Comment: s/p NSTEMI SOWMYA 06/03/2019, Code(s): I25.10 - Atherosclerotic heart disease of [place] coronary artery without angina pectoris Category: Medical Qualifiers: Coronary Disease-Associated Artery/Lesion type: [place] artery [place] vs. transplanted heart: [place] heart Associated angina: without angina Qualified Code(s): I25.10 - Atherosclerotic heart disease of [place] coronary artery without angina pectoris Plan: Advised good control of cholesterol, blood pressure and blood sugar. (3) HTN (hypertension): Code(s): I10 - Essential (primary) hypertension Category: Medical Qualifiers: Hypertension type: primary hypertension Qualified Code(s): I10 - Essential (primary) hypertension Plan: Continue on current blood pressure medication. Avoid salt intake and encourage healthy diet and regular exercise. (4) Hypercholesterolemia: Code(s): E78.00 - Pure hypercholesterolemia, unspecified Category: Medical Plan: Avoid foods that are high in cholesterol such as red meat, fried foods, eggs and baked goods. Triglyceride goal of less than 150 and LDL goal of less than 70. Continue on atorvastatin 40 mg. Reminded about blood work (5) Sjogren's disease: Code(s): M35.00 - Sjogren syndrome, unspecified Category: Medical Plan: Currently working with pcmh specialist and urology for management. Does not have a supervisor vat house at this time but was recommended to establish care with supervisor vat house by from pcm[facility] specialist. Recently started on hydroxychloroquine b.i.d. by pulmonology. Due to undergo EGD for dysphagia in February with her real estate inspector. Patient has not yet increased her Hydroxychloroquine advised to reach out to her eye doctor with any concerns and follow up with rheumatology in May. (6) GERD (gastroesophageal reflux disease): Code(s): K21.9 - Gastro-esophageal reflux disease without esophagitis Category: Medical Plan: Avoid trigger foods such as citrus, tomato products, soda, caffeine, spicy foods and other foods that may be irritating to your stomach. Avoid laying flat 3-4 hours after eating and elevate the head of the bed 30 degrees to prevent acid from moving into the esophagus. Barium swallow was completed by the patient which showed achalasia and pcmh specialist recommended following up with GI specialist. EGD scheduled for February. (7) Achalasia of esophagus: Code(s): K22.0 - Achalasia of cardia Category: Medical Plan: Has a endoscopy scheduled for February with [facility] (8) Cystitis: Code(s): N30.90 - Cystitis, unspecified without hematuria Category: Medical Plan: Currently on ciprofloxacin prescribed by urologist with symptom improvement. Plan The management plan includes continuing the current antibiotic regimen for the urinary tract infection and assessing the efficacy post-treatment. The patient should maintain the amlodipine dosage increase for hypertension with further monitoring leading up to follow-up care. Chronic Obstructive Pulmonary Disease will continue to be managed with the Breo Ellipta inhaler, focusing on improving expiratory function. For Sj?gren's Syndrome, we shall await rheumatology input for proper medication adjustment and treatment evaluation. The gastroenterology issues with GERD are pending more input from a scheduled endoscopy and involve addressing medication affordability issues. Blood pressure and routine bloodwork will be vital in helping guide future therapeutic decisions. This note was constructed using voice recognition software. While every effort has been made to ensure accuracy and construction project manager, still areas may have been included sometimes these areas may affect the content or meeting of the given symptoms. Total time spent caring for the patient today was 20 minutes. This includes time spent before the visit reviewing the chart, time spent during the visit, and time spent after the visit and documentation. Patient was informed and verbally consented to the use of an ambient scribe for clinic note documentation during this visit.
[2025-02-03 08:55] VITALS: BP 122/74; PULSE 71; TEMP 36.3; O2SAT 100; BMI 22.3
--- OUTSIDE RECORDS SUMMARY | 2025-02-03 09:06 | XMS_ITS | Encounter Summary ---
Author Organization [place] [address] Care Team Providers Care Remote Broadcast Engineer Name Role Phone Elva Davison MD Primary Care Provider Encounter Details Date Type Department Care Team ([facility] st Contact Info) Description 01/16/2025 Telephone Gastroenterology - [address] [place] [phone] Philip Kelly MD [address] [place] [address] Social History Tobacco Use Types Packs/Day Years [...] Description 02/21/2025 12:30 PM EDT Appointment [facility] Endoscopy [address] [place] [phone] Philip Kelly MD [address] [address] 03/06/2025 10:30 AM EDT Office Visit Gastroenterology - [address] [phone] Philip Kelly MD [address] [address] 04/25/2025 9:20 AM EDT Office Visit [facility] - [facility] [address] 300 [facility] [address] [place] [phone] Richelle Hussein MD 300 [facility] [address] [place] [address] documented as of this encounter Visit Diagnoses Not on filedocumented in this encounter Care Teams Remote Broadcast Engineer Relationship Specialty Start Date End Date Elva Davison MD [address] [place] [address] [address] [facility] [place] [address] PCP - General Internal Medicine 03/19/21 documented as of this encounter
--- OUTSIDE RECORDS SUMMARY | 2025-02-03 09:06 | XMS_ITS | Encounter Summary ---
Author Organization [facility] [place] [address] Care Team Providers Care Account Services Manager Name Role Phone Elva Davison MD Primary Care Provider [phone] Encounter Details Date Type Department Care Team ([facility] st Contact Info) Description 01/15/2025 Telephone Gastroenterology - [address] [facility] [address] [place] [phone] Laisha Glynn PA [address] [place] [address] Social History Tobacco Use Types Packs/Day Years [...] Info) Description 02/21/2025 12:30 PM EDT Appointment [facility] Endoscopy [address] [place] [phone] Philip Kelly MD [address] [facility] [address] [place] [address] 03/06/2025 10:30 AM EDT Office Visit Gastroenterology - [address] [facility] [address] [place] [phone] Philip Kelly MD 299 [facility] [address] [place] [address] 04/25/2025 9:20 AM EDT Office Visit [facility] - [facility] [address] 300 [facility] 154 [place] [phone] Richelle Hussein MD [address] [place] [address] documented as of this encounter Visit Diagnoses Not on filedocumented in this encounter Care Teams Account Services Manager Relationship Specialty Start Date End Date Elva Davison MD [address] [place] [address] Dr [address] [facility] [place] [address] PCP - General Internal Medicine 03/19/21 documented as of this encounter
--- OUTSIDE RECORDS SUMMARY | 2025-02-03 09:06 | XMS_ITS | Data Portability ---
Author Organization [employer] [place] [facility] [employer] Address [address] [place] [address] Care Team Providers Care Door Manager Name Role Phone JATIN CAMILA Primary Care [...] Last Updated DateTime 98 % 98 % 89652.3 04 g 70 /min 18 /min 98.8 [...] SNOMED-CT Code Diagnosis ICD10 Code Diagnosis Note [id number] Karo Hernandez MD Main - [facility] [address] [place] [address] 07/24/2024 14:26:00 07/24/2024 22:33:12 Contusion of left great toe [id number] S90.112A As noted, we were called to see this patient regarding concerns of atraumatic left great toe bruising. Evaluation in the field was performed by my gizzard peeler colleague, as noted above, I provided real-time [...] [place] Member ID Guarantor Name 07/24/2024 [facility] - DOS ON OR AFTER 2023 - DUAL ELIGIBLE - [facility] OPTIONS AND ONE CARE (MEDICARE REPLACEMENT/ADV ANTAGE - HMO) Kavita Roman [id number] Kavita Janie Jessie Notes Date Note Type [...] that needs to be done about it. [facility] Nurse Triage Notes (Maura Benitez): Reason [...] ................... ................... ................... ................... ................... ................... ........ Mule Packer Note From Truong Bragg: Pt redness discoloration in left big toe near nail bed. Pt denies pain but sts she feels something but can? t describe. Denies bleeding or discharge. Denies injury. Baseline vitals assessed , afebrile, pt able to walk without pain. [facility] contacted and advised pt [...] ........ Disposition: Fulfilled Karo Hernandez MD [address] [facility],[address], [place], [address], CHRISTOPHE ALVAREZ 07/24/2024 15:01:28 OBGyn Episode No OBEpisode recorded.
--- OUTSIDE RECORDS SUMMARY | 2025-02-03 09:06 | XMS_ITS ---
Author Organization [facility] Address [address] [place] [address] Care Team Providers Care Restaurant And Bar Manager Name Role Phone Elva Davison Primary Care Provider Charity Weber [phone] REASON FOR VISIT STEEL BURNER Encounters Encounter Location Date Provider Diagnosis [address] [address] 01/20/2025 Charity Champion Plan Of Treatment Next Appt Details Provider Name:Charity brooks, 04/09/2025 02:00:00 PM, [address] [place] [address], [phone], Progress Notes * Dante NAVARRETEOB: 3 (79 yo F)Acc No.[id number]:01/20/2025 Patient:?Grace NAVARRETEne :1945???Age:79 Y???Sex:Female Address:[facility] [place] [address] * true * Date:? Generated for Belkisi angi/Mackenzie/eTransmitting on:?02/03/2025 09:06 AM EDT
--- OUTSIDE RECORDS SUMMARY | 2025-02-03 09:06 | XMS_ITS | Encounter Summary ---
Author Organization [facility] Address [address] [place] [address] Care Team Providers Care Auto Garage Mechanic Name Role Phone Elva Davison MD Primary Care Provider [phone] Reason for Visit * Reason Onset Date Comments Hypertension 01/27/2025 Encounter Details Date Type Department Care Team (Late st Contact Info) Description 01/27/2025 Telephone [facility] - [facility] [address] 300 [facility] [address] [place] [phone] Richelle Hussein MD 300 [facility] [address] [place] [address] Hypertension Social History Tobacco Use Types Packs/Day [...] 3:40 PM EDT Duplicate call on same [facility] message; pending provider review * Shikha Thornton - 01/27/2025 1:18 PM EDT Patient called and is concerned about her high blood pressure as of lately. Please give her a call back at [phone]. documented in this encounter Plan of Treatment Upcoming Encounters Date Type Department Care Team (Late st Contact Info) Description 02/21/2025 12:30 PM EDT Appointment [facility] Endoscopy [address] [place] [phone] Philip Kelly MD [address] [address] 03/06/2025 10:30 AM EDT Office Visit Gastroenterology - 299 [facility] [address] [phone] Philip Kelly MD [address] [address] 04/25/2025 9:20 AM EDT Office Visit [facility] - [facility] [address] [phone] Richelle Hussein MD [address] [address] documented as of this encounter Visit Diagnoses Not on filedocumented in this encounter Care Teams Auto Garage Mechanic Relationship Specialty Start Date End Date Elva Davison MD 2 [facility] [address] [facility] [place] [address] PCP - General Internal Medicine 03/19/21 documented as of this encounter
--- OUTSIDE RECORDS SUMMARY | 2025-02-03 09:07 | XMS_ITS | Clinical Summary ---
Author Organization [facility] 299 [facility] Address [address] [place] [address] Phone Care Team Providers Care Aoc Aadc Operations Staff Officer Name Role Phone Elva Davison MD Primary Care Provider [phone] Allergies No known active allergies Medications omeprazole [...] a follow-up appointment with his clinic at [place] a few months ago. The plan to [...] LVEF 25-30% at the time of her [place] in 2019 Recovery to normal Last Assessment & Plan: LV function has recovered. Encounters Date Type Department Care Team Description 01/27/2025 Telephone [facility] - [address] [place] [phone] Richelle Hussein MD Hypertension 01/16/2025 Telephone Gastroenterology - [address] [place] [phone] Philip Kelly MD 01/15/2025 Telephone Gastroenterology - [address] [place] [phone] Laisha Glynn PA 12/20/2024 10:20 AM EST Office Visit Gastroenterology - [address] [place] [phone] Laisha Glynn PA Erosive gastritis (Primary Dx); Oropharyngeal dysphagia from Last 3 Months Surgical History Surgery Date Site/Laterality Comments TONSILLECTOMY ADENOIDECTOMY, BILATERAL MYRINGOTOMY AND TUBES PROCEDURE: [place] TONSILLECTOMY & ADENOIDECTOMY <AGE 10 BACK SURGERY [...] GERD (gastroesophageal reflux disease) Arthritis Myocardial infarction (CMS/[facility]) Family History Medical History Relation Name Comments [...] Info) Description 02/21/2025 12:30 PM EDT Appointment [facility] [address] [place] [phone] Philip Kelly MD [address] [address] 03/06/2025 10:30 AM EDT Office Visit Gastroenterology - [address] [facility] [address] [place] [address] Philip Kelly MD [address] [facility] [address] [place] [address] 04/25/2025 9:20 AM EDT Office Visit [facility] - [facility] [address] [facility] [address] [place] [phone] Richelle Hussein MD 300 [facility] [address] [place] [address] Health Maintenance Due Date Last Done Comments [...] AM EDT Narrative 09/14/2021 11:43 AM EDT [facility] Diagnostic Imaging Department [address] [place] [phone] Patient: ??KAVITA NAVARRETE SR ?/Age/Sex: 1945 - 76 - F Unit#: ??[id number] ? Location/Status: ??SPDIMAM/REG CLI ? Mnemonic/Ordering Site: ??MAMDEXAAX/SPMAM Ordering Physician: ??DEX TOLENTINO MD Aravind Dexa Axial Skeleton - 09/14/21942 History: Low estrogen state due to menopause. Height loss. Comparison: 10/14/15 Findings: Bone densitometry is performed utilizing dual energy x-ray absorptiometry (DXA) in the [employer] unit. The lumbar spine and proximal femora [...] 12.4 percent ??Hip 3.0 percent. IMPRESSION: Osteopenia. [id number] Dictating Physician: ??MERCEDES VANESSA MD Electronically Signed by: ??MERCEDES VANESSA MD Dic Date/Time: ??09/14/21 1142 Sign date/Time: ??09/14/21 1143 Procedure Note Mercedes Vanessa MD - 11/09/2022 [facility] Diagnostic Imaging Department [address] [place] [address] Patient: LANDONKAVITA SR /Age/Sex: 1945 - 76 - F Unit#: [id number] Location/Status: SPDIMAM/REG CLI Mnemonic/Ordering Site: MAMDEXAAX/SPMAM Ordering Physician: DEX TOLENTINO MD [facility] Dexa Axial Skeleton - 09/14/[address]42 History: Low estrogen state due to menopause. Height loss. Comparison: 10/14/15 Findings: Bone densitometry is performed utilizing dual energy x-ray absorptiometry(DXA) in the [employer] unit. The lumbar spine and proximal femora [...] 12.4 percent Hip 3.0 percent. IMPRESSION: Osteopenia. [id number] Dictating Physician: MERCEDES VANESSA MD Electronically Signed by: MERCEDES VANESSA MD Dic Date/Time: 09/14/21 1142 Sign date/Time: 09/14/21 1143 us Dex Tolentino MD IMG BI PROCEDURES Final Result from Last 3 Months or Most Recently Relevant to Health Maintenance Insurance [facility] Member Subscriber Plan / Payer (Ef fective 2024-Present) Name:Kavita Navarrete Sr Relation to Subscriber:Self Name:Kavita Navarrete Sr Payer ID:[id number] Group ID:[id number] Type:Not on file Address: [address] [place] [address] MEDICAID - [place] Advance Directives Documents on File Type Date Recorded Patient Train Driver Expl anation Health Care Decision (hx) 09/23/2021 [...] (hx) 09/23/2021 AD GARCIA DIRECTIVE Care Teams Aoc Aadc Operations Staff Officer Relationship Specialty Start Date End Date Elva Davison MD [address] [place] [address] Mariia [address] [facility] [place] [address] PCP - General Internal Medicine 03/19/21
--- OUTSIDE RECORDS SUMMARY | 2025-02-03 09:07 | XMS_ITS ---
Author Organization [facility] Care Team Providers Care Vinyl Flooring Installer Name Role Phone Mckay Cueva Unavailable Unavailable Anamaria Mathews Unavailable Unavailable Karo Romero Unavailable Unavailable Allergies and adverse reactions No Known Allergies Care Team Name Role Address Phone Organization Dates Mckay Cueva PCP [address], [address], [place] (Office): : [facility] 01/25/2022 - 02/02/2022 Anamaria Mathews Attending Physician [address], [address], [facility] (Office): : [facility] 01/25/2022 - 02/02/2022 Karo Romero Attending Physician [address] [place] [address], [address], [facility] (Office): [facility] 01/25/2022 - 02/02/2022 Immunizations Immunization [...] Concern Status 1 ESSENTIAL (PRIMARY) HYPERTENSION 01/26/[address] active 2 HYPERLIPIDEMIA, UNSPECIFIED 01/26/[address] active 3 ENCOUNTER FOR SURGICAL AFTERCARE FOLLOWING SURGERY ON THE NERVOUS SYSTEM 01/25/[address] active 4 FUSION OF SPINE, LUMBAR REGION 01/25/[address] active 5 OTHER SPECIFIED DISORDERS OF BONE DENSITY AND STRUCTURE, OTHER SITE 01/25/[address] active Reason for Referral No Reasons for Referral Entered Social History Social History Observation Description Start Date End Date Code Code System Current Smoking Status Tobacco smoking consumption unknown 079455799 SNOMED CT Sex Assigned At Female 1945 00064-1 [facility] Vital Signs Code Code System Vitals Name Values and Units Timing Information 9279-1 [facility] Respiratory Rate Value=18.0 Units=/m in 02/02/2022 8462-4 LOINC Blood Pressure-Diastolic Value=68 Un its=mmHg 02/02/2022 8480-6 LOINC Blood Pressure-Systolic Oosle=326 Un its=mmHg 02/02/2022 8310-5 [facility] Body Temperature Value=97.3 Units=?? F 02/02/2022 8867-4 [facility] Heart rate Value=72.0 Units=/min 30858-4 [facility] O2 % BldC Oximetry Value=96.0 Units= % 02/02/2022 92689-9 [facility] Pain Level Value=0.0 02/02/2022 8302-2 [facility] Height Value=60.0 Units=Inches 01/25/2022 13808-2 [facility] Weight Wzcjk=909.4 Units=Lbs 06/2022
--- OUTSIDE RECORDS SUMMARY | 2025-02-03 09:07 | XMS_ITS | Patient Health Record ---
Author Organization [facility] Address [address] [place] [address] Care Team Providers Care Boiler House Mechanic Name Role Phone Elva Davison Primary Care Provider Charity Weber Unavailable [phone] Reason For Referral No Information Encounters Encounter Location Date Provider Diagnosis [facility] [address] [place] [address] 01/20/2025 Charity Champion Plan Of Treatment Next Appt Details Provider Name:Charity brooks, 04/09/2025 02:00:00 PM, [address] [place], [address], Insurance Providers Payer Name Payer Address Payer Phone Subscriber Number Group Number Insured Name Patient Relationship to Insured Coverage Start Date Coverage End Date [facility] [employer] Claims [address] [place] [id number] Kavita Roman Self - patient is the insured
== END 2025-02-03 09:34 | disposition home or self-care (01) ==
LOC: HO.HMCH 08:48
PROVIDERS: PCP Internal Medicine
DX: R79.89 Other specified abnormal findings of blood chemistry (principal); M35.00 Sjogren syndrome, unspecified; I25.10 Atherosclerotic heart disease of native coronary artery without angina pectoris; I10 Essential (primary) hypertension; E78.00 Pure hypercholesterolemia, unspecified; K21.9 Gastro-esophageal reflux disease without esophagitis; K22.0 Achalasia of cardia; N30.90 Cystitis, unspecified without hematuria

== ENCOUNTER → 2025-02-03 08:47 | Outpatient (BNVA) | payer OTHER, SELFPAY | PROVIDERS: PCP Internal Medicine | DX: R79.89 Other specified abnormal findings of blood chemistry (principal); I25.10 Atherosclerotic heart disease of native coronary artery without angina pectoris; I10 Essential (primary) hypertension; E78.00 Pure hypercholesterolemia, unspecified; M35.00 Sjogren syndrome, unspecified; K21.9 Gastro-esophageal reflux disease without esophagitis; K22.0 Achalasia of cardia; N30.90 Cystitis, unspecified without hematuria | CPT/HCPCS: 99212 ==

== ENCOUNTER 2025-03-20 08:58 | Outpatient (REF) | payer OTHER, SELFPAY ==
--- OUTSIDE RECORDS SUMMARY | 2025-03-20 11:59 | XMS_ITS | Clinical Summary ---
Author Organization [facility] 299 [facility] Address [address] [place] [address] Phone Care Team Providers Care Party Bus Driver Name Role Phone Elva Davison MD Primary Care Provider [phone] Allergies Active Allergy Reactions Criticality Noted Date [...] EDT): Continue Voquenza as directed Sjogren's syndrome ([facility] V24) 12/20/2024 Neoplasm of uncertain behavior of [...] a follow-up appointment with his clinic at [place] a few months ago. The plan to [...] LVEF 25-30% at the time of her [place] in 2019 Recovery to normal Last Assessment & Plan: LV function has recovered. Hemangioma of skin and subcutaneous tissue 09/09 Other seborrheic keratosis 09/09/2020 Paresthesia of skin 09/09/2020 Benign neoplasm of skin of trunk 02/02/2015 Encounters Date Type Department Care Team Description 03/06/2025 10:30 AM EDT Office Visit Gastroenterology - [address] [phone] Laisha Glynn PA Oropharyngeal dysphagia (Primary Dx); Gastroesophageal reflux disease without esophagitis 02/21/2025 12:12 PM EDT Anesthesia Event [facility] Endoscopy [address] [place] [phone] Ottoniel Burt MD Hard, Shannon, CRNA 02/21/2025 11:20 AM EDT - 02/21/2025 11:59 PM EDT Hospital Encounter [facility] Endoscopy [address] [place] [phone] Philip Kelly MD Hard, Shannon, CRNA Dasilva, John E, MD Abnormal barium swallow; Dysphasia; Erosive gastritis Discharge Disposition: Home or Self Care 01/27/2025 Telephone [facility] - [facility] [address] 300 [facility] 154 [place] [phone] Richelle Hussein MD Hypertension 01/16/2025 Telephone Gastroenterology - [address] [place] [phone] Philip Kelly MD 01/15/2025 Telephone Gastroenterology - 299 [address] [facility] [address] [place] [address] Laisha Glynn PA from Last [...] TONSILLECTOMY ADENOIDECTOMY, BILATERAL MYRINGOTOMY AND TUBES PROCEDURE: HI TONSILLECTOMY & ADENOIDECTOMY <AGE 10 BACK SURGERY 01/19/2022 PROCEDURE: HISTORICAL BACK SURGERY; COMMENT: Lumbar decomp by Dr. Sawyer COLONOSCOPY 11/26/2013 LUMBAR SPINE SURGERY complicated by spinal fluid leak ESOPHAGOGASTRODUODENOSCOPY 09/27/2021 ESOPHAGOGASTRODUODENOSCOPY 06/05/2005 active gastric ulcer COLONOSCOPY 08/14/2008 ESOPHAGOGASTRODUODENOSCOPY 05/24/2006 ESOPHAGOGASTRODUODENOSCOPY 03/30/1999 COLONOSCOPY 08/14/1997 ESOPHAGOGASTRODUODENOSCOPY Medical History Medical History Date Comments Essential hypertension DX:Essent ial hypertension Hyperlipidemia DX:Hyperlipidemi a Sjogren syndrome, unspecifie d ([facility] V24) DX:Sjogren syndrome, unspeci fied ([facility]) Insomnia DX:Insomnia Chronic constipation GERD (gastroesophageal reflux [...] Description 04/25/2025 9:20 AM EDT Office Visit [facility] - [facility] [address] 300 [facility] [address] [place] [address] Richelle Hussein MD 300 [facility] [address] [place] [address] Health Maintenance Due Date Last Done Comments [...] Maintenance Results * EGD Anesthesia - MAC; [facility] ENDOSCOPY (02/21/2025 12:28 PM EDT) Anatomical [...] pathology results. Narrative 02/21/2025 12:28 PM EDT [facility] GI Patient Name: Kavita Navarrete Procedure Date: [...] Procedure Code(s): ? --- Professional --- ? 67752, Esophagogastroduodenoscopy, flexible, ? transoral; with transendoscopic balloon dilation of ? esophagus (less than 30 mm diameter) Diagnosis Code(s): ? --- Professional --- ? R13.12, Dysphagia, oropharyngeal phase CPT copyright 2020 [employer]. All rights reserved. The codes documented in this report are preliminary and upon produce associate review may be revised to meet current compliance requirements. MD Philip Godoy MD 02/21/2025 12:28:45 PM This report has been signed electronically.Philip Kelly MD Number of Addenda: 0 Note Initiated On: 02/21/2025 12:07 PM Scope In: Scope Out: ? Endoscopy Department at [facility] - [address] [place] [address], ? [place] [address] Procedure Note Philip Kelly MD - 02/21/2025 [facility] GI Patient Name: Kavita Navarrete Procedure Date: [...] for histology. Procedure Code(s): --- Professional --- 87115, Esophagogastroduodenoscopy, flexible, transoral; with transendoscopic balloon dilation of esophagus (less than 30 mm diameter) Diagnosis Code(s): --- Professional --- R13.12, Dysphagia, oropharyngeal phase CPT copyright 2020 [employer]. All rights reserved. The codes documented in this report are preliminary and upon produce associate reviewmay be revised to meet current compliance requirements. MD Philip Godoy MD 02/21/2025 12:28:45 PM This report has been signed electronically.Philip Kelly MD Number of Addenda: 0 Note Initiated On: 02/21/2025 12:07 PM Scope In: Scope Out: Endoscopy Department at [facility] - [address] [place] [phone] IMPRESSION: - Normal esophagus. - Normal stomach. [...] for intraepithelial eosinophils. 02/24/2025 9:12 AM EDT [facility] Gross Description A. Esophagus, biopsies mid and lower: Labeled biopsies esophagus . Received in formalin are three soft, white, red-stippled tissue fragments ranging from 0.25 cm to 0.45 cm in greatest diameter, which are wrapped in paper and submitted in toto in one cassette, three pieces, multiple levels. TS 02/24/2025 9:12 AM EDT [facility] Disclaimer Unless otherwise specified, all tissue is 10% NB formalin fixed and paraffin embedded. 02/24/2025 9:12 AM EDT [facility] Tissue Esophageal structure / Unknown 02/21/2025 12:21 PM EDT 02/21/2025 1:11 PM EDT Philip Kelly MD LAB PATHOLOGY ORDERABLES Final Result [facility] [address] [place] [address], * COLONOSCOPY (12/23/2024 10:03 AM EST) Anatomical Region Laterality Modality Endoscopy us Historical Provider GI~PROCEDURE ORDERABLES F inal Result * External Endoscopy (12/23/2024 10:00 AM EST) Anatomical Region Laterality Modality Endoscopy Historical Provider GI~PROCEDURE ORDERABLES F inal Result * ARAVIND DEXA AXIAL SKELETON (09/14/2021 11:43 AM EDT) Anatomical Region Laterality Modality Mammography 09/14/2021 8:48 AM EDT Narrative 09/14/2021 11:43 AM EDT [facility] Diagnostic Imaging Department [address] [place], [place] [id number] Patient: ??KAVITA NAVARRETE SR ?/Age/Sex: 1945 - 76 - F Unit#: ??[id number] ? Location/Status: ??SPDIMAM/REG CLI ? Mnemonic/Ordering Site: ??MAMDEXAAX/SPMAM Ordering Physician: ??DEX TOLENTINO MD Aravind Dexa Axial Skeleton - 09/14/21942 History: Low estrogen state due to menopause. Height loss. Comparison: 10/14/15 Findings: Bone densitometry is performed utilizing dual energy x-ray absorptiometry (DXA) in the [employer] unit. The lumbar spine and proximal femora [...] 12.4 percent ??Hip 3.0 percent. IMPRESSION: Osteopenia. [id number] Dictating Physician: ??MERCEDES VANESSA MD Electronically Signed by: ??MERCEDES VANESSA MD Dic Date/Time: ??09/14/21 1142 Sign date/Time: ??09/14/21 1143 Procedure Note Mercedes Vanessa MD - 11/09/2022 [facility] Diagnostic Imaging Department [address] [place] [address] Patient: LANDONKAVITA /Age/Sex: 1945 - 76 - F Unit#: [id number] Location/Status: SPDIMAM/REG CLI [facility]onic[facility] Ordering Physician: DEX TOLENTINO MD Aravind Dexa Axial Skeleton - 09/14/21 9694 History: Low estrogen state due to menopause. Height loss. Comparison: 10/14/15 Findings: Bone densitometry is performed utilizing dual energy x-ray absorptiometry(DXA) in the [employer] unit. The lumbar spine and proximal femora [...] 12.4 percent Hip 3.0 percent. IMPRESSION: Osteopenia. [id number] Dictating Physician: MERCEDES VANESSA MD Electronically Signed by: MERCEDES VANESSA MD Dic Date/Time: 09/14/21 1142 Sign date/Time: 09/14/21 1143 Dex Tolentino MD IMG BI PROCEDURES Final Result from Last 3 Months or Most Recently Relevant to Health Maintenance Insurance [facility] MEDICARE Member Subscriber Plan / Payer (Ef fective 2024-Present) Name:Kavita Navarrete Sr. Relation to Subscriber:Self Name:Kavita Navarrete Sr. 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
[2025-03-20 17:47] LABS: MANUAL DIFF FLAG NO
[2025-03-20 17:59] LABS: Basophils Absolute Auto 0.1 X10*3/uL (0.0-0.2); Basophils Percent Auto 1.7 % (0-2); Eosinophils Absolute Auto 0.1 X10*3/uL (0.0-0.4); Eosinophils Percent Auto 1.7 % (0-4); Hematocrit 43.4 % (37.0-47.0); Hemoglobin 14.3 g/dl (12.0-16.0); Imm Gran Abs Auto 0.02 X10*3/uL (0.00-0.03); Imm Gran Pct Auto 0.5 % (0.0-0.4); Lymphocytes Absolute Auto 0.6 X10*3/uL (1.2-4.9); Lymphocytes Percent Auto 15.3 % (20-40); Mean Corpuscular HGB Conc 32.9 g/dl (31.0-35.0); Mean Corpuscular Hemoglobin 30.8 pg (27.0-33.0); Mean Corpuscular Volume 93.5 fL (80.0-98.0); Mean Platelet Volume 10.5 fL (9.4-12.3); Monocytes Absolute Auto 0.6 X10*3/uL (0.1-1.2); Monocytes Percent Auto 13.6 % (2-11); Neutrophils Absolute Auto 2.8 x10*3/uL (2.0-8.3); Neutrophils Percent Auto 67.2 % (45-73); Platelet Count 197 X10*3/uL (160-400); Red Blood Count 4.64 X10*6/uL (4.20-5.50); Red Cell Distribution Width 12.6 % (11.0-16.0); White Blood Count 4.2 X10*3/uL (4.8-10.8)
[2025-03-20 18:01] LABS: Rheumatoid Factor 14.6 IU/mL (<15.0)
[2025-03-20 18:05] LABS: Alanine Aminotransferase 20 U/L (0-31); Aspartate Amino Transferase 24 U/L (5-31); C Reactive Protein 0.11 mg/dL (< or = 0.50); Estimated Glomerular Filt Rate > 60
[2025-03-20 18:50] LABS: Erythrocyte Sedimentation Rate 11 MM/HR (0-20)
[2025-03-23 22:08] LABS: Prot Elec - Albumin 4.1 g/dL (3.8-4.8); Prot Elec - Alpha1 0.3 g/dL (0.2-0.3); Prot Elec - Alpha2 0.8 g/dL (0.5-0.9); Prot Elec - Beta 1 0.5 g/dL (0.4-0.6); Prot Elec - Beta 2 0.3 g/dL (0.2-0.5); Prot Elec - Gamma 0.5 g/dL (0.8-1.7); Prot Elec - Total Protein 6.6 g/dL (6.1-8.1)
[2025-03-24 11:03] LABS: Complement C3 151 mg/dL
[2025-03-24 12:18] LABS: ANA Pattern 2 Nuclear, Speckled; ANA Pattern 3 Nuclear, Homogeneous; ANA Titer 2 1:40 titer; ANA Titer 3 1:40 titer; Anti Nuclear Antibody Pattern Nuclear, Nucleolar; Anti Nuclear Antibody Screen POSITIVE (NEGATIVE)
== END 2025-03-20 08:59 | disposition home or self-care (01) ==
LOC: HO.HKASLDS 08:58
PROVIDERS: PCP Internal Medicine; Visit Provider Internal Medicine Rheumatology
DX: Z13.89 Encounter for screening for other disorder (principal)
CPT/HCPCS: 36415; 82565; 84165; 84450; 84460; 85025; 85652; 86038; 86140; 86160; 86431

== ENCOUNTER 2025-03-20 08:58 | Outpatient (AMB) | payer OTHER, SELFPAY ==
--- NOTE | 2025-03-20 09:10 | A.OFFVIS_ITS ---
Vital Signs 03/20/25 09:20 Height 5 ft Weight 113 lb 15.664 oz BMI 22.3 BP 140/80 H Blood Pressure Location Lt brachial Position Sitting Pulse 72 Pulse Source Pulse Oximeter Pulse Oximetry (%) 100 Oxygen Delivery Method Room Air Intake Visit Reasons: SS Intake Note: Patient presents for SS follow up. Allergies nitrofurantoin Allergy (Intermediate, Verified 03/20/25 09:15) colitis codeine Allergy (Unknown, Verified 03/20/25 09:15) Unknown hydrocodone [From Vicodin] Allergy (Unknown, Verified 03/20/25 09:15) Unknown tramadol Allergy (Unknown, Verified 03/20/25 09:15) Unknown HPI HPI SS: Details: Since last visit in 2021, patient has seen multiple providers for evaluation of her sicca symptoms. She was seen by 4 different providers at [facility] who provided her with different recommendations. She was diagnosed with burning mouth syndrome and received a compounding oral treatment that resolved her burning mouth. She continues to have dry mouth and dry throat. Talking contributes to worsening dryness. She also has uncontrolled dry eyes that is causing her to have difficulty with seeing. Punctate plugs fell out. She saw equipment operator wage hand recently and was told to follow-up in 1 year. In the she had David's test and was found to have 0 on 1 eye and 3 on the other eye (positive result). One of her rn examiner told her that he was concerned that she had Sjogren syndrome in the eye. Denies joint pain. She is having difficulty with swallowing. She has had this addressed by other providers including calendar control clerk blood bank who has trialed hydroxychloroquine without benefit. She has been on hydroxychloroquine for 2 months. She had a trial with liquid prednisone that reduce dryness in her throat but caused insomnia. On PFT she has mild COPD and was diagnosed with achalasia, dysmotility and esophagitis on barium swallow 11/2024. EGD was scheduled for February. She takes cevimeline mean 30 mg b.i.d. and pilocarpine in between. None of her specialists recommended that she take cevimeline with pilocarpine. She also uses combination of XyliMelts and Biotene products. She had minor salivary gland biopsy by General surgery. 08/2024 Results of her chronic excision of the squamous mucosa no specific change; no salivary gland tissue was present in the specimen. Patient does not want to pursue another biopsy because she had a lot of pain and numbness at the incision site that took time to recover. 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 Lumbar stenosis Vitamin D deficiency HTN (hypertension) CAD (coronary artery disease) Surgical History Hx of cystoscopy History of back surgery H/O spinal fusion Family History Father Heart disease Mother Breast cancer Social History Housing: Apartment Alcohol intake: never Patient Tobacco Use Status: Never used Tobacco e-Cigarette/Vaping Use: Never Used Second Hand Smoke Exposure: No service: No Current occupational status: retired Cognitive needs: No Hearing needs: No Vision needs: Yes (Glasses) Review of Systems Const All systems reviewed & are unremarkable except as noted in HPI and below Physical Exam Vital Signs: Last Vital Signs Pulse 72 03/20/25 09:20 BP 140/80 H 03/20/25 09:20 Pulse Ox 100 03/20/25 09:20 Oxygen Delivery Method Room Air 03/20/25 09:20 BMI result Body Mass Index 22.3 Const Other: General: Comfortable CVS: RRR Oral: Dry mouth Lymph nodes: No cervical lymphadenopathy palpated. Respiratory: clear to auscultation bilaterally. Good respiratory effort Skin: No lesions seen MSK: Ulnar deviation of bilateral hands. No tender joints. No synovitis. Normal range of motion of upper extremity and lower extremity. Assessment & Plan Assessment & Plan (1) Sicca: Comment: Chronic history of dry eyes and dry mouth suggestive of clinical dx Sjogren syndrome. She also had burning mouth syndrome that resolved with compounded oral treatment prescribed by [facility] dental clinic. Negative NATHEN, SSA, SSB, rheumatoid factor, SPEP, normal inflammatory markers, normal IgG 4 subclasses, parotid ultrasound gland normal. She had minor salivary gland biopsy in August 2024 but sample did not have salivary gland for analysis. Patient does not wish to pursue another minor salivary gland biopsy due to pain and numbness that she experienced 4 months after procedure, which is understandable. I discussed repeating workup for Sjogren syndrome this visit as it has been many years since workup has been done. Dry eyes are worse than dry mouth. Code(s): M35.00 - Sjogren syndrome, unspecified Category: Medical Qualifiers: Sicca type: unspecified type Qualified Code(s): M35.00 - Sjogren syndrome, unspecified Plan: Ophthalmology referral to dry family engagement specialist for further evaluation of ocular Sjogren syndrome with David's test and evaluation for keratoconjunctivitis sicca. I am recommending Dr. Arguello for dry eye management. Labs ordered for Sjogren's syndrome workup Continue cevimeline 30 mg b.i.d. Discontinue pilocarpine Continue combination Biotene products and XyliMelts Discontinue hydroxychloroquine as it is not beneficial for sicca symptoms and Sjogren syndrome Bilateral hand x-rays ordered for further evaluation subclinical inflammatory arthritis as bilateral ulnar deviations in hands were noted on exam Follow up with GI for dysphagia management Return to clinic in 3 months (2) Dry eyes: Code(s): H04.123 - Dry eye syndrome of bilateral lacrimal glands Category: Medical (3) Ulnar deviation of hand: Code(s): M21.839 - Other specified acquired deformities of unspecified forearm Category: Medical Plan See above Orders: Orders NATHEN Reflex Titer and Pattern Today M35.00 - Sjogren syndrome, unspecified C Reactive Protein Today M35.00 - Sjogren syndrome, unspecified Creatinine Today M35.00 - Sjogren syndrome, unspecified Complete Blood Count Auto Diff Today M35.00 - Sjogren syndrome, unspecified Rheumatoid Factor Today M35.00 - Sjogren syndrome, unspecified Protein Electrophoresis, Serum Today M35.00 - Sjogren syndrome, unspecified XR hand RT min 3V Today M21.839 - Other specified acquired deformities of unspecified forearm Erythrocyte Sedimentation Rate Today M35.00 - Sjogren syndrome, unspecified Alanine Aminotransferase Today M35.00 - Sjogren syndrome, unspecified Aspartate Amino Transferase Today M35.00 - Sjogren syndrome, unspecified Complement C3 Today M35.00 - Sjogren syndrome, unspecified Complement C4 Today M35.00 - Sjogren syndrome, unspecified XR hand LT min 3V Today M21.839 - Other specified acquired deformities of unspecified forearm, M35.00 - Sjogren syndrome, unspecified Referrals Ophthalmology Referral H04.123 - Dry eye syndrome of bilateral lacrimal glands Coding Level of Care Code Est Pt Level 5 (17164) Complex EM visit Add On G2211 Diagnoses Sicca, unspecified type M35.00 Sicca type: unspecified type Dry eyes H04.123 Ulnar deviation of hand M21.839 Time Spent (min) 60
[2025-03-20 09:20] VITALS: BP 140/80; PULSE 72; O2SAT 100; BMI 22.3
--- OUTSIDE RECORDS SUMMARY | 2025-03-20 09:38 | XMS_ITS | Data Portability ---
Author Organization [employer] Address [address] [place] [address] Care Team Providers Care Reed Cleaner Name Role Phone JATIN CAMILA Primary Care Provider [phone] Assessment No assessment recorded. Plan of Treatment [...] Available No t Available omeprazole 40 mg capsule,krsytyna yed release TAKE 1 CAPSULE BY MOUTH [...] Last Updated DateTime 98 % 98 % 41961.3 04 g 70 /min 18 /min 98.8 [...] SNOMED-CT Code Diagnosis ICD10 Code Diagnosis Note [id number] Karo Hernandez MD Main - [facility] [address] [place] [address] 07/24/2024 14:26:00 07/24/2024 22:33:12 Contusion of left great toe [id number] 1236832 S90.112A As noted, we were called to see this patient regarding concerns of atraumatic left great toe bruising. Evaluation in the field was performed by my photography intern colleague, as noted above, I provided real-time [...] Franklin Member ID Guarantor Name 07/24/2024 1 [facility] - DOS ON OR AFTER 2023 - DUAL ELIGIBLE - USP OPTIONS AND ONE CARE (MEDICARE REPLACEMENT/ADV ANTAGE - HMO) Kavita Roman [id number] Kavita Janie Jessie Notes Date Note Type [...] that needs to be done about it. [facility] Nurse Triage Notes (Maura Benitez): [...] ................... ................... ................... ................... ................... ................... ........ Plastic Roller Note From Truong Bragg: Pt redness discoloration in left big toe near nail bed. Pt denies pain but sts she feels something but can? t describe. Denies bleeding or discharge. Denies injury. Baseline vitals assessed , afebrile, pt able to walk without pain. [facility] contacted and advised pt to continue with [...] ........ Disposition: Fulfilled Karo Hernandez MD [address] [facility],[address], [place], [address], CHRISTOPHE ALVAREZ 07/24/2024 15:01:28 OBGyn Episode No OBEpisode recorded.
--- OUTSIDE RECORDS SUMMARY | 2025-03-20 09:38 | XMS_ITS ---
Author Organization [facility] Address [address] [place] [address] Care Team Providers Care Airline Reservationist Name Role Phone Elva Davison Primary Care Provider Charity Weber [phone] REASON FOR VISIT FLY WINDER Encounters Encounter Location Date Provider Diagnosis [address] [address] 01/20/2025 Charity Champion Plan Of Treatment Next Appt Details Provider Name:Charity brooks, 04/09/2025 02:00:00 PM, [address] [place] [address], [phone], Progress Notes * Dante NAVARRETEOB: 3 (79 yo F)Acc No.[id number]:01/20/2025 Patient:?Kavita NAVARRETE :1945???Age:79 Y???Sex:Female Address:[facility] [place] [address] * true * Date:? Generated for Printi ng/Falinog/eTransmitting on:?03/20/2025 09:38 AM EDT
--- OUTSIDE RECORDS SUMMARY | 2025-03-20 09:38 | XMS_ITS | Clinical Summary ---
Author Organization [facility] [address] [facility] Address [address] [place] [address] Phone Care Team Providers Care Campaign Analyst Name Role Phone Elva Davison MD Primary Care Provider [phone] Allergies Active Allergy Reactions Criticality Noted Date Comments Codeine Dizziness 12/18/2020 Hydrocodone 02/08/2022 Medications mirtazapine (REMERON) 15 mg tablet Take 1 [...] cream Insert 1 g into the vagina 5 (five) times a week. Active Align, B.infantis, 4 mg capsule Take 1 capsule by mouth 1 (one) time each day. Active aspirin 81 mg chewable tablet Chew 1 tablet (81 mg total). 019 Active calcium citrate-vitamin D3 (CALTRATE MAXIMUM) 315 mg-6.25 mcg (250 unit) per tablet Take 1 tablet by mouth 2 (two) times a day. Active PreviDent 5000 Dry Mouth 1.1 % paste USE TO BRUSH TEETH DIRECTED BY THE DOCTOR 025 Active metoclopramide (REGLAN) 5 mg tablet TAKE 1 TABLET BY MOUTH ONCE DAILY NEEDED FOR DIFFICULTY SWALLOWING. 025 Active vonoprazan 20 mg tabletIndications :Erosive gastritis Take 1 tablet by mouth 1 (one) time each day. 90 tablet 3 025 2025 Active atorvastatin (LIPITOR) 40 mg tablet Take 1 tablet by mouth once daily 90 tablet 1 025 Active metoprolol succinate (TOPROL-XL) 25 mg 24 hr tablet Take 1/2 (one-half) tablet by mouth once daily 45 tablet 1 025 Active cholecalciferol (VITAMIN D-3) 25 mcg (1,000 unit) tablet Take 1 tablet (1,000 Units total) by mouth 3 (three) times a week. Active cephalexin (KEFLEX) 250 mg capsule TAKE 1 CAPSULE BY MOUTH ONCE DAILY FOR UTI SUPPRESSION FOR 90 DAYS Active Breo Ellipta 100-25 mcg/dose inhaler Inhale 1 puff by mouth 1 (one) time each day. 025 Active hydroxychloroquin e (PLAQUENIL) 200 mg tablet Take 1 tablet (200 mg total) by mouth 2 (two) times a day. 025 Active Gemtesa 75 mg tablet tablet 025 Active zolpidem CR (AMBIEN CR) 6.25 mg CR tablet TAKE 1 TABLET BY MOUTH AT BEDTIME NEEDED FOR INSOMNIA FOR 90 DAYS Active cevimeline (EVOXAC) 30 mg capsule Take 1 capsule (30 mg total) by mouth 2 (two) times a day. Active cycloSPORINE (RESTASIS) 0.05 % ophthalmic emulsion Administer 1 drop into both eyes 2 (two) times a day. Active docusate sodium (COLACE) 100 mg capsule Take 1 capsule (100 mg total) by mouth 2 times daily. Active cranberry fruit extract (CRANBERRY CONCENTRATE ORAL) Take by mouth. Active omeprazole (PriLOSEC) [address] capsule Take 1 capsule (40 mg total) by mouth 2 (two) times a day. Active phenazopyridine (PYRIDIUM) 200 mg tablet Take 1 tablet (200 mg total) by mouth. Active amLODIPine (NORVASC) 5 mg tablet Take 1 tablet by mouth once daily 90 tablet 2 025 Active omeprazole (PriLOSEC) [address] capsule Take 1 capsule (40 mg total) by mouth 2 (two) times a day. 2024 Discontinued prednisoLONE sodium phosphate (PEDIAPRED) 5 mg base/5 mL (6.7 mg/5 mL) solution TAKE 5 ML BY MOUTH DAILY FOR 14 DAYS 025 2024 Discontinued amLODIPine (NORVASC) 5 mg tablet Take 1 tablet (5 mg total) by mouth 1 (one) time each day. 30 each 1 025 2024 Discontinued polyethylene glycol (MIRALAX) 17 gram packet Take 17 g by mouth daily. 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 The plan to [...] week. Fusion of spine, lumbar region 01/25/2022 Disorder of bone 01/25/2022 Lumbar radiculopathy 11/29/2021 Disorder of pigmentation 09/22/2021 CAD (coronary artery disease) 12/18/2020 Overview (12/20/2024): [...] LVEF 25-30% at the time of her NH in 2019 Recovery to normal Last Assessment & Plan: LV function has recovered. Hemangioma of skin and subcutaneous tissue 09/09 Other seborrheic keratosis 09/09/2020 Paresthesia of skin 09/09/2020 Benign neoplasm of skin of trunk 02/02/2015 Encounters Date Type Department Care Team Description 03/06/2025 10:30 AM EDT Office Visit Gastroenterology - [address] [phone] Laisha Glynn PA Oropharyngeal dysphagia (Primary Dx); Gastroesophageal reflux disease without esophagitis 02/21/2025 12:12 PM EDT Anesthesia Event [facility] [address] [place] [phone] Ottoniel Burt MD Hard, Shannon, CRNA 02/21/2025 11:20 AM EDT - 02/21/2025 11:59 PM EDT Hospital Encounter [facility] [address] [place] [phone] Philip Kelly MD Hard, Shannon, CRNA Dasilva, John E, MD Abnormal barium swallow; Dysphasia; Erosive gastritis Discharge Disposition: Home or Self Care 01/27/2025 Telephone [facility] [address] [facility] [address] [place] [phone] Richelle Hussein MD Hypertension 01/16/2025 Telephone Gastroenterology - [address] [place] [phone] Philip Kelly MD 01/15/2025 Telephone Gastroenterology - [address] [facility] [address] [place] [address] Laisha Glynn PA from Last 3 Months Immunizations Name Administration Dates Next Due Influenza Quadravalent, 0.5m l (Fluad) 65yo and older 08/31/2022,08/26/2020 Influenza Quadravalent, 0.5m l (Fluzone High-dose) 65yo and older 08/31/2021 Influenza Quadrivalent, 0.5m l, preservative free (Fluarix; FluLaval; Fluzone) ages 6mo and older (Afluria) 3yo and older 08/23/2023 Influenza trivalent, 0.5mL ( Fluzone High-dose) 65yo and older 09/11/2024,08/23/2019,08/29/2018,08/03,08/26/2015 Moderna SARS-CoV-2 COVID-19, mRNA, LNP-S, preservative free 01/12/2021 Pneumococcal conjugate 13 va lent (Prevnar 13, PCV13) 2mo and older 02/16/2015 Pneumococcal polysaccharide 23 valent (Pneumovax 23) 2yo and older 08/26/2009,08/17/1999 Td Tetanus diptheria (Tdvax) 7yo and older 04/29/2022 Tdap Tetanus diptheria acell ular pertussis (Boostrix; Adacel) 7yo and older 06/20/2007 Surgical History Surgery Date Site/Laterality Comments TONSILLECTOMY ADENOIDECTOMY, BILATERAL MYRINGOTOMY AND TUBES PROCEDURE: [place] TONSILLECTOMY & ADENOIDECTOMY <AGE 12 BACK SURGERY 01/19/2022 PROCEDURE: HISTORICAL BACK SURGERY; COMMENT: Lumbar decomp by Dr. Sawyer COLONOSCOPY 11/26/2013 LUMBAR SPINE SURGERY complicated by spinal fluid leak ESOPHAGOGASTRODUODENOSCOPY 09/27/2021 ESOPHAGOGASTRODUODENOSCOPY 06/05/2005 active gastric ulcer COLONOSCOPY 08/14/2008 ESOPHAGOGASTRODUODENOSCOPY 05/24/2006 ESOPHAGOGASTRODUODENOSCOPY 03/30/1999 COLONOSCOPY 08/14/1997 ESOPHAGOGASTRODUODENOSCOPY Medical History Medical History Date Comments Essential hypertension DX:Essent ial hypertension Hyperlipidemia DX:Hyperlipidemi a Sjogren syndrome, unspecifie d ([facility] V24) DX:Sjogren syndrome, unspeci fied ([facility]) Insomnia DX:Insomnia Chronic constipation GERD (gastroesophageal reflux disease) Arthritis Myocardial infarction (CMS/H CC V24, CMS/HCC V28) Family History Medical History Relation Name Comments [...] drink = 0.6 oz pur e alcohol) Interpersonal Safety Answer Date Record ed Physical Abuse 02/21/2025 Verbal Abuse 02/21/2025 Comments No Sex and Gender Information Value Date Recorded Sex Assigned at Female 02/21/2025 11:11 AM EDT Legal Sex Female 5:11 PM EST Gender Identity Female 02/21/2025 11:11 AM EDT Sexual Orientation Straight 02/21/2025 11 :11 AM EDT Obstetrics History Last Filed Vital Signs Vital Sign Reading Time Taken Comments Blood Pressure 160/75 02/21/2025 12:49 PM EDT Pulse 65 02/21/2025 12:49 PM EDT Temperature 36.2 ??C (97.2 ??F) 02/21/2025 11:55 AM E DT Respiratory Rate 16 02/21/2025 12:49 PM EDT Oxygen Saturation 95% 02/21/2025 12:49 PM EDT Inhaled Oxygen Concentration - - Weight 51.7 kg (114 lb) 03/06/2025 10:13 AM EDT Height 152.4 cm (5') 03/06/2025 10:13 AM EDT Body Mass Index 22.26 03/06/2025 10:13 AM EDT Plan of Treatment Upcoming Encounters Date Type Department Care Team (Late st Contact Info) Description 04/25/2025 9:20 AM EDT Office Visit [facility] [address] [facility] [address] [place] [address] Richelle Hussein MD [address] [facility] [address] [place] [address] Health Maintenance Due Date Last Done Comments Zoster Vaccines (1 of 2) 1962 RSV Immunization Adult Patients (1 - 1-dose 75+ series) 2018 Cholesterol Screening (Lipid Panel) 10/19/2022 Depression Screening 10/19/2022 Medicare Annual Wellness Visit 10/19/2022 Social Influencers of Health Screening 10/19/2022 Hypertension/CHF/CAD Annual BMP Blood Test 10/27/2022 COVID-19 Vaccine (9 - Mixed Product risk season) 2025 09/11/2024, 09/04/2023, 08/19/2022, Additional history exists Falls Risk Assessment 02/21/2026 02/21/2025 Osteoporosis Screening (Bone Density Screening) 09/14/2031 09/14/2021 DTaP,Tdap,and Td Vaccines (3 - Td or Tdap) 04/29/2032 04/29/2022, 06/20/2007 Pneumococcal Vaccine: 50+ Years Completed 02/16/2015, 08/26/2009, 08/17/1999 Influenza Vaccine Completed 09/11/2024, , 08/31/2022, Additional [...] age to complete this topic Meningococcal B Vaccine Aged Out No l onger eligible based on patient's age to complete this topic RSV Immunization Patients Under 20 months Aged Out No longer eligible based on patient's age to complete this topic Varicella Vaccines Aged Out No longer eligible based on patient's age to complete this topic Procedures Procedure Name Priority Date/Time Associated Diagnosis Comments EGD Routine 02/21/2025 12:28 PM EDT Abnormal barium swallow Dysphasia Erosive gastritis TISSUE EXAM Routine 02/21/2025 12:21 PM EDT Abnormal barium swallow Dysphasia Erosive gastritis COLONOSCOPY Routine 12/23/2024 10:03 AM EST EXTERNAL ENDOSCOPY REPORT Routine 12/23/2024 10:00 AM EST ARAVIND DEXA AXIAL SKELETON Routine 09/14/2021 11:43 AM EDT Encounter for screening for osteoporosis from Last 3 Months or Most Recently Relevant to Health Maintenance Results * EGD Anesthesia - [facility]; [facility] ENDOSCOPY (02/21/2025 12:28 PM EDT) Anatomical Region Laterality Modality Endoscopy 02/21/2025 12:0 7 PM EDT Impressions 02/21/2025 12:28 PM EDT - Normal esophagus. ? - Normal stomach. ? - Normal examined duodenum. ? - Dilation performed at the cricopharyngeus. ? - Biopsies were taken with a cold forceps for ? histology in the middle third of the esophagus and in ? the lower third of the esophagus. Recommendation: ?- Mechanical soft diet. ? - Continue present medications. ? - Await pathology results. Narrative 02/21/2025 12:[address] [facility] GI Patient Name: Kavita Navarrete Procedure Date: 02/21/2025 12:07 PM Date of : 1945 Age: 79 Room: ROOM 15 Gender: Female Note Status: Finalized Attending MD: Philip Kelly MD, Procedure Date No Time: 02/21/2025 Procedure: ? Upper GI endoscopy Indications: ? Oropharyngeal phase dysphagia Providers: ? Philip Kelly MD Referring MD: ?Philip Kelly MD Medicines: ? Monitored Anesthesia Care Complications: ? No immediate complications. Estimated Blood Loss: ? Estimated blood loss was minimal. Procedure: ? After obtaining informed consent, the endoscope was ? passed under direct vision. Throughout the procedure, ? the patient's blood pressure, pulse, and oxygen ? saturations were monitored continuously. The Endoscope ? was introduced through the mouth, and advanced to the ? third part of duodenum. The upper GI endoscopy was ? accomplished without difficulty. The patient tolerated ? the procedure well. Findings: ?The esophagus was normal. ? The stomach was normal. ? The examined duodenum was normal. ? A TTS dilator was passed through the scope. Dilation ? with a 15-16.5-18 mm balloon dilator was performed to ? 18 mm at the cricopharyngeus. Slight tear noted. I ? also empirically dilated across the LES to 18 no tear ? noted. ? Biopsies were taken with a cold forceps in the middle ? third of the esophagus and in the lower third of the ? esophagus for histology. Procedure Code(s): ? --- Professional --- ? 73915, Esophagogastroduodenoscopy, flexible, ? transoral; with transendoscopic balloon dilation of ? esophagus (less than 30 mm diameter) Diagnosis Code(s): ? --- Professional --- ? R13.12, Dysphagia, oropharyngeal phase CPT copyright 2020 [employer]. All rights reserved. The codes documented in this report are preliminary and upon ui designer review may be revised to meet current compliance requirements. MD Philip Godoy MD 02/21/2025 12:28:45 PM This report has been signed electronically.Philip Kelly MD Number of Addenda: 0 Note Initiated On: 02/21/2025 12:07 PM Scope In: Scope Out: ? Endoscopy Department at [facility] - [address] [place] [address], ? [place] [address] Procedure Note Philip Kelly MD - 02/21/2025 [facility] Patient Name: Kavita Navarrete Procedure Date: 02/21/2025 12:07 PM Date of : 1945 Age: 79 Room: ROOM 15 Gender: Female Note Status: Finalized Attending MD: Philip Kelly MD, Procedure Date No Time: 02/21/2025 Procedure: Upper GI endoscopy Indications: Oropharyngeal phase dysphagia Providers: Philip Kelly MD Referring MD: Philip Kelly MD Medicines: Monitored Anesthesia Care Complications: No immediate complications. Estimated Blood Loss: Estimated blood loss was minimal. Procedure: After obtaining informed consent, the endoscope was passed under direct vision. Throughout theprocedure, the patient's blood pressure, pulse, and oxygen saturations were monitored continuously. TheEndoscope was introduced through the mouth, and advanced tothe third part of duodenum. The upper GI endoscopy was accomplished without difficulty. The patienttolerated the procedure well. Findings: The esophagus was normal. The stomach was normal. The examined duodenum was normal. A TTS dilator was passed through the scope.Dilation with a 15-16.5-18 mm balloon dilator was performedto 18 mm at the cricopharyngeus. Slight tear noted. I also empirically dilated across the LES to 18 notear noted. Biopsies were taken with a cold forceps in themiddle third of the esophagus and in the lower third ofthe esophagus for histology. Procedure Code(s): --- Professional --- 90216, Esophagogastroduodenoscopy, flexible, transoral; with transendoscopic balloon dilation of esophagus (less than 30 mm diameter) Diagnosis Code(s): --- Professional --- R13.12, Dysphagia, oropharyngeal phase CPT copyright 2020 [employer]. All rights reserved. The codes documented in this report are preliminary and upon ui designer reviewmay be revised to meet current compliance requirements. MD Philip Godoy MD 02/21/2025 12:28:45 PM This report has been signed electronically.Philip Kelly MD Number of Addenda: 0 Note Initiated On: 02/21/2025 12:07 PM Scope In: Scope Out: Endoscopy Department at [facility] - [address] [place] [phone] IMPRESSION: - Normal esophagus. - Normal stomach. - Normal examined duodenum. - Dilation performed at the cricopharyngeus. - Biopsies were taken with a cold forceps for histology in the middle third of the esophagus andin the lower third of the esophagus. Recommendation: - Mechanical soft diet. - Continue present medications. - Await pathology results. Philip Kelly MD GI~PROCEDURE ORDERABLES Final R esult * Tissue exam (02/21/2025 12:21 PM EDT) Final Diagnosis A. Esophagus, biopsies mid and lower: - Esophageal squamous mucosa with no specific pathologic changes. - Negative for intraepithelial eosinophils. 02/24/2025 9:[address] [facility] Gross Description A. Esophagus, biopsies mid and lower: Labeled biopsies esophagus . Received in formalin are three soft, white, red-stippled tissue fragments ranging from 0.25 cm to 0.45 cm in greatest diameter, which are wrapped in paper and submitted in toto in one cassette, three pieces, multiple levels. TS 02/24/2025 9:[address] [facility] Disclaimer Unless otherwise specified, all tissue is 10% NB formalin fixed and paraffin embedded. 02/24/2025 9:[address] [facility] Tissue Esophageal structure / Unknown 02/21/2025 12:21 PM EDT 02/21/2025 1:11 PM EDT Philip Kelly MD LAB PATHOLOGY ORDERABLES Final Result [facility] [address] [place] [address], * COLONOSCOPY (12/23/2024 10:03 AM EST) Anatomical Region Laterality Modality Endoscopy us Historical Provider GI~PROCEDURE ORDERABLES F inal Result * External Endoscopy (12/23/2024 10:00 AM EST) Anatomical Region Laterality Modality Endoscopy Historical Provider GI~PROCEDURE ORDERABLES F inal Result * ARAVIND DEXA AXIAL SKELETON (09/14/2021 11:43 AM EDT) Anatomical Region Laterality Modality Mammography 09/14/2021 8:48 AM EDT Narrative 09/14/2021 11:43 AM EDT [facility] Diagnostic Imaging Department [address] [place], [place] [id number] Patient: ??KAVITA NAVARRETE SR ?/Age/Sex: 1945 - 76 - F Unit#: ??[id number] ? Location/Status: ??SPDIMAM/REG CLI ? Mnemonic/Ordering Site: ??MAMDEXAAX/SPMAM Ordering Physician: ??DEX TOLENTINO MD Aravind Dexa Axial Skeleton - 09/14/21942 History: Low estrogen state due to menopause. Height loss. Comparison: 10/14/15 Findings: Bone densitometry is performed utilizing dual energy x-ray absorptiometry (DXA) in the ABPathfinderigQuarterly unit. The lumbar spine and proximal femora [...] 12.4 percent ??Hip 3.0 percent. IMPRESSION: Osteopenia. [id number] Dictating Physician: ??MERCEDES VANESSA MD Electronically Signed by: ??MERCEDES VANESSA MD Dic Date/Time: ??09/14/21 1142 Sign date/Time: ??09/14/21 1143 Procedure Note Mercedes Vanessa MD - 11/09/2022 [facility] Diagnostic Imaging Department [address] [place] [address] Patient: LANDONKAVITA /Age/Sex: 1945 - 76 - F Unit#: [id number] Location/Status: SPDIMAM/REG CLI [facility] Ordering Physician: DXE TOLENTINO MD Aravind Dexa Axial Skeleton - 09/14/21 3533 History: Low estrogen state due to menopause. Height loss. Comparison: 10/14/15 Findings: Bone densitometry is performed utilizing dual energy x-ray absorptiometry(DXA) in the ABPathfinderigQuarterly unit. The lumbar spine and proximal femora [...] 12.4 percent Hip 3.0 percent. IMPRESSION: Osteopenia. [id number] Dictating Physician: MERCEDES VANESSA MD Electronically Signed by: MERCEDES VANESSA MD Dic Date/Time: 09/14/21 1142 Sign date/Time: 09/14/21 1143 Dex Tolentino MD IMG BI PROCEDURES Final Result from Last 3 Months or Most Recently Relevant to Health Maintenance Insurance [facility] MEDICARE Member Subscriber Plan / Payer (Ef fective 2024-Present) Name:Kavita Navarrete Sr. Relation to Subscriber:Self Name:Kavita Navarrete Sr. Payer ID:[id number] Group ID:[id number] Type:Not on file Address: [facility] [address] [phone] Advance Directives Documents on File Type Date Recorded Patient [place] Electronic Expl anation Health Care Decision (hx) 09/23/2021 [...] (hx) 09/23/2021 AD GARCIA DIRECTIVE Care Teams Campaign Analyst Relationship Specialty Start Date End Date Elva Davison MD [address] [place] [address] Dr [address] [facility] [place] [address] PCP - General Internal Medicine 03/19/21
--- OUTSIDE RECORDS SUMMARY | 2025-03-20 09:38 | XMS_ITS | Patient Health Record ---
Author Organization [facility] Address [address] [place] [address] Care Team Providers Care Pick And Shovel Man Name Role Phone Elva Davison Primary Care Provider Charity Weber Unavailable [phone] Allergies Allergen (clinical drug ingredient) Drug/Non Drug Allergy documented on EMR Reaction Allergy Type Onset Date Status codeine Codeine Unknown Drug Allergy Active Reason For Referral No Information Social History Tobacco Use: Social History Observation Description Date Details (start date - stop date) Never Smoker NA - NA Tobacco use other than smoking: Question Answer Notes Are you an other tobacco user? No Tobacco Control (Standard) Question Answer Notes Tobacco use: Nonsmoker AUDIT-C (Standard) Question Answer Notes Did you have a drink containing alcohol in the p ast year? No Points 0 Interpretation Negative Encounters Encounter Location Date Provider Diagnosis [address] [address] 01/20/2025 Charity Champion [address] [address] 02/17/2025 Charity Champion Plan Of Treatment Next Appt Details Provider Name:Charity brooks, 04/09/2025 02:00:00 PM, [address] [place] [address], [phone], Insurance Providers Payer Name Payer Address Payer Phone Subscriber Number Group Number Insured Name Patient Relationship to Insured Coverage Start Date Coverage End Date [facility] [employer] Claims [address] [place] [id number] [id number] Kavita Roman Self - patient is the insured Medical (General) History Medical History History ICD Code Arthritis CAD (Cholesterol) Heart disease High Blood Pressure raynauds disease Reflux ( GERD) Sjogren syndrome Measles Mumps Chicken pox cystitis Surgical History Surgery Date(Month/Year) Spinal Fusion 10/05/05 Removal of Handware 12/20/06 Stent 05/2019 Back Sx 2021
--- OUTSIDE RECORDS SUMMARY | 2025-03-20 09:39 | XMS_ITS ---
Author Organization [facility] Address [address] [place] [phone] Care Team Providers Care Associate Vice President Name Role Phone Elva Davison Primary Care Provider Charity Weber [phone] REASON FOR VISIT CINDER BLOCK MAKER PPWK Entered Encounters Encounter Location Date Provider Diagnosis [address] [address] 02/17/2025 Charity Champion Plan Of Treatment Next Appt Details Provider Name:Charity brooks, 04/09/2025 02:00:00 PM, [address] [place] [address], [phone], Progress Notes * Dante NAVARRETEOB: 3 (79 yo F)Acc No.[id number]:02/17/2025 Patient:?Kavita NAVARRETE :1945???Age:79 Y???Sex:Female Address:[facility] [place] [address] * true * Date:? Generated for Printi ng/Falinog/eTransmitting on:?03/20/2025 09:38 AM EDT
== END 2025-03-20 10:28 | disposition home or self-care (01) ==
LOC: HO.RHES 08:59
PROVIDERS: PCP Internal Medicine; Visit Provider Internal Medicine Rheumatology
DX: M35.00 Sjogren syndrome, unspecified (principal); H04.123 Dry eye syndrome of bilateral lacrimal glands; M21.839 Other specified acquired deformities of unspecified forearm
CPT/HCPCS: 99215; G2211

== ENCOUNTER 2025-03-20 13:56 | Outpatient (REF) | payer OTHER, SELFPAY ==
--- NOTE | ~2025-03-20 | XR_ITS ---
EXAMINATION: XR HAND, LEFT CLINICAL INFORMATION: M35.00 - Sjogren syndrome, unspecified; bilateral and ulnar deviation, evaluate for arthritis. COMPARISON: None available. TECHNIQUE: PA, lateral, and oblique views of the left hand. FINDINGS: There is normal bone mineralization. There is no periarticular osteopenia. There are no definite bony erosions identified. There is no fracture, dislocation, or suspicious bone abnormality. There is normal overall alignment. There are mild osteoarthritic changes throughout the DIP joints of the digits and interphalangeal joint of the thumb, worst in the second digit. The DIP joints, and MCP joints appear preserved. There is minimal degenerative appearing arthritis in the STT joints and first CMC joint. Carpus appears intact and normally aligned. Mild negative ulnar variance. No blunting of the ulnar styloid. Soft tissues appear normal. XR/XR hand LT min 3V IMPRESSION: 1. No acute bony abnormalities. 2. Mild osteoarthrosis most notable in the DIP joints of the digits and interphalangeal joint of the thumb. Line 3. No evidence of inflammatory arthropathy or erosions. Electronically signed by: Tolu Lund MD 03/21/2025 11:35 AM EDT
--- NOTE | ~2025-03-20 | XR_ITS ---
EXAMINATION: XR HAND, RIGHT CLINICAL INFORMATION: M21.839 - Other specified acquired deformities of unspecified forearm COMPARISON: None available. TECHNIQUE: PA, lateral, and oblique views of the right hand. FINDINGS: There is normal bone mineralization. There is no periarticular osteopenia. There is no fracture, dislocation, or suspicious bone abnormality. 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 The DIP joints, and MCP joints appear preserved. There is minimal degenerative appearing arthritis in the STT joints and first CMC joint. Mild radiocarpal joint space narrowing. Carpus appears intact and normally aligned. Mild negative ulnar variance. No blunting of the ulnar styloid. Soft tissues appear normal. XR/XR hand RT min 3V IMPRESSION: 1. No acute bony abnormalities. 2. Moderate osteoarthrosis most notable in the DIP joints of the digits and interphalangeal joint of the thumb. 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 Electronically signed by: Tolu Lund MD 03/21/2025 11:38 AM EDT
--- OUTSIDE RECORDS SUMMARY | 2025-03-20 16:11 | XMS_ITS | Clinical Summary ---
Author Organization [facility] 299 [facility] Address [address] [place] [address] Phone Care Team Providers Care Drum Sprayer Name Role Phone Elva Davison MD Primary Care Provider [phone] Allergies Active Allergy Reactions Criticality Noted Date [...] EDT): Continue Voquenza as directed Sjogren's syndrome ([facility] V24) 12/20/2024 Neoplasm of uncertain behavior of [...] a follow-up appointment with his clinic at [place] a few months ago. The plan to [...] LVEF 25-30% at the time of her [place] in 2019 Recovery to normal Last Assessment & Plan: LV function has recovered. Hemangioma of skin and subcutaneous tissue 09/09 Other seborrheic keratosis 09/09/2020 Paresthesia of skin 09/09/2020 Benign neoplasm of skin of trunk 02/02/2015 Encounters Date Type Department Care Team Description 03/06/2025 10:30 AM EDT Office Visit Gastroenterology - [address] [phone] Laisha Glynn PA Oropharyngeal dysphagia (Primary Dx); Gastroesophageal reflux disease without esophagitis 02/21/2025 12:12 PM EDT Anesthesia Event [facility] Endoscopy [address] [place] [phone] Ottoniel Burt MD Hard, Shannon, CRNA 02/21/2025 11:20 AM EDT - 02/21/2025 11:59 PM EDT Hospital Encounter [facility] Endoscopy [address] [place] [phone] Philip Kelly MD Hard, Shannon, CRNA Dasilva, John E, MD Abnormal barium swallow; Dysphasia; Erosive gastritis Discharge Disposition: Home or Self Care 01/27/2025 Telephone [facility] - [facility] [address] [facility] [address] [place] [phone] Richelle Hussein MD Hypertension 01/16/2025 Telephone Gastroenterology - [address] [place] [phone] Philip Kelly MD 01/15/2025 Telephone Gastroenterology - 299 [address] [facility] [address] [place] [address] Laisha Glynn PA from Last [...] TONSILLECTOMY ADENOIDECTOMY, BILATERAL MYRINGOTOMY AND TUBES PROCEDURE: NE TONSILLECTOMY & ADENOIDECTOMY <AGE 10 BACK SURGERY 01/19/2022 PROCEDURE: HISTORICAL BACK SURGERY; COMMENT: Lumbar decomp by Dr. Sawyer COLONOSCOPY 11/26/2013 LUMBAR SPINE SURGERY complicated by spinal fluid leak ESOPHAGOGASTRODUODENOSCOPY 09/27/2021 ESOPHAGOGASTRODUODENOSCOPY 06/05/2005 active gastric ulcer COLONOSCOPY 08/14/2008 ESOPHAGOGASTRODUODENOSCOPY 05/24/2006 ESOPHAGOGASTRODUODENOSCOPY 03/30/1999 COLONOSCOPY 08/14/1997 ESOPHAGOGASTRODUODENOSCOPY Medical History Medical History Date Comments Essential hypertension DX:Essent ial hypertension Hyperlipidemia DX:Hyperlipidemi a Sjogren syndrome, unspecifie d ([facility] V24) DX:Sjogren syndrome, unspeci fied ([facility]) Insomnia DX:Insomnia Chronic constipation GERD (gastroesophageal reflux [...] Description 04/25/2025 9:20 AM EDT Office Visit [facility] - [facility] [address] 300 [facility] [address] [place] [address] Richelle Hussein MD 300 [facility] [address] [place] [address] Health Maintenance Due Date Last Done Comments [...] Maintenance Results * EGD Anesthesia - MAC; [facility] ENDOSCOPY (02/21/2025 12:28 PM EDT) Anatomical Region [...] pathology results. Narrative 02/21/2025 12:28 PM EDT [facility] GI Patient Name: Kavita Navarrete Procedure Date: [...] Procedure Code(s): ? --- Professional --- ? 41201, Esophagogastroduodenoscopy, flexible, ? transoral; with transendoscopic balloon dilation of ? esophagus (less than 30 mm diameter) Diagnosis Code(s): ? --- Professional --- ? R13.12, Dysphagia, oropharyngeal phase CPT copyright 2020 [employer]. All rights reserved. The codes documented in this report are preliminary and upon livestock feeder review may be revised to meet current compliance requirements. MD Philip Godoy MD 02/21/2025 12:28:45 PM This report has been signed electronically.Philip Kelly MD Number of Addenda: 0 Note Initiated On: 02/21/2025 12:07 PM Scope In: Scope Out: ? Endoscopy Department at [facility] - [address] [place] [address], ? [place] [address] Procedure Note Philip Kelly MD - 02/21/2025 [facility] GI Patient Name: Kavita Navarrete Procedure Date: [...] for histology. Procedure Code(s): --- Professional --- 81006, Esophagogastroduodenoscopy, flexible, transoral; with transendoscopic balloon dilation of esophagus (less than 30 mm diameter) Diagnosis Code(s): --- Professional --- R13.12, Dysphagia, oropharyngeal phase CPT copyright 2020 [employer]. All rights reserved. The codes documented in this report are preliminary and upon livestock feeder reviewmay be revised to meet current compliance requirements. MD Philip Godoy MD 02/21/2025 12:28:45 PM This report has been signed electronically.Philip Kelly MD Number of Addenda: 0 Note Initiated On: 02/21/2025 12:07 PM Scope In: Scope Out: Endoscopy Department at [facility] - [address] [place] [phone] IMPRESSION: - Normal esophagus. - Normal stomach. [...] for intraepithelial eosinophils. 02/24/2025 9:12 AM EDT [facility] Gross Description A. Esophagus, biopsies mid and lower: Labeled biopsies esophagus . Received in formalin are three soft, white, red-stippled tissue fragments ranging from 0.25 cm to 0.45 cm in greatest diameter, which are wrapped in paper and submitted in toto in one cassette, three pieces, multiple levels. TS 02/24/2025 9:12 AM EDT [facility] Disclaimer Unless otherwise specified, all tissue is 10% NB formalin fixed and paraffin embedded. 02/24/2025 9:12 AM EDT [facility] Tissue Esophageal structure / Unknown 02/21/2025 12:21 PM EDT 02/21/2025 1:11 PM EDT Philip Kelly MD LAB PATHOLOGY ORDERABLES Final Result [facility] [address] [place] [address], * COLONOSCOPY (12/23/2024 10:03 AM EST) Anatomical Region Laterality Modality Endoscopy us Historical Provider GI~PROCEDURE ORDERABLES F inal Result * External Endoscopy (12/23/2024 10:00 AM EST) Anatomical Region Laterality Modality Endoscopy Historical Provider GI~PROCEDURE ORDERABLES F inal Result * ARAVIND DEXA AXIAL SKELETON (09/14/2021 11:43 AM EDT) Anatomical Region Laterality Modality Mammography 09/14/2021 8:48 AM EDT Narrative 09/14/2021 11:43 AM EDT [facility] Diagnostic Imaging Department [address] [place], [place] [phone] Patient: ??KAVITA NAVARRETE SR ?/Age/Sex: 1945 - 76 - F Unit#: ??[id number] ? Location/Status: ??SPDIMAM/REG CLI ? Mnemonic/Ordering Site: ??MAMDEXAAX/SPMAM Ordering Physician: ??DEX TOLENTINO MD Aravind Dexa Axial Skeleton - 09/14/21942 History: Low estrogen state due to menopause. Height loss. Comparison: 10/14/15 Findings: Bone densitometry is performed utilizing dual energy x-ray absorptiometry (DXA) in the [employer] unit. The lumbar spine and proximal femora [...] 12.4 percent ??Hip 3.0 percent. IMPRESSION: Osteopenia. [id number] Dictating Physician: ??MERCEDES VANESSA MD Electronically Signed by: ??MERCEDES VANESSA MD Dic Date/Time: ??09/14/21 1142 Sign date/Time: ??09/14/21 1143 Procedure Note Mercedes Vanessa MD - 11/09/2022 [facility] Diagnostic Imaging Department [address] [place] [address] Patient: LANDONKAVITA /Age/Sex: 1945 - 76 - F Unit#: [id number] Location/Status: SPDIMAM/REG CLI [facility] Ordering Physician: DEX TOLENTINO MD Aravind Dexa Axial Skeleton - 09/14/21 1674 History: Low estrogen state due to menopause. Height loss. Comparison: 10/14/15 Findings: Bone densitometry is performed utilizing dual energy x-ray absorptiometry(DXA) in the [employer] unit. The lumbar spine and proximal femora [...] 12.4 percent Hip 3.0 percent. IMPRESSION: Osteopenia. [id number] Dictating Physician: MERCEDES VANESSA MD Electronically Signed by: MERCEDES VANESSA MD Dic Date/Time: 09/14/21 1142 Sign date/Time: 09/14/21 1143 Dex Tolentino MD IMG BI PROCEDURES Final Result from Last 3 Months or Most Recently Relevant to Health Maintenance Insurance [facility] MEDICARE Member Subscriber Plan / Payer (Ef fective 2024-Present) Name:Kavita Navarrete Sr. Relation to Subscriber:Self Name:Kavita Navarrete Sr. 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
== END 2025-03-20 13:57 | disposition home or self-care (01) ==
LOC: HO.HMGCX 13:56
PROVIDERS: PCP Internal Medicine; Visit Provider Internal Medicine Rheumatology
DX: M35.00 Sjogren syndrome, unspecified (principal); M21.839 Other specified acquired deformities of unspecified forearm
CPT/HCPCS: 36415; 73130; 82565; 84165; 84450; 84460; 85025; 85652; 86038; 86039; 86140; 86160; 86431; 99212

== ENCOUNTER → 2025-03-20 14:00 | Outpatient (BNV) | payer OTHER, SELFPAY | PROVIDERS: PCP Internal Medicine; Visit Provider Radiology Diagnostic Radiology | DX: M35.00 Sjogren syndrome, unspecified (principal); M19.041 Primary osteoarthritis, right hand | CPT/HCPCS: 73130 ==

== ENCOUNTER 2025-03-25 10:43 | Outpatient (REF) | payer OTHER, SELFPAY ==
--- OUTSIDE RECORDS SUMMARY | 2025-03-25 12:22 | XMS_ITS ---
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 Generated for Printi ng/Falinog/eTransmitting on:?03/25/2025 12:22 PM EDT
--- OUTSIDE RECORDS SUMMARY | 2025-03-25 12:22 | XMS_ITS | Data Portability ---
Author Organization [place] [place] [facility] Address [address] [place] [phone] Care Team Providers Care Distribution Field Engineer Name Role Phone JATIN CAMILA Primary Care [...] Last Updated DateTime 98 % 98 % 45867.3 04 g 70 /min 18 /min 98.8 [...] SNOMED-CT Code Diagnosis ICD10 Code Diagnosis Note [id number] Karo Hernandez MD Main - [facility] [address] [place] [address] 07/24/2024 14:26:00 07/24/2024 22:33:12 Contusion of left great toe [id number] S90.112A As noted, we were called to see this patient regarding concerns of atraumatic left great toe bruising. Evaluation in the field was performed by my legal support specialist colleague, as noted above, I provided real-time [...] [place] Member ID Guarantor Name 07/24/2024 1 [facility] - DOS ON OR AFTER 2023 - DUAL ELIGIBLE - SNF OPTIONS AND ONE CARE (MEDICARE REPLACEMENT/ADV ANTAGE - HMO) Kavita Roman [id number] Kavita Janie Jessie Notes Date Note Type [...] that needs to be done about it. [facility] Nurse Triage Notes (Maura Benitez): Reason [...] ................... ................... ................... ................... ................... ................... ........ Blocker And Polisher Gold Wheel Note From Truong Bragg: Pt redness discoloration in left big toe near nail bed. Pt denies pain but sts she feels something but can? t describe. Denies bleeding or discharge. Denies injury. Baseline vitals assessed , afebrile, pt able to walk without pain. [facility] contacted and advised pt to [...] ........ Disposition: Fulfilled Karo Hernandez MD [address] [facility],[address], [place], [phone], CHRISTOPHE ALVAREZ 07/24/2024 15:01:28 OBGyn Episode No OBEpisode recorded.
--- OUTSIDE RECORDS SUMMARY | 2025-03-25 12:22 | XMS_ITS | Clinical Summary ---
Author Organization [facility] 299 Formerly [facility] Address [address] [place] [address] Phone Care Team Providers Care Trimming Cutter Name Role Phone Elva Davison MD Primary Care Provider [phone] Allergies Active Allergy Reactions Criticality Noted Date [...] once daily 90 tablet 2 025 Active amLODIPine (NORVASC) 5 mg tablet Take 1 tablet (5 mg total) by mouth 1 (one) time each day. 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 The plan to [...] LVEF 25-30% at the time of her NM in 2019 Recovery to normal Last Assessment & Plan: LV function has recovered. Hemangioma of skin and subcutaneous tissue 09/09 Other seborrheic keratosis 09/09/2020 Paresthesia of skin 09/09/2020 Benign neoplasm of skin of trunk 02/02/2015 Encounters Date Type Department Care Team Description 03/06/2025 10:30 AM EDT Office Visit Gastroenterology - [address] [phone] Laisha Glynn PA Oropharyngeal dysphagia (Primary Dx); Gastroesophageal reflux disease without esophagitis 02/21/2025 12:12 PM EDT Anesthesia Event [facility] [address] [place] [phone] Ottoniel Burt MD Hard, Shannon, CRNA 02/21/2025 11:20 AM EDT - 02/21/2025 11:59 PM EDT Hospital Encounter [facility] [address] [place] [phone] Philip Kelly MD Hard, Shannon, CRNA Dasilva, John E, MD Abnormal barium swallow; Dysphasia; Erosive gastritis Discharge Disposition: Home or Self Care 01/27/2025 Telephone [facility] - [facility] [address] [facility] [address] [place] [phone] Richelle Hussein MD Hypertension 01/16/2025 Telephone Gastroenterology - [address] [phone] Philip Kelly MD 01/15/2025 Telephone Gastroenterology - [address] [phone] Laisha Glynn PA from Last 3 Months [...] TONSILLECTOMY ADENOIDECTOMY, BILATERAL MYRINGOTOMY AND TUBES PROCEDURE: [place] TONSILLECTOMY & ADENOIDECTOMY <AGE 10 BACK SURGERY 01/19/2022 PROCEDURE: HISTORICAL BACK SURGERY; COMMENT: Lumbar decomp by Dr. Sawyer COLONOSCOPY 11/26/2013 LUMBAR SPINE SURGERY complicated by spinal fluid leak ESOPHAGOGASTRODUODENOSCOPY 09/27/2021 ESOPHAGOGASTRODUODENOSCOPY 06/05/2005 active gastric ulcer COLONOSCOPY 08/14/2008 ESOPHAGOGASTRODUODENOSCOPY 05/24/2006 ESOPHAGOGASTRODUODENOSCOPY 03/30/1999 COLONOSCOPY 08/14/1997 ESOPHAGOGASTRODUODENOSCOPY Medical History Medical History Date Comments Essential hypertension DX:Essent ial hypertension Hyperlipidemia DX:Hyperlipidemi a Sjogren syndrome, unspecifie d ([facility]/HCC V24) DX:Sjogren syndrome, unspeci fied ([facility]) Insomnia DX:Insomnia Chronic constipation GERD (gastroesophageal reflux disease) Arthritis Myocardial infarction (CMS/H CC V24, CMS/HCC V28) Family History Medical History Relation Name Comments Colon cancer Father's Sister Stroke Mother Eli Roman Colon polyps Sister 1 Colon polyps Sister 2 Relation Name Status Comments Father's Sister Mother Eli Roman Sister 1 Sister 2 Alive Social History [...] Visit [facility] [address] [facility] [address] [place] [phone] Richelle Hussein MD [address] [facility] [address] [place] [address] Health Maintenance Due Date Last Done Comments [...] EDT Abnormal barium swallow Dysphasia Erosive gastritis ARAVIND DEXA AXIAL SKELETON Routine 09/14/2021 11:43 AM EDT Encounter for screening for osteoporosis from Last 3 Months or Most Recently Relevant to Health Maintenance Results * EGD Anesthesia - MAC; [facility] ENDOSCOPY (02/21/2025 12:28 PM EDT) [...] pathology results. Narrative 02/21/2025 12:28 PM EDT [facility] Patient Name: Kavita Roman Procedure Date: 02/21/2025 12:07 PM Date of [...] Procedure Code(s): ? --- Professional --- ? 66088, Esophagogastroduodenoscopy, flexible, ? transoral; with transendoscopic balloon dilation of ? esophagus (less than 30 mm diameter) Diagnosis Code(s): ? --- Professional --- ? R13.12, Dysphagia, oropharyngeal phase CPT copyright 2020 [employer]. All rights reserved. The codes documented in this report are preliminary and upon network coordinator review may be revised to meet current compliance requirements. MD Philip Godoy MD 02/21/2025 12:28:45 PM This report has been signed electronically.Philip Kelly MD Number of Addenda: 0 Note Initiated On: 02/21/2025 12:07 PM Scope In: Scope Out: ? Endoscopy Department at [facility] - [address] [place] [address], ? [place] [address] Procedure Note Philip Kelly MD - 02/21/2025 [facility] Patient Name: Kavita Roman Procedure Date: 02/21/2025 12:07 PM Date of [...] for histology. Procedure Code(s): --- Professional --- 52448, Esophagogastroduodenoscopy, flexible, transoral; with transendoscopic balloon dilation of esophagus (less than 30 mm diameter) Diagnosis Code(s): --- Professional --- R13.12, Dysphagia, oropharyngeal phase CPT copyright 2020 [employer]. All rights reserved. The codes documented in this report are preliminary and upon network coordinator reviewmay be revised to meet current compliance requirements. MD Philip Godoy MD 02/21/2025 12:28:45 PM This report has been signed electronically.Philip Kelly MD Number of Addenda: 0 Note Initiated On: 02/21/2025 12:07 PM Scope In: Scope Out: Endoscopy Department at [facility] - [address] [place] [phone] IMPRESSION: - Normal esophagus. - Normal stomach. - Normal examined duodenum. - Dilation performed at the cricopharyngeus. - Biopsies were taken with a cold forceps for histology in the middle third of the esophagus andin the lower third of the esophagus. Recommendation: - Mechanical soft diet. - Continue present medications. - Await pathology results. us Philip Kelly MD GI~PROCEDURE ORDERABLES Final R [...] 12:21 PM EDT 02/21/2025 1:11 PM EDT us Philip Kelly MD LAB PATHOLOGY ORDERABLES Final Result [facility] [address] [place] [address], * ARAVIND DEXA AXIAL SKELETON (09/14/2021 11:43 AM EDT) Anatomical Region Laterality Modality Mammography 09/14/2021 8:48 AM EDT Narrative 09/14/2021 11:43 AM EDT [facility] Diagnostic Imaging Department [address] [place] [address] Patient: ??KAVITA ROMAN SR ?/Age/Sex: 1945 - 76 - F Unit#: ??[id number] ? Location/Status: ??SPDIMAM/REG CLI ? Mnemonic/Ordering Site: ??[facility]/SPMAM Ordering Physician: ??DEX TOLENTINO MD [facility] Dexa Axial Skeleton - 09/14/2177 History: Low estrogen state due to menopause. Height loss. Comparison: 10/14/15 Findings: Bone densitometry is performed utilizing dual energy x-ray absorptiometry (DXA) in the [employer] unit. The lumbar spine and proximal femora [...] 12.4 percent ??Hip 3.0 percent. IMPRESSION: Osteopenia. [id number] Dictating Physician: ??MERCEDES VANESSA MD Electronically Signed by: ??MERCEDES VANESSA MD Dic Date/Time: ??09/14/21 1142 Sign date/Time: ??09/14/21 1143 Procedure Note Mercedes Vanessa MD - 11/09/2022 [facility] Diagnostic Imaging Department [address] [place] [address] Patient: KAVITA ROMAN /Age/Sex: 1945 - 76 - F Unit#: [id number] Location/Status: SPDIMAM/REG CLI [facility] Ordering Physician: DEX TOLENTINO MD [facility] Dexa Axial Skeleton - 09/14/2176 History: Low estrogen state due to menopause. Height loss. Comparison: 10/14/15 Findings: Bone densitometry is performed utilizing dual energy x-ray absorptiometry(DXA) in the [employer] unit. The lumbar spine and proximal femora [...] 12.4 percent Hip 3.0 percent. IMPRESSION: Osteopenia. [id number] Dictating Physician: MERCEDES VANESSA MD Electronically Signed by: MERCEDES VANESSA MD Dic Date/Time: 09/14/21 1142 Sign date/Time: 09/14/21 1143 us Dex Tolentino MD IMG BI PROCEDURES Final Result from Last 3 Months or Most Recently Relevant to Health Maintenance Insurance [employer] MEDICARE Member Subscriber Plan / Payer (Ef fective 2024-Present) Name:JessieKavita Sr. Relation to Subscriber:Self Name:JessieKavita Sr. 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
--- OUTSIDE RECORDS SUMMARY | 2025-03-25 12:23 | XMS_ITS ---
Author Organization [facility] Address [address] [place] [phone] Care Team Providers Care Library Media Assistant Name Role Phone Elva Davison Primary Care Provider Charity Weber [phone] REASON FOR VISIT [facility] SPECIALIST [facility] Entered Encounters Encounter Location Date Provider Diagnosis [address] [phone] 02/17/2025 Charity Champion Plan Of Treatment Next Appt Details Provider Name:Charity brooks, 04/09/2025 02:00:00 PM, [address] [place] [address], [phone], Progress Notes * Dante NAVARRETEOB: 3 (79 yo F)Acc No.[id number]:02/17/2025 Patient:?Kavita NAVARRETE :1945???Age:79 Y???Sex:Female Address:[facility] [place] [address] * true * Date:? Generated for Printi ng/Falinog/eTransmitting on:?03/25/2025 12:23 PM EDT
--- OUTSIDE RECORDS SUMMARY | 2025-03-25 12:23 | XMS_ITS | Patient Health Record ---
Author Organization [facility] Address [address] [place] [address] Care Team Providers Care Manager Of Administration Name Role Phone Elva Davison Primary Care Provider Charity Weber Unavailable [phone] Allergies Allergen (clinical drug ingredient) Drug/Non Drug [...] Negative Encounters Encounter Location Date Provider Diagnosis [address] [phone] 01/20/2025 Charity Champion [address] [phone] 02/17/2025 Charity Champion Plan Of Treatment Next Appt Details Provider Name:Charity brooks, 04/09/2025 02:00:00 PM, [address] [place] [address], [phone], Insurance Providers Payer Name Payer Address Payer Phone Subscriber Number Group Number Insured Name Patient Relationship to Insured Coverage Start Date Coverage End Date [facility] [employer] Claims [address] [place] [address] [id number] Kavita Roman Self - patient is the insured Medical (General) History Medical History History ICD Code Arthritis CAD (Cholesterol) Heart disease High Blood Pressure raynauds disease Reflux ( GERD) Sjogren syndrome Measles Mumps Chicken pox cystitis Surgical History Surgery Date(Month/Year) Spinal Fusion 10/05/05 Removal of Handware 12/20/06 Stent 05/2019 Back Sx 2021
[2025-03-25 13:31] LABS: Appearance Urine Clear; Color Urine Yellow; Glucose Urine UA Negative (Negative); Leukocyte Esterase Urine Large (3+) (Negative); Nitrite Urine Negative (Negative); UMIC TRIGGER UACC YES; Urine Blood Small (1+) (Negative); Urine Ketones Negative (Negative); Urine Protein Negative (Neg-Trace)
[2025-03-25 13:53] LABS: Bacteria Urine None Seen (None Seen); Hyaline Casts Urine 0-2 /LPF (0-2); RBC Urine 0-2 /HPF (0-2); UACC Culture Trigger YES; WBC Urine >50 /HPF (0-5)
== END 2025-03-25 10:44 | disposition home or self-care (01) ==
LOC: HO.HMGCLDS 10:43
PROVIDERS: PCP Internal Medicine; Visit Provider Internal Medicine
DX: R39.9 Unspecified symptoms and signs involving the genitourinary system (principal)
CPT/HCPCS: 81001; 87086

== ENCOUNTER 2025-04-21 07:18 | Outpatient (REF) | payer OTHER, SELFPAY ==
[2025-04-21 10:05] LABS: MANUAL DIFF FLAG NO
[2025-04-21 10:15] LABS: Basophils Absolute Auto 0.1 X10*3/uL (0.0-0.2); Basophils Percent Auto 1.4 % (0-2); Eosinophils Absolute Auto 0.1 X10*3/uL (0.0-0.4); Eosinophils Percent Auto 1.9 % (0-4); Hematocrit 40.1 % (37.0-47.0); Hemoglobin 13.2 g/dl (12.0-16.0); Imm Gran Abs Auto 0.01 X10*3/uL (0.00-0.03); Imm Gran Pct Auto 0.3 % (0.0-0.4); Lymphocytes Absolute Auto 0.7 X10*3/uL (1.2-4.9); Lymphocytes Percent Auto 19.1 % (20-40); Mean Corpuscular HGB Conc 32.9 g/dl (31.0-35.0); Mean Corpuscular Hemoglobin 31.2 pg (27.0-33.0); Mean Corpuscular Volume 94.8 fL (80.0-98.0); Mean Platelet Volume 10.3 fL (9.4-12.3); Monocytes Absolute Auto 0.4 X10*3/uL (0.1-1.2); Monocytes Percent Auto 10.5 % (2-11); Neutrophils Absolute Auto 2.4 x10*3/uL (2.0-8.3); Neutrophils Percent Auto 66.8 % (45-73); Platelet Count 179 X10*3/uL (160-400); Red Blood Count 4.23 X10*6/uL (4.20-5.50); Red Cell Distribution Width 13.1 % (11.0-16.0); White Blood Count 3.6 X10*3/uL (4.8-10.8)
[2025-04-21 10:50] LABS: Alanine Aminotransferase 19 U/L (0-31); Albumin Level 4.6 g/dL (3.5-5.0); Alkaline Phosphatase 56 U/L (39-117); Anion Gap 11 (12-20); Aspartate Amino Transferase 24 U/L (5-31); Bilirubin Total 0.5 mg/dL (0.0-1.0); Blood Urea Nitrogen 14 mg/dL (9-16); Calcium 9.7 mg/dL (8.4-10.2); Carbon Dioxide 28 mmol/L (22-29); Chloride 107 mmol/L (96-108); Cholesterol 167 mg/dL (<200); Estimated Glomerular Filt Rate > 60; Free T4 (Free Thyroxine) 0.78 ng/dL (0.71-1.85); Glucose Random 91 mg/dL (60-115); HDL Cholesterol 81 mg/dL (>40); LDL Cholesterol Calculated 72 mg/dL (<100); Sodium 142 mmol/L (135-145); TSH reflex Free T4 2.06 uIU/mL (0.32-4.0); Total Protein 6.9 g/dL (6.5-8.0); Triglycerides 74 mg/dL (<150); Vitamin D 25-OH Total 68.8 ng/mL (>30)
[2025-04-21 11:09] LABS: Folate 11.5 ng/mL (> or = 4.0); Vitamin B12 602 pg/mL (200-900)
[2025-04-21 13:10] LABS: Appearance Urine Clear; Color Urine Yellow; Glucose Urine UA Negative (Negative); Leukocyte Esterase Urine Negative (Negative); Nitrite Urine Negative (Negative); PH 7.5 (5.0-9.0); Urine Blood Negative (Negative); Urine Ketones Negative (Negative); Urine Protein Negative (Neg-Trace)
== END 2025-04-21 07:19 | disposition home or self-care (01) ==
LOC: HO.HMGCLDS 07:18
PROVIDERS: PCP Internal Medicine; Visit Provider Internal Medicine
DX: Z00.00 Encounter for general adult medical examination without abnormal findings (principal); R79.89 Other specified abnormal findings of blood chemistry; I25.10 Atherosclerotic heart disease of native coronary artery without angina pectoris; E78.00 Pure hypercholesterolemia, unspecified; R39.9 Unspecified symptoms and signs involving the genitourinary system
CPT/HCPCS: 36415; 80053; 80061; 81003; 82306; 82607; 82746; 84439; 84443; 85025

== ENCOUNTER 2025-05-05 10:02 | Outpatient (AMB) | payer OTHER, SELFPAY ==
--- NOTE | 2025-05-05 10:20 | MHC.PC.OV ---
Vital Signs 05/05/25 10:21 Height 5 ft Weight 112 lb 6 oz BMI 21.9 BP 126/84 Blood Pressure Location Lt brachial Position Sitting Pulse 70 Pulse Source Pulse Oximeter Pulse Oximetry (%) 95 Oxygen Delivery Method Room Air Intake Visit Reasons: Annual Visit Contract Technician Required: No Accompanied by: Self / Same As Patient Allergies nitrofurantoin Allergy (Intermediate, Verified 05/05/25 10:21) colitis codeine Allergy (Unknown, Verified 05/05/25 10:21) Unknown hydrocodone [From Vicodin] Allergy (Unknown, Verified 05/05/25 10:21) Unknown tramadol Allergy (Unknown, Verified 05/05/25 10:21) Unknown Medication List - Last Reconciled 05/05/25 by Elva Montero Po, acetaminophen (Acetaminophen Extra Strength) 500 mg PO QID PRN amlodipine 5 mg PO DAILY aspirin 81 mg PO DAILY atorvastatin 40 mg PO DAILY Bifidobacterium infantis (Align (B.infantis)) 4 mg PO DAILY 90 days calcium citrate (Citracal) PO BID cephalexin 250 mg PO .QD cevimeline 1 cap PO BID cholecalciferol (vitamin D3) 25 mcg PO .3x per week clonazepam 0.5 mg PO BEDTIME 90 days cranberry extract 400 mg PO DAILY cyclosporine 0.05% (Restasis) 1 drp ophthalmic (eye) BID docusate sodium (Stool Softener) 100 mg PO BID estradiol 0.01%(0.1mg/gram) (Estrace) Use pea-sized amount on fingertip placed vaginally Monday through Monday at bedtime vaginally as directed from medical doctor.; fluticasone furoate-vilanterol 100-25 mcg/dose (Breo Ellipta) 1 inh inhalation DAILY 30 days gabapentin 300 mg PO BEDTIME 90 days metoprolol succinate ER 12.5 mg (1/2 x 25 mg) PO DAILY mirtazapine 15 mg PO BEDTIME pilocarpine HCl 5 mg PO DAILY polyethylene glycol 3350 (Miralax) 17 grams PO DAILY vibegron (Gemtesa) 75 mg PO DAILY vonoprazan (Voquezna) 20 mg PO DAILY zolpidem ER 6.25 mg PO BEDTIME PRN Tobacco use date assessed: 05/05/25 Fall risk assessment: No Falls in past year Last assessed Fall Risk: 05/05/25 Dental Screening Dental Screen Date: 05/05/25 Did you have a dental visit in the last 12 months?: Yes Did you have a dental problem in the last 6 months where you did not have access to dental care?: No Was dental information given to patient?: Patient has dentist HPI Annual Visit HPI Details dizzy [facility] Medical History (Updated 05/05/25 @ 10:41 by Elva Davison MD) Recurrent UTI TSH elevation Urinary incontinence UTI (urinary tract infection) Cystitis Suprapubic discomfort Frequency of urination Achalasia of esophagus COPD (chronic obstructive pulmonary disease) Dysphagia Vocal cord dysfunction Multiple medical problems Headache Pre-operative clearance 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 Lumbar stenosis Vitamin D deficiency HTN (hypertension) CAD (coronary artery disease) Surgical History Hx of cystoscopy History of back surgery H/O spinal fusion Family History Father Heart disease Mother Breast cancer Social History Housing: Apartment Alcohol intake: never Patient Tobacco Use Status: Never used Tobacco e-Cigarette/Vaping Use: Never Used Second Hand Smoke Exposure: No service: No Current occupational status: retired Cognitive needs: No Hearing needs: No Vision needs: Yes (Glasses) Questionnaire PHQ-9 Over the last 2 weeks, how often have you been bothered by any of the following problems? 1. Little interest or pleasure in doing things: not at all 2. Feeling down, depressed, or hopeless: not at all 3. Trouble falling or staying asleep, or sleeping too much: not at all 4. Feeling tired or having little energy: not at all 5. Poor appetite or overeating: not at all 6. Feeling bad about yourself - or that you are a failure or have let yourself or your family down: not at all 7. Trouble concentrating on things, such as reading the newspaper or watching television: not at all 8. Moving or speaking so slowly that other people could have noticed. Or the opposite - being so fidgety or restless that you have been moving around a lot more than usual: not at all 9. Thoughts that you would be better off or of hurting yourself in some way: not at all Total score: 0 Source: Developed by Drs. Kole Vazquez, Livia Marie, Caden Bowman and colleagues, with an educational justus from [employer]. Thrive Questionnaire Date Thrive assessed: 05/05/25 I am a: Patient What is your living situation today?: I have a steady place to live Within the past 12 months, did the food you bought not last and you didn't have the money to get more?: Never true Within the past 12 months, did you worry whether your food would run out before you got money to buy more?: Never true Do you have trouble paying for medicines?: No Do you have trouble getting transportation to medical appointments?: No Do you have trouble paying your heating and electricity bill?: No Do you have trouble taking care of your child, family member or friend?: No Do you have trouble with day-to-day activities such as bathing, preparing meals, shopping, managing finances, etc.?: No Are you currently unemployed and looking for a job?: No Are you interested in more education?: No Please select the resources that you would like help with: None Currently or been in a relationship where the following occur: No concerns reported THRIVE Score: 0 AUDIT C Alcohol Use Questionnaire (AUDIT-C) 1. How often do you have a drink containing alcohol?: Never 3. How often do you have six or more drinks on one occasion?: Never Total Score: 0 NGA-7 AMB Questionnaire NGA-7 Date NGA - 7 assessed: 05/05/25 Feeling nervous, anxious, or on edge: 0 = Not at all Not being able to stop or control worryin = Not at all Worrying too much about different things: 0 = Not at all Trouble relaxin = Not at all Being so restless that it is hard to sit still: 0 = Not at all Becoming easily annoyed or irritable: 0 = Not at all Feeling afraid as if something awful might happen: 0 = Not at all Total NGA-7 score (0-4 normal; 5-9 mild; 10-14 moderate; 15-21 severe): 0 Source: Developed by Livia RobertoW. Frank, Caden Bomwan and colleagues, with an educational justus from [employer]. Review of Systems Const Denies poor appetite and Denies weakness Eyes Denies no additional complaints ENT Reports Normal hearing present, Denies dizziness, Denies nasal congestion, Denies tinnitus and Denies sore throat Card Denies chest pain, Denies syncope, Denies rapid heart rate and Denies dyspnea Resp Denies cough and Denies dyspnea GI Denies change in stool character, Reports constipation, Denies diarrhea, Denies nausea and Denies vomiting Denies urinary frequency, Denies difficulty voiding and Denies dysuria Neuro Reports Normal hearing present, Denies confusion, Denies dizziness, Denies syncope and Denies weakness Psych Denies confusion Physical exam (Primary Care) Vital Signs: Last Vital Signs Pulse 70 05/05/25 10:21 BP 126/84 05/05/25 10:21 Pulse Ox 95 05/05/25 10:21 Oxygen Delivery Method Room Air 05/05/25 10:21 BMI result Body Mass Index 21.9 Tobacco/Smoking Status: Tobacco use Status Tobacco use date assessed 05/05/25 05/05/25 10:30 Patient Tobacco Use Status Never used Tobacco 05/05/25 10:30 e-Cigarette/Vaping Use Never Used 05/05/25 10:30 PHQ-9: PHQ-9 Score PHQ-9: Total score 0 05/05/25 10:43 Thrive Assessment: Date of Thrive Assessment Date Thrive assessed 05/05/25 05/05/25 10:30 Currently or been in a relationship where the following occur: No concerns reported Const General: No confusion Orientation/consciousness: No confusion [facility] Head: Yes normocephalic Ears: external ears normal and TM's normal bilaterally Face and sinus: Yes normal facial exam Mouth: moist mucous membranes Throat: Yes tonsils normal Eyes Conjunctivae: conjunctivae normal Pupils: Equal, round and reactive pupils present and Pupil accommodation reflex normal Direct Ophthalmoscopy: normal light reflex Neck Neck: No lymphadenopathy Thyroid: Thyroid normal Chest Chest palpation & inspection: normal inspection of the chest Resp Effort & Inspection: normal respiratory effort and no audible wheezes Auscultation: clear to auscultation bilaterally, no crackles, no wheezes and lung sounds not diminished Cardio Rate: regular rate Rhythm: regular rhythm Peripheral pulses: radial pulses present and dorsalis pedis present GI Other: guaiac negative Palpation (GI): no masses Auscultation: normal bowel sounds and normoactive bowel sounds Back/Spine/Pelvis Other: 5 inch round mass on the spine Skin General skin exam: no rashes or lesions noted Rashes: no rashes Neuro General: No confusion Cranial nerves: Yes Equal, round and reactive pupils present and Yes Normal hearing present Cognition (Neuro): normal cognition Gait exam (Neuro): Normal gait present Motor exam (neuro): 5/5 motor strength present throughout Deep tendon reflexes (DTR's): Right brachioradialis reflex intensity grade: 2+, Left brachioradialis reflex intensity grade: 2+, Right patellar reflex intensity grade: 2+ and Left patellar reflex intensity grade: 2+ Extrem General: No edema Coding Level of Care Code Est Pt Prev Care >65y(24412) Diagnoses Annual physical exam Z00.00 Coronary artery disease involving [place] coronary artery of [place] heart without angina pectoris I25.10 Associated angina: without angina Coronary Disease-Associated Artery/Lesion type: [place] artery [place] vs. transplanted heart: [place] heart Primary hypertension I10 Hypertension type: primary hypertension Sjogren's disease M35.00 Hypercholesterolemia E78.00 GERD (gastroesophageal reflux disease) K21.9 Generalized anxiety disorder F41.1 OAB (overactive bladder) N32.81 Oral phase dysphagia R13.11 Dysphagia type: oral phase Simple chronic bronchitis J41.0 COPD type: chronic bronchitis Chronic bronchitis type: simple Assessment & Plan Assessment & Plan (1) Annual physical exam: Code(s): Z00.00 - Encounter for general adult medical examination without abnormal findings Category: Medical Plan: Patient is advised to eat healthy, keep well hydrated, keep active and have adequate sleep. (2) CAD (coronary artery disease): Comment: s/p NSTEMI SOWMYA 06/03/2019, Code(s): I25.10 - Atherosclerotic heart disease of [place] coronary artery without angina pectoris Category: Medical Qualifiers: Associated angina: without angina Coronary Disease-Associated Artery/Lesion type: [place] artery [place] vs. transplanted heart: [place] heart Qualified Code(s): I25.10 - Atherosclerotic heart disease of [place] coronary artery without angina pectoris Plan: Control the cholesterol, weight, blood pressure, on aspirin (3) HTN (hypertension): Code(s): I10 - Essential (primary) hypertension Category: Medical Qualifiers: Hypertension type: primary hypertension Qualified Code(s): I10 - Essential (primary) hypertension Plan: Continue with blood pressure medication. Decrease salt intake and exercise takes amlodipine 5 mg once a day metoprolol 12.5 mg once a day (4) Sjogren's disease: Code(s): M35.00 - Sjogren syndrome, unspecified Category: Medical Plan: Continue to follow-up with Rheumatology on cevimeline (5) Hypercholesterolemia: Code(s): E78.00 - Pure hypercholesterolemia, unspecified Category: Medical Plan: Avoid fried foods, chicken skin, eggs, butter margarine, pastries and meat. Be it pork or beef they have a lot of cholesterol patient on atorvastatin 40 mg once a (6) GERD (gastroesophageal reflux disease): Code(s): K21.9 - Gastro-esophageal reflux disease without esophagitis Category: Medical Plan: Avoid the foods that causes that usually spicy foods, tomato products, juices, coffee, soda and foods that your sensitive to. After eating do not lie down, allow 3-4 hours before in lie down. And keep the head of bed above 30 degrees to avoid the acid from going up. (7) Generalized anxiety disorder: Comment: Decline any referral for counseling Code(s): F41.1 - Generalized anxiety disorder Category: Medical Plan: Continue with present medication of clonazepam as needed (8) OAB (overactive bladder): Code(s): N32.81 - Overactive bladder Category: Medical Plan: On Gemtesa as per urology (9) Dysphagia: Code(s): R13.10 - Dysphagia, unspecified Category: Medical Qualifiers: Dysphagia type: oral phase Qualified Code(s): R13.11 - Dysphagia, oral phase Plan: Continue to follow-up with Gastroenterology (10) COPD (chronic obstructive pulmonary disease): Comment: mild based on PFTs Code(s): J44.9 - Chronic obstructive pulmonary disease, unspecified Category: Medical Qualifiers: COPD type: chronic bronchitis Chronic bronchitis type: simple Qualified Code(s): J41.0 - Simple chronic bronchitis Plan: Patient follows up with Pulmonary on Breo Plan History of Present Illness The patient is an 80-year-old female presenting for a physical examination and management of multiple chronic conditions. The patient has a history of coronary artery disease and hypertension, managed with aspirin, amlodipine, and metoprolol. She also has hypercholesterolemia, for which she takes atorvastatin. She has lumbar spinal stenosis and Sj?gren's syndrome with burning mouth syndrome, managed with sevimelin and previously with hydroxychloroquine, which was discontinued. The patient declined a salivary gland biopsy for Sj?gren's syndrome. The patient has a history of gastroesophageal reflux disease, managed with Vukizner, and generalized anxiety disorder, for which she takes clonazepam as needed. She also has chronic obstructive pulmonary disease, managed with Breo inhaler. The patient has been diagnosed with dry eye syndrome and cataracts, with follow-up in ophthalmology. 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 She experiences oropharyngeal dysphagia, which is multifactorial, and has been advised to undergo motility studies. The patient has recurrent cystitis, managed with Gemtesa and cefalexin. Her recent blood work in April 2025 showed mild leukopenia with normal blood count, normal sedimentation rate, and normal renal and liver function. Cholesterol levels were well-controlled with an LDL of 72 mg/dL. The patient has a history of osteoarthritis, confirmed by hand x-rays, and erosive gastritis. She has allergies to tramadol, hydrocodone, codeine, and nitrofurantoin. Health Maintenance - Colonoscopy last performed in 2013 - Mammogram last performed in August 2022 - Bone density scan last performed in May 2024 - Vaccinations: Tetanus up to date, pneumonia vaccine administered - Discussion on COVID-19 and shingles vaccinations Social History - Exercise: Walks 11,000 steps daily - Substance use: Denies alcohol consumption - Nutrition: Drinks approximately 60 ounces of water daily Review of Systems - Cardiovascular: Denies chest pain or heaviness - Respiratory: Denies shortness of breath or dyspnea - Gastrointestinal: Reports oropharyngeal dysphagia, denies nausea or vomiting - Neurological: Reports dizziness, denies headaches - Genitourinary: Denies nocturia - Musculoskeletal: Reports osteoarthritis - Ophthalmological: Reports dry eyes and blurry vision Physical Exam General: Cooperative, healthy appearing, comfortable, no acute distress and well developed Orientation: Patient oriented x3 Limitations: No limitations Head: Normal to inspection Ears: Hearing less than normal bilaterally Nose: Normal external nose present Face and sinus: Normal facial exam Eyes: Appearance normal, both eyes and all related structures Neck: Normal visual inspection and Yes full ROM Respiratory: Normal respiratory effort and able to speak in complete sentences. Clear to auscultation bilaterally Cardiovascular: Regular rate and rhythm. Normal S1 and S2 GI: Normal to inspection. Soft to palpation and nontender Skin: No rashes or lesions noted Neuro: Patient oriented x3 Extremities: Normal to inspection Results - Labs: Mild leukopenia, normal blood count, normal sedimentation rate, normal renal and liver function, LDL 72 mg/dL - Imaging: Hand x-rays showing osteoarthritis Plan The patient will continue with current management for coronary artery disease and hypertension, including aspirin, amlodipine, and metoprolol. Hypercholesterolemia management will continue with atorvastatin. For Sj?gren's syndrome and burning mouth syndrome, the patient will continue sevimelin and has discontinued hydroxychloroquine. The patient declined a salivary gland biopsy. Gastroesophageal reflux disease will be managed with Vukizner, and generalized anxiety disorder with clonazepam as needed. COPD management will continue with Breo inhaler. The patient will follow up with ophthalmology for dry eye syndrome and cataracts, and with rheumatology for nicolas syndrome. Motility studies are advised for oropharyngeal dysphagia. Recurrent cystitis will be managed with Gemtesa and cefalexin. The patient is advised to maintain hydration and continue current medications. Patient was informed and verbally consented to the use of an ambient scribe for clinic note documentation during this visit. Discussion Notes During the visit, I discussed the management of the patient's chronic conditions, including coronary artery disease, hypertension, and hypercholesterolemia, emphasizing the importance of medication adherence. We reviewed the need for continued follow-up with specialists for Sj?gren's syndrome, dry eye syndrome, and cataracts. I advised the patient on the importance of hydration, especially given her dryness issues, and discussed the potential benefits of motility studies for her dysphagia. Patient Instructions - Continue taking aspirin, amlodipine, metoprolol, and atorvastatin as prescribed. - Follow up with ophthalmology and rheumatology as scheduled. - Maintain hydration to help manage dryness symptoms. - Consider motility studies for swallowing difficulties. - Continue using Breo inhaler for COPD management. Medications: New zolpidem ER 6.25 mg PO BEDTIME PRN 30 tabs 0RF sleep Discontinued zolpidem Discontinued Reason: Patient Refused 5 mg PO BEDTIME PRN 90 tabs 0RF sleep
[2025-05-05 10:21] VITALS: BP 126/84; PULSE 70; O2SAT 95; BMI 21.9
--- OUTSIDE RECORDS SUMMARY | 2025-05-05 11:07 | XMS_ITS | Clinical Summary ---
Author Organization [facility] [address] [facility] Address [address] [place] [address] Phone Care Team Providers Care Property Master Name Role Phone Elva Davison MD Primary Care Provider [phone] Allergies Active Allergy Reactions Criticality Noted Date Comments Codeine Dizziness 12/18/2020 Hydrocodone 02/08/2022 Medications mirtazapine (REMERON) 15 mg tablet Take 1 tablet (15 mg total) by mouth. at bedtime. 11/02/20 24 Active gabapentin (NEURONTIN) 300 mg capsule Take 1 capsule (300 mg total) by mouth. 07/02/20 19 Active clonazePAM (KlonoPIN) 0.5 mg disintegrating tablet DISSOLVE 1 TABLET IN MOUTH AT BEDTIME 11/19/20 24 Active estradioL (ESTRACE) 0.01 % (0.1 mg/gram) vaginal cream Insert 1 g into the vagina 5 (five) times a week. Active Align, B.infantis, 4 mg capsule Take 1 capsule by mouth 1 (one) time each day. Active aspirin 81 mg chewable tablet Chew 1 tablet (81 mg total). 06/05/20 19 Active calcium citrate-vitamin D3 (CALTRATE MAXIMUM) 315 mg-6.25 mcg (250 unit) per tablet Take 1 tablet by mouth 2 (two) times a day. Active PreviDent 5000 Dry Mouth 1.1 % paste USE TO BRUSH TEETH DIRECTED BY THE DOCTOR 11/27/19 25 Active metoclopramide (REGLAN) 5 mg tablet TAKE 1 TABLET BY MOUTH ONCE DAILY NEEDED FOR DIFFICULTY SWALLOWING. 12/10/19 25 Active vonoprazan 20 mg tabletIndications: Erosive gastritis Take 1 tablet by mouth 1 (one) time each day. 90 tablet 3 01/13/20 25 026 Active atorvastatin (LIPITOR) 40 mg tablet Take 1 tablet by mouth once daily 90 tablet 1 01/16/20 25 Active metoprolol succinate (TOPROL-XL) 25 mg 24 hr tablet Take 1/2 (one-half) tablet by mouth once daily 45 tablet 1 02/14/20 25 Active cholecalciferol (VITAMIN D-3) 25 mcg (1,000 unit) tablet Take 1 tablet (1,000 Units total) by mouth 3 (three) times a week. Active cephalexin (KEFLEX) 250 mg capsule TAKE 1 CAPSULE BY MOUTH ONCE DAILY FOR UTI SUPPRESSION FOR 90 DAYS Active Breo Ellipta 100-25 mcg/dose inhaler Inhale 1 puff by mouth 1 (one) time each day. 02/01/20 25 Active Gemtesa 75 mg tablet tablet 02/09/20 25 Active zolpidem CR (AMBIEN CR) 6.25 mg [...] by mouth once daily 90 tablet 2 03/18/20 25 Active pilocarpine (SALAGEN) 5 mg tablet Take 1 tablet (5 mg total) by mouth. 025 Discontinu ed(Discont inued by another clinician) hydroxychloroquine (PLAQUENIL) 200 mg tablet Take 1 tablet (200 mg total) by mouth 2 (two) times a day. 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 Dry eyes 12/20/2024 Gastroesophageal reflux disease 12/20/2024 Assessment & Plan (03/06/2025 4:46 PM EDT): Continue Voquenza as directed Sjogren's syndrome ([facility] V24) 12/20/2024 Neoplasm of uncertain behavior [...] a follow-up appointment with his clinic at [place] a few months ago. The plan to [...] symptoms. LDL excellent. Will continue current regimen. Assessment & Plan (04/25/2025 1:20 PM EDT): Coronary artery disease has been stable. Will continue current dose statin, aspirin, and low-dose beta-jordon. She has low QRS voltage but echocardiogram shows no LVH. Probably related to COPD. Orders: ECG 12 lead Hyperlipidemia 12/18/2020 Overview (12/20/2024): Last Assessment & Plan: Well-controlled. Hypertension 12/18/2020 Overview (12/20/2024): Last Assessment & Plan: Overall well-controlled. Asked her to check blood pressure with dizziness. If BPV's disease was not low, could increase amlodipine to 5 mg daily. Ischemic cardiomyopathy 12/18/2020 Overview (12/20/2024): LVEF 25-30% at the time of her [place] in 2019 Recovery to normal Last Assessment & Plan: LV function has recovered. Hemangioma of skin and subcutaneous tissue 09/09 Other seborrheic keratosis 09/09/2020 Paresthesia of skin 09/09/2020 Benign neoplasm of skin of trunk 02/02/2015 Encounters Date Type Department Care Team Description 04/25/2025 9:20 AM EDT Office Visit [facility] - [facility] [address] [facility] [address] [place] [id number] Richelle Hussein MD Coronary artery disease involving quinault coronary artery of quinault heart with other form of angina pectoris (CMS/[facility] V24) (Primary Dx); Benign essential hypertension 03/06/2025 10:30 AM EDT Office Visit Gastroenterology - [address] [facility] [facility] [address] [place] [phone] Laisha Glynn PA Oropharyngeal dysphagia (Primary Dx); Gastroesophageal reflux disease without esophagitis 02/21/2025 12:12 PM EDT Anesthesia Event [facility]oscopy [address] [place] [phone] Ottoniel Burt MD Hard, Shannon, CRNA 02/21/2025 11:20 AM EDT - 02/21/2025 11:59 PM EDT Hospital Encounter [facility] Endoscopy [address] [place] [phone] Philip Kelly MD Hard, Shannon, CRNA Dasilva, John E, MD Abnormal barium swallow; Dysphasia; Erosive gastritis Discharge Disposition: Home or Self Care from Last 3 Months Immunizations Name Administration [...] TONSILLECTOMY ADENOIDECTOMY, BILATERAL MYRINGOTOMY AND TUBES PROCEDURE: [place] TONSILLECTOMY & ADENOIDECTOMY <AGE 10 BACK SURGERY 01/19/2022 PROCEDURE: HISTORICAL BACK SURGERY; COMMENT: Lumbar decomp by Dr. Sawyer COLONOSCOPY 11/26/2013 LUMBAR SPINE SURGERY complicated by spinal fluid leak ESOPHAGOGASTRODUODENOSCOPY 09/27/2021 ESOPHAGOGASTRODUODENOSCOPY 06/05/2005 active gastric ulcer COLONOSCOPY 08/14/2008 ESOPHAGOGASTRODUODENOSCOPY 05/24/2006 ESOPHAGOGASTRODUODENOSCOPY 03/30/1999 COLONOSCOPY 08/14/1997 ESOPHAGOGASTRODUODENOSCOPY Medical History Medical History Date Comments Essential hypertension DX:Essent ial hypertension Hyperlipidemia DX:Hyperlipidemi a Sjogren syndrome, unspecifie d ([facility] V24) DX:Sjogren syndrome, unspeci fied (HCC) Insomnia DX:Insomnia Chronic constipation GERD (gastroesophageal [...] Sign Reading Time Taken Comments Blood Pressure 138/60 04/25/2025 9:09 AM EDT Pulse 71 04/25/2025 9:09 AM EDT Temperature 36.2 ??C (97.2 ??F) 02/21/2025 11:55 AM E DT Respiratory Rate 16 02/21/2025 12:49 PM EDT Oxygen Saturation 99% 04/25/2025 9:09 AM EDT Inhaled Oxygen Concentration - - Weight 51.7 kg (114 lb) 04/25/2025 9:09 AM EDT Height 152.4 cm (5') 04/25/2025 9:09 AM EDT Body Mass Index 22.26 04/25/2025 9:09 AM EDT Plan of Treatment Health Maintenance Due Date Last Done Comments Zoster Vaccines (1 of 2) 1962 RSV Immunization Adult Patients (1 - 1-dose 75+ series) 2018 Cholesterol Screening (Lipid Panel) 10/19/2022 Depression Screening 10/19/2022 Social Influencers of Health Screening 10/19/2022 Hypertension/CHF/CAD Annual BMP Blood Test 10/27/2022 COVID-19 Vaccine (9 - Mixed Product risk ) 03/12/2025 09/11/2024, 09/04/2023, 08/19/2022, Additional history exists Falls [...] Procedure Name Priority Date/Time Associated Diagnosis Comments EXTERNAL CLINICAL LAB Routine 04/25/2025 1:54 PM EDT ECG 12-LEAD Routine 04/25/2025 9:12 AM EDT Coronary artery disease involving quinault coronary artery of quinault heart with other form of angina pectoris (CMS/HCC V24) EGD Routine 02/21/2025 12:28 PM EDT Abnormal barium swallow Dysphasia Erosive gastritis TISSUE EXAM Routine 02/21/2025 12:21 PM EDT Abnormal barium swallow Dysphasia Erosive gastritis ARAVIND DEXA AXIAL SKELETON Routine 09/14/2021 11:43 AM EDT Encounter for screening for osteoporosis from Last 3 Months or Most Recently Relevant to Health Maintenance Results * External clinical lab (04/25/2025 1:54 PM EDT) Historical Provider LAB BLOOD ORDERABLES Annel l Result * ECG 12 lead (04/25/2025 9:12 AM EDT) Ventricular Rate ECG 71 BPM GEMUSE Atrial Rate 71 BPM GEMUSE P-R Interval 178 ms GEMUSE QRS Duration 84 ms GEMUSE Q-T Interval 392 ms GEMUSE QTc 425 ms GEMUSE P Wave [place] 56 degrees GEMUSE R [place] 29 degrees GEMUSE T [place] 51 degrees GEMUSE ECG Interpretation Normal sinus rhythm Low voltage QRS Abnormal ECG When compared with ECG of 03-JUN-2019 15:54, No significant change was found Confirmed by Robinson HUSSEIN YUFENG ([id number]) on 04/25/2025 12:43:39 PM GEMUSE 04/25/2025 9:12 AM EDT 04/25/2025 12:43 PM EDT Richelle Hussein MD ECG ORDERABLES Final Result GEMUSE * EGD Anesthesia - MAC; [facility] ENDOSCOPY (02/21/2025 12:28 PM EDT) Anatomical Region [...] pathology results. Narrative 02/21/2025 12:28 PM EDT [facility] GI Patient Name: Kavita Roman Procedure [...] Procedure Code(s): ? --- Professional --- ? 59091, Esophagogastroduodenoscopy, flexible, ? transoral; with transendoscopic balloon dilation of ? esophagus (less than 30 mm diameter) Diagnosis Code(s): ? --- Professional --- ? R13.12, Dysphagia, oropharyngeal phase CPT copyright 2020 [employer] [employer]. All rights reserved. The codes documented in this report are preliminary and upon inspector barrel review may be revised to meet current compliance requirements. MD Philip Godoy MD 02/21/2025 12:28:45 PM This report has been signed electronically.Philip Kelly MD Number of Addenda: 0 Note Initiated On: 02/21/2025 12:07 PM Scope In: Scope Out: ? Endoscopy Department at [facility] - [address] [place] [address], ? [place] [address] Procedure Note Philip Kelly MD - 02/21/2025 [facility] GI Patient Name: Kavita Roman Procedure [...] for histology. Procedure Code(s): --- Professional --- 88870, Esophagogastroduodenoscopy, flexible, transoral; with transendoscopic balloon dilation of esophagus (less than 30 mm diameter) Diagnosis Code(s): --- Professional --- R13.12, Dysphagia, oropharyngeal phase CPT copyright 2020 [employer] [employer]. All rights reserved. The codes documented in this report are preliminary and upon inspector barrel reviewmay be revised to meet current compliance requirements. MD Philip Godoy MD 02/21/2025 12:28:45 PM This report has been signed electronically.Philip Kelly MD Number of Addenda: 0 Note Initiated On: 02/21/2025 12:07 PM Scope In: Scope Out: Endoscopy Department at [facility] - [address] [place] [phone] IMPRESSION: - Normal esophagus. - Normal stomach. [...] for intraepithelial eosinophils. 02/24/2025 9:12 AM EDT [facility] ([facility]) [facility] Gross Description A. Esophagus, biopsies mid and lower: Labeled biopsies esophagus . Received in formalin are three soft, white, red-stippled tissue fragments ranging from 0.25 cm to 0.45 cm in greatest diameter, which are wrapped in paper and submitted in toto in one cassette, three pieces, multiple levels. TS 02/24/2025 9:12 AM EDT [facility]) [facility] Disclaimer Unless otherwise specified, all tissue is 10% NB formalin fixed and paraffin embedded. 02/24/2025 9:12 AM EDT [facility] Tissue Esophageal structure / Unknown 02/21/2025 12:21 PM EDT 02/21/2025 1:11 PM EDT us Philip Kelly MD LAB PATHOLOGY ORDERABLES Final Result [facility]) [facility] [address] [place] [address], * [facility] DEXA AXIAL SKELETON (09/14/2021 11:43 AM EDT) Anatomical Region Laterality Modality Mammography 09/14/2021 8:48 AM EDT Narrative 09/14/2021 11:43 AM EDT [facility] Diagnostic Imaging Department [address] [place] [address] Patient: ??KAVITA ROMAN SR ?/Age/Sex: 1945 - 76 - F Unit#: ??[id number] ? Location/Status: ??SPDIMAM/REG CLI ? Mnemonic/Ordering Site: ??MAMDEXAAX/SPMAM Ordering Physician: ??DEX TOLENTINO MD Aravind Dexa Axial Skeleton - 09/14/21942 History: Low estrogen state due to menopause. Height loss. Comparison: 10/14/15 Findings: Bone densitometry is performed utilizing dual energy x-ray absorptiometry (DXA) in the [employer] unit. The lumbar spine and proximal femora [...] 12.4 percent ??Hip 3.0 percent. IMPRESSION: Osteopenia. [id number] Dictating Physician: ??MERCEDES VANESSA MD Electronically Signed by: ??MERCEDES VANESSA MD Dic Date/Time: ??09/14/21 1142 Sign date/Time: ??09/14/21 1143 Procedure Note Mercedes Vanessa MD - 11/09/2022 [facility] Diagnostic Imaging Department [address] [place] [address] Patient: KAVITA ROMAN /Age/Sex: 1945 - 76 - F Unit#: [id number] Location/Status: SPDIMAM/REG CLI [facility] Ordering Physician: DEX TOLENTINO MD Aravind Dexa Axial Skeleton - 09/14/21942 History: Low estrogen state due to menopause. Height loss. Comparison: 10/14/15 Findings: Bone densitometry is performed utilizing dual energy x-ray absorptiometry(DXA) in the [employer] unit. The lumbar spine and proximal femora [...] 12.4 percent Hip 3.0 percent. IMPRESSION: Osteopenia. [id number] Dictating Physician: MERCEDES VANESSA MD Electronically Signed by: MERCEDES VANESSA MD Dic Date/Time: 09/14/21 1142 Sign date/Time: 09/14/21 1143 Dex Tolentino MD IMG BI PROCEDURES Final Result from Last 3 Months or Most Recently Relevant to Health Maintenance Insurance [facility] Member Subscriber Plan / Payer (Ef fective 2024-Present) Name:Kavita Roman Relation to Subscriber:Self Name:Kavita Roman Sr. 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
== END 2025-05-05 11:15 | disposition home or self-care (01) ==
LOC: HO.HMCH 10:03
PROVIDERS: PCP Internal Medicine; Visit Provider Internal Medicine
DX: Z00.00 Encounter for general adult medical examination without abnormal findings (principal); I25.10 Atherosclerotic heart disease of native coronary artery without angina pectoris; J41.0 Simple chronic bronchitis; I10 Essential (primary) hypertension; M35.00 Sjogren syndrome, unspecified; E78.00 Pure hypercholesterolemia, unspecified; K21.9 Gastro-esophageal reflux disease without esophagitis; F41.1 Generalized anxiety disorder; N32.81 Overactive bladder; R13.11 Dysphagia, oral phase

== ENCOUNTER → 2025-05-05 10:02 | Outpatient (BNVA) | payer OTHER, SELFPAY | PROVIDERS: PCP Internal Medicine; Visit Provider Internal Medicine | DX: Z00.00 Encounter for general adult medical examination without abnormal findings (principal); I25.10 Atherosclerotic heart disease of native coronary artery without angina pectoris; I10 Essential (primary) hypertension; M35.00 Sjogren syndrome, unspecified; E78.00 Pure hypercholesterolemia, unspecified; K21.9 Gastro-esophageal reflux disease without esophagitis; F41.1 Generalized anxiety disorder; N32.81 Overactive bladder; R13.11 Dysphagia, oral phase; J41.0 Simple chronic bronchitis | CPT/HCPCS: 96127; 99397 ==

== ENCOUNTER 2025-06-26 08:23 | Outpatient (AMB) | payer OTHER, SELFPAY ==
--- NOTE | 2025-06-26 08:25 | AM.OFFWIN_ITS ---
Intake Vital Signs 06/26/25 08:26 Height 5 ft Weight 112 lb 4 oz BMI 21.9 BP 156/96 H Blood Pressure Location Lt brachial Position Sitting Pulse 74 Pulse Source Pulse Oximeter Temp 97.5 F Temp Source Oral Pulse Oximetry (%) 93 Oxygen Delivery Method Room Air Intake Visit Reasons: EP UTI? Patient Tobacco Use Status: Never used Tobacco Under Baster Required: No Is last menstrual period known: No Post menopausal: Yes Patient : No Allergies nitrofurantoin Allergy (Intermediate, Verified 06/26/25 08:44) colitis codeine Allergy (Unknown, Verified 06/26/25 08:44) Unknown hydrocodone (From Vicodin) Allergy (Unknown, Verified 06/26/25 08:44) Unknown tramadol Allergy (Unknown, Verified 06/26/25 08:44) Unknown Do you need a note to return to daycare/school/sports/work: No HPI HPI Comments History of Present Illness Details History - The patient is an 80-year-old female p resenting with symptoms of a urinary tract infection. - She reports pain and burning sensation during urination, with frequent urination throughout the night. - The patient has a history of recurrent urinary tract infections, with the last episode occurring in January. - She is currently on chronic cephalexin and gemtesa for urinary tract infection management from her urologist. - Ciprofloxacin is prescribed for breakt hrough infections. - The patient has Sjogren's syndrome, ca using dry eyes and requiring special eye drops every two hours. - She denies fever, chills, CP, SOB, abd pain, n/v/d, or back pain. - She denies hematuria, vaginal discharg e, or vaginal bleeding. Physical Exam General: Cooperative, healthy appearing, comfortable, no acute distress and well developed Cardiac: Normal S1 and S2. RRR, no M/R/G noted. Respiratory: Normal respiratory effort and able to speak in complete sentences. Clear to auscultation bilaterally. No w/r/r noted. Skin: No rashes or lesions noted. GI: Normal inspection. Normal BS noted. Soft, non-tender, non-distended. No TTP of all 4 quadrants. No guarding or rebound tenderness noted. Back: Negative CVA bilaterally Patient was informed and verbally consented to the use of an ambient scribe for clinic note documentation during this visit. 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 Lumbar stenosis Vitamin D deficiency HTN (hypertension) CAD (coronary artery disease) Surgical History Hx of cystoscopy History of back surgery H/O spinal fusion Family History Father Heart disease Mother Breast cancer Social History Housing: Apartment Alcohol intake: never Patient Tobacco Use Status: Never used Tobacco e-Cigarette/Vaping Use: Never Used Second Hand Smoke Exposure: No Patient : No service: No Current occupational status: retired Cognitive needs: No Hearing needs: No Vision needs: Yes (Glasses) Review of Systems Const All systems reviewed & are unremarkable except as noted in HPI and below Physical Exam Vital Signs: Last Vital Signs Temp 97.5 F 06/26/25 08:26 Pulse 74 06/26/25 08:26 BP 156/96 H 06/26/25 08:26 Pulse Ox 93 06/26/25 08:26 Oxygen Delivery Method Room Air 06/26/25 08:26 BMI result Body Mass Index 21.9 Assessment & Plan Assessment & Plan (1) OAB (overactive bladder): Code(s): N32.81 - Overactive bladder (2) Dysuria: Code(s): R30.0 - Dysuria Plan Most likely UTI unable to provide a urine sample in the office today Plan - Ciprofloxacin prescribed for current symptoms. - Urine sample requested for UA and culture to identify causative organism. - Will give her a sterile sample cup to take home and then bring back later today. - follow up with urology - follow up with PCP Orders: Orders UA CC w/rflx Micro + Cult Today N32.81 - Overactive bladder, R30.0 - Dysuria Medications: New ciprofloxacin HCl 250 mg PO Q12H 14 tabs 0RF 7 days Coding Level of Care Code Est Pt Level 3 (59420) Diagnoses OAB (overactive bladder) N32.81 Dysuria R30.0
[2025-06-26 08:26] VITALS: BP 156/96; PULSE 74; TEMP 36.4; O2SAT 93; BMI 21.9
--- OUTSIDE RECORDS SUMMARY | 2025-06-26 08:33 | XMS_ITS | Clinical Summary ---
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 Dry eyes 12/20/2024 Gastroesophageal reflux disease 12/20/2024 Assessment & Plan (03/06/2025 4:46 PM EDT): Continue Voquenza as directed Sjogren's syndrome ([facility] V24) 12/20/2024 Neoplasm of uncertain behavior of [...] a follow-up appointment with his clinic at [place] a few months ago. The plan to [...] LVEF 25-30% at the time of her UT in 2019 Recovery to normal Last Assessment & Plan: LV function has recovered. 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 Sawyer COLONOSCOPY 11/26/2013 LUMBAR SPINE SURGERY complicated by spinal fluid leak ESOPHAGOGASTRODUODENOSCOPY 09/27/2021 ESOPHAGOGASTRODUODENOSCOPY 06/05/2005 active gastric ulcer COLONOSCOPY 08/14/2008 ESOPHAGOGASTRODUODENOSCOPY 05/24/2006 ESOPHAGOGASTRODUODENOSCOPY 03/30/1999 COLONOSCOPY 08/14/1997 ESOPHAGOGASTRODUODENOSCOPY Medical History Medical History Date Comments Essential hypertension DX:Essent ial hypertension Hyperlipidemia DX:Hyperlipidemi a Sjogren syndrome, unspecifie d ([facility] V24) DX:Sjogren syndrome, unspeci fied ([facility]) Insomnia DX:Insomnia Chronic constipation GERD (gastroesophageal reflux disease) Arthritis Myocardial infarction ([facility] V24, [facility] V28) Family History Medical History Relation Name [...] 69 04/25/2025 9:09 AM EDT Temperature 36.2 C (97.2 F) 02/21/2025 11:55 AM EDT Respiratory Rate 16 02/21/2025 12:49 PM EDT [...] series) 2018 Cholesterol Screening (Lipid Panel) 10/19/2022 Medicare Annual Wellness Visit 10/19/2022 Social Influencers of Health Screening 10/19/2022 Hypertension/CHF/CAD Annual BMP Blood Test 10/27/2022 Depression Screening 11/20/2024 COVID-19 Vaccine (9 - Mixed Product risk season) 2025 09/11/2024, 09/04/2023, 08/19/2022, Additional history exists Influenza Vaccine (#1) 2025 , 08/23/2023, 08/31/2022, Additional history exists Falls Risk Assessment 02/21/2026 02/21/2025 Osteoporosis Screening (Bone Density Screening) 09/14/2031 09/14/2021 DTaP,Tdap,and Td Vaccines (3 - Td or Tdap) 04/29/2032 04/29/2022, 06/20/2007 Pneumococcal Vaccine: 50+ Years Completed 02/16/2015, 08/26/2009, 08/17/1999 HIB Vaccines Aged Out No longer eligi [...] 9:12 AM EDT Coronary artery disease involving cantwell coronary artery 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 ([facility] V24) [facility] Routine 09/14/2021 11:43 AM EDT Encounter for screening for osteoporosis from Last 3 Months or Most Recently Relevant to Health Maintenance Results * External clinical lab (04/25/2025 1:54 PM EDT) [facility] Provider LAB BLOOD ORDERABLES Annel l Result * ECG 12 lead (04/25/2025 9:12 AM EDT) Ventricular Rate ECG 71 BPM GEMUSE Atrial Rate 71 BPM GEMUSE P-R Interval 178 ms GEMUSE QRS Duration 84 ms GEMUSE Q-T Interval 392 ms GEMUSE QTc 425 ms GEMUSE P Wave [place] 56 degrees GEMUSE R [place] 29 degrees GEMUSE T [place] 51 degrees GEMUSE ECG Interpretation Normal sinus rhythm Low voltage QRS Abnormal ECG When compared with ECG of 03-JUN-2019 15:54, No significant change was found Confirmed by Robinson HUSSEIN YUFENG ([id number]) on 04/25/2025 12:43:39 PM GEMUSE 04/25/2025 9:12 AM EDT 04/25/2025 12:43 PM EDT Richelle Hussein MD ECG ORDERABLES Final Result GEMUSE * [facility] (09/14/2021 11:43 AM EDT) Anatomical Region Laterality Modality Mammography 09/14/2021 8:48 AM EDT Narrative 09/14/2021 11:43 AM EDT [facility] Diagnostic Imaging Department [address] [place], [place] [id number] Patient: KAVITA NAVARRETE /Age/Sex: 1945 - 76 - F Unit#: [id number] Location/Status: SPDIMAM/REG CLI Mnemonic/[facility] Ordering Physician: DEX TOLENTINO MD [facility] Dexa Axial Skeleton - 09/14/21942 History: Low estrogen state due to menopause. Height loss. Comparison: 10/14/15 Findings: Bone densitometry is performed utilizing dual energy x-ray absorptiometry (DXA) in the IncapigLOC&ALL unit. The lumbar spine and proximal femora are evaluated in the AP projection. The FRAX questionaire was completed. The results indicate low bone mass (osteopenia), with a right femoral neck T- score of -1.5. There have been statistically significant decreases in bone mineral density in the bilateral total femurs since the previous study. The detailed DEXA report will be mailed to the referring physician's office. DualFemur FRAX: 10-year Probability of Fracture: Major Osteoporotic 12.4 percent Hip 3.0 percent. IMPRESSION: Osteopenia. [id number] Dictating Physician: MERCEDES VANESSA MD Electronically Signed by: MERCEDES VANESSA MD Dic Date/Time: 09/14/21 1142 Sign date/Time: 09/14/21 1143 Procedure Note Mercedes Vanessa MD - 11/09/2022 [facility] Diagnostic Imaging Department [address] [place] [id number] Patient: KAVITA NAVARRETE /Age/Sex: 1945 - 76 - F Unit#: [id number] Location/Status: SPDIMA/REG CLI Mnemonic/[facility] Ordering Physician: DEX TOLENTINO MD [facility] Dexa Axial Skeleton - 09/14/21942 History: Low estrogen state due to menopause. Height loss. Comparison: 10/14/15 Findings: Bone densitometry is performed utilizing dual energy x-ray absorptiometry(DXA) in the Incapigy unit. The lumbar spine and proximal femora [...] 12.4 percent Hip 3.0 percent. IMPRESSION: Osteopenia. [id number] Dictating Physician: MERCEDES VANESSA MD Electronically Signed by: MERCEDES VANESSA MD Dic Date/Time: 09/14/21 114 Sign date/Time: 09/14/211142 Dex Tolentino MD IMG BI PROCEDURES Final Result from Last 3 Months or Most Recently Relevant to Health Maintenance Insurance [employer] Member Subscriber Plan / Payer (Ef fective 2024-Present) Name:Kavita Navarrete Sr. Relation to Subscriber:Self Name:Kavita Navarrete . 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
--- OUTSIDE RECORDS SUMMARY | 2025-06-26 08:33 | XMS_ITS | Encounter Summary ---
Author Organization [facility] Address [address] [place] [phone] Phone Care Team Providers Care Heel Sander Name Role Phone Johana Jaimes MD Primary Care Provider [phone] Reason for Visit * Auth/Cert Specialty Diagnoses / Procedures Referred By Contac t Referred To Contact Diagnoses Xerostomia Xerostomia Procedures MN BIOPSY SOFT TISSUE NECK/CHEST MN BIOPSY SALIVARY GLAND,NEEDLE MN BIOPSY SALIVARY GLAND,INCISIONAL BIOPSY SOFT TISSUE ( MINOR SALIVARY BIOPSY) Referral ID Status Reason Start Date Expiration Date Visits Re quested Visits Authorized [id number] 1 1 Encounter Details Date Type Department Care Team (Late st Contact Info) Description 08/16/2019 Hospital Encounter [facility]IOP DEPT [address] [place] [id number] Jordan Velez MD [address] [place] [id number] [email or web address] Social History Tobacco Use Types Packs/Day Years Used Date Smoking Tobacco: Never Smokeless Tobacco: Never Alcohol Use Standard Drinks/Week Comments Never 0 (1 standard drink = 0.6 oz pur e alcohol) Education Answer Date Recorded Are you interested in more education? Not on ian e 03/19/2023 Are you concerned about learning? Not on file 03/19/2023 No 03/19/2023 No 03/19/2023 Digital Access Answer Date Recorded No 04/16/2023 No 04/16/2023 No 04/16/2023 Reliable internet access at home? Not on file 04/16/2023 Device with a working camera? Not on file Comments Unknown Sex and Gender Information Value Date Recorded Sex Assigned at Not on file Legal Sex Female 5:21 PM EST Gender Identity Not on file Sexual Orientation Not on file documented as of this encounter Plan of Treatment Not on file documented as of this encounter Visit Diagnoses Not on filedocumented in this encounter Care Teams Heel Sander Relationship Specialty Start Date End Date Johana Jaimes MD [address] [place] [address] PCP - General Internal Medicine 08/07/19 documented as of this encounter Additional Source Comments The information contained in this document represents components of the legal health record. It is not the complete legal health record.[facility]
--- OUTSIDE RECORDS SUMMARY | 2025-06-26 08:34 | XMS_ITS | Patient Health Record ---
Author Organization [facility] Address [address] [place] [address] Care Team Providers Care Electrical Project Engineer Name Role Phone Elva Davison Primary Care Provider Charity Weber Unavailable [phone] Allergies Allergen (clinical drug ingredient) Drug/Non Drug Allergy documented on EMR Reaction Allergy Type Onset Date Status codeine Codeine Unknown Drug Allergy Active Reason For Referral No Information Medications Medication SIG (Take, Route, Frequency, Duration) Notes Start Date End Date Status Gemtesa Active Cephalexin Active Breo Ellipta Active Metoprolol Succinate ER Active Atorvastatin Calcium Active Gabapentin Active clonazePAM Active Cevimeline HCl Activ e Voquezna Active amLODIPine Besylate Active Pilocarpine HCl Not- Taking Mirtazapine Active Hydroxychloroquine Sulfate Not-Taking Zolpidem Tartrate Ac tive Immunizations Vaccine Route Administration Date Status Comme nts Influenza Unknown 08/20/2024 Administered Social History Tobacco Use: Social History Observation [...] ast year? No Points 0 Interpretation Negative Problems Problem Type SNOMED Code ICD Code Onset Dates Problem Status W/U Status Risk Notes Problem Acquired hallux valgus (37608805) Hallux valgus (acquired), left foot (M20.12) Active confirmed Vital Signs Blood pressure diastolic 70 mm Hg 04/09/2025 Height 5 ft in 06/18/2025 Blood pressure systolic 128 mm Hg 04/09/2025 Weight 110 lbs 06/18/2025 BMI 21.48 kg/m2 06/18/2025 Encounters Encounter Location Date Provider Diagnosis [address] [address] 04/09/2025 Charity Champion Pain in left foot M79.672 ; Pain in left ankle and joints of left foot M25.572 ; Bursitis of left foot M77.52 and Sesamoiditis of left foot M25.[address] [address] 06/18/2025 Charity Champion Pain in left foot M79.672 ; Pain in left ankle and joints of left foot M25.572 ; Bursitis of left foot M77.52 and Sesamoiditis of left foot M25.[address] [address] 06/18/2025 Charity Champino [address] [address] 01/20/2025 Charity Champion [address] [address] 02/17/2025 Charityjazmyne Champion [address] [address] 06/18/2025 Charity Champion Assessments Encounter Date Diagnosis (ICD Code) Assessment Notes Treatment Notes Treatment Clinical Notes Section Notes 04/09/2025 Pain in left ankle and joints of left foot (ICD-10 - M25.572) 04/09/2025 Pain in left foot (ICD-10 - M79.672) 06/18/2025 Pain in left ankle and joints of left foot (ICD-10 - M25.572) 06/18/2025 Pain in left foot (ICD-10 - M79.672) 06/18/2025 Bursitis of left foot (ICD-10 - M77.52) 04/09/2025 Bursitis of left foot (ICD-10 - M77.52) 04/09/2025 Sesamoiditis of left foot (ICD-10 - M25.872) 06/18/2025 Sesamoiditis of left foot (ICD-10 - M25.872) Plan Of Treatment Pending Test Test Name Order Date X ray : Foot, left 3V 04/09/2025 Next Appt Details Provider Name:Charity brooks, 08/12/2025 10:00:00 AM, [address], [address], [place], [address], Insurance Providers Payer Name Payer Address Payer Phone Subscriber Number Group Number Insured Name Patient Relationship to Insured Coverage Start Date Coverage End Date [facility] [employer] Claims [address] [id number] Kavita Roman Self - patient is the insured Medical (General) History Medical History History ICD Code Arthritis CAD (Cholesterol) Heart disease High Blood Pressure raynauds disease Reflux ( GERD) Sjogren syndrome Measles Mumps Chicken pox cystitis Surgical History Surgery Date(Month/Year) Spinal Fusion 10/05/05 Removal of Handware 12/20/06 Stent 05/2019 Back Sx 2021
== END 2025-06-26 09:39 | disposition home or self-care (01) ==
PROVIDERS: PCP Internal Medicine; Visit Provider Physician Assistant Medical
DX: N32.81 Overactive bladder (principal); R30.0 Dysuria

== ENCOUNTER 2025-06-26 10:00 | Outpatient (REF) | payer OTHER, SELFPAY ==
[2025-06-26 13:10] LABS: Appearance Urine Clear; Glucose Urine UA Negative (Negative); PH 6.5 (5.0-9.0); Specific Gravity - Urine <= 1.005 (1.005-1.025); UMIC TRIGGER UACC YES
[2025-06-26 13:31] LABS: UACC Culture Trigger YES
== END 2025-06-26 10:01 | disposition home or self-care (01) ==
LOC: HO.HMGCLNP 10:00
PROVIDERS: PCP Internal Medicine; Visit Provider Physician Assistant Medical
DX: N32.81 Overactive bladder (principal); R35.0 Frequency of micturition; R30.0 Dysuria
CPT/HCPCS: 81001; 81003; 87086; 99212

== ENCOUNTER 2025-07-17 08:46 | Outpatient (REF) | payer OTHER, SELFPAY ==
[2025-07-24 14:22] LABS: Kappa, Serum 147 mg/dL (176-443); Kappa/Lambda Ratio, Serum 1.88 (1.29-2.55); Lambda, Serum 78 mg/dL (91-240)
== END 2025-07-17 08:47 | disposition home or self-care (01) ==
LOC: HO.HKASLDS 08:46
PROVIDERS: PCP Internal Medicine; Visit Provider Internal Medicine Rheumatology
DX: M35.00 Sjogren syndrome, unspecified (principal); H04.123 Dry eye syndrome of bilateral lacrimal glands; M15.4 Erosive (osteo)arthritis; K14.6 Glossodynia; R13.10 Dysphagia, unspecified; H16.9 Unspecified keratitis; H16.8 Other keratitis; D80.1 Nonfamilial hypogammaglobulinemia; Z79.899 Other long term (current) drug therapy
CPT/HCPCS: 36415; 83883; 99212

== ENCOUNTER 2025-07-17 08:46 | Outpatient (AMB) | payer OTHER, SELFPAY ==
--- NOTE | 2025-07-17 08:51 | MHC.OFFVIS ---
Vital Signs 07/17/25 08:52 Height 5 ft Weight 110 lb 14.28 oz BMI 21.7 BP 120/80 Blood Pressure Location Rt brachial Position Sitting Pulse 69 Pulse Source Pulse Oximeter Pulse Oximetry (%) 94 Oxygen Delivery Method Room Air Intake Visit Reasons: 3 Months Intake Note: Patient presents for SS follow up. Accompanied by: Health Care Proxy Allergies nitrofurantoin Allergy (Intermediate, Verified 07/17/25 08:55) colitis codeine Allergy (Unknown, Verified 07/17/25 08:55) Unknown hydrocodone (From Vicodin) Allergy (Unknown, Verified 07/17/25 08:55) Unknown tramadol Allergy (Unknown, Verified 07/17/25 08:55) Unknown Medication List - Last Reconciled 07/17/25 by Bean Lee MD acetaminophen (Acetaminophen Extra Strength) 500 mg PO QID PRN amlodipine 5 mg PO DAILY aspirin 81 mg PO DAILY atorvastatin 40 mg PO DAILY Bifidobacterium infantis (Align (B.infantis)) 4 mg PO DAILY 90 days calcium citrate (Citracal) PO BID cevimeline 1 cap PO BID cholecalciferol (vitamin D3) 25 mcg PO .3x per week ciprofloxacin HCl 250 mg PO Q12H 7 days cranberry extract 400 mg PO DAILY docusate sodium (Stool Softener) 100 mg PO BID estradiol 0.01%(0.1mg/gram) (Estrace) Use pea-sized amount on fingertip placed vaginally Monday through Monday at bedtime vaginally as directed from medical doctor.; fluticasone furoate-vilanterol 100-25 mcg/dose (Breo Ellipta) 1 inh inhalation DAILY 30 days gabapentin 300 mg PO BEDTIME 90 days metoprolol succinate ER 12.5 mg (1/2 x 25 mg) PO DAILY mirtazapine 15 mg PO BEDTIME pilocarpine HCl 5 mg PO DAILY polyethylene glycol 3350 (Miralax) 17 grams PO DAILY vibegron (Gemtesa) 75 mg PO DAILY vonoprazan (Voquezna) 20 mg PO DAILY zolpidem ER 6.25 mg PO BEDTIME PRN HPI HPI 3 Months: Details: She has been seeing opthalmologist Dr. 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 Dx with neurotrophic keratitis treated with Oxervate ?and pulsed light treatment. She also will be starting a new treatment for eyes. She will be following up tomorrow. New joint pain. Denies dyspnea, pleurisy, joint swelling, urinary symptoms. She has been treated for recurrent UTIs. She continues to take pilocarpine 5 mg with cevimeline 30mg BID. 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 Lumbar stenosis Vitamin D deficiency HTN (hypertension) CAD (coronary artery disease) Surgical History Hx of cystoscopy History of back surgery H/O spinal fusion Family History Father Heart disease Mother Breast cancer Social History Housing: Apartment Alcohol intake: never Patient Tobacco Use Status: Never used Tobacco e-Cigarette/Vaping Use: Never Used Second Hand Smoke Exposure: No service: No Current occupational status: retired Cognitive needs: No Hearing needs: No Vision needs: Yes (Glasses) Physical Exam Vital Signs: Last Vital Signs Pulse 69 07/17/25 08:52 BP 120/80 07/17/25 08:52 Pulse Ox 94 07/17/25 08:52 Oxygen Delivery Method Room Air 07/17/25 08:52 BMI result Body Mass Index 21.7 Const Other: General: Comfortable CVS: RRR Oral: Dry mouth Lymph nodes: No cervical lymphadenopathy palpated. Respiratory: clear to auscultation bilaterally. Good respiratory effort Skin: No lesions seen MSK: Ulnar deviation of bilateral hands. No tender joints. No synovitis. Normal range of motion of upper extremity and lower extremity. Hallux valgus deformity left foot Results Reviewed Results Reviewed: Ordering Physician: Bean Lee MD Date of Service: 03/20/25 Procedure(s): XR hand RT min 3V Accession Number(s): [id number] cc: Elva Davison MD; Bean Lee MD~ EXAMINATION: XR HAND, RIGHT CLINICAL INFORMATION: M21.839 - Other specified acquired deformities of unspecified forearm COMPARISON: None available. TECHNIQUE: PA, lateral, and oblique views of the right hand. FINDINGS: There is normal bone mineralization. There is no periarticular osteopenia. There is no fracture, dislocation, or suspicious bone abnormality. 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 The DIP joints, and MCP joints appear preserved. There is minimal degenerative appearing arthritis in the STT joints and first CMC joint. Mild radiocarpal joint space narrowing. Carpus appears intact and normally aligned. Mild negative ulnar variance. No blunting of the ulnar styloid. Soft tissues appear normal. XR/XR hand RT min 3V IMPRESSION: 1. No acute bony abnormalities. 2. Moderate osteoarthrosis most notable in the DIP joints of the digits and interphalangeal joint of the thumb. 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 Assessment & Plan Assessment & Plan (1) Sjogren's disease: Comment: Sicca symptoms are not controlled. She recently established with dry eyes specialist Dr. Arguello in his receiving treatment for neurotrophic keratitis. When she discontinued pilocarpine and remain on cevimeline she had extreme dryness of her mouth and throat. She restarted pilocarpine 5 mg daily. We discussed the increased risk of side effects with taking both pilocarpine and cevimeline. I recommend that she only has 1 of these agents. There is opportunity to increase cevimeline frequency to 3 times a day. Labs reveal chronic stable leukopenia, which can be seen in Sjogren syndrome. She has hypogammaglobulinemia. 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 Chronic leukopenia. Negative NATHEN, SSA, SSB, rheumatoid factor, normal inflammatory markers, normal IgG 4 subclasses, parotid ultrasound gland normal. She had minor salivary gland biopsy in August 2024 but sample did not have salivary gland for analysis. Patient does not wish to pursue another minor salivary gland biopsy due to pain and numbness that she experienced 4 months after procedure, which is understandable. Code(s): M35.00 - Sjogren syndrome, unspecified Category: Medical Plan: Requesting clinical notes from Dr. Arguello including elvira's test. Increased frequency of cevimeline 30 mg 3 times a day Smoot/lambda light chains and UPEP ordered Continue to use Biotene products OTC and XyliMelts OTC She will follow up with Dr. Arguello for treatment of dry eyes/neurotrophic keratitis She will follow up with GI for management of dysphagia. She recently had dilatation of esophagus without benefit. Return to clinic in 3 months (2) Dry eyes: Code(s): H04.123 - Dry eye syndrome of bilateral lacrimal glands Category: Medical (3) Erosive osteoarthritis of both hands: Comment: Asymptomatic. On x-ray. Personally reviewed x-rays with patient. She does not have radiographic findings of inflammatory arthritis. Code(s): M15.4 - Erosive (osteo)arthritis Category: Medical Plan: Monitor clinically Plan See above Orders: Orders Protein Electrophoresis,Ran Ur Today M35.00 - Sjogren syndrome, unspecified Smoot/Lambda Light Chain Serum Today M35.00 - Sjogren syndrome, unspecified Immunofixation, Random Urine Today M35.00 - Sjogren syndrome, unspecified Medications: Changed From cevimeline 1 cap PO BID 180 caps 2RF K14.6 - Glossodynia To cevimeline 1 cap PO TID 270 caps 4RF 90 days K14.6 - Glossodynia Discontinued pilocarpine HCl Discontinued Reason: Doctor's Order 5 mg PO DAILY 90 tabs 0RF PM Coding Level of Care Code Est Pt Level 4 (69796) Complex EM visit Add On G2211 Diagnoses Sjogren's disease M35.00 Dry eyes H04.123 Erosive osteoarthritis of both hands M15.4
[2025-07-17 08:52] VITALS: BP 120/80; PULSE 69; O2SAT 94; BMI 21.7
--- OUTSIDE RECORDS SUMMARY | 2025-07-17 09:29 | XMS_ITS | Clinical Summary ---
Author Organization [facility] Address [address] [place] [address] Phone Care Team Providers Care Order Detailer Name Role Phone Johana Jaimes MD Primary Care Provider [phone] Allergies No known active allergies Medications metoprolol succinate (TOPROL-XL) 25 MG 24 hr tablet Take 25 mg by mouth daily. Active ticagrelor (BRILINTA) 90 mg Tab Take 90 mg by mouth 2 (two) times a day. Active aspirin 81 mg chewable tablet Take 81 mg by mouth daily. Active amLODIPine (NORVASC) 5 MG tablet Take 5 mg by mouth daily. Active docusate sodium (COLACE) 100 MG capsule Take 100 mg by mouth 2 (two) times a day. Active calcium citrate-vitamin D3 315 mg- 250 unit per tablet Take 1 tablet by mouth daily. Active glucosamine 500 mg Cap Take 500 mg by mouth 3 (three) times a day. Active polyethylene glycol (MIRALAX) 17 gram packet Take 17 g by mouth daily. Active atorvastatin (LIPITOR) 40 MG tablet Take 40 mg by mouth daily. Active mirtazapine (REMERON) 30 MG tablet Take 30 mg by mouth nightly at bedtime. Active zolpidem (AMBIEN CR) 6.25 MG CR tablet Take 6.25 mg by mouth nightly at bedtime as needed for sleep. Active gabapentin (NEURONTIN) 300 MG capsule Take 300 mg by mouth 3 (three) times a day. Active pilocarpine (SALAGEN) 5 MG tablet Take 5 mg by mouth 3 (three) times a day. Active estradiol (ESTRACE) 0.01 % (0.1 mg/gram) vaginal cream Place 2 g vaginally daily. Active cycloSPORINE (RESTASIS) 0.05 % suspension Place 1 drop into each eye 2 (two) times a day. Active PEG 400-propylene glycol, PF, (SYSTANE ULTRA) 0.4-0.3 % Dpet Place 1 drop into each eye every hour as needed. Active Family History Medical History Relation Comments Heart disease Father Breast cancer Mother Lung cancer Mother Relation Status Comments Father Mother Social History Tobacco Use Types Packs/Day Years [...] on file Sexual Orientation Not on file Last Filed Vital Signs Vital Sign Reading Time Taken Comments Blood Pressure 164/84 08/13/2019 1:17 PM EDT Pulse 61 08/13/2019 1:17 PM EDT Temperature - - Respiratory Rate - - Oxygen Saturation - - Inhaled Oxygen Concentration - - Weight 49.4 kg (109 lb) 08/13/2019 1:17 PM EDT Height 154.9 cm (5' 1 ) 08/13/2019 1:17 PM EDT Body Mass Index 20.6 08/13/2019 1:17 PM EDT Plan of Treatment Health Maintenance Due Date Last Done Comments DEPRESSION SCREENING 1955 ZOSTER VACCINES (1 of 2) 1993 OSTEOPOROSIS SCREENING INITI AL (ONE-TIME) 2008 Adult Td,Tdap Booster 06/20/2017 06/20/2007 RSV VACCINE (1 - 1-dose 75+ series) 2018 COVID-19 VACCINE (2023-2 5 season) 2024 01/13/2021, 12/23/2020 PNEUMOCOCCAL VACCINES (50+ years) Completed 02/16/2015, 08/26/2009, 08/17/1999 HEPATITIS A VACCINES Aged Out No long er eligible based on patient's age to complete this topic HIB VACCINES Aged Out No longer eligi ble based on patient's age to complete this topic MENINGOCOCCAL VACCINES (ACWY) Aged Out No longer eligible based on patient's age to complete this topic MENINGOCOCCAL VACCINES (B) Aged Out N o longer eligible based on patient's age to complete this topic Medical Devices Not on file Insurance [facility] MEDICARE REPLACEMENT [facility] MEDICARE REPLACEMENT MEDICARE REPLACEMENT MEDICARE REPLACEMENT MEDICARE REPLACEMENT MEDICARE REPLACEMENT MEDICARE REPLACEMENT [employer] MEDIC[employer] REPLACEMENT Care Teams Order Detailer Relationship Specialty Start Date End Date Johana Jaimes MD 1963 [facility] [place] [address] PCP - General Internal Medicine 08/07/19 Additional Source Comments The information contained in this document represents components of the legal health record. It is not the complete legal health record.[facility]
--- OUTSIDE RECORDS SUMMARY | 2025-07-17 09:29 | XMS_ITS | Encounter Summary ---
Author Organization [facility] Address [address] [place] [address] Phone Care Team Providers Care Manager Front Name Role Phone Johana Jaimes MD Primary Care Provider Encounter Details Date Type Department Care Team (Late st Contact Info) Description 08/16/2019 Procedure Pass [facility] LW PERIOP DEPT [address] [place] [address] Social History Tobacco Use Types Packs/Day Years [...] on filedocumented in this encounter Care Teams Manager Front Relationship Specialty Start Date End Date Johana Jaimes MD [address] [facility] [place] [address] PCP - General Internal Medicine 08/07/19 documented as of this encounter Additional Source Comments The information contained in this document represents components of the legal health record. It is not the complete legal health record.[facility]
--- OUTSIDE RECORDS SUMMARY | 2025-07-17 09:29 | XMS_ITS | Clinical Summary ---
Author Organization [facility] [address] [facility] Address [address] [place] [address] Phone Care Team Providers Care Ginseng Farmer Name Role Phone Elva Davison MD Primary Care Provider [phone] Allergies Active Allergy Reactions Criticality Noted Date Comments Codeine Dizziness 12/18/2020 Hydrocodone 02/08/2022 Medications mirtazapine (REMERON) 15 mg tablet Take 1 tablet (15 mg total) by mouth. at bedtime. 024 Active gabapentin (NEURONTIN) 300 mg capsule Take 1 capsule (300 mg total) by mouth. 019 Active clonazePAM (KlonoPIN) 0.5 mg disintegrating tablet DISSOLVE 1 TABLET IN MOUTH AT BEDTIME 024 Active estradioL (ESTRACE) 0.01 % (0.1 mg/gram) [...] day. 90 tablet 3 025 2025 Active metoprolol succinate (TOPROL-XL) 25 mg 24 [...] mouth 1 (one) time each day. 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 Dry eyes 12/20/2024 Gastroesophageal reflux disease 12/20/2024 Assessment & Plan (03/06/2025 4:46 PM EDT): Continue Voquenza as directed Sjogren's syndrome ([facility] V24) 12/20/2024 Neoplasm of uncertain [...] L4 and right L5 foraminotomies by Dr. Saywer on 01/19/2022. She has had some degree of low pressure headaches since that time and had a follow-up appointment with his clinic at [place] a few months ago. 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 Sawyer COLONOSCOPY 11/26/2013 LUMBAR SPINE SURGERY complicated by spinal fluid leak ESOPHAGOGASTRODUODENOSCOPY 09/27/2021 ESOPHAGOGASTRODUODENOSCOPY 06/05/2005 active gastric ulcer COLONOSCOPY 08/14/2008 ESOPHAGOGASTRODUODENOSCOPY 05/24/2006 ESOPHAGOGASTRODUODENOSCOPY 03/30/1999 COLONOSCOPY 08/14/1997 ESOPHAGOGASTRODUODENOSCOPY Medical History Medical History Date Comments Essential hypertension DX:Essent ial hypertension Hyperlipidemia DX:Hyperlipidemi a Sjogren syndrome, unspecifie d ([facility] V24) DX:Sjogren syndrome, unspeci fied ([facility]) Insomnia DX:Insomnia Chronic constipation GERD (gastroesophageal reflux disease) Arthritis Myocardial infarction ([facility]/ [facility] V24, [facility] V28) Family History Medical History [...] 9:12 AM EDT 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 ([facility] V24) [facility] DEXA AXIAL SKELETON Routine 09/14/2021 11:43 AM EDT Encounter for screening for osteoporosis from Last 3 Months or Most Recently Relevant to Health Maintenance Results * External clinical lab (04/25/2025 1:54 PM EDT) us [facility] Provider LAB BLOOD ORDERABLES Annel l Result * ECG 12 lead (04/25/2025 9:12 AM EDT) Ventricular Rate ECG 71 BPM GEMUSE Atrial Rate 71 BPM GEMUSE P-R Interval 178 ms GEMUSE QRS Duration 84 ms GEMUSE Q-T Interval 392 ms GEMUSE QTc 425 ms GEMUSE P Wave [place] 56 degrees GEMUSE R [place] 29 degrees GEMUSE T [place] 51 degrees GEMUSE ECG Interpretation Normal sinus rhythm Low voltage QRS Abnormal ECG When compared with ECG of 03-JUN-2019 15:54, No significant change was found Confirmed by Robinson HUSSEIN YUFENG ([id number]) on 04/25/2025 12:43:39 PM GEMUSE 04/25/2025 9:12 AM EDT 04/25/2025 12:43 PM EDT Richelle Hussein MD ECG ORDERABLES Final Result GEMUSE * [facility] DEXA AXIAL SKELETON (09/14/2021 11:43 AM EDT) Anatomical Region Laterality Modality Mammography 09/14/2021 8:48 AM EDT Narrative 09/14/2021 11:43 AM EDT [facility] Diagnostic Imaging Department [address] [place] [address] Patient: KAVITA NAVARRETE /Age/Sex: 1945 - 76 - F Unit#: [id number] Location/Status: SPDIMAM/REG CLI Mnemonic/[facility] Ordering Physician: DEX TOLENTINO MD Aravind Dexa Axial Skeleton - 09/14/2167 History: Low estrogen state due to menopause. Height loss. Comparison: 10/14/15 Findings: Bone densitometry is performed utilizing dual energy x-ray absorptiometry (DXA) in the [employer] unit. The lumbar spine and proximal femora [...] 12.4 percent Hip 3.0 percent. IMPRESSION: Osteopenia. [id number] Dictating Physician: MERCEDES VANESSA MD Electronically Signed by: MERCEDES VANESSA MD Dic Date/Time: 09/14/21 1142 Sign date/Time: 09/14/21 1143 Procedure Note Mercedes Vanessa MD - 11/09/2022 [facility] Diagnostic Imaging Department [address] [place] [address] Patient: KAVITA NAVARRETE /Age/Sex: 1945 - 76 - F Unit#: [id number] [facility] CLI Mnemonic/Ordering Site: [facility] Ordering Physician: DEX TOLENTINO MD Aravind Dexa Axial Skeleton - 09/14/21 0396 History: Low estrogen state due to menopause. Height loss. Comparison: 10/14/15 Findings: Bone densitometry is performed utilizing dual energy x-ray absorptiometry(DXA) in the [employer] unit. The lumbar spine and proximal femora [...] 12.4 percent Hip 3.0 percent. IMPRESSION: Osteopenia. [id number] Dictating Physician: MERCEDES VANESSA MD Electronically Signed by: MERCEDES VANESSA MD Dic Date/Time: 09/14/21 1142 Sign date/Time: 09/14/21 1143 Dex Tolentino MD IMG BI PROCEDURES Final Result from Last 3 Months or Most Recently Relevant to Health Maintenance Insurance [facility] [employer] Member Subscriber Plan / Payer (Ef fective 2024-Present) Name:Kavita Navarrete Sr. Relation to Subscriber:Self Name:Kavita Navarrete Sr. Payer ID:[id number] Group ID:Not on file Type:Not on file [address] [address] Advance Directives Documents on File Type Date Recorded Patient Discharge Door Operator Expl anation Health Care Decision (hx) [...] (hx) 09/23/2021 AD GARCIA DIRECTIVE Care Teams Ginseng Farmer Relationship Specialty Start Date End Date Elva Davison MD [address] [place] [address] [address] [facility] [place] [address] PCP - General Internal Medicine 03/19/21
--- OUTSIDE RECORDS SUMMARY | 2025-07-17 09:29 | XMS_ITS | Encounter Summary ---
Author Organization [facility] Address [address] [place] [address] Phone Care Team Providers Care Well Service Floor Worker Name Role Phone Johana Jaimes MD Primary Care Provider [phone] Reason for Visit * Auth/Cert Specialty Diagnoses / Procedures Referred By Contac t Referred To Contact Diagnoses Xerostomia Xerostomia Procedures IA BIOPSY SOFT TISSUE NECK/CHEST IA BIOPSY SALIVARY GLAND,NEEDLE IA BIOPSY SALIVARY GLAND,INCISIONAL BIOPSY SOFT TISSUE ( MINOR SALIVARY BIOPSY) Referral ID Status Reason Start Date Expiration Date Visits Re quested Visits Authorized [id number] 1 1 Encounter Details Date Type Department Care Team (Late st Contact Info) Description 08/16/2019 Hospital Encounter [facility] LW PERIOP DEPT [address] [place] [address] Jordan Velez MD [address] [place] [id number] [email or web address] Social History Tobacco Use Types Packs/Day Years [...] on filedocumented in this encounter Care Teams Well Service Floor Worker Relationship Specialty Start Date End Date Johana Jaimes MD [address] [place] [address] PCP - General Internal Medicine 08/07/19 documented as of this encounter Additional Source Comments The information contained in this document represents components of the legal health record. It is not the complete legal health record.[facility]
--- OUTSIDE RECORDS SUMMARY | 2025-07-17 09:29 | XMS_ITS | Patient Health Record ---
Author Organization [facility] Address [address] [facility] [place] [address] Care Team Providers Care Supervisor Pipe Finishing Name Role Phone Elva Davison Primary Care Provider Charity Weber Unavailable [phone] Allergies Allergen (clinical drug ingredient) Drug/Non Drug [...] Status Risk Notes Problem Acquired hallux valgus (45447437) Hallux valgus (acquired), left foot (M20.12) Active confirmed Vital Signs Blood pressure diastolic 70 mm Hg 04/09/2025 Height 5 ft in 06/18/2025 Blood pressure systolic 128 mm Hg 04/09/2025 Weight 110 lbs 06/18/2025 BMI 21.48 kg/m2 06/18/2025 Encounters Encounter Location Date Provider Diagnosis [address] [address] 04/09/2025 Charity Champion Pain in left foot M79.672 ; Pain in left ankle and joints of left foot M25.572 ; Bursitis of left foot M77.52 and Sesamoiditis of left foot M25.[address] [address] 06/18/2025 Charity Champion Pain in left foot M79.672 ; Pain in left ankle and joints of left foot M25.572 ; Bursitis of left foot M77.52 and Sesamoiditis of left foot M25.[address] [address] 06/18/2025 Charity Champion [address] [address] 01/20/2025 Charity Champion [address] [address] 02/17/2025 Charityjazmyne Champion [address] [address] 06/18/2025 Charity Champion Assessments Encounter Date Diagnosis [...] Provider Name:Charity brooks, 08/12/2025 10:00:00 AM, [address] [facility], [address], [place], [address], Insurance Providers Payer Name Payer Address Payer Phone Subscriber Number Group Number Insured Name Patient Relationship to Insured Coverage Start Date Coverage End Date [facility] [employer] Claims [address] [place] [id number] Kavita Roman Self - patient is the insured Medical (General) History Medical History History ICD Code Arthritis CAD (Cholesterol) Heart disease High Blood Pressure raynauds disease Reflux ( GERD) Sjogren syndrome Measles Mumps Chicken pox cystitis Surgical History Surgery Date(Month/Year) Spinal Fusion 10/05/05 Removal of Handware 12/20/06 Stent 05/2019 Back Sx 2021
== END 2025-07-17 09:51 | disposition home or self-care (01) ==
LOC: HO.RHES 08:46
PROVIDERS: PCP Internal Medicine; Visit Provider Internal Medicine Rheumatology
DX: M35.00 Sjogren syndrome, unspecified (principal); H04.123 Dry eye syndrome of bilateral lacrimal glands; M15.4 Erosive (osteo)arthritis
CPT/HCPCS: 99214; G2211

== ENCOUNTER 2025-07-17 11:19 | Outpatient (REF) | payer OTHER, SELFPAY ==
[2025-07-17 16:38] LABS: Appearance Urine Clear; Glucose Urine UA Negative (Negative); PH 6.5 (5.0-9.0); Specific Gravity - Urine <= 1.005 (1.005-1.025)
[2025-07-22 10:38] LABS: PEU-Protein Creat Ratio Rand 0.114 (0.024-0.184); PEU-Rand. Prot/Creat Ratio 114 mg/g creat (24-184); PEU-Random Ur. Gamma Globulin 0 %; PEU-Random Urine A1 Globulin 0 %; PEU-Random Urine A2 Globulin 0 %; PEU-Random Urine Albumin 100 %; PEU-Random Urine Beta Globulin 0 %; PEU-Random Urine Creatinine 35 mg/dL (20-275); PEU-Random Urine Protein 4 mg/dL (5-24)
== END 2025-07-17 11:20 | disposition home or self-care (01) ==
LOC: HO.HMGCLNP 11:19
PROVIDERS: Physician Assistant Medical; PCP Internal Medicine; Visit Provider Internal Medicine Rheumatology
DX: R30.0 Dysuria (principal); N32.81 Overactive bladder; M35.00 Sjogren syndrome, unspecified
CPT/HCPCS: 81003; 82570; 84156; 84166; 86335

== ENCOUNTER 2025-07-28 08:43 | Outpatient (AMB) | payer OTHER, SELFPAY ==
--- NOTE | 2025-07-28 08:43 | A.OFFVIS_ITS ---
Intake Visit Reasons: 6m follow up Intake Note: Patient is present via telehealth for 6 month follow up Urology Med: Gemtesa Antibiotic Allergy: Nitrofurantoin Blood Thinner: Aspirin Facing Cutting Machine Operator Required: No Allergies nitrofurantoin Allergy (Intermediate, Verified 07/28/25 08:44) colitis codeine Allergy (Unknown, Verified 07/28/25 08:44) Unknown hydrocodone (From Vicodin) Allergy (Unknown, Verified 07/28/25 08:44) Unknown tramadol Allergy (Unknown, Verified 07/28/25 08:44) Unknown HPI Comments Details: 07/28/25--Kavita is an 80-year-old female telehealth follow-up for recurrent UTIs and overactive bladder. The patient is prescribed Gemtesa 75 mg daily. She was previously treated with antibiotic suppressive therapy daily Keflex. She is prescribed Estrace cream. History of Present Illness The patient is an 80-year-old female presenting with recurrent urinary tract infections and overactive bladder. The patient also reports severe symptoms of Sjogren's syndrome, particularly affecting her eyes, with significant corneal damage noted in both eyes. She is undergoing treatment for dry eyes, She has been experiencing recurrent urinary tract infections, which have been managed with antibiotic suppressive therapy, specifically daily Keflex, although recent infections have shown resistance to this treatment. The patient has also been prescribed Gemtesa 75 mg daily for overactive bladder management. She states since her last visit she has had 3 episodes of UTIs. Despite taking the prescribed antibiotics, she continues to experience frequent urinary tract infections, indicating a need for a change in her antibiotic regimen. Plan 1. Recurrent Urinary Tract Infections - Discontinue Keflex due to resistance and initiate Bactrim single-strength d aily - Plan to reassess urinary health in 3 months with a follow-up appointment. 2. Overactive Bladder - Continue Gemtesa 75 mg daily for management. 01/27/25-- 79-year-old female presenting with recurrent UTIs and overactive bladder. She has been treated with Keflex for UTIs and more recently transitioned from Myrbetric to Gemtesa 75 mg daily, reporting significant symptomatic improvement with the latter. Additionally, she has a history of xerostomia and lumbar spinal stenosis. She states that her symptoms related to Sj?gren's syndrome are being managed by a nitrogen operator, identifying significant esophageal inflammation and dysphagia. An endoscopy is planned to further evaluate these symptoms, and potential esophageal dilation is considered due to swallowing difficulties. Urinary Symptoms Review - Increased frequency of urination due to overactive bladder - Previously on Myrbetric, now on Gemtesa 75 mg, with notable improvement - Prior treatment with Keflex for recurrent UTIs 10/28/24--Telehealth FU--3 month FU--Kavita is an 79-year-old female who is here for evaluation for recurrent UTI's and OAB symptoms. Past Medical history Xerostomia, CAD, Htn, lumbar stenosis. She was on Keflex antibiotic suppression therapy. She states she had a breakthrough infection and was seen at urgent care and treated with a different abx. She still has urinary incontinence on Myrbetriq 25 mg daily, I have discussed trial of gemtesa. 07/29/24--Kavita is an 79-year-old female who is here for evaluation for recurrent UTI's and OAB symptoms. Past Medical history Xerostomia, CAD, Htn, lumbar stenosis. She is currently on Keflex antibiotic suppression therapy. She has intermittent urinary incontinence on Myrbetriq 25 mg daily. Will cont Myrbetriq 25 mg daily, cranberry supplementation, discont Abx suppression, fu in 4 months. 03/28/24--Kavita is an 78-year-old female who is here for evaluation for recurrent UTI's and OAB symptoms. Past Medical history Xerostomia, CAD, Htn, lumbar stenosis Surgical history includes but is not limited to back surgery. She is currently on Keflex antibiotic suppression therapy. Pt had UTI symptoms last month. She was treated with Macrobid. She states currently she is doing well denies dysuria or gross hematuria. plan Cont. Myrbetriq 25 mg daily, cranberry supplementation, discont Abx suppression, fu in 4 months. 12/28/23--Kaivta is being evaluated for recurrent UTI she is here for office cystoscopy. She was last evaluated on 10/30/2023, started on Myrbetriq 50 mg daily for urinary symptoms of frequency. She is here in follow-up and had renal cell performed. Urine cytology sent on 10/30/2023-negative for malignant cells. Renal ultrasound performed on 12/11/2023-kidneys within normal limits. Cystoscopy findings: Multifocal erythematous changes no noted suggestive of cystitis. Plan: Cystoscopy findings consistent with cystitis. Antibiotic suppressive therapy Bactrim daily 10/30/2023 Kavita is an 78-year-old female who is here for evaluation for recurrent UTI's. Past Medical history Xerostomia, CAD, Htn, lumbar stenosis. Surgical history includes but is not limited to back surgery. The patient complains of daytime urinary frequency every 1-2 hours, urinary incontinence, wears a pad, denies nocturia wakes up about 4 AM and leaks before getting to the bathroom, denies hematuria, has dysuria associated with UTI symptoms, denies history of kidney stones, denies history of nicotine use. She states she was prescribed medication for her bladder symptoms in the past that made her dry mouth worse. I have reviewed chart, urine cultures reviewed, the patient was last treated for UTI in August. States she has had more that 4 UTIs this year. The patient states she was advised and is using OTC cranberry supplements. I have discussed workup to include evaluation of the upper tracts and consideration for cystoscopy evaluation. 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 Lumbar stenosis Vitamin D deficiency HTN (hypertension) CAD (coronary artery disease) Surgical History Hx of cystoscopy History of back surgery H/O spinal fusion Family History Father Heart disease Mother Breast cancer Social History Housing: Apartment Alcohol intake: never Patient Tobacco Use Status: Never used Tobacco e-Cigarette/Vaping Use: Never Used Second Hand Smoke Exposure: No service: No Current occupational status: retired Cognitive needs: No Hearing needs: No Vision needs: Yes (Glasses) Review of Systems Const All systems reviewed & are unremarkable except as noted in HPI and below Reports no additional complaints Eyes Reports no additional complaints ENT Reports no additional complaints Card Reports no additional complaints Resp Reports no additional complaints GI Reports no additional complaints Reports as per HPI Musc Reports no additional complaints Skin/Breast Reports system reviewed and no additional complaints, except as documented Neuro Reports no additional complaints Psych Reports no additional complaints Endo Reports no additional complaints Juan Miguel/Lymph Reports no additional complaints Aller/Immun Reports no additional complaints Telehealth Telehealth Telehealth Platform: [email or web address] Location of provider rendering services: practice address Location of patient: address on file Patient Identification confirmed using: Name, : Yes Telehealth method: video Patient verbally consented to treatment: Yes Patient verbally consented to billing insurance company: Yes Patient informed of any privacy concerns related to visit: Yes Assessment & Plan Assessment & Plan (1) Frequency of urination: Code(s): R35.0 - Frequency of micturition Category: Medical (2) Cystitis: Code(s): N30.90 - Cystitis, unspecified without hematuria Category: Medical (3) OAB (overactive bladder): Code(s): N32.81 - Overactive bladder Category: Medical (4) Urinary incontinence: Code(s): R32 - Unspecified urinary incontinence Category: Medical (5) Recurrent UTI: Code(s): N39.0 - Urinary tract infection, site not specified Category: Medical Plan Plan 1. Recurrent Urinary Tract Infections - Discontinue Keflex due to resistance and initiate Bactrim single-strength daily - Plan to reassess urinary health in 3 months with a follow-up appointment. 2. Overactive Bladder - Continue Gemtesa 75 mg daily for management. Medications: New sulfamethoxazole-trimethoprim 400-80 mg (Bactrim) 1 tab PO DAILY 30 tabs 5RF Refilled vibegron (Gemtesa) 75 mg PO DAILY 30 tabs 10RF Patient Instructions: The patient had an opportunity to ask questions regarding treatment plan. The patient expressed understanding and agreement with the above treatment plan. The patient is aware they should contact our office by phone for worsening of their current condition or the appearance of new symptoms. Compliance is encoura ged with any medications and followup testing that is ordered. It is a privilege to be allowed the opportunity to participate in the urologic care of your patient. If you have any questions or concerns regarding treatment for the above conditions please do not hesitate to contact me. The office telephone contact is [phone]. This note is constructed in part using voice recognition software. While every effort has been made to ensure accuracy entertainment centre manager errors may have been included. Yours sincerely, Jimmy Mcgill MD Scribe Plan - Not visible on output: Patient was informed and verbally consented to the use of an ambient scribe for clinic note documentation during this visit. Coding Level of Care Code Tele Est Pt Level 4 (16669) Complex EM visit Add On G2211 Diagnoses Frequency of urination R35.0 Cystitis N30.90 OAB (overactive bladder) N32.81 Urinary incontinence R32 Recurrent UTI N39.0
--- OUTSIDE RECORDS SUMMARY | 2025-07-28 09:42 | XMS_ITS | Clinical Summary ---
Author Organization [facility] Address [address] [place] [address] Phone Care Team Providers Care Hospital Orderly Name Role Phone Johana Jaimes MD Primary Care Provider [phone] Allergies No known active allergies Medications metoprolol [...] topic Medical Devices Not on file Insurance [facility] MEDICARE REPLACEMENT [facility] MEDICARE REPLACEMENT MEDICARE REPLACEMENT MEDICARE REPLACEMENT MEDICARE REPLACEMENT MEDICARE REPLACEMENT MEDICARE REPLACEMENT [employer] MEDICARE REPLACEMENT Care Teams Hospital Orderly Relationship Specialty Start Date End Date Johana Jaimes MD [address] [facility] [place] [address] PCP - General Internal Medicine 08/07/19 Additional Source Comments The information contained in this document represents components of the legal health record. It is not the complete legal health record.[facility]
--- OUTSIDE RECORDS SUMMARY | 2025-07-28 09:42 | XMS_ITS | Patient Health Record ---
Author Organization [facility] Address [address] [facility] [address] Care Team Providers Care Aircraft Design Engineer Name Role Phone Elva Davison Primary Care Provider Charity Weber Unavailable [phone] Allergies Allergen (clinical drug ingredient) Drug/Non Drug [...] Status Risk Notes Problem Acquired hallux valgus (63772422) Hallux valgus (acquired), left foot (M20.12) Active confirmed Vital Signs Blood pressure diastolic 70 mm Hg 04/09/2025 Height 5 ft in 06/18/2025 Blood pressure systolic 128 mm Hg 04/09/2025 Weight 110 lbs 06/18/2025 BMI 21.48 kg/m2 06/18/2025 Encounters Encounter Location Date Provider Diagnosis [address] [address] 04/09/2025 Charity Champion Pain in left foot M79.672 ; Pain in left ankle and joints of left foot M25.572 ; Bursitis of left foot M77.52 and Sesamoiditis of left foot M25.[address] [address] 06/18/2025 Charity Champion Pain in left foot M79.672 ; Pain in left ankle and joints of left foot M25.572 ; Bursitis of left foot M77.52 and Sesamoiditis of left foot M25.[address] [address] 06/18/2025 Charity Champion [address] [address] 01/20/2025 Charity Champion [address] [address] 02/17/2025 Charityjazmyne Champion [address] [address] 06/18/2025 Charity Champion Assessments Encounter Date Diagnosis [...] 04/09/2025 Next Appt Details Provider Name:Charity brooks, 08/28/2025 03:00:00 PM, [address] [place] [address], [id number], Insurance Providers Payer Name Payer Address Payer Phone Subscriber Number Group Number Insured Name Patient Relationship to Insured Coverage Start Date Coverage End Date [facility] [employer] Claims [address] [place] Khalil [id number] Kavita Roman Self - patient is the insured Medical (General) History Medical History History ICD Code Arthritis CAD (Cholesterol) Heart disease High Blood Pressure raynauds disease Reflux ( GERD) Sjogren syndrome Measles Mumps Chicken pox cystitis Surgical History Surgery Date(Month/Year) Spinal Fusion 10/05/05 Removal of Handware 12/20/06 Stent 05/2019 Back Sx 2021
--- OUTSIDE RECORDS SUMMARY | 2025-07-28 09:42 | XMS_ITS | Encounter Summary ---
Author Organization [facility] Address [address] [place] [address] Phone Care Team Providers Care Blast Furnace Checker Name Role Phone Johana Jaimes MD Primary Care Provider [phone] Encounter Details Date Type Department Care Team (Late st Contact Info) Description 08/16/2019 Procedure Pass [facility] PERIOP DEPT [address] [place] [address] Social History Tobacco Use Types Packs/Day Years [...] on filedocumented in this encounter Care Teams Blast Furnace Checker Relationship Specialty Start Date End Date Johana Jaimes MD [address] [facility] [place] [address] PCP - General Internal Medicine 08/07/19 documented as of this encounter Additional Source Comments The information contained in this document represents components of the legal health record. It is not the complete legal health record.[facility]
--- OUTSIDE RECORDS SUMMARY | 2025-07-28 09:42 | XMS_ITS | Encounter Summary ---
Author Organization [facility] Address [address] [place] [address] Phone Care Team Providers Care Pillowcase Cleaner Name Role Phone Johana Jaimes MD Primary Care Provider [phone] Reason for Visit * Auth/Cert Specialty Diagnoses / Procedures Referred By Contac t Referred To Contact Diagnoses Xerostomia Xerostomia Procedures MT BIOPSY SOFT TISSUE NECK/CHEST MT BIOPSY SALIVARY GLAND,NEEDLE MT BIOPSY SALIVARY GLAND,INCISIONAL BIOPSY SOFT TISSUE ( MINOR SALIVARY BIOPSY) Referral ID Status Reason Start Date Expiration Date Visits Re quested Visits Authorized [id number] 1 1 Encounter Details Date Type Department Care Team (Late st Contact Info) Description 08/16/2019 Hospital Encounter [facility] DEPT [address] [place] [address] Jordan Velez MD [address] [place] [address] [email or web address] Social History Tobacco Use Types Packs/Day [...] on filedocumented in this encounter Care Teams Pillowcase Cleaner Relationship Specialty Start Date End Date Johana Jaimes MD [address] [facility] [place] [address] PCP - General Internal Medicine 08/07/19 documented as of this encounter Additional Source Comments The information contained in this document represents components of the legal health record. It is not the complete legal health record.[facility]
--- OUTSIDE RECORDS SUMMARY | 2025-07-28 09:42 | XMS_ITS | Clinical Summary ---
Author Organization [facility] [address] [facility] Address [address] [place] [address] Phone Care Team Providers Care Tractor Sweeper Driver Name Role Phone Elva Davison MD Primary Care Provider [phone] Allergies Active Allergy Reactions Criticality Noted Date [...] EDT): Continue Voquenza as directed Sjogren's syndrome ([facility] V24) 12/20/2024 [...] a follow-up appointment with his clinic at [place] a few months ago. The plan to [...] Benign neoplasm of skin of trunk 02/02/2015 Immunizations Name Administration Dates Next Due Influenza [...] TONSILLECTOMY ADENOIDECTOMY, BILATERAL MYRINGOTOMY AND TUBES PROCEDURE: DC TONSILLECTOMY & ADENOIDECTOMY <AGE 12 BACK SURGERY 01/19/2022 PROCEDURE: HISTORICAL BACK SURGERY; COMMENT: Lumbar decomp by Dr. Sawyer COLONOSCOPY 11/26/2013 LUMBAR SPINE SURGERY complicated by spinal fluid leak ESOPHAGOGASTRODUODENOSCOPY 09/27/2021 ESOPHAGOGASTRODUODENOSCOPY 06/05/2005 active gastric ulcer COLONOSCOPY 08/14/2008 ESOPHAGOGASTRODUODENOSCOPY 05/24/2006 ESOPHAGOGASTRODUODENOSCOPY 03/30/1999 COLONOSCOPY 08/14/1997 ESOPHAGOGASTRODUODENOSCOPY Medical History Medical History Date Comments Essential hypertension DX:Essent ial hypertension Hyperlipidemia DX:Hyperlipidemi a Sjogren syndrome, unspecifie d ([facility] V24) DX:Sjogren syndrome, unspeci fied ([facility]) Insomnia DX:Insomnia Chronic constipation GERD (gastroesophageal reflux disease) Arthritis Myocardial infarction ([facility] V24, [facility] V28) Family History Medical History Relation Name [...] 04/25/2025 9:09 AM EDT Plan of Treatment Upcoming Encounters Date Type Department Care Team (Late st Contact Info) Description 08/07/2025 8:15 AM EDT Appointment [facility] [address] [place] [address] Health Maintenance Due Date Last Done Comments [...] Procedure Name Priority Date/Time Associated Diagnosis Comments [facility] DEXA AXIAL SKELETON Routine 09/14/2021 11:43 AM EDT Encounter for screening for osteoporosis from Last 3 Months or Most Recently Relevant to Health Maintenance Results * [facility] DEXA AXIAL SKELETON (09/14/2021 11:43 AM EDT) Anatomical Region Laterality Modality Mammography 09/14/2021 8:48 AM EDT Narrative 09/14/2021 11:43 AM EDT [facility] Diagnostic Imaging Department [address] [place], [place] [id number] Patient: KAVITA NAVARRETE /Age/Sex: 1945 - 76 - F Unit#: [id number] Location/Status: [facility] CLI Mnemonic/[facility]ing [facility] Ordering Physician: DEX TOLENTINO MD [facility] Dexa Axial Skeleton - 09/14/[address]42 History: Low estrogen state due to menopause. Height loss. Comparison: 10/14/15 Findings: Bone densitometry is performed utilizing dual energy x-ray absorptiometry (DXA) in the [employer] unit. The lumbar spine and proximal femora [...] 12.4 percent Hip 3.0 percent. IMPRESSION: Osteopenia. [id number] Dictating Physician: MERCEDES VANESSA MD Electronically Signed by: MERCEDES VANESSA MD Dic Date/Time: 09/14/21 114 Sign date/Time: 09/14/21 1143 Procedure Note Mercdees Vanessa MD - 11/09/2022 [facility] Diagnostic Imaging Department [address] [place] [address] Patient: KAVITA NAVARRETE /Age/Sex: 1945 - 76 - F Unit#: [id number] Location/Status: [facility] Mnemonic/Ordering [facility] Ordering Physician: DEX TOLENTINO MD [facility] Dexa Axial Skeleton - 09/14/[address]42 History: Low estrogen state due to menopause. Height loss. Comparison: 10/14/15 Findings: Bone densitometry is performed utilizing dual energy x-ray absorptiometry(DXA) in the [employer] unit. The lumbar spine and proximal femora [...] 12.4 percent Hip 3.0 percent. IMPRESSION: Osteopenia. [id number] Dictating Physician: MERCEDES VANESSA MD Electronically Signed by: MERCEDES VANESSA MD Dic Date/Time: 09/14/21 1142 Sign date/Time: 09/14/21 1143 Dex Tolentino MD IMG BI PROCEDURES Final Result from Last 3 Months or Most Recently Relevant to Health Maintenance Insurance [facility] [employer] Member Subscriber Plan / Payer (Ef fective 2024-Present) Name:Kavita Navarrete Sr. Relation to Subscriber:Self Name:Kavita Navarrete Sr. 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
== END 2025-07-28 09:21 | disposition home or self-care (01) ==
LOC: HO.HUSH 08:43
PROVIDERS: PCP Internal Medicine; Visit Provider Urology
DX: R35.0 Frequency of micturition (principal); N30.90 Cystitis, unspecified without hematuria; N32.81 Overactive bladder; R32 Unspecified urinary incontinence; N39.0 Urinary tract infection, site not specified
CPT/HCPCS: 99214; G2211

== ENCOUNTER → 2025-07-28 08:43 | Outpatient (BNVA) | payer OTHER, SELFPAY | PROVIDERS: PCP Internal Medicine; Visit Provider Urology | DX: N32.81 Overactive bladder (principal); N39.0 Urinary tract infection, site not specified; R35.0 Frequency of micturition; R32 Unspecified urinary incontinence; Z13.89 Encounter for screening for other disorder ==

== ENCOUNTER 2025-09-03 08:33 | Outpatient (AMB) | payer OTHER, SELFPAY ==
--- OUTSIDE RECORDS SUMMARY | 2025-08-12 06:00 | XMS_ITS ---
Author Organization [facility] Address [address] [facility] [address] Care Team Providers Care Railroad Passenger Agent Name Role Phone Elva Davison Primary Care Provider Charity Weber [phone] Encounters Encounter Location Date Provider Diagnosis [address] [address] 08/12/2025 Charity Champion Plan Of Treatment No Information Progress Notes * LANDONDanteOB: 3 (80 yo F)Acc No.[id number]:08/12/2025 Progress Note Patient: Kavita HIGHTOWER Provider: Endy Champion DPM :1945 A ge:80 Y S ex:Female Date:08/12/2025 [address] [facility] Pcp:Elva Davison Subjective: * Chief Complaints: * [...] DPM Date: 0 08/12/2025 Generated for Printi ng/Faxing/eTransmitting on: 1 08:58 AM EDT
[2025-09-03 08:41] VITALS: BP 130/64; PULSE 74; TEMP 36.1; O2SAT 99; BMI 21.5
--- NOTE | 2025-09-03 08:41 | MHC.PC.OV ---
Vital Signs 09/03/25 08:41 Height 5 ft Weight 110 lb 2 oz BMI 21.5 BP 130/64 Blood Pressure Location Lt brachial Position Sitting Pulse 74 Pulse Source Pulse Oximeter Temp 97.0 F Temp Source Temporal Artery Scan Pulse Oximetry (%) 99 Oxygen Delivery Method Room Air Intake Visit Reasons: sicca syndrome Allergies nitrofurantoin Allergy (Intermediate, Verified 09/03/25 08:44) colitis codeine Allergy (Unknown, Verified 09/03/25 08:44) Unknown hydrocodone (From Vicodin) Allergy (Unknown, Verified 09/03/25 08:44) Unknown tramadol Allergy (Unknown, Verified 09/03/25 08:44) Unknown Medication List - Last Reconciled 09/03/25 by Elva Montero Po, acetaminophen (Acetaminophen Extra Strength) 500 mg PO QID PRN amlodipine 5 mg PO DAILY aspirin 81 mg PO DAILY atorvastatin 40 mg PO DAILY Bifidobacterium infantis (Align (B.infantis)) 4 mg PO DAILY 90 days calcium citrate (Citracal) PO BID cevimeline 1 cap PO TID 90 days cholecalciferol (vitamin D3) 25 mcg PO .3x per week cranberry extract 400 mg PO DAILY docusate sodium (Stool Softener) 100 mg PO BID estradiol 0.01%(0.1mg/gram) (Estrace) Use pea-sized amount on fingertip placed vaginally Monday through Monday at bedtime vaginally as directed from medical doctor.; fluticasone furoate-vilanterol 100-25 mcg/dose (Breo Ellipta) 1 inh inhalation DAILY 30 days gabapentin 300 mg PO BEDTIME 90 days metoprolol succinate ER 12.5 mg (1/2 x 25 mg) PO DAILY mirtazapine 15 mg PO BEDTIME polyethylene glycol 3350 (Miralax) 17 grams PO DAILY sulfamethoxazole-trimethoprim 400-80 mg (Bactrim) 1 tab PO DAILY vibegron (Gemtesa) 75 mg PO DAILY vonoprazan (Voquezna) 20 mg PO DAILY zolpidem ER 6.25 mg PO BEDTIME PRN Tobacco use date assessed: 09/03/25 Fall risk assessment: No Falls in past year Last assessed Fall Risk: 09/03/25 Dental Screening Dental Screen Date: 09/03/25 Did you have a dental visit in the last 12 months?: Yes Did you have a dental problem in the last 6 months where you did not have access to dental care?: No Was dental information given to patient?: Patient has dentist [facility] Medical History Recurrent UTI TSH elevation Urinary incontinence UTI (urinary tract infection) Cystitis Suprapubic discomfort Frequency of urination Achalasia of esophagus COPD (chronic obstructive pulmonary disease) Dysphagia Vocal cord dysfunction Multiple medical problems Headache Pre-operative clearance 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 Lumbar stenosis Vitamin D deficiency HTN (hypertension) CAD (coronary artery disease) Surgical History Hx of cystoscopy History of back surgery H/O spinal fusion Family History Father Heart disease Mother Breast cancer Social History Housing: Apartment Alcohol intake: never Patient Tobacco Use Status: Never used Tobacco e-Cigarette/Vaping Use: Never Used Second Hand Smoke Exposure: No service: No Current occupational status: retired Cognitive needs: No Hearing needs: No Vision needs: Yes (Glasses) Questionnaire PHQ-9 Over the last 2 weeks, how often have you been bothered by any of the following problems? 1. Little interest or pleasure in doing things: not at all 2. Feeling down, depressed, or hopeless: not at all 3. Trouble falling or staying asleep, or sleeping too much: several days 4. Feeling tired or having little energy: not at all 5. Poor appetite or overeating: not at all 6. Feeling bad about yourself - or that you are a failure or have let yourself or your family down: not at all 7. Trouble concentrating on things, such as reading the newspaper or watching television: not at all 8. Moving or speaking so slowly that other people could have noticed. Or the opposite - being so fidgety or restless that you have been moving around a lot more than usual: not at all 9. Thoughts that you would be better off or of hurting yourself in some way: not at all Total score: 1 Source: Developed by Drs. Kole LLivia Dupont Kurt Kroenke and colleagues, with an educational justus from [employer]. Thrive Questionnaire Date Thrive assessed: 05/02/25 I am a: Patient What is your living situation today?: I have a steady place to live Within the past 12 months, did the food you bought not last and you didn't have the money to get more?: Never true Within the past 12 months, did you worry whether your food would run out before you got money to buy more?: Never true Do you have trouble paying for medicines?: No Do you have trouble getting transportation to medical appointments?: No Do you have trouble paying your heating and electricity bill?: No Do you have trouble taking care of your child, family member or friend?: No Do you have trouble with day-to-day activities such as bathing, preparing meals, shopping, managing finances, etc.?: No Are you currently unemployed and looking for a job?: No Are you interested in more education?: No Please select the resources that you would like help with: None Currently or been in a relationship where the following occur: No concerns reported THRIVE Score: 0 AUDIT C Alcohol Use Questionnaire (AUDIT-C) 1. How often do you have a drink containing alcohol?: Never 3. How often do you have six or more drinks on one occasion?: Never Total Score: 0 NGA-7 AMB Questionnaire NGA-7 Date NGA - 7 assessed: 05/05/25 Feeling nervous, anxious, or on edge: 0 = Not at all Not being able to stop or control worryin = Not at all Worrying too much about different things: 0 = Not at all Trouble relaxin = Not at all Being so restless that it is hard to sit still: 0 = Not at all Becoming easily annoyed or irritable: 0 = Not at all Feeling afraid as if something awful might happen: 0 = Not at all Total NGA-7 score (0-4 normal; 5-9 mild; 10-14 moderate; 15-21 severe): 0 Source: Developed by Drs. Kole Vazquez, Caden Crowder and colleagues, with an educational justus from [employer]. Physical exam (Primary Care) Vital Signs: Last Vital Signs Temp 97.0 F 09/03/25 08:41 Pulse 74 09/03/25 08:41 BP 130/64 09/03/25 08:41 Pulse Ox 99 09/03/25 08:41 Oxygen Delivery Method Room Air 09/03/25 08:41 BMI result Body Mass Index 21.5 Tobacco/Smoking Status: Tobacco use Status Tobacco use date assessed 09/03/25 09/03/25 08:48 Patient Tobacco Use Status Never used Tobacco 09/03/25 08:48 e-Cigarette/Vaping Use Never Used 09/03/25 08:48 PHQ-9: PHQ-9 Score PHQ-9: Total score 1 09/03/25 09:10 Thrive Assessment: Date of Thrive Assessment Date Thrive assessed 05/02/25 09/03/25 08:48 Currently or been in a relationship where the following occur: No concerns reported Const General: alert; No acute distress Eyes Conjunctivae: conjunctivae normal Resp Auscultation: clear to auscultation bilaterally Cardio Rate: regular rate Rhythm: regular rhythm GI Inspection: Yes normal to inspection Extrem General: Yes normal to inspection and No edema Office Procedures Flu Questionnaire Does the patient have a severe egg allergy?: No Does the patient have severe life threatening allergies?: No Does the patient have a fever or illness today?: No Has the patient ever had Guillain-[place] Syndrome?: No Has the patient ever had any past reaction to a flu shot?: No Immunizations Fluarix [id number] (PF) 45 mcg (15 mcg x 3)/0.5 mL IM syringe Performing Provider: Elva Davison MD [facility] Administered by: Jannie Badillo CMA on 09/03/25 09:26 Dose Route Admin Location Dispensed Lot Number Expiration Date NDC [employer] 0.5 mL IM Left Deltoid 0.5 mL [id number] 05/19/26 63460-795-16 [place] VIS Given Date VIS Provided VIS Publication Date 09/03/25 Single Vaccine 24 Eligibility Eligibility Date Funding Source Not [facility] Eligible 09/03/25 Private Coding Level of Care Code Est Pt Level 4 (66838) Complex EM visit Add On G2211 Diagnoses Primary hypertension I10 Hypertension type: primary hypertension Coronary artery disease involving [place] coronary artery of [place] heart without angina pectoris I25.10 Associated angina: without angina Coronary Disease-Associated Artery/Lesion type: [place] artery [place] vs. transplanted heart: [place] heart Hypercholesterolemia E78.00 GERD (gastroesophageal reflux disease) K21.9 OAB (overactive bladder) N32.81 Sjogren's disease M35.00 Simple chronic bronchitis J41.0 COPD type: chronic bronchitis Chronic bronchitis type: simple Generalized anxiety disorder F41.1 Assessment & Plan Assessment & Plan (1) HTN (hypertension): Code(s): I10 - Essential (primary) hypertension Category: Medical Qualifiers: Hypertension type: primary hypertension Qualified Code(s): I10 - Essential (primary) hypertension Plan: Continue with blood pressure medication. Decrease salt intake and exercise on amlodipine 5 mg once a day metoprolol 12.5 mg once a day (2) CAD (coronary artery disease): Comment: s/p NSTEMI SOWMYA 06/03/2019, Code(s): I25.10 - Atherosclerotic heart disease of [place] coronary artery without angina pectoris Category: Medical Qualifiers: Associated angina: without angina Coronary Disease-Associated Artery/Lesion type: [place] artery [place] vs. transplanted heart: [place] heart Qualified Code(s): I25.10 - Atherosclerotic heart disease of [place] coronary artery without angina pectoris Plan: Control the cholesterol, weight, blood pressure, continue with aspirin 81 mg once a day (3) Hypercholesterolemia: Code(s): E78.00 - Pure hypercholesterolemia, unspecified Category: Medical Plan: Avoid fried foods, chicken skin, eggs, butter margarine, pastries and meat. Be it pork or beef they have a lot of cholesterol on atorvastatin 40 mg once a day LDL goal of less than 70 and triglyceride of less than 150 (4) GERD (gastroesophageal reflux disease): Code(s): K21.9 - Gastro-esophageal reflux disease without esophagitis Category: Medical Plan: Avoid the foods that causes that usually spicy foods, tomato products, juices, coffee, soda and foods that your sensitive to. After eating do not lie down, allow 3-4 hours before in lie down. And keep the head of bed above 30 degrees to avoid the acid from going up. On Voquezna (5) OAB (overactive bladder): Code(s): N32.81 - Overactive bladder Category: Medical Plan: Patient follows up with urology and is placed on Gemtesa and prophylactic antibiotic of Bactrim (6) Sjogren's disease: Comment: Sicca symptoms are not controlled. She recently established with dry eyes specialist Dr. Arguello in his receiving treatment for neurotrophic keratitis. When she discontinued pilocarpine and remain on cevimeline she had extreme dryness of her mouth and throat. She restarted pilocarpine 5 mg daily. We discussed the increased risk of side effects with taking both pilocarpine and cevimeline. I recommend that she only has 1 of these agents. There is opportunity to increase cevimeline frequency to 3 times a day. Labs reveal chronic stable leukopenia, which can be seen in Sjogren syndrome. She has hypogammaglobulinemia. 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 Chronic leukopenia. Negative NATHEN, SSA, SSB, rheumatoid factor, normal inflammatory markers, normal IgG 4 subclasses, parotid ultrasound gland normal. She had minor salivary gland biopsy in August 2024 but sample did not have salivary gland for analysis. Patient does not wish to pursue another minor salivary gland biopsy due to pain and numbness that she experienced 4 months after procedure, which is understandable. Code(s): M35.00 - Sjogren syndrome, unspecified Category: Medical Plan: Patient is seeing Rheumatology right now and reviewing workup Farxiga discussed about cevimeline versus pilocarpine (7) COPD (chronic obstructive pulmonary disease): Comment: mild based on PFTs Code(s): J44.9 - Chronic obstructive pulmonary disease, unspecified Category: Medical Qualifiers: COPD type: chronic bronchitis Chronic bronchitis type: simple Qualified Code(s): J41.0 - Simple chronic bronchitis Plan: Stable on Breo (8) Generalized anxiety disorder: Comment: Decline any referral for counseling Code(s): F41.1 - Generalized anxiety disorder Category: Medical Plan: Continue with present management Orders: Orders Complete Blood Count Auto Diff 3 Months E78.00 - Pure hypercholesterolemia, unspecified Comprehensive Met. Panel 3 Months E78.00 - Pure hypercholesterolemia, unspecified Magnesium 3 Months E78.00 - Pure hypercholesterolemia, unspecified Influenza [id number] Immunization Today Z23 - Encounter for immunization Lipid Panel 3 Months E78.00 - Pure hypercholesterolemia, unspecified Thyroid Stimulating Hormone 3 Months E78.00 - Pure hypercholesterolemia, unspecified Free T4 (Free Thyroxine) 3 Months E78.00 - Pure hypercholesterolemia, unspecified
--- OUTSIDE RECORDS SUMMARY | 2025-09-03 08:59 | XMS_ITS | Clinical Summary ---
Author Organization [facility] Address [address] [place] [id number] Phone Care Team Providers Care [facility] Name Role Phone Johana Jaimes MD Primary Care Provider [phone] Allergies No known active allergies Medications metoprolol [...] VACCINES (1 of 2) 1993 OSTEOPOROSIS SCREENING INITIAL (ONE-TIME) 2008 Adult Td,Tdap Booster 06/20/2017 06/20/2007 RSV VACCINE (1 - 1-dose 75+ series) 2018 INFLUENZA VACCINE (#1) 2025 0, 08/23/2019, 08/29/2018, Additional history exists COVID-19 VACCINE (2024- season) 2025 01/13/2021, 12/23/2020 PNEUMOCOCCAL VACCINES (50+ years) Completed [...] topic Medical Devices Not on file Insurance MEDICARE REPLACEMENT MEDIC[place] [address] [address] [place] [address] MEDICARE REPLACEMENT [facility] MEDICARE REPLACEMENT [facility] MEDICARE [place] [address] [place] [address] MEDICARE REPLACEMENT MEDICARE REPLACEMENT MEDICARE REPLACEMENT [facility] MEDICARE REPLACEMENT Care Teams Forge [employer] Relationship Specialty Start Date End Date Johana Jaimes MD [facility] [place] [address] PCP - General Internal Medicine 08/07/19 Additional Source Comments The information contained in this document represents components of the legal health record. It is not the complete legal health record.[facility]
--- OUTSIDE RECORDS SUMMARY | 2025-09-03 08:59 | XMS_ITS | Clinical Summary ---
Author Organization [facility] [address] [facility] Address [address] [place] [address] Phone Care Team Providers Care Business Support Liaison Name Role Phone Elva Davison MD Primary Care Provider [phone] Allergies Active Allergy Reactions Criticality Noted Date [...] day. 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 Dry eyes 12/20/2024 Gastroesophageal reflux disease 12/20/2024 Assessment & Plan (03/06/2025 4:46 PM EDT): Continue Voquenza as directed Sjogren's syndrome ([facility] V24) 12/20/2024 Neoplasm of uncertain behavior of [...] a follow-up appointment with his clinic at [place] a few months ago. The plan to [...] LVEF 25-30% at the time of her VT in 2019 Recovery to normal Last Assessment & Plan: LV function has recovered. Hemangioma of skin and subcutaneous tissue 09/09 Other seborrheic keratosis 09/09/2020 Paresthesia of skin 09/09/2020 Benign neoplasm of skin of trunk 02/02/2015 Encounters Date Type Department Care Team Description 08/21/2025 7:22 AM EDT - 08/21/2025 11:59 PM EDT [facility] [address] [address] Breast calcification, right Discharge Disposition: Home or Self Care 08/21/2025 7:17 AM EDT - 08/21/2025 11:59 PM EDT Hospital [facility] [address] [address] Breast calcification, right Discharge Disposition: Home or Self Care 08/13/2025 1:44 PM EDT - 08/13/2025 11:59 PM EDT Hospital [facility] [address] [address] Breast calcification, right Discharge Disposition: Home or Self Care 08/07/2025 7:59 AM EDT - 08/07/2025 11:59 PM EDT Hospital [facility]counter [facility] [address] [address] Encounter for screening mammogram for breast cancer Discharge Disposition: Home or Self Care from Last 3 Months Immunizations Immunization Administration Dates Next Due Influenza Quadravalent, 0.5m [...] TONSILLECTOMY ADENOIDECTOMY, BILATERAL MYRINGOTOMY AND TUBES PROCEDURE: [place] TONSILLECTOMY & ADENOIDECTOMY <AGE 10 BACK SURGERY 01/19/2022 PROCEDURE: HISTORICAL BACK SURGERY; COMMENT: Lumbar decomp by Dr. Sawyer COLONOSCOPY 11/26/2013 LUMBAR SPINE SURGERY complicated by spinal fluid leak ESOPHAGOGASTRODUODENOSCOPY 09/27/2021 ESOPHAGOGASTRODUODENOSCOPY 06/05/2005 active gastric ulcer COLONOSCOPY 08/14/2008 ESOPHAGOGASTRODUODENOSCOPY 05/24/2006 ESOPHAGOGASTRODUODENOSCOPY 03/30/1999 COLONOSCOPY 08/14/1997 ESOPHAGOGASTRODUODENOSCOPY BREAST MASS EXCISION 11/20/1979 - 11/19/1980 Right X2 Medical History Medical History Date Comments Essential hypertension DX:Essent ial hypertension Hyperlipidemia DX:Hyperlipidemi a Sjogren syndrome, unspecifie d ([facility] V24) DX:Sjogren syndrome, unspeci fied ([facility]) Insomnia DX:Insomnia Chronic constipation GERD (gastroesophageal reflux disease) Arthritis Myocardial infarction (CMS/H CC V24, CMS/HCC V28) Family History Medical History Relation Name Comments Colon cancer Father's Sister 1 Breast cancer Father's Sister 2 Breast cancer Mother Eli Navarrete Stroke Mother Eli Navarrete Breast cancer Mother's Sister Colon polyps Sister 1 Colon polyps Sister 2 Relation Name Status Comments Father's Sister 1 Father's Sister 2 Alive Mother Eli Navarrete Mother's Sister Alive Sister 1 Sister 2 Alive Social History Tobacco Use Types Packs/Day Years Used Date Smoking Tobacco: Never Smokeless Tobacco: Never Tobacco Cessation:Counseling Given: Not Answered Alcohol Use Standard Drinks/Week Comments No 0 (1 standard drink = 0.6 oz pur e alcohol) Interpersonal Safety Answer Date Record ed Physical Abuse Unrecognized value 02/21/2025 Verbal Abuse Unrecognized value 02/21/2025 Comments No Sex and Gender Information Value Date Recorded Sex Assigned at Female 02/21/2025 11:11 AM EDT Legal Sex Female 5:11 PM EST Gender Identity Female 02/21/2025 11:11 AM EDT Sexual Orientation Straight 02/21/2025 11 :11 AM EDT Obstetrics History Para Term AB IAB SAB Ectopic Multiple Livin g Live Births 0 Last Filed Vital Signs Vital Sign Reading Time Taken Comments Blood Pressure 138/60 04/25/2025 9:09 AM EDT Pulse 71 04/25/2025 9:09 AM EDT Temperature 36.2 C (97.2 F) 02/21/2025 11:55 AM EDT Respiratory Rate 16 02/21/2025 12:49 PM EDT Oxygen Saturation 99% 04/25/2025 9:09 AM EDT Inhaled Oxygen Concentration - - Weight 49 kg (108 lb) 08/07/2025 8:15 AM EDT Height 152.4 cm (5') 08/07/2025 8:15 AM EDT Body Mass Index 21.09 08/07/2025 8:15 AM EDT Plan of Treatment Upcoming Encounters Date Type Department Care Team (Late st Contact Info) Description 08/10/2026 8:30 AM EDT [facility]ointment [facility] [address] [phone] Health Maintenance Due Date Last Done [...] history exists Influenza Vaccine (#1) 2025 , 08/20/2024, 08/23/2023, Additional history exists Falls Risk Assessment 02/21/2026 [...] age to complete this topic Medical Devices Implanted Type Area Ordained Minister Device Identifier Shelf Expiration Date Model / Serial / Lot Marker Breast Biopsy 10g Flexible Ti Barrel Hydromark - [id number] Implanted:Qty: 1 on 08/21/2025 by Jose Fowler MD at [facility] Breast Implants Right: Breast [employer] [id number] 02/21/2028 4010-05- 10-T1 / / [id number] Procedures Procedure Name Priority Date/Time Associated Diagnosis Comments MG STEREO BX BREAST PERC 1ST LESION RIGHT Routine 08/21/2025 8:26 AM EDT Breast calcification, right MG MAMMO DIGITAL DIAGNOSTIC POST CLIP RIGHT Routine 08/21/2025 8:25 AM EDT Breast calcification, right TISSUE EXAM Routine 08/21/2025 8:04 AM EDT Breast calcification, right MG MAMMO DIAGNOSTIC ADDL VIEWS RIGHT Routine 08/13/2025 2:43 PM EDT Breast calcification, right MG MAMMO DIGITAL SCREENING W FER BILAT Routine 08/07/2025 8:26 AM EDT Encounter for screening mammogram for breast cancer [facility] DEXA AXIAL SKELETON Routine 09/14/2021 11:43 AM EDT Encounter for screening for osteoporosis from Last 3 Months or Most Recently Relevant to Health Maintenance Results * MG Stereo Bx Breast Perc 1st Lesion Right w/ MG Post Clip Imaging to follow (08/21/2025 8:26 AM EDT) Anatomical Region Laterality Modality Breast Right Mammography 08/21/2025 12:1 8 PM EDT Addenda Addendum by Jose Fowler MD on 08/22/2025 3:31 PM EDT Addendum: The final pathology results from the procedure are now available; DATE: 08/21/25 LOCATION: 1:00 position, 8 cm from right nipple STEREOTACTICALLY GUIDED FINAL PATHOLOGY RESULT: Final Diagnosis A. Breast, Right, calcifications, 1:00 8 cm FN, core biopsy (barrel clip): Benign breast tissue with 4 mm fibroadenoma with coarse calcifications. ? B. Breast, Right, tissue, 1:00 8 cm FN, core biopsy (barrel clip): Benign breast tissue with portion of fibroadenoma without calcifications. CONCORDANCE: The final pathology results and imaging findings are concordant ASSESSMENT: BI-RADS 2: BENIGN RECOMMENDATION(S): 1: Routine screening mammogram BILATERAL in 1 year. COMMUNICATION: Dr. Fowler notified the patient of the results and recommendations at 1530 hours on 08/22/25 Addendum: BREAST DENSITY: B - There are scattered areas of fibroglandular density. BI-RADS CATEGORY: 2 - BENIGN RECOMMENDATION: Screening bilateral mammogram is recommended in 1 year. -------- ADDENDUM -------- Dictated By: Jose Fowler Dictated Date: 08/22/2025 15:27 ET Assigned Physician: Jose Fowler Reviewed and Electronically Signed By: Jose Fowler Signed Date: 08/22/2025 15:31 ET Workstation ID: [id number] Transcribed By: Self Edit Transcribed Date: 08/22/2025 15:27 ET Impressions 08/21/2025 12:23 PM EDT STEREOTACTIC MAMMOGRAPHY was used to localize and guide right breast biopsy. STEREOTACTIC MAMMOGRAPHY was used to guide placement of a biopsy site marker. There was no evidence of immediate complication. Postprocedure mammography was performed. An addendum will be generated when the pathology results become available RECOMMENDATION: Pathology pending for the right breast. Location: [address], [address] -------- FINAL REPORT -------- Dictated By: Jose Fowler Dictated Date: 08/21/2025 12:18 ET Assigned Physician: Jose Fowler Reviewed and Electronically Signed By: Jose Fowler Signed Date: 08/21/2025 12:23 ET Workstation ID: [id number] Transcribed By: Self Edit Transcribed Date: 08/21/2025 12:18 ET Narrative 08/21/2025 12:23 PM EDT EXAM: STEREOTACTIC MAMMOGRAPHY GUIDED BREAST BIOPSY, RIGHT BIOPSY SITE MARKER PLACEMENT : Biopsy site marker was placed POSTPROCEDURE MAMMOGRAPHY: Was performed EXAM DATE AND TIME: 08/21/2025 7:18 AM HISTORY: Suspicious grouped calcifications 1 o'clock position 8 cm from right nipple. Tissue diagnosis requested. PROCEDURE: Informed consent was obtained. A procedure pause was performed including patient identification using 3 identifiers. Preprocedure imaging demonstrated: Grouped calcifications in the 1 o'clock position 8 cm from the right nipple. Using sterile technique and lidocaine anesthesia, Stereotactic mammography guided biopsy of the right breast was performed from a superior approach. A 10 gauge Vacuum assisted core biopsy device was used. There was documentation of appropriate needle placement with digital archive. SPECIMEN RADIOGRAPHY: Was performed and suggest appropriate sampling. 3 specimens were placed in formalin and submitted for pathologic evaluation. A radiopaque marker was deployed at the site for future reference. BIOPSY SITE MARKER SHAPE: BARREL Upon completion of the procedure, pressure was applied until adequate hemostasis was obtained. The patient tolerated the procedure well and was discharged in good condition after being educated regarding post procedure care and instructions and contact information should she be concerned about a complication. An addendum will be generated when the pathology results become available. Postprocedure mammography: Was performed Laterality: RIGHT TISSUE DENSITY: There are scattered areas of fibroglandular density. (BI-RADS category B) FINDINGS: The biopsy site marker appears appropriately positioned. There is no evidence of immediate complication. No new suspicious findings. Elva Davison MD IMG BI PROCEDURES Edited Result - Final * MG Mammo Digital Diagnostic Clip Post MG Guide Right (Statistics) (08/21/2025 8:25 AM EDT) Anatomical Region Laterality Modality Breast Right Mammography 08/21/2025 12:1 8 PM EDT Addenda Addendum by Jose Fowler MD on 08/22/2025 3:31 PM EDT Addendum: The final pathology results from the procedure are now available; DATE: 08/21/25 LOCATION: 1:00 position, 8 cm from right nipple STEREOTACTICALLY GUIDED FINAL PATHOLOGY RESULT: Final Diagnosis A. Breast, Right, calcifications, 1:00 8 cm FN, core biopsy (barrel clip): Benign breast tissue with 4 mm fibroadenoma with coarse calcifications. ? B. Breast, Right, tissue, 1:00 8 cm FN, core biopsy (barrel clip): Benign breast tissue with portion of fibroadenoma without calcifications. CONCORDANCE: The final pathology results and imaging findings are concordant ASSESSMENT: BI-RADS 2: BENIGN RECOMMENDATION(S): 1: Routine screening mammogram BILATERAL in 1 year. COMMUNICATION: Dr. Fowler notified the patient of the results and recommendations at 1530 hours on 08/22/25 Addendum: BREAST DENSITY: B - There are scattered areas of fibroglandular density. BI-RADS CATEGORY: 2 - BENIGN RECOMMENDATION: Screening bilateral mammogram is recommended in 1 year. -------- ADDENDUM -------- Dictated By: Jose Fowler Dictated Date: 08/22/2025 15:27 ET Assigned Physician: Jose Fowler Reviewed and Electronically Signed By: Jose Fowler Signed Date: 08/22/2025 15:31 ET Workstation ID: [id number] Transcribed By: Self Edit Transcribed Date: 08/22/2025 15:27 ET Impressions 08/21/2025 12:23 PM EDT STEREOTACTIC MAMMOGRAPHY was used to localize and guide right breast biopsy. STEREOTACTIC MAMMOGRAPHY was used to guide placement of a biopsy site marker. There was no evidence of immediate complication. Postprocedure mammography was performed. An addendum will be generated when the pathology results become available RECOMMENDATION: Pathology pending for the right breast. Location: [address], [address] -------- FINAL REPORT -------- Dictated By: Jose Fowler Dictated Date: 08/21/2025 12:18 ET Assigned Physician: Jose Fowler Reviewed and Electronically Signed By: Jose Fowler Signed Date: 08/21/2025 12:23 ET Workstation ID: [id number] Transcribed By: Self Edit Transcribed Date: 08/21/2025 12:18 ET Narrative 08/21/2025 12:23 PM EDT EXAM: STEREOTACTIC MAMMOGRAPHY GUIDED BREAST BIOPSY, RIGHT BIOPSY SITE MARKER PLACEMENT : Biopsy site marker was placed POSTPROCEDURE MAMMOGRAPHY: Was performed EXAM DATE AND TIME: 08/21/2025 7:18 AM HISTORY: Suspicious grouped calcifications 1 o'clock position 8 cm from right nipple. Tissue diagnosis requested. PROCEDURE: Informed consent was obtained. A procedure pause was performed including patient identification using 3 identifiers. Preprocedure imaging demonstrated: Grouped calcifications in the 1 o'clock position 8 cm from the right nipple. Using sterile technique and lidocaine anesthesia, Stereotactic mammography guided biopsy of the right breast was performed from a superior approach. A 10 gauge Vacuum assisted core biopsy device was used. There was documentation of appropriate needle placement with digital archive. SPECIMEN RADIOGRAPHY: Was performed and suggest appropriate sampling. 3 specimens were placed in formalin and submitted for pathologic evaluation. A radiopaque marker was deployed at the site for future reference. BIOPSY SITE MARKER SHAPE: BARREL Upon completion of the procedure, pressure was applied until adequate hemostasis was obtained. The patient tolerated the procedure well and was discharged in good condition after being educated regarding post procedure care and instructions and contact information should she be concerned about a complication. An addendum will be generated when the pathology results become available. Postprocedure mammography: Was performed Laterality: RIGHT TISSUE DENSITY: There are scattered areas of fibroglandular density. (BI-RADS category B) FINDINGS: The biopsy site marker appears appropriately positioned. There is no evidence of immediate complication. No new suspicious findings. Elva Davison MD IMG BI PROCEDURES Edited Result - Final * Tissue exam (08/21/2025 8:04 AM EDT) Final Diagnosis A. Breast, Right, calcifications, 1:00 8 cm fn, core biopsy (barrel clip): Benign breast tissue with 4 mm fibroadenoma with coarse calcifications. B. Breast, Right, tissue, 1:00 8 cm fn, core biopsy (barrel clip): Benign breast tissue with portion of fibroadenoma without calcifications. 11:59 AM EDT [facility] at 1159 EDT Clinical Information Biopsy is done for: Coarse, fine microcalcifications Ultrasound shows: Clustered calcifications Abnormal mammogram, suspicious grouped calcifications right breast 1:00 8 cm fn This is associated lobulated mass Three cores, # 10-gauge, barrel Probability that the target was sampled: High History of previous breast cancer: No History of non-breast cancer: No History of atypical hyperplasia: No History of radiation/chemotherap y: No 11:59 AM EDT [facility] Gross Description A. Breast, Right, calcs: Labeled right breast and right breast w/ calcs on the top of the lid . Received in formalin is a 1.2 x 1.2 x 0.3 cm aggregate of soft to rubbery, yellow-white, fibrofatty tissue cores, which are submitted in toto, between sponges, in one cassette, multiple pieces, x 3. B. Breast, Right, : Labeled right breast and with tissue right breast on the top of the lid . Received in formalin, in a collection device, is a 2.5 x 1.1 x 0.3 cm aggregate of soft to rubbery yellow-white to pink-red, fibrofatty tissue cores with minimal attached blood which are submitted in toto, between sponges, in one cassette, multiple pieces, x 3. Time removed from patient (warm ends < cold ischemia starts): 8:00 AM 08/21/2025 Time put in formalin (cold ischemia ends): 8:05 AM 08/21/2025 Total cold ischemic time: 5 minutes Time tissue exits final stage of formalin on tissue processor: 9:00 PM 08/21/2025 Total fixation time (Ideally greater than 6 hours and less than 72 hours): Approximately 13 hours TS 11:59 AM EDT [facility] Disclaimer Unless otherwise specified, all tissue is 10% NB formalin fixed and paraffin embedded. 11:59 AM EDT [facility] Tissue Right breast structure / Unknown 08/21/2025 8:04 AM EDT 08/21/2025 8:29 AM EDT Tissue specimen (specimen) Right breast structure / Unknown 08/21/2025 8:04 AM EDT 08/21/2025 8:29 AM EDT us Jose Fowler MD LAB PATHOLOGY ORDERABLES Annel garcia Result [facility] [address] [place] [address], * (ABNORMAL) MG Mammo Diagnostic Addl Views Right (08/13/2025 2:43 PM EDT) Anatomical Region Laterality Modality Breast Right Mammography 08/13/2025 2:16 PM EDT Impressions 08/13/2025 4:33 PM EDT Suspicious grouped calcifications in the 1 o'clock position 8 cm from the right nipple. Recommend tissue diagnosis. This could be accomplished using stereotactic localization and guidance. The findings and recommendations were reviewed with the patient at the time of the exam. Departmental staff will facilitate scheduling ASSESSMENT: BI-RADS 4: SUSPICIOUS RECOMMENDATION(S): 1: Needle biopsy recommended RIGHT using stereotactic localization and guidance. [facility] location: [facility] [address], [address] -------- FINAL REPORT -------- Dictated By: Jose Fowler Dictated Date: 08/13/2025 14:16 ET Assigned Physician: Jose Fowler Reviewed and Electronically Signed By: Jose Fowler Signed Date: 08/13/2025 16:33 ET Workstation ID: [id number] Transcribed By: Self Edit Transcribed Date: 08/13/2025 14:24 ET Narrative 08/13/2025 4:33 PM EDT EXAM: DIAGNOSTIC MAMMOGRAPHY, UNILATERAL RIGHT HISTORY: Abnormal screening mammogram. Incompletely characterized calcifications. COMPARISON: Right mammography 08/07/25 TECHNIQUE: Spot magnified views of the right breast and multiple projections ADDITIONAL IMAGING: None Computer aided detection was not utilized. TISSUE DENSITY: There are scattered areas of fibroglandular density. (BI-RADS category B) FINDINGS: RIGHT BREAST: There are grouped coarse heterogeneous calcifications in the 1 o'clock position 8 cm from the right nipple There are some lobular masslike densities in this facility. The calcifications are new. Procedure Note Jose Fowler MD - 08/13/2025 EXAM: DIAGNOSTIC MAMMOGRAPHY, UNILATERAL RIGHT HISTORY: Abnormal screening mammogram. Incompletely characterizedcalcifications. COMPARISON: Right mammography 08/07/25 TECHNIQUE: Spot magnified views of the right breast and multipleprojections ADDITIONAL IMAGING: None Computer aided detection was not utilized. TISSUE DENSITY: There are scattered areas of fibroglandular density.(BI-RADS category B) FINDINGS: RIGHT BREAST: There are grouped coarse heterogeneous calcifications in the 1 o'clockposition 8 cm from the right nipple There are some lobular masslike densities in this facility. Thecalcifications are new. IMPRESSION: Suspicious grouped calcifications in the 1 o'clock position 8 cm from theright nipple. Recommend tissue diagnosis. This could be accomplished using stereotactic localization and guidance. The findings and recommendations were reviewed with the patient at thetime of the exam. Departmental staff will facilitate scheduling ASSESSMENT: BI-RADS 4: SUSPICIOUS RECOMMENDATION(S): 1: Needle biopsy recommended RIGHT using stereotactic localization andguidance. [facility] [address], [address] -------- FINAL REPORT -------- Dictated By: Jose Fowler Dictated Date: 08/13/2025 14:16 ET Assigned Physician: Jose Fowler Reviewed and Electronically Signed By: Jose Fowler Signed Date: 08/13/2025 16:33 ET Workstation ID: [id number] Transcribed By: Self Edit Transcribed Date: 08/13/2025 14:24 ET Elva Davison MD IMG BI PROCEDURES Final Result * (ABNORMAL) MG Mammo Digital Screening w Fer bilat (08/07/2025 8:26 AM EDT) Anatomical Region Laterality Modality Breast Bilateral Mammography 08/07/2025 9:09 AM EDT Impressions 08/07/2025 9:12 AM EDT Grouped calcifications in the right breast. Recommend magnification views for further evaluation. BI-RADS CATEGORY: 0 - INCOMPLETE - NEED ADDITIONAL IMAGING EVALUATION RECOMMENDATION: Additional right breast imaging recommended. Mammo Location: [facility], [address] [place] [address], [id number], . -------- FINAL REPORT -------- Dictated By: Nichole Arias Dictated Date: 08/07/2025 09:09 ET Assigned Physician: Nichole Arias Reviewed and Electronically Signed By: Nichole Arias Signed Date: 08/07/2025 09:12 ET Workstation ID: [id number] Transcribed By: Self Edit Transcribed Date: 08/07/2025 09:09 ET Narrative 08/07/2025 9:12 AM EDT CLINICAL: 80 years old, Female, routine annual exam. COMPARISON: Multiple prior studies dating back to 2019 TECHNIQUE: Bilateral MLO and CC views were obtained digitally with 3-D mammogram (digital breast tomosynthesis). Computer-aided detection was utilized in evaluation of this exam (CAD). FINDINGS: There are grouped calcifications in the right upper inner breast at middle to posterior depth. There is no evidence of suspicious mass or architectural distortion in either breast. BREAST DENSITY: B - There are scattered areas of fibroglandular density. Procedure Note Nichole Arias MD - 08/07/2025 CLINICAL: 80 years old, Female, routine annual exam. COMPARISON: Multiple prior studies dating back to 2019 TECHNIQUE: Bilateral MLO and CC views were obtained digitally with 3-Dmammogram (digital breast tomosynthesis). Computer-aided detection wasutilized in evaluation of this exam (CAD). FINDINGS: There are grouped calcifications in the right upper inner breast at middleto posterior depth. There is no evidence of suspicious mass orarchitectural distortion in either breast. BREAST DENSITY: B - There are scattered areas of fibroglandular density. IMPRESSION: Grouped calcifications in the right breast. Recommend magnification viewsfor further evaluation. BI-RADS CATEGORY: 0 - INCOMPLETE - NEED ADDITIONAL IMAGING EVALUATION RECOMMENDATION: Additional right breast imaging recommended. Mammo Location: [facility], [address] [place] [address], [id number], . -------- FINAL REPORT -------- Dictated By: Nichole Arias Dictated Date: 08/07/2025 09:09 ET Assigned Physician: Nichole Arias Reviewed and Electronically Signed By: Nichole Arias Signed Date: 08/07/2025 09:12 ET Workstation ID: [id number] Transcribed By: Self Edit Transcribed Date: 08/07/2025 09:09 ET us Self Referral Sppl IMG BI PROCEDURES Final Resul t * [facility] DEXA AXIAL SKELETON (09/14/2021 11:43 AM EDT) Anatomical Region Laterality Modality Mammography 09/14/2021 8:48 AM EDT Narrative 09/14/2021 11:43 AM EDT [facility] Diagnostic Imaging Department [address] [place] [id number] Patient: KAVITA NAVARRETE /Age/Sex: 1945 - 76 - F Unit#: [id number] Location/Status: SPDIMAM/REG CLI Mnemonic/Ordering Site: MAMDEXAAX/SPMAM Ordering Physician: DEX TOLENTINO MD [facility] Dexa Axial Skeleton - 09/14/21942 History: Low estrogen state due to menopause. Height loss. Comparison: 10/14/15 Findings: Bone densitometry is performed utilizing dual energy x-ray absorptiometry (DXA) in the [employer] unit. The lumbar spine and proximal femora [...] 12.4 percent Hip 3.0 percent. IMPRESSION: Osteopenia. [id number] Dictating Physician: MERCEDES VANESSA MD Electronically Signed by: MERCEDES VANESSA MD Dic Date/Time: 09/14/21 1142 Sign date/Time: 09/14/21 1143 Procedure Note Mercedes Vanessa MD - 11/09/2022 [facility] Diagnostic Imaging Department [address] [place] [address] Patient: KAVITA NAVARRETE /Age/Sex: 1945 - 76 - F Unit#: [id number] Location/Status: SPDIMAM/REG CLI Mnemonic/Ordering Site: MAMDEXAAX/SPMAM Ordering Physician: DEX TOLENTINO MD Aravind Dexa Axial Skeleton - 09/14/21942 History: Low estrogen state due to menopause. Height loss. Comparison: 10/14/15 Findings: Bone densitometry is performed utilizing dual energy x-ray absorptiometry(DXA) in the [facility]oor[facility] unit. The lumbar spine and proximal femora [...] 12.4 percent Hip 3.0 percent. IMPRESSION: Osteopenia. [id number] Dictating Physician: MERCEDES VANESSA MD Electronically Signed by: MERCEDES VANESSA MD Dic Date/Time: 09/14/21 1142 Sign date/Time: 09/14/21 1143 Dex Tolentino MD IMG BI PROCEDURES Final Result from Last 3 Months or Most Recently Relevant to Health Maintenance Insurance [facility] RETIREMENT [employer] Member Subscriber Plan / Payer (Ef fective 2024-Present) Name:Kavita Navarrete Sr. Relation to Subscriber:Self Name:Kavita Navarrete Sr. Payer ID:[id number] Group ID:Not on file Type:Not on file Address: [address] [facility] [place] [address] [facility] Member Subscriber Plan / Payer (Ef fective 2024-Present) Name:Kavita Navarrete Relation to Subscriber:Self Name:Kavita Navarrete Sr. Payer ID:[id number] Group ID:[id number] Type:Not on file Address: [address] [place] [address] Advance Directives Documents on File Type Date Recorded Patient Licensed Prosthetist/Orthotist Expl anation Health Care Decision (hx) 09/23/2021 [...] (hx) 09/23/2021 AD GARCIA DIRECTIVE Care Teams Business Support Liaison Relationship Specialty Start Date End Date Elva Davison MD [address] [place] [address] [place] [address] [place] [address] PCP - General Internal Medicine 03/19/21
--- OUTSIDE RECORDS SUMMARY | 2025-09-03 08:59 | XMS_ITS | Encounter Summary ---
Author Organization [facility] Address [address] [place] [address] Phone Care Team Providers Care C Wpf Developer Name Role Phone Johana Jaimes MD Primary Care Provider [phone] Reason for Visit * Auth/Cert Specialty Diagnoses / Procedures Referred By Contac t Referred To Contact Diagnoses Xerostomia Xerostomia Procedures CT BIOPSY SOFT TISSUE NECK/CHEST CT BIOPSY SALIVARY GLAND,NEEDLE CT BIOPSY SALIVARY GLAND,INCISIONAL BIOPSY SOFT TISSUE ( MINOR SALIVARY BIOPSY) Referral ID Status Reason Start Date Expiration Date Visits Re quested Visits Authorized [id number] 1 1 Encounter Details Date Type Department Care Team (Late st Contact Info) Description 08/16/2019 Hospital Encounter [facility] LW PERIOP DEPT [address] [place] [id number] Jordan Velez MD [address] [place] [id number] [email or web address] Social History Tobacco Use Types Packs/Day Years [...] on filedocumented in this encounter Care Teams C Wpf Developer Relationship Specialty Start Date End Date Johana Jaimes MD [address] [facility] [place] [address] PCP - General Internal Medicine 08/07/19 documented as of this encounter Additional Source Comments The information contained in this document represents components of the legal health record. It is not the complete legal health record.[facility]
--- OUTSIDE RECORDS SUMMARY | 2025-09-03 08:59 | XMS_ITS | Patient Health Record ---
Author Organization [facility] Address [address] [facility] [place] [address] Care Team Providers Care Systems Spec Name Role Phone SamanChloebran Primary Care Provider Charity Weber Unavailable [phone] Allergies Allergen (clinical drug ingredient) Drug/Non Drug Allergy documented on EMR Reaction Allergy Type Onset Date Status codeine Codeine Unknown Drug Allergy Active Reason For Referral No Information Medications Medication SIG (Take, Route, Frequency, Duration) Notes Start Date End Date Status amLODIPine Besylate Active SMZ-TMP DS Active Breo Ellipta Active Metoprolol Succinate ER Active Voquezna Active MiraLax Active Gemtesa Active Estradiol Active Cephalexin Not-Takin g Align Active clonazePAM 0.5 MG 1 tablet Orally Once a day Active Aspirin Active Cevimeline HCl Activ e PreviDent Active Atorvastatin Calcium Active Vitamin D3 Active Gabapentin Active Refresh Plus Active Mirtazapine Active Hydroxychloroquine Sulfate Not-Taking Restasis Active Zolpidem Tartrate Ac tive Pilocarpine HCl Not- Taking Immunizations Vaccine Route Administration Date Status Comme nts Influenza Unknown 08/20/2024 Administered Social History Tobacco Use: Social History Observation Description Date Details (start date - stop date) Never Smoker NA - NA Tobacco use other than smoking: Question Answer Notes Are you an other tobacco user? No Tobacco Control (Standard) Question Answer Notes Tobacco use: Nonsmoker Additional Findings: Tobacco non-user Current no nsmoker AUDIT-C (Standard) Question Answer Notes Did you have a drink containing alcohol in the p ast year? No Points 0 Interpretation Negative Problems Problem Type SNOMED Code ICD Code Onset Dates Problem Status W/U Status Risk Notes Problem Acquired hallux valgus (77488616) Hallux valgus (acquired), left foot (M20.12) Active confirmed Vital Signs Blood pressure diastolic 65 mm Hg 08/28/2025 Height 5 ft in 08/28/2025 Blood pressure systolic 125 mm Hg 08/28/2025 Weight 108 lbs 08/28/2025 BMI 21.09 kg/m2 08/28/2025 Encounters Encounter Location Date Provider Diagnosis [address] [address] 04/09/2025 hCarity Champion Pain in left foot M79.672 ; Pain in left ankle and joints of left foot M25.572 ; Bursitis of left foot M77.52 and Sesamoiditis of left foot M25.[address] [address] 06/18/2025 Charity Champion Pain in left foot M79.672 ; Pain in left ankle and joints of left foot M25.572 ; Bursitis of left foot M77.52 and Sesamoiditis of left foot M25.[address] [address] 08/28/2025 Charity Champion Pain in left foot M79.672 ; Pain in left ankle and joints of left foot M25.572 ; Bursitis of left foot M77.52 and Sesamoiditis of left foot M25.[address] [address] 06/18/2025 Charity Champion [address] [address] 01/20/2025 Charity Champion [address] [address] 02/17/2025 Charity Champion [address] [address] 06/18/2025 Charity Champion Assessments Encounter Date Diagnosis (ICD Code) Assessment Notes Treatment Notes Treatment Clinical Notes Section Notes 04/09/2025 Pain in left ankle and joints of left foot (ICD-10 - M25.572) 04/09/2025 Pain in left foot (ICD-10 - M79.672) 06/18/2025 Pain in left ankle and joints of left foot (ICD-10 - M25.572) 06/18/2025 Pain in left foot (ICD-10 - M79.672) 08/28/2025 Pain in left ankle and joints of left foot (ICD-10 - M25.572) 08/28/2025 Pain in left foot (ICD-10 - M79.672) 08/28/2025 Bursitis of left foot (ICD-10 - M77.52) 06/18/2025 Bursitis of left foot (ICD-10 - M77.52) 04/09/2025 Bursitis of left foot (ICD-10 - M77.52) 04/09/2025 Sesamoiditis of left foot (ICD-10 - M25.872) 06/18/2025 Sesamoiditis of left foot (ICD-10 - M25.872) 08/28/2025 Sesamoiditis of left foot (ICD-10 - M25.872) Plan Of Treatment Pending Test Test Name Order Date X ray : Foot, left 3V 04/09/2025 Insurance Providers Payer Name Payer Address Payer Phone Subscriber Number Group Number Insured Name Patient Relationship to Insured Coverage Start Date Coverage End Date [facility] CCA SCO Claims [address] [place] [id number] Kavita Roman Self - patient is the insured Medical (General) History Medical History History ICD Code Arthritis CAD (Cholesterol) Heart disease High Blood Pressure raynauds disease Reflux ( GERD) Sjogren syndrome Measles Mumps Chicken pox cystitis Surgical History Surgery Date(Month/Year) Spinal Fusion 10/05/05 Removal of Handware 12/20/06 Stent 05/2019 Back Sx 2021
--- OUTSIDE RECORDS SUMMARY | 2025-09-03 08:59 | XMS_ITS | Encounter Summary ---
Author Organization [facility] Address [address] [place] [address] Phone Care Team Providers Care Woods Laborer Name Role Phone Johana Jaimes MD Primary Care Provider [phone] Encounter Details Date Type Department Care Team (Late st Contact Info) Description 08/16/2019 Procedure Pass ZMEE LW PERIOP DEPT [address] [place] [address] Social History Tobacco Use Types Packs/Day Years [...] on filedocumented in this encounter Care Teams Woods Laborer Relationship Specialty Start Date End Date Johana Jaimes MD 1963 [facility] [place] [address] PCP - General Internal Medicine 08/07/19 documented as of this encounter Additional Source Comments The information contained in this document represents components of the legal health record. It is not the complete legal health record.[facility]
== END 2025-09-03 09:29 | disposition home or self-care (01) ==
LOC: HO.HMCH 08:34
PROVIDERS: PCP Internal Medicine; Visit Provider Internal Medicine
DX: I10 Essential (primary) hypertension (principal); I25.10 Atherosclerotic heart disease of native coronary artery without angina pectoris; E78.00 Pure hypercholesterolemia, unspecified; K21.9 Gastro-esophageal reflux disease without esophagitis; N32.81 Overactive bladder; M35.00 Sjogren syndrome, unspecified; J41.0 Simple chronic bronchitis; F41.1 Generalized anxiety disorder; Z23 Encounter for immunization

== ENCOUNTER → 2025-09-03 08:33 | Outpatient (BNVA) | payer OTHER, SELFPAY | PROVIDERS: PCP Internal Medicine; Visit Provider Internal Medicine | DX: I10 Essential (primary) hypertension (principal); I25.10 Atherosclerotic heart disease of native coronary artery without angina pectoris; E78.00 Pure hypercholesterolemia, unspecified; K21.9 Gastro-esophageal reflux disease without esophagitis; N32.81 Overactive bladder; M35.00 Sjogren syndrome, unspecified; J41.0 Simple chronic bronchitis; F41.1 Generalized anxiety disorder; Z23 Encounter for immunization | CPT/HCPCS: 90471; 90656; 96127; 99212 ==

== ENCOUNTER 2025-10-14 13:57 | Outpatient (AMB) | payer OTHER, SELFPAY ==
--- OUTSIDE RECORDS SUMMARY | 2025-08-12 05:00 | XMS_ITS ---
Author Organization [facility] Address [address] [facility] [place] [address] Care Team Providers Care Human Services Supervisor Name Role Phone Elva Davison Primary Care Provider Charity Weber [phone] Encounters Encounter Location Date Provider Diagnosis [address] [address] 08/12/2025 Charity Champion Plan Of Treatment No Information Progress Notes * LANDONDanteOB: 3 (80 yo F)Acc No.[id number]:08/12/2025 Progress Note Patient: Kavita HIGHTOWER Provider: Endy Champion DPM :1945 A ge:80 Y S ex:Female Date:08/12/2025 [address] [facility] Pcp:Elva Davison Subjective: * Chief Complaints: * * Medical History: Objective: * Vitals: Assessment: Plan: * Treatment: * Images: * The named appointment provid er may or may not be the originator of this progress note, and it is not deemed complete until electronically signed by the appointment provider. Sign off status: Pending * Provider: Endy Champion DPM Date: 0 08/12/2025 Generated for Printi ng/Falinog/eTransmitting on: 12/14/2024 05:51 PM EST
--- NOTE | 2025-10-14 13:59 | AM.OFFWIN_ITS ---
Intake Vital Signs 10/14/25 14:00 Height 5 ft Weight 110 lb BMI 21.5 BP 134/70 Blood Pressure Location Rt brachial Position Sitting Pulse 73 Pulse Source Pulse Oximeter Temp 97.6 F Temp Source Oral Pulse Oximetry (%) 98 Oxygen Delivery Method Room Air Intake Visit Reasons: EP burning when urinated Intake Note: Patient presents c/o UTI since this morning when she woke up. Patient Tobacco Use Status: Never used Tobacco Allergies nitrofurantoin Allergy (Intermediate, Verified 10/14/25 14:03) colitis codeine Allergy (Unknown, Verified 10/14/25 14:03) Unknown hydrocodone (From Vicodin) Allergy (Unknown, Verified 10/14/25 14:03) Unknown tramadol Allergy (Unknown, Verified 10/14/25 14:03) Unknown HPI HPI Comments History of Present Illness Details History - The patient is an 80-year-old female p resenting with symptoms of a urinary tract infection. - She reports pain and burning sensation during urination, with frequent urination throughout the night. - The patient has a history of recurrent urinary tract infections, with the last episode occurring in January. - She is currently on gemtesa for overac tive bladder and urinary tract infection management. - She denies hematuria, fever, chills, C P, SOB, back pain, or vaginal discharge. Physical Exam General: Cooperative, healthy appearing, comfortable, no acute distress and well developed Cardiac: Normal S1 and S2. RRR, no M/R/G noted. Respiratory: Normal respiratory effort and able to speak in complete sentences. Clear to auscultation bilaterally. No w/r/r noted. Skin: No rashes or lesions noted. GI: Normal inspection. Normal BS noted. Soft, non-tender, non-distended. No TTP of all 4 quadrants. No guarding or rebound tenderness noted. Back: Negative CVA bilaterally Patient was informed and verbally consented to the use of an ambient scribe for clinic note documentation during this visit. 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 Lumbar stenosis Vitamin D deficiency HTN (hypertension) CAD (coronary artery disease) Surgical History Hx of cystoscopy History of back surgery H/O spinal fusion Family History Father Heart disease Mother Breast cancer Social History Housing: Apartment Alcohol intake: never Patient Tobacco Use Status: Never used Tobacco e-Cigarette/Vaping Use: Never Used Second Hand Smoke Exposure: No service: No Current occupational status: retired Cognitive needs: No Hearing needs: No Vision needs: Yes (Glasses) Review of Systems Const All systems reviewed & are unremarkable except as noted in HPI and below Physical Exam Vital Signs: Last Vital Signs Temp 97.6 F 10/14/25 14:00 Pulse 73 10/14/25 14:00 BP 134/70 10/14/25 14:00 Pulse Ox 98 10/14/25 14:00 Oxygen Delivery Method Room Air 10/14/25 14:00 BMI result Body Mass Index 21.5 Assessment & Plan Assessment & Plan (1) Dysuria: Code(s): R30.0 - Dysuria Plan Most likely UTI UA +leuko, blood plan - Urine sample requested for culture to identify causative organism. - will start her on antibiotics today - will call her and adjust the medication based on the culture - drink lots of fluids - follow up with PCP Orders: Orders AMB Urinalysis Automated Today Z13.9 - Encounter for screening, unspecified Urine Culture Today N39.0 - Urinary tract infection, site not specified Medications: New cefuroxime axetil 500 mg PO Q12H 10 tabs 0RF Coding Level of Care Code Est Pt Level 3 (75980) Diagnoses Dysuria R30.0
[2025-10-14 14:00] VITALS: BP 134/70; PULSE 73; TEMP 36.4; O2SAT 98; BMI 21.5
--- OUTSIDE RECORDS SUMMARY | 2025-10-14 17:51 | XMS_ITS | Encounter Summary ---
Author Organization [facility] [place] [address] Care Team Providers Care Senior Oracle Soa Developer Name Role Phone Elva Davison MD Primary Care Provider [phone] Encounter Details Date Type Department Care Team ([facility] st Contact Info) Description 09/29/2025 Telephone Gastroenterology - [address] [place] [phone] Nahum Lee MD [address] [place] [address] Social History Tobacco Use Types Packs/Day Years Used Date Smoking Tobacco: Never Smokeless Tobacco: Never Alcohol Use Standard Drinks/Week Comments No 0 (1 standard drink = 0.6 oz pur e alcohol) Interpersonal Safety Answer Date Record ed Physical Abuse Unrecognized value 09/15/2025 Verbal Abuse Unrecognized value 09/15/2025 Comments No Sex and Gender Information Value Date Recorded Sex Assigned at Female 02/21/2025 11:11 AM EDT Legal Sex Female 5:11 PM EST Gender Identity Female 02/21/2025 11:11 AM EDT Sexual Orientation Straight 02/21/2025 11 :11 AM EDT documented as of this encounter Progress Notes * Becky Berhane - 09/29/2025 3:43 PM EST Pt is calling to let Dr. Lee know the egd did help her and she is able to swallow food and she doesn't get as much acid reflux anymore documented in this encounter Plan of Treatment Upcoming Encounters Date Type Department Care Team (Late st Contact Info) Description 08/10/2026 8:30 AM EDT Appointment [facility] at [address] [phone] documented as of this encounter Goals Goal Patient Goal Type Associated Problems Recent Progress Patient-Stated? Author Autogenera ian Goal Care Plan Autogenerated Problem No Paula De Leon documented as of this encounter Visit Diagnoses Not on filedocumented in this encounter Additional Health Concerns Active Problems Noted Date Diagnosed Date Autogenerated Problem 09/09/2025 documented as of this encounter Care Teams Senior Oracle Soa Developer Relationship Specialty Start Date End Date Elva Davison MD [address] [place] [address] [address] [facility] [place] [address] PCP - General Internal Medicine 03/19/21 documented as of this encounter
--- OUTSIDE RECORDS SUMMARY | 2025-10-14 17:51 | XMS_ITS | Encounter Summary ---
Author Organization [facility] Address [address] [facility] [address] [place] [address] Phone Care Team Providers Care Range Rider Name Role Phone Johana Jaimes MD Primary Care Provider [phone] Encounter Details Date Type Department Care Team (Late st Contact Info) Description 08/16/2019 Procedure Pass [facility]MEE LW PERIOP DEPT [address] [place] [address] Social History Tobacco Use Types Packs/Day Years [...] on filedocumented in this encounter Care Teams Range Rider Relationship Specialty Start Date End Date Johana Jaimes MD [address] [place] [address] PCP - General Internal Medicine 08/07/19 documented as of this encounter Additional Source Comments The information contained in this document represents components of the legal health record. It is not the complete legal health record.[facility]
--- OUTSIDE RECORDS SUMMARY | 2025-10-14 17:51 | XMS_ITS | Encounter Summary ---
Author Organization [facility] Address [address] [place] [address] Phone Care Team Providers Care Load Dropper Name Role Phone Johana Jaimes MD Primary Care Provider [phone] Reason for Visit * Auth/Cert Specialty Diagnoses / Procedures Referred By Contac t Referred To Contact Diagnoses Xerostomia Xerostomia Procedures AL BIOPSY SOFT TISSUE NECK/CHEST AL BIOPSY SALIVARY GLAND,NEEDLE AL BIOPSY SALIVARY GLAND,INCISIONAL BIOPSY SOFT TISSUE ( MINOR SALIVARY BIOPSY) Referral ID Status Reason Start Date Expiration Date Visits Re quested Visits Authorized [id number] 1 1 Encounter Details Date Type Department Care Team (Late st Contact Info) Description 08/16/2019 Hospital Encounter [facility] LW PERIOP DEPT [address] [place] [address] Jordan Velez MD [address] [place] [id number] [email or web address] Social History Tobacco Use Types Packs/Day [...] on filedocumented in this encounter Care Teams Load Dropper Relationship Specialty Start Date End Date Johana Jaimes MD [address] [place] [address] PCP - General Internal Medicine 08/07/19 documented as of this encounter Additional Source Comments The information contained in this document represents components of the legal health record. It is not the complete legal health record.[facility]
--- OUTSIDE RECORDS SUMMARY | 2025-10-14 17:51 | XMS_ITS | Patient Health Record ---
Author Organization [facility] Address [address] [facility] [place] [address] Care Team Providers Care Outsole Beveler Name Role Phone SamanChloebran Primary Care Provider Charity Weber Unavailable [phone] Allergies Allergen (clinical drug ingredient) Drug/Non Drug [...] Status Risk Notes Problem Acquired hallux valgus (38690383) Hallux valgus (acquired), left foot (M20.12) Active confirmed Vital Signs Blood pressure diastolic 65 mm Hg 08/28/2025 Height 5 ft in 08/28/2025 Blood pressure systolic 125 mm Hg 08/28/2025 Weight 108 lbs 08/28/2025 BMI 21.09 kg/m2 08/28/2025 Encounters Encounter Location Date Provider Diagnosis [address] [address] 04/09/2025 Charity Champion Pain in left foot M79.672 ; Pain in left ankle and joints of left foot M25.572 ; Bursitis of left foot M77.52 and Sesamoiditis of left foot M25.[address] [address] 06/18/2025 Charity Champion Pain in left foot M79.672 ; Pain in left ankle and joints of left foot M25.572 ; Bursitis of left foot M77.52 and Sesamoiditis of left foot M25.[address] [address] 08/28/2025 Charity Champion Pain in left foot M79.672 ; Pain in left ankle and joints of left foot M25.572 ; Bursitis of left foot M77.52 and Sesamoiditis of left foot M25.[address] [address] 01/20/2025 Charity Champion [address] [address] 02/17/2025 Charity Champion [address] [address] 06/18/2025 Charity Champion [address] [address] 06/18/2025 Charity Champion Assessments Encounter Date Diagnosis [...] Insured Coverage Start Date Coverage End Date [facility] [employer] SCO Claims [address] [place] [id number] Kavita Roman Self - patient is the insured Medical (General) History Medical History History ICD Code Arthritis CAD (Cholesterol) Heart disease High Blood Pressure raynauds disease Reflux ( GERD) Sjogren syndrome Measles Mumps Chicken pox cystitis Surgical History Surgery Date(Month/Year) Spinal Fusion 10/05/05 Removal of Handware 12/20/06 Stent 05/2019 Back Sx 2021
--- OUTSIDE RECORDS SUMMARY | 2025-10-14 17:51 | XMS_ITS | Data Portability ---
Author Organization [facility], [facility] Address [address] [place] [address] Care Team Providers Care Agricultural Appraiser Name Role Phone CAMILA STEINER Primary Care Provider Assessment No assessment recorded. [...] Not Available Vitals Date Recorded Oxygen saturation Body weight Heart rate Respiratory rate Body temperature Systolic And Diastolic Provider Name and Address Organization Details Last Updated DateTime 4 98 % 99812.3 04 g 70 /min 18 /min 98.8 [degF] 176/96 mm[Hg] Not Available [facility] - production 4 14:26:10 Social History None recorded. Functional Status None recorded. Mental Status None recorded. Family History Nothing Reported. Medical History No medical history recorded. Gynecological HistoryNo gynecological history recorded. Obstetrics History GPAL:G 0 P 0 0 0 0 Past Encounters Encounter ID Performer Location Encounter Start Date Encounter Closed Date Diagnosis/Indication Diagnosis SNOMED-CT Code Diagnosis ICD10 Code Diagnosis IMO Codes Diagnosis Note [id number] Karo Hernandez MD Main - [facility] [address] [place] [address] 07/24/2024 14:26:00 07/24/2024 22:33:12 Contusion of left great toe [id number] S90.112A As noted, we were called to see this patient regarding concerns of atraumatic left great toe bruising. Evaluation in the field was performed by my bight maker colleague, as noted above, I provided real-time [...] Recorded Advance Directives Directive None Recorded Payers Insurance Date Sequence Insurance Name Policy Number Policy Franklin Covered Member ID Franklin Member ID Guarantor Name 07/24/2024 1 [facility] - DOS ON OR AFTER 2023 - DUAL ELIGIBLE - [employer] OPTIONS AND ONE CARE (MEDICARE REPLACEMENT/ADV ANTAGE - HMO) Kavita Roman [id number] Kavita Roman Notes Date Note Type Note Provider Name and Address Organization Details Recorded Time 07/24/2024 text/html ROS as noted in the HPI This is an 79yo F who presents [...] that needs to be done about it. [facility] Nurse Triage Notes (Maura Benitez): Reason [...] ................... ................... ................... ................... ................... ................... ........ Drug Department Worker Note From Truong Bragg: Pt redness discoloration in left big toe near nail bed. Pt denies pain but sts she feels something but can t describe. Denies bleeding or discharge. Denies injury. Baseline vitals assessed , afebrile, pt able to walk without pain. [facility] contacted and advised pt to continue with [...] Hernandez MD [address] [facility], [place], [address], CHRISTOPHE ALVAREZ 07/24/2024 15:01:28 OBGyn Episode No OBEpisode recorded.
--- OUTSIDE RECORDS SUMMARY | 2025-10-14 17:51 | XMS_ITS | Clinical Summary ---
Author Organization [facility] Address [address] [place] [address] Phone Care Team Providers Care Table Machine Operator Name Role Phone Johana Jaimes MD Primary Care Provider [phone] Allergies No known active allergies Medications metoprolol [...] on file Insurance MEDICARE REPLACEMENT MEDICARE [place] [place] [address] MEDICARE REPLACEMENT [facility] MEDICARE REPLACEMENT [facility] MEDICARE [place] [place] [address] MEDICARE REPLACEMENT MEDICARE REPLACEMENT MEDICARE REPLACEMENT [facility] MEDICARE REPLACEMENT Care Teams Table Machine Operator Relationship Specialty Start Date End Date Johana Jaimes MD [address] [place] [address] PCP - General Internal Medicine 08/07/19 Additional Source Comments The information contained in this document represents components of the legal health record. It is not the complete legal health record.[facility]
--- OUTSIDE RECORDS SUMMARY | 2025-10-14 17:52 | XMS_ITS | Clinical Summary ---
Author Organization [facility] Address [address] [place] [address] Phone Care Team Providers Care Radio Commentator Name Role Phone Elva Davison MD Primary Care Provider [phone] Allergies Active Allergy Reactions Criticality Noted Date [...] 90 tablet 3 01/13/20 25 026 Active cholecalciferol (VITAMIN D-3) 25 mcg (1,000 [...] daily 90 tablet 2 03/18/20 25 Active atorvastatin (LIPITOR) 40 mg tablet Take 1 tablet by mouth once daily 90 tablet 3 07/08/20 25 Active metoprolol succinate (TOPROL-XL) 25 mg 24 hr tablet Take 1/2 (one-half) tablet by mouth once daily 45 tablet 3 08/13/20 25 Active sulfamethoxazole-t rimethoprim (BACTRIM DS,SEPTRA DS) 800-160 mg per tablet Take 1 tablet by mouth 2 (two) times a day. 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 Dry eyes 12/20/2024 Gastroesophageal reflux disease 12/20/2024 Assessment & Plan (03/06/2025 4:46 PM EDT): Continue Voquenza as directed Sjogren's syndrome (CMS/[facility] V24) 12/20/2024 Neoplasm of uncertain behavior of [...] a follow-up appointment with his clinic at [facility] a few months ago. The plan to [...] LVEF 25-30% at the time of her [place] in 2019 Recovery to normal Last Assessment & Plan: LV function has recovered. Hemangioma of skin and subcutaneous tissue 09/09 Other seborrheic keratosis 09/09/2020 Paresthesia of skin 09/09/2020 Benign neoplasm of skin of trunk 02/02/2015 Encounters Date Type Department Care Team Description 09/29/2025 Telephone Gastroenterology - [address] [phone] Nahum Lee MD 09/15/2025 1:06 PM EDT Anesthesia Event [facility] [address] [place] [phone] Jett Flores MD 09/15/2025 12:15 PM EDT - 09/15/2025 11:59 PM EDT Hospital Encounter [facility] [address] [place] [phone] Nahum Lee MD Sobo, Kathleen, CRNA Gomes, Sheldon B, MD Gastroesophageal reflux disease without esophagitis; Dysphasia Discharge Disposition: Home or Self Care 08/21/2025 7:22 AM EDT - 08/21/2025 11:59 PM EDT [facility] [address] [phone] Breast calcification, right Discharge Disposition: Home or Self Care 08/21/2025 7:17 AM EDT - 08/21/2025 11:59 PM EDT Hospital Encounter [facility] [address] [phone] Breast calcification, right Discharge Disposition: Home or Self Care 08/13/2025 1:44 PM EDT - 08/13/2025 11:59 PM EDT Hospital Encounter [facility] [address] [phone] Breast calcification, right Discharge Disposition: Home or Self Care 08/07/2025 7:59 AM EDT - 08/07/2025 11:59 PM EDT Hospital Encounter [facility] [address] [phone] Encounter for screening mammogram for breast cancer [...] TONSILLECTOMY ADENOIDECTOMY, BILATERAL MYRINGOTOMY AND TUBES PROCEDURE: MS TONSILLECTOMY & ADENOIDECTOMY <AGE 10 BACK SURGERY [...] Hyperlipidemia DX:Hyperlipidemi a Sjogren syndrome, unspecifie d ([facility] V24) DX:Sjogren syndrome, unspeci fied ([facility]) Insomnia DX:Insomnia Chronic constipation GERD (gastroesophageal reflux disease) Arthritis Myocardial infarction ([facility] V24, [facility] V28) COPD (chronic obstructive pu lmonary disease) ([facility] V24, [facility] V28) Family History Medical History Relation Name Comments Colon cancer Father's Sister 1 Breast cancer Father's Sister 2 Breast cancer Mother Eli Roman Stroke Mother Eil Roman Breast cancer Mother's Sister Colon polyps Sister 1 Colon polyps Sister 2 Relation Name Status Comments Father's Sister 1 Father's Sister 2 Alive Mother Eli Roman Mother's Sister Alive Sister 1 Sister 2 [...] Sign Reading Time Taken Comments Blood Pressure 130/86 09/15/2025 1:36 PM EDT Pulse 65 09/15/2025 1:36 PM EDT Temperature 36.1 C (97 F) 09/15/2025 1:16 PM EDT Respiratory Rate 14 09/15/2025 1:36 PM EDT Oxygen Saturation 96% 09/15/2025 1:36 PM EDT Inhaled Oxygen Concentration - - Weight 48.5 kg (107 lb) 09/15/2025 12:39 PM EDT Height 152.4 cm (5') 09/15/2025 12:39 PM EDT Body Mass Index 20.9 09/15/2025 12:39 PM EDT Plan of Treatment Upcoming Encounters Date Type Department Care Team (Late st Contact Info) Description 08/10/2026 8:30 AM EDT Appointment [facility] [address] [phone] Health Maintenance Due Date Last Done Comments Zoster Vaccines (1 of 2) 1962 RSV Immunization Adult Patients (1 - 1-dose 75+ series) 2018 Cholesterol Screening (Lipid Panel) 10/19/2022 Medicare Annual Wellness Visit 10/19/2022 Social Influencers of Health Screening 10/19/2022 Hypertension/CHF/CAD Annual BMP Blood Test 10/27/2022 Depression Screening 11/20/2024 COVID-19 Vaccine ( season) 2025 09/11/2024, 09/04/2023, 08/19/2022, Additional history exists Falls Risk Assessment 09/15/2026 09/15/2025 Osteoporosis Screening (Bone Density Screening) 09/14/2031 09/14/2021 DTaP,Tdap,and Td Vaccines (3 - Td or Tdap) 04/29/2032 04/29/2022, 06/20/2007 Pneumococcal Vaccine: 50+ Years Completed 02/16/2015, 08/26/2009, 08/17/1999 Influenza Vaccine Completed 09/03/2025, , 08/20/2024, Additional history exists HIB Vaccines Aged Out [...] on patient's age to complete this topic Goals Goal Patient Goal Type Associated Problems Recent Progress Patient-Stated? 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 Mine Warfare Device Identifier Shelf Expiration Date Model / Serial / Lot Marker Breast Biopsy 10g Flexible Ti Barrel Hydromark - [id number] Implanted:Qty: 1 on 08/21/2025 by Jose Fowler MD at [facility] Breast Implants Right: Breast DEVICOR [employer] [id number] 02/21/2028 4010-05- 10-T1 / / [id number] Procedures Procedure Name Priority Date/Time Associated Diagnosis Comments EGD Routine 09/15/2025 1:15 PM EDT Gastroesophageal reflux disease without esophagitis Dysphasia MG STEREO BX BREAST PERC 1ST LESION [...] Encounter for screening mammogram for breast cancer ARAVIND DEXA AXIAL SKELETON Routine 09/14/2021 11:43 AM EDT Encounter for screening for osteoporosis from Last 3 Months or Most Recently Relevant to Health Maintenance Results * EGD Anesthesia - MAC; [facility] ENDOSCOPY (09/15/2025 1:15 PM EDT) Anatomical Region Laterality Modality Endoscopy 09/15/2025 12:5 9 PM EDT Impressions 09/15/2025 1:18 PM EDT - Z-line regular, 38 cm from the incisors. - Benign-appearing esophageal stenosis. Dilated. - Normal stomach. - Normal examined duodenum. - No specimens collected. Recommendation: - Discharge patient to home. - Full liquid diet today. - Continue present medications. - Return to GI office at appointment to be scheduled. Narrative 09/15/2025 1:18 PM EDT [facility] GI Patient Name: Kavita Roman Procedure Date: 09/15/2025 12:59 PM Date of : 1945 Age: 80 Room: ROOM 15 Gender: Female Note Status: Finalized Attending MD: Nahum Lee MD, Procedure Date No Time: 09/15/2025 Procedure: Upper GI endoscopy Indications: Dysphagia Providers: Nahum Lee MD Referring MD: Nahum Lee MD Medicines: Monitored Anesthesia Care Complications: No immediate complications. Estimated Blood Loss: Estimated blood loss: none. Procedure: Pre-Anesthesia Assessment: - ASA Grade Assessment: II - A patient with mild systemic disease. - After reviewing the risks and benefits, the patient was deemed in satisfactory condition to undergo the procedure. After obtaining informed consent, the endoscope was passed under direct vision. Throughout the procedure, the patient's blood pressure, pulse, and oxygen saturations were monitored continuously.The Endoscope was introduced through the mouth, and advanced to the second part of duodenum. The upper GI endoscopy was accomplished without difficulty. The patient tolerated the procedure well. Findings: The Z-line was regular and was found 38 cm from the incisors. One benign-appearing, intrinsic mild stenosis was found at the cricopharyngeus. The stenosis was traversed. A TTS dilator was passed through the scope. Dilation with a 15-16.5-18 mm balloon dilator was performed to 18 mm. Estimated blood loss was minimal. The exam of the esophagus was otherwise normal. The stomach was normal. The examined duodenum was normal. Procedure Code(s): --- Professional --- 47738, Esophagogastroduodenoscopy, flexible, transoral; with transendoscopic balloon dilation of esophagus (less than 30 mm diameter) Diagnosis Code(s): --- Professional --- K22.2, Esophageal obstruction CPT copyright 2020 [employer]. All rights reserved. The codes documented in this report are preliminary and upon satellite instruction facilitator review may be revised to meet current compliance requirements. Nahum Lee MD 09/15/2025 1:18:23 PM This report has been signed electronically.Nahum Lee MD Number of Addenda: 0 Note Initiated On: 09/15/2025 12:59 PM Scope In: Scope Out: Endoscopy Department at [facility] - [address] [place] [phone] Procedure Note Nahum Lee MD - 09/15/2025 [facility] GI Patient Name: Kavita Roman Procedure Date: 09/15/2025 12:59 PM Date of : 1945 Age: 80 Room: ROOM 15 Gender: Female Note Status: Finalized Attending MD: Nahum Lee MD, Procedure Date No Time: 09/15/2025 Procedure: Upper GI endoscopy Indications: Dysphagia Providers: Nahum Lee MD Referring MD: Nahum Lee MD Medicines: Monitored Anesthesia Care Complications: No immediate complications. Estimated Blood Loss: Estimated blood loss: none. Procedure: Pre-Anesthesia Assessment: - ASA Grade Assessment: II - A patient with mild systemic disease. - After reviewing the risks and benefits, thepatient was deemed in satisfactory condition to undergo the procedure. After obtaining informed consent, the endoscope was passed under direct vision. Throughout theprocedure, the patient's blood pressure, pulse, and oxygen saturations were monitored continuously.TheEndoscope was introduced through the mouth, and advanced tothe second part of duodenum. The upper GI endoscopy was accomplished without difficulty. The patienttolerated the procedure well. Findings: The Z-line was regular and was found 38 cm from the incisors. One benign-appearing, intrinsic mild stenosis was found at the cricopharyngeus. The stenosis was traversed. A TTS dilator was passed through thescope. Dilation with a 15-16.5-18 mm balloon dilator was performed to 18 mm. Estimated blood loss wasminimal. The exam of the esophagus was otherwise normal. The stomach was normal. The examined duodenum was normal. Procedure Code(s): --- Professional --- 03854, Esophagogastroduodenoscopy, flexible, transoral; with transendoscopic balloon dilation of esophagus (less than 30 mm diameter) Diagnosis Code(s): --- Professional --- K22.2, Esophageal obstruction CPT copyright 2020 [employer]. All rights reserved. The codes documented in this report are preliminary and upon satellite instruction facilitator reviewmay be revised to meet current compliance requirements. Nahum Lee MD 09/15/2025 1:18:23 PM This report has been signed electronically.Nahum Lee MD Number of Addenda: 0 Note Initiated On: 09/15/2025 12:59 PM Scope In: Scope Out: Endoscopy Department at [facility] - [address] [place] [phone] IMPRESSION: - Z-line regular, 38 cm from the incisors. - Benign-appearing esophageal stenosis. Dilated. - Normal stomach. - Normal examined duodenum. - No specimens collected. Recommendation: - Discharge patient to home. - Full liquid diet today. - Continue present medications. - [facility] Nahum Lee MD GI~PROCEDURE ORDERABLES Final Result * MG Stereo Bx Breast Perc 1st [...] Signed Date: 08/22/2025 15:31 ET Workstation ID: [id number] Transcribed By: Self Edit Transcribed Date: 08/22/2025 [...] Pathology pending for the right breast. Location: [address], [address] -------- FINAL REPORT -------- Dictated By: Jose Fowler Dictated Date: 08/21/2025 12:18 ET Assigned Physician: Jose Fowler Reviewed and Electronically Signed By: Jose Fowler Signed Date: 08/21/2025 12:23 ET Workstation ID: [id number] Transcribed By: Self Edit Transcribed Date: 08/21/2025 [...] Signed Date: 08/22/2025 15:31 ET Workstation ID: [id number] Transcribed By: Self Edit Transcribed Date: 08/22/2025 [...] Pathology pending for the right breast. Location: [address], [address] -------- FINAL REPORT -------- Dictated By: Jose Fowler Dictated Date: 08/21/2025 12:18 ET Assigned Physician: Jose Fowler Reviewed and Electronically Signed By: Jose Fowler Signed Date: 08/21/2025 12:23 ET Workstation ID: [id number] Transcribed By: Self Edit Transcribed Date: 08/21/2025 [...] of fibroadenoma without calcifications. 11:59 AM EDT [facility] H[facility] LAB at 1159 EDT Clinical Information [...] of radiation/chemotherap y: No 11:59 AM EDT [facility] Gross Description A. Breast, Right, calcs: [...] Approximately 13 hours TS 11:59 AM EDT [facility] Disclaimer Unless otherwise specified, all tissue is 10% NB formalin fixed and paraffin embedded. 11:59 AM EDT [facility] Tissue Right breast structure / Unknown 08/21/2025 8:04 AM EDT 08/21/2025 8:29 AM EDT Tissue specimen (specimen) Right breast structure / Unknown 08/21/2025 8:04 AM EDT 08/21/2025 8:29 AM EDT us Jose Fowler MD LAB PATHOLOGY ORDERABLES Annel garcia Result [facility]) HOSPITAL LAB [address] [place] [address], * (ABNORMAL) MG Mammo Diagnostic Addl Views [...] guidance. Mammography location: [facility] [address] [place], [address] -------- FINAL REPORT -------- Dictated By: Jose Fowler Dictated Date: 08/13/2025 14:16 ET Assigned Physician: Jose Fowler Reviewed and Electronically Signed By: Jose Fowler Signed Date: 08/13/2025 16:33 ET Workstation ID: [id number] Transcribed By: Self Edit Transcribed Date: 08/13/2025 [...] andguidance. Mammography location: [facility] [address], [address] -------- FINAL REPORT -------- Dictated By: Jose Fowler Dictated Date: 08/13/2025 14:16 ET Assigned Physician: Jose Fowler Reviewed and Electronically Signed By: Jose Fowler Signed Date: 08/13/2025 16:33 ET Workstation ID: [id number] Transcribed By: Self Edit Transcribed Date: 08/13/2025 [...] recommended. Mammo Location: [facility], [address] [place] [address], [id number], . -------- FINAL REPORT -------- Dictated By: Nichole Arias Dictated Date: 08/07/2025 09:09 ET Assigned Physician: Nichole Arias Reviewed and Electronically Signed By: Nichole Arias Signed Date: 08/07/2025 09:12 ET Workstation ID: [id number] Transcribed By: Self Edit Transcribed Date: 08/07/2025 [...] recommended. Mammo Location: [facility], [address] [place] [address], [address], . -------- FINAL REPORT -------- Dictated By: Nichole Arias Dictated Date: 08/07/2025 09:09 ET Assigned Physician: Nichole Arias Reviewed and Electronically Signed By: Nichole Arias Signed Date: 08/07/2025 09:12 ET Workstation ID: [id number] Transcribed By: Self Edit Transcribed Date: 08/07/2025 09:09 ET us Self Referral Sppl IMG BI PROCEDURES Final Resul t * ARAVIND DEXA AXIAL SKELETON (09/14/2021 11:43 AM EDT) Anatomical Region Laterality Modality Mammography 09/14/2021 8:48 AM EDT Narrative 09/14/2021 11:43 AM EDT [facility] Diagnostic Imaging Department [address] [place] [phone] Patient: KAVITA ROMAN /Age/Sex: 1945 - 76 - F Unit#: [id number] Location/Status: [facility] CLI Mnemonic/Ordering Site: [facility]AM Ordering Physician: DEX TOLENTINO MD Aravind Dexa Axial Skeleton - 09/14/21942 History: Low estrogen state due to menopause. Height loss. Comparison: 10/14/15 Findings: Bone densitometry is performed utilizing dual energy x-ray absorptiometry (DXA) in the [employer] unit. The lumbar spine and proximal femora [...] 12.4 percent Hip 3.0 percent. IMPRESSION: Osteopenia. [id number] Dictating Physician: MERCEDES VANESSA MD Electronically Signed by: MERCEDES VANESSA MD Dic Date/Time: 09/14/21 1142 Sign date/Time: 09/14/21 1143 Procedure Note Mercedes Vanessa MD - 11/09/2022 [facility] Diagnostic Imaging Department [address] [place] [phone] Patient: KAVITA ROMAN /Age/Sex: 1945 - 76 - F Unit#: [id number] Location/Status: [facility] Ordering Physician: DEX TOLENTINO MD Aravind Dexa Axial Skeleton - 09/14/2110 History: Low estrogen state due to menopause. Height loss. Comparison: 10/14/15 Findings: Bone densitometry is performed utilizing dual energy x-ray absorptiometry(DXA) in the [employer] unit. The lumbar spine and proximal femora [...] 12.4 percent Hip 3.0 percent. IMPRESSION: Osteopenia. [id number] Dictating Physician: MERCEDES VANESSA MD Electronically Signed by: MERCEDES VANESSA MD Dic Date/Time: 09/14/21 1142 Sign date/Time: 09/14/21 1143 Dex Tolentino MD IMG BI PROCEDURES Final Result from Last 3 Months or Most Recently Relevant to Health Maintenance Additional Health Concerns Active Problems Noted Date Diagnosed Date Autogenerated Problem 09/09/2025 Insurance [facility] OPT[employer] Member Subscriber Plan / Payer ( fective 2024-Present) Name:Jessie Kavita Sr. Relation to Subscriber:Self Name:JessieKavita Sr. Payer ID:[id number] Group ID:Not on file Type:Not on file Address: [place] [address] [place] [address] [facility] Member Subscriber Plan / Payer ( fective 2024-Present) Name:Kavita Roman Relation to Subscriber:Self Name:Kavita Roman Sr. 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
== END 2025-10-14 14:52 | disposition home or self-care (01) ==
PROVIDERS: PCP Internal Medicine; Visit Provider Physician Assistant Medical
DX: R30.0 Dysuria (principal)

== ENCOUNTER 2025-10-14 13:57 | Outpatient (REF) | payer OTHER, SELFPAY | END 2025-10-14 13:58 | disposition home or self-care (01) | LOC: HO.LAB 13:57 | PROVIDERS: PCP Internal Medicine; Visit Provider Physician Assistant Medical | DX: R30.0 Dysuria (principal); Z13.89 Encounter for screening for other disorder | CPT/HCPCS: 87086; 87088; 87186; 99212 ==

== ENCOUNTER 2025-10-29 08:42 | Outpatient (AMB) | payer OTHER, SELFPAY ==
[2025-10-29 08:50] VITALS: BP 128/78; PULSE 73; O2SAT 97; BMI 21.5
--- NOTE | 2025-10-29 08:50 | A.OFFVIS_ITS ---
Vital Signs 10/29/25 08:50 Height 5 ft Weight 110 lb 3.698 oz BMI 21.5 BP 128/78 Blood Pressure Location Lt brachial Position Sitting Pulse 73 Pulse Source Pulse Oximeter Pulse Oximetry (%) 97 Oxygen Delivery Method Room Air Intake Visit Reasons: 3months Intake Note: Patient presents for follow up. Allergies nitrofurantoin Allergy (Intermediate, Verified 10/29/25 08:57) colitis codeine Allergy (Unknown, Verified 10/29/25 08:57) Unknown hydrocodone (From Vicodin) Allergy (Unknown, Verified 10/29/25 08:57) Unknown tramadol Allergy (Unknown, Verified 10/29/25 08:57) Unknown HPI HPI 3months: Details: Dry eyes have improved. She had procedure performed by Dr. Arguello with benefit. She is now in the process of getting new glasses without prism. She has had chronic hoarseness of voice. No change in dry mouth with increasing dose of cevimeline. 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 Lumbar stenosis Vitamin D deficiency HTN (hypertension) CAD (coronary artery disease) Surgical History (Updated 10/29/25 @ 09:01 by Ynes Ramires CMA) Hx of endoscopy Hx of cystoscopy History of back surgery H/O spinal fusion Family History Father Heart disease Mother Breast cancer Social History Housing: Apartment Alcohol intake: never Patient Tobacco Use Status: Never used Tobacco e-Cigarette/Vaping Use: Never Used Second Hand Smoke Exposure: No service: No Current occupational status: retired Cognitive needs: No Hearing needs: No Vision needs: Yes (Glasses) Physical Exam Vital Signs: Last Vital Signs Pulse 73 10/29/25 08:50 BP 128/78 10/29/25 08:50 Pulse Ox 97 10/29/25 08:50 Oxygen Delivery Method Room Air 10/29/25 08:50 BMI result Body Mass Index 21.5 Const Other: General: Comfortable CVS: RRR Oral: Dry mouth Lymph nodes: No cervical lymphadenopathy palpated. Respiratory: clear to auscultation bilaterally. Good respiratory effort Skin: No lesions seen MSK: Ulnar deviation of bilateral hands. No tender joints. No synovitis. Normal range of motion of upper extremity and lower extremity. Hallux valgus deformity left foot Assessment & Plan Assessment & Plan (1) Sjogren's disease: Comment: Sicca symptoms are unchanged with cevimeline t.i.d. without it her symptoms are uncontrolled. She has had treatment for neurotropic keratitis with benefit. Her local clinical education coordinator told her that the cornea has improved. They are working on glasses without presumed to improve her vision. 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 Chronic leukopenia. Negative NATHEN, SSA, SSB, rheumatoid factor, normal inflammatory markers, normal IgG 4 subclasses, parotid ultrasound gland normal. She had minor salivary gland biopsy in August 2024 but sample did not have salivary gland for analysis. Patient does not wish to pursue another minor salivary gland biopsy due to pain and numbness that she experienced 4 months after procedure, which is understandable. Code(s): M35.00 - Sjogren syndrome, unspecified Category: Medical Plan: Requesting clinical notes from Dr. Arguello 1st and last. Second request Continue cevimeline 30 mg 3 times a day Continue to use Biotene products OTC, ACT OTC and XyliMelts OTC She will follow up with her local clinical education coordinator for management of dry eyes She will follow up with GI for management of dysphagia. She has had recurrent dilatation of esophagus and was told it was related to muscle weakness from Sjogren syndrome. She has not had manometry study. She has only had endoscopy. She will further discuss with her nurse. If she has recurrent need for dilatation of her esophagus, she will need further workup for etiology. Labs for disease monitoring ordered today. Labs are due every 6 months I recommend that she speak with her PCP/pulmonologists about evaluation for vocal cord dysfunction. She may need to be seen by ENT Return to clinic in 3 months (2) Dry eyes: Code(s): H04.123 - Dry eye syndrome of bilateral lacrimal glands Category: Medical Plan: See above Plan See above Orders: Orders Complete Blood Count Auto Diff Today M35.00 - Sjogren syndrome, unspecified Alanine Aminotransferase Today M35.00 - Sjogren syndrome, unspecified Rheumatoid Factor Today M35.00 - Sjogren syndrome, unspecified Erythrocyte Sedimentation Rate Today M35.00 - Sjogren syndrome, unspecified Creatinine Today M35.00 - Sjogren syndrome, unspecified Complement C3 Today M3.00 - Sjogren syndrome, unspecified Complement C4 Today M35.00 - Sjogren syndrome, unspecified C Reactive Protein Today M35.00 - Sjogren syndrome, unspecified Aspartate Amino Transferase Today M35.00 - Sjogren syndrome, unspecified Coding Level of Care Code Est Pt Level 4 (90245) Complex visit Add On G2211 Diagnoses Sjogren's disease M35.00 Dry eyes H04.123
== END 2025-10-29 09:33 | disposition home or self-care (01) ==
LOC: HO.RHES 08:43
PROVIDERS: PCP Internal Medicine; Visit Provider Internal Medicine Rheumatology
DX: M35.00 Sjogren syndrome, unspecified (principal); H04.123 Dry eye syndrome of bilateral lacrimal glands
CPT/HCPCS: 99214; G2211

== ENCOUNTER 2025-10-29 08:42 | Outpatient (REF) | payer OTHER, SELFPAY ==
[2025-10-29 13:56] LABS: MANUAL DIFF FLAG NO
[2025-10-29 14:01] LABS: Hematocrit 40.7 % (37.0-47.0); Hemoglobin 13.3 g/dl (12.0-16.0); Imm Gran Abs Auto 0.01 X10*3/uL (0.00-0.03); Imm Gran Pct Auto 0.2 % (0.0-0.4); Lymphocytes Absolute Auto 0.8 X10*3/uL (1.2-4.9); Mean Corpuscular HGB Conc 32.7 g/dl (31.0-35.0); Mean Corpuscular Hemoglobin 30.7 pg (27.0-33.0); Mean Corpuscular Volume 94.0 fL (80.0-98.0); NRBC Abs Auto 0.000 X10*3/uL (0.0-0.012); NRBC Pct Auto 0.0 /100WBC (0.0-0.2); Platelet Count 207 X10*3/uL (160-400); Red Blood Count 4.33 X10*6/uL (4.20-5.50); White Blood Count 4.9 X10*3/uL (4.8-10.8)
[2025-10-29 14:22] LABS: Alanine Aminotransferase 24 U/L (0-31); Aspartate Amino Transferase 27 U/L (5-31); Estimated Glomerular Filt Rate > 60
== END 2025-10-29 08:43 | disposition home or self-care (01) ==
LOC: HO.HKASLDS 08:42
PROVIDERS: PCP Internal Medicine; Visit Provider Internal Medicine Rheumatology
DX: M35.00 Sjogren syndrome, unspecified (principal); H04.123 Dry eye syndrome of bilateral lacrimal glands; Z79.899 Other long term (current) drug therapy; Z51.81 Encounter for therapeutic drug level monitoring
CPT/HCPCS: 36415; 82565; 84450; 84460; 85025; 85652; 86140; 86160; 86431; 99212

== ENCOUNTER 2025-10-30 08:20 | Outpatient (AMB) | payer OTHER, SELFPAY ==
--- NOTE | 2025-10-30 08:51 | A.OFFVIS_ITS ---
Intake Visit Reasons: 3m/UA/PVR (set) Intake Note: Patient is present 3m/UA/PVR Urology Med: Gemtesa Antibiotic Allergy: Nitrofurantoin Blood Thinner: Aspirin PVR:180ml Fashion Director Required: No Allergies nitrofurantoin Allergy (Intermediate, Verified 10/30/25 08:54) colitis codeine Allergy (Unknown, Verified 10/30/25 08:54) Unknown hydrocodone (From Vicodin) Allergy (Unknown, Verified 10/30/25 08:54) Unknown tramadol Allergy (Unknown, Verified 10/30/25 08:54) Unknown Medication List - Last Reconciled 10/30/25 by Jimmy Mcgill MD acetaminophen (Acetaminophen Extra Strength) 500 mg PO QID PRN amlodipine 5 mg PO DAILY aspirin 81 mg PO DAILY atorvastatin 40 mg PO DAILY Bifidobacterium infantis (Align (B.infantis)) 4 mg PO DAILY 90 days calcium citrate (Citracal) PO BID cephalexin 250 mg PO DAILY 30 days cevimeline 1 cap PO TID 90 days cholecalciferol (vitamin D3) 25 mcg PO .3x per week cranberry extract 400 mg PO DAILY docusate sodium (Stool Softener) 100 mg PO BID estradiol 0.01%(0.1mg/gram) (Estrace) Use pea-sized amount on fingertip placed vaginally Monday through Monday at bedtime vaginally as directed from medical doctor.; fluticasone furoate-vilanterol 100-25 mcg/dose (Breo Ellipta) 1 inh inhalation DAILY 30 days fosfomycin tromethamine 1 packet PO ONCE 1 dose fosfomycin tromethamine 3 grams PO Q3D 6 days gabapentin 300 mg PO BEDTIME 90 days metoprolol succinate ER 12.5 mg (1/2 x 25 mg) PO DAILY mirtazapine 15 mg PO BEDTIME polyethylene glycol 3350 (Miralax) 17 grams PO DAILY vibegron (Gemtesa) 75 mg PO DAILY zolpidem ER 6.25 mg PO BEDTIME PRN HPI Comments Details: 10/30/25--History of Present Illness The patient is an 80-year-old female who presents for a 3-month follow-up for overactive bladder and recurrent UTIs. Her current medications include Gemtesa, estradiol and daily Bactrim. She reports developing her worst-ever UTI on the Monday before , which was associated with new-onset urinary incontinence. She was evaluated at a walk-in clinic, where a urine sample was collected and she was started on an antibiotic. The culture results later showed the organism was resistant to the prescribed antibiotic. She was subsequently treated with a 3-dose course of fosfomycin antibiotic, which she has completed and reports her symptoms have resolved. For UTI prophylaxis, the patient reports taking Bactrim daily. She uses estrogen cream 5 days a week. She manages constipation with daily Miralax and denies current issues. She reports wiping front to back after bowel movements. The patient is unable to give a voided urine specimen. We will check a catheterized urine and sent for microgen today. We will change daily antibiotic suppression from Bactrim To Keflex. Results - Labs: 10/14/25- urine culture Klebsiella pneumoniae- Extended-Spectrum Beta- Lactamase enzyme present Sensitive to cefepime and ertapenem. 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 Lumbar stenosis Vitamin D deficiency HTN (hypertension) CAD (coronary artery disease) Surgical History Hx of endoscopy Hx of cystoscopy History of back surgery H/O spinal fusion Family History Father Heart disease Mother Breast cancer Social History Housing: Apartment Alcohol intake: never Patient Tobacco Use Status: Never used Tobacco e-Cigarette/Vaping Use: Never Used Second Hand Smoke Exposure: No service: No Current occupational status: retired Cognitive needs: No Hearing needs: No Vision needs: Yes (Glasses) Review of Systems Const All systems reviewed & are unremarkable except as noted in HPI and below Reports no additional complaints Eyes Reports no additional complaints ENT Reports no additional complaints Card Reports no additional complaints Resp Reports no additional complaints GI Reports no additional complaints Reports as per HPI Musc Reports no additional complaints Skin/Breast Reports system reviewed and no additional complaints, except as documented Neuro Reports no additional complaints Psych Reports no additional complaints Endo Reports no additional complaints Juan Miguel/Lymph Reports no additional complaints Aller/Immun Reports no additional complaints Office Procedures Bladder/Catheter Procedure Details: 14Fr straight catheter inserted into bladder. Obtained urine for Microgen testing. 54791-Njaxdt Bladder Catheter Procedure code (CPT) selection complete Post Void Residual Post Residual Void Post Void Residual (PVR): 180 43075-Ehju Void Residual by ultrasound Results Reviewed Results Reviewed: Collected: 10/14/25 Status: COMP Req#: [id number] Received: 10/14/25 Source: [facility] Sp Desc: Subm Dr: PIERRE RODRIGUEZ Ordered: Urine Culture Procedure Result Verified Urine Culture Final 10/17/25 Organism 1 Klebsiella pneumoniae Quant > 100,000 cfu/mL ESBL Note: NOTE: Extended-Spectrum Beta-Lactamase enzyme present Kleb pneum M.I.C. RX --------- --- Ampicillin >=32 R Cefazolin >=32 R Cefepime 2 S Ceftriaxone >=64 R Ciprofloxacin >=4 R Ertapenem <=0.12 S Gentamicin >=16 R Nitrofurantoin 64 I Trimethoprim/Sulfamethoxazole >=320 R Assessment & Plan Assessment & Plan (1) Frequency of urination: Code(s): R35.0 - Frequency of micturition Category: Medical (2) Cystitis: Code(s): N30.90 - Cystitis, unspecified without hematuria Category: Medical (3) OAB (overactive bladder): Code(s): N32.81 - Overactive bladder Category: Medical (4) Urinary incontinence: Code(s): R32 - Unspecified urinary incontinence Category: Medical (5) Recurrent UTI: Code(s): N39.0 - Urinary tract infection, site not specified Category: Medical Plan Plan 1. Recurrent Urinary Tract Infections - A urine specimen will be obtained today via catheterization for urinalysis and Microgen testing to confirm resolution of the infection and rule out other bacteria. - Daily Bactrim for prophylaxis will be discontinued. - A different daily prophylactic antibiotic will be prescribed, Keflex 250 mg daily with instructions to start tomorrow. - The patient will be contacted with the Microgen results to determine next steps in management. - Continue using estrogen cream five days a week. - Recommended hygiene measures including wiping front to back, patting dry after urination, and using sensitive baby wipes to clean the area after bowel movements. 2. Overactive Bladder - Continue Gemtesa as prescribed. 3. Constipation - Continue taking Miralax daily for management. Orders: Orders AMB Bladder/Catheter Procedure 10/30/25 R30.0 - Dysuria AMB Post Void Residual by ultrasound 10/30/25 N32.81 - Overactive bladder, N39.0 - Urinary tract infection, site not specified, N39.41 - Urge incontinence, R30.0 - Dysuria Medications: New cephalexin 250 mg PO DAILY 30 caps 3RF 30 days Discontinued cefuroxime axetil Discontinued Reason: Patient no longer taking 500 mg PO Q12H 10 tabs 0RF sulfamethoxazole-trimethoprim 400-80 mg (Bactrim) Discontinued Reason: Doctor's Order 1 tab PO DAILY 30 tabs 5RF Patient Instructions: The patient had an opportunity to ask questions regarding treatment plan. The patient expressed understanding and agreement with the above treatment plan. The patient is aware they should contact our office by phone for worsening of their current condition or the appearance of new symptoms. Compliance is encouraged with any medications and followup testing that is ordered. It is a privilege to be allowed the opportunity to participate in the urologic care of your patient. If you have any questions or concerns regarding treatment for the above conditions please do not hesitate to contact me. The office telephone contact is [phone]. This note is constructed in part using voice recognition software. While every effort has been made to ensure accuracy senior sales operations analyst errors may have been included. Yours sincerely, Jimmy Mcgill MD Scribe Plan - Not visible on output: Patient was informed and verbally consented to the use of an ambient scribe for clinic note documentation during this visit. Coding Level of Care Code Est Pt Level 4 (56322) Add On Problem Visit Only Diagnoses Frequency of urination R35.0 Cystitis N30.90 OAB (overactive bladder) N32.81 Urinary incontinence R32 Recurrent UTI N39.0 CPT Codes Bladder/Catheter Procedure - CPT: 96236-Tnjvjg Bladder Catheter ([id number]) Post Residual Void - PVR CPT Code: 07204-Uphh Void Residual by ultrasound ([id number])
== END 2025-10-30 09:37 | disposition home or self-care (01) ==
LOC: HO.HUSH 08:20
PROVIDERS: PCP Internal Medicine; Visit Provider Urology
DX: R35.0 Frequency of micturition (principal); N30.90 Cystitis, unspecified without hematuria; N32.81 Overactive bladder; N39.0 Urinary tract infection, site not specified; N39.3 Stress incontinence (female) (male)
CPT/HCPCS: 51701; 99214; G2211

== ENCOUNTER → 2025-10-30 08:20 | Outpatient (BNVA) | payer OTHER, SELFPAY | PROVIDERS: PCP Internal Medicine; Visit Provider Urology | DX: N32.81 Overactive bladder (principal); N30.90 Cystitis, unspecified without hematuria; N39.41 Urge incontinence; R35.0 Frequency of micturition; K59.00 Constipation, unspecified; R30.0 Dysuria; Z79.899 Other long term (current) drug therapy | CPT/HCPCS: 51701; 51798; 99212 ==

== ENCOUNTER 2025-11-10 11:29 | Outpatient (REF) | payer OTHER, SELFPAY ==
--- OUTSIDE RECORDS SUMMARY | 2025-08-12 05:00 | XMS_ITS ---
Author Organization [facility] Address [address] [facility] [place] [address] Care Team Providers Care Death Clearance Coordinator Name Role Phone Elva Davison Primary Care Provider Charity Weber [phone] Encounters Encounter Location Date Provider Diagnosis [address] [address] 08/12/2025 hCarity Champion Plan Of Treatment No Information Progress Notes * LANDONDanteOB: 3 (80 yo F)Acc No.[id number]:08/12/2025 Progress Note Patient: Kavita HIGHTOWER Provider: Endy Champion DPM :1945 A ge:80 Y S ex:Female Date:08/12/2025 [address] [facility] Pcp:Elva Davison Subjective: * Chief Complaints: * [...] 0 08/12/2025 Generated for Printi ng/Falinog/eTransmitting on: 1 01/11/2025 02:43 PM EST
[2025-11-10 14:17] LABS: Appearance Urine Turbid; Glucose Urine UA Negative (Negative); PH 6.5 (5.0-9.0); Specific Gravity - Urine 1.015 (1.005-1.025); UMIC TRIGGER UA YES
--- OUTSIDE RECORDS SUMMARY | 2025-11-10 14:43 | XMS_ITS | Encounter Summary ---
Author Organization [facility] Address [address] [place] [address] Phone Care Team Providers Care Senior Military Analyst Name Role Phone Johana Jaimes MD Primary Care Provider [phone] Reason for Visit * Auth/Cert Specialty Diagnoses / Procedures Referred By Contac t Referred To Contact Diagnoses Xerostomia Xerostomia Procedures NJ BIOPSY SOFT TISSUE NECK/CHEST [place] BIOPSY SALIVARY GLAND,NEEDLE [place] BIOPSY SALIVARY GLAND,INCISIONAL BIOPSY SOFT TISSUE ( MINOR SALIVARY BIOPSY) Referral ID Status Reason Start Date Expiration Date Visits Re quested Visits Authorized [id number] 1 1 Encounter Details Date Type Department Care Team (Late st Contact Info) Description 08/16/2019 Hospital Encounter [facility] [address] [place] [id number] Jordan Velez MD [address] [place] [id number] [email or web address] [place] [facility] [place] [facility] Social History Tobacco Use Types [...] filedocumented in this encounter Care Teams Senior Military Analyst Relationship Specialty Start Date End Date Johana Jaimes MD [address] [place] [address] PCP - General Internal Medicine 08/07/19 documented as of this encounter Additional Source Comments The information contained in this document represents components of the legal health record. It is not the complete legal health record.[facility]
--- OUTSIDE RECORDS SUMMARY | 2025-11-10 14:43 | XMS_ITS | Encounter Summary ---
Author Organization [facility] Address [address] [place] [phone] Phone Care Team Providers Care Teacher Preschool Name Role Phone Johana Jaimes MD Primary Care Provider [phone] Encounter Details Date Type Department Care Team (Late st Contact Info) Description 08/16/2019 Procedure Pass [facility] [address] [place] [address] Social History Tobacco Use Types Packs/Day Years [...] on filedocumented in this encounter Care Teams Teacher Preschool Relationship Specialty Start Date End Date Johana Jaimes MD [address] [place] [address] PCP - General Internal Medicine 08/07/19 documented as of this encounter Additional Source Comments The information contained in this document represents components of the legal health record. It is not the complete legal health record.[facility]
--- OUTSIDE RECORDS SUMMARY | 2025-11-10 14:44 | XMS_ITS ---
different from the original. Continue Bret as directed Sjogren's syndrome 12/20/2024 Neoplasm of uncertain behavior of skin [...] a follow-up appointment with his clinic at [place] a few months ago. The plan to [...] LVEF 25-30% at the time of her DC in 2019 Recovery to normal Last Assessment & Plan: LV function has recovered. Hemangioma of skin and subcutaneous tissue 09/09 Other seborrheic keratosis 09/09/2020 Paresthesia of skin 09/09/2020 Benign neoplasm of skin of trunk 02/02/2015 Encounters Date Type Department Care Team Description 09/29/2025 Telephone Gastroenterology - [address] [phone] Nahum Lee MD 09/15/2025 1:06 PM EDT Anesthesia Event [facility] Endoscopy [address] [place] [phone] Jett Flores MD 09/15/2025 12:15 PM EDT - 09/15/2025 11:59 PM EDT Hospital Encounter [facility] Endoscopy [address] [place] [address] Nahum Lee MD Sobo, Kathleen, CRNA Gomes, Sheldon B, MD Gastroesophageal reflux disease without esophagitis; Dysphasia Discharge Disposition: Home or Self Care 08/21/2025 7:22 AM EDT - 08/21/2025 11:59 PM EDT [facility] [address] [address] Breast calcification, right Discharge Disposition: Home or Self Care 08/21/2025 7:17 AM EDT - 08/21/2025 11:59 PM EDT Hospital Encounter [facility] [address] [address] Breast calcification, right Discharge Disposition: Home or Self Care 08/13/2025 1:44 PM EDT - 08/13/2025 11:59 PM EDT Hospital Encounter [facility] [address] [address] Breast calcification, right Discharge Disposition: Home or Self Care from [...] a Sjogren syndrome, unspecifie d ([facility] V24) DX:Sjogren syndrome, unspeci fied ([facility]) Insomnia DX:Insomnia Chronic constipation GERD (gastroesophageal reflux disease) Arthritis Myocardial infarction ([facility] V24, [facility] V28) COPD (chronic obstructive pu lmonary disease) ([facility] V24, [facility] V28) Family History Medical History Relation Name Comments Colon cancer Father's Sister 1 Breast cancer Father's Sister 2 Breast cancer Mother Eli Roman Stroke Mother Eli Roman Breast cancer Mother's Sister Colon polyps [...] AM EDT Appointment [facility] at [address] [address] Health Maintenance Due Date Last Done Comments Drug Screen 1945 Non-Opioid Controlled Substance Agreement 1945 Zoster Vaccines (1 of 2) 1962 RSV [...] Type Associated Problems Recent Progress Patient-Stated? Author Autogerald sosa Goal Care Plan Autogenerated Problem No Moises, Paula Moise Medical Devices Implanted Type Area Louver Mortiser Operator Device Identifier Shelf Expiration Date Model / Serial / Lot Marker Breast Biopsy 10g Flexible Ti Barrel Hydromark - [id number] Implanted:Qty: 1 on 08/21/2025 by Jose Fowler MD at [facility] Breast Implants Right: Breast DEVICOR [employer] [id number] 02/21/2028 [id number] 10-T1 / / [id number] Procedures Procedure Name Priority Date/Time Associated [...] 08/13/2025 2:43 PM EDT Breast calcification, right [facility] DEXA AXIAL SKELETON Routine 09/14/2021 11:43 AM EDT Encounter for screening for osteoporosis from Last 3 Months or Most Recently Relevant to Health Maintenance Results * EGD Anesthesia - MAC; [facility] ENDOSCOPY (09/15/2025 1:15 PM [...] be scheduled. Narrative 09/15/2025 1:18 PM EDT [facility] GI Patient Name: Kavita Roman Procedure [...] was normal. Procedure Code(s): --- Professional --- 68964, Esophagogastroduodenoscopy, flexible, transoral; with transendoscopic balloon dilation of esophagus (less than 30 mm diameter) Diagnosis Code(s): --- Professional --- K22.2, Esophageal obstruction CPT copyright 2020 [employer]. All rights reserved. The codes documented in this report are preliminary and upon scissors grinder review may be revised to meet current compliance requirements. Nahum Lee MD 09/15/2025 1:18:23 PM This report has been signed electronically.Nahum Lee MD Number of Addenda: 0 Note Initiated On: 09/15/2025 12:59 PM Scope In: Scope Out: Endoscopy Department at [facility] - [address] [place] [phone] Procedure Note Nahum Lee MD - 10/27/2025 [facility] GI Patient Name: Kavita Roman Procedure [...] was normal. Procedure Code(s): --- Professional --- 73629, Esophagogastroduodenoscopy, flexible, transoral; with transendoscopic balloon dilation of esophagus (less than 30 mm diameter) Diagnosis Code(s): --- Professional --- K22.2, Esophageal obstruction CPT copyright 2020 [employer]. All rights reserved. The codes documented in this report are preliminary and upon scissors grinder reviewmay be revised to meet current compliance requirements. Nahum Lee MD 09/15/2025 1:18:23 PM This report has been signed electronically.Nahum Lee MD Number of Addenda: 0 Note Initiated On: 09/15/2025 12:59 PM Scope In: Scope Out: Endoscopy Department at [facility] - [address] [place] [phone] IMPRESSION: - Z-line regular, 38 cm from the incisors. - Benign-appearing esophageal stenosis. Dilated. - Normal stomach. - Normal examined duodenum. - No specimens collected. Recommendation: - Discharge patient to home. - Full liquid diet today. - Continue present medications. - Return to GI office at appointment to [facility]. us Nahum Lee MD GI~PROCEDURE ORDERABLES Final [...] Signed Date: 08/22/2025 15:31 ET Workstation ID: [id number] Transcribed By: Self Edit Transcribed Date: 08/22/2025 [...] Pathology pending for the right breast. Location: [address], [address] -------- FINAL REPORT -------- Dictated By: Jose Fowler Dictated Date: 08/21/2025 12:18 ET Assigned Physician: Jose Fowler Reviewed and Electronically Signed By: Jose Fowler Signed Date: 08/21/2025 12:23 ET Workstation ID: [id number] Transcribed By: Self Edit Transcribed Date: 08/21/2025 [...] Signed Date: 08/22/2025 15:31 ET Workstation ID: [id number] Transcribed By: Self Edit Transcribed Date: 08/22/2025 [...] Pathology pending for the right breast. Location: [address], [address] -------- FINAL REPORT -------- Dictated By: Jose Fowler Dictated Date: 08/21/2025 12:18 ET Assigned Physician: Jose Fowler Reviewed and Electronically Signed By: Jose Fowelr Signed Date: 08/21/2025 12:23 ET Workstation ID: [id number] Transcribed By: Self Edit Transcribed Date: 08/21/2025 [...] 8:04 AM EDT 08/21/2025 8:29 AM EDT Jose Fowler MD LAB PATHOLOGY ORDERABLES Annel garcia Result [facility] [address] [place] [address], * (ABNORMAL) MG Mammo Diagnostic Addl Views [...] guidance. Mammography location: [facility] [address] [place], [address] -------- FINAL REPORT -------- Dictated By: Jose Fowler Dictated Date: 08/13/2025 14:16 ET Assigned Physician: Jose Fowler Reviewed and Electronically Signed By: Jose Fowler Signed Date: 08/13/2025 16:33 ET Workstation ID: [id number] Transcribed By: Self Edit Transcribed Date: 08/13/2025 [...] andguidance. Mammography location: [facility] [address], [address] -------- FINAL REPORT -------- Dictated By: Jose Fowler Dictated Date: 08/13/2025 14:16 ET Assigned Physician: Jose Fowler Reviewed and Electronically Signed By: Jose Fowler Signed Date: 08/13/2025 16:33 ET Workstation ID: [id number] Transcribed By: Self Edit Transcribed Date: 08/13/2025 14:24 ET Elva Davison MD IMG BI PROCEDURES Final Result * [facility] DEXA AXIAL SKELETON (09/14/2021 11:43 AM EDT) Anatomical Region Laterality Modality Mammography 09/14/2021 8:48 AM EDT Narrative 09/14/2021 11:43 AM EDT [facility] Diagnostic Imaging Department [address] [place] [address] Patient: KAVITA ROMAN /Age/Sex: 1945 - 76 - F Unit#: [id number] [facility] Ordering Physician: DEX TOLENTINO MD [facility] Dexa Axial Skeleton - 09/14/[address]42 History: Low estrogen state due to menopause. Height loss. Comparison: 10/14/15 Findings: Bone densitometry is performed utilizing dual energy x-ray absorptiometry (DXA) in the Ryla unit. The lumbar spine and proximal femora [...] 12.4 percent Hip 3.0 percent. IMPRESSION: Osteopenia. [id number] Dictating Physician: MERCEDES VANESSA MD Electronically Signed by: MERCEDES VANESSA MD Dic Date/Time: 09/14/21 1142 Sign date/Time: 09/14/21 1143 Procedure Note Mercedes Vanessa MD - 11/09/2022 [facility] Diagnostic Imaging Department [address] [place] [address] Patient: KAVITA ROMAN /Age/Sex: 1945 - 76 - F Unit#: [id number] Location/Status: [facility] Mnemonic/Ordering Site: [facility] Ordering Physician: DEX TOLENTINO MD [facility] Dexa Axial Skeleton - 09/14/2113 History: Low estrogen state due to menopause. Height loss. Comparison: 10/14/15 Findings: Bone densitometry is performed utilizing dual energy x-ray absorptiometry(DXA) in the Ryla unit. The lumbar spine and proximal femora [...] 12.4 percent Hip 3.0 percent. IMPRESSION: Osteopenia. [id number] Dictating Physician: MERCEDES VANESSA MD Electronically Signed by: MERCEDES VANESSA MD Dic Date/Time: 09/14/21 1142 Sign date/Time: 09/14/21 1143 Dex Tolentino MD IMG BI PROCEDURES Final Result from Last 3 Months or Most Recently Relevant to Health Maintenance Additional Health Concerns Active Problems Noted Date Diagnosed Date Autogenerated Problem 09/09/2025 Insurance [facility] [employer] OPT[employer] Member Subscriber Plan / Payer (Ef fective 2024-Present) Name:Jessie, Kavita Relation to Subscriber:Self Name:Kavita Roman Sr. Payer ID:[id number] Group ID:[id number] Type:Not on file Address: [place] [address] [address] [id number] Advance Directives Documents on File Type Date Recorded Patient Law Reporter Expl anation Health Care Decision (hx) 09/23/2021 [...] (hx) 09/23/2021 AD GARCIA DIRECTIVE Care Teams Religion Instructor Relationship Specialty Start Date End Date Elva Davison MD [address] [place] [address] [address] [facility] [place] [address] PCP - General Internal Medicine 03/19/21 Clinical Summary Created on: November 10, 2025 Kavita Roman Sr. : 1945 Sex: Female Author Organization [facility] [address] [facility] Address [address] [place] [address] Phone Care Team Providers Care Religion Instructor Name Role Phone Elva Davison MD Primary Care Provider [phone] Allergies Active Allergy Reactions Criticality Noted Date [...] 12/20/2024 Assessment & Plan (03/06/2025 4:46 PM EDT):Formatting of this note might be
--- OUTSIDE RECORDS SUMMARY | 2025-11-10 14:44 | XMS_ITS | Clinical Summary ---
Author Organization [facility] Address [address] [place] [address] Care Team Providers Care Financial Analyst Accountant Name Role Phone Kourtney Jaimesanna Primary Care Provider [phone] Allergies No known active allergies Medications ALIGN 4 mg cap 08/05/2019 Acti ve JOSY CHEWABLE ASPIRIN 81 mg chewable tablet 06/05/2019 Act og LIPITOR 40 mg tablet 08/22/2019 Active ticagrelor (BRILINTA) 90 mg Tab tablet 06/28/2019 Activ e estradiol (ESTRACE) 0.01 % (0.1 mg/gram) vaginal cream 07/18/2019 Activ e metoprolol ER (TOPROL-XL) 25 MG 24 hr tablet 06/07/2019 Act og mirtazapine (REMERON) 30 MG tablet 08/04/2019 Active cycloSPORINE (RESTASIS) 0.05 % ophthalmic emulsion 05/31/2019 Active fluoride, sodium, (PREVIDENT) 1.1 % Gel Apply to teeth. Active amLODIPine (NORVASC) 5 MG tablet Take 5 mg by mouth daily. Active pilocarpine (SALAGEN) 5 MG tablet Take 5 mg by mouth 3 times a day. Active cholecalciferol , vitamin D3, (VITAMIN D3) 1,000 unit capsule Take 1,000 Units by mouth daily. Active B complex vitamins capsule Take 1 capsule by mouth daily. Active cranberry fruit extract (CRANBERRY ORAL) Take by mouth. Active calcium citrate/vitamin D3 (CITRACAL REGULAR ORAL) Take by mouth. Active glucosamine-cho ndroitin 500-400 mg tablet Take 1 tablet by mouth 3 times a day. Active polyethylene glycol 3350 (MIRALAX ORAL) Take by mouth. Active melatonin 1 mg Tab Take by mouth. Active gabapentin (NEURONTIN) 300 MG capsule Take 1 capsule (300 mg total) by mouth 3 times a day. Start 1 cap before bed, increase to 2x/d after 1week, then to 3x/day 90 capsule 11 09/04/2019 Active pregabalin (LYRICA) 25 MG capsule Take 1 capsule (25 mg total) by mouth every morning & every evening. 60 capsule 3 07/03/2020 Active Active Problems No known active problems Social History Tobacco Use Types Packs/Day Years Used Date Smoking Tobacco: Never Smokeless Tobacco: Never Comments Unknown Sex and Gender Information Value Date Recorded Sex Assigned at Not on file Legal Sex Female 10:51 AM EDT Gender Identity Not on file Sexual Orientation Not on file Plan of Treatment Not on file Insurance [employer] Care Teams Financial Analyst Accountant Relationship Specialty Start Date End Date Johana Jaimes [address] [place] [address] PCP - General 08/07/19
--- OUTSIDE RECORDS SUMMARY | 2025-11-10 14:44 | XMS_ITS | Patient Health Record ---
Author Organization [facility] Address [address] [facility] [place] [address] Care Team Providers Care Associate Manager Affiliate Marketing Name Role Phone SamanChloebran Primary Care Provider Charity Weber Unavailable [phone] Allergies Allergen (clinical drug ingredient) Drug/Non Drug [...] Status Risk Notes Problem Acquired hallux valgus (00076980) Hallux valgus (acquired), left foot (M20.12) Active confirmed Vital Signs Blood pressure diastolic 65 mm Hg 08/28/2025 Height 5 ft in 08/28/2025 Blood pressure systolic 125 mm Hg 08/28/2025 Weight 108 lbs 08/28/2025 BMI 21.09 kg/m2 08/28/2025 Encounters Encounter Location Date Provider Diagnosis [address] [address] 04/09/2025 Charity Champion Pain in left foot M79.672 ; Pain in left ankle and joints of left foot M25.572 ; Bursitis of left foot M77.52 and Sesamoiditis of left foot M25.[address] [address] 06/18/2025 Charity Champion Pain in left foot M79.672 ; Pain in left ankle and joints of left foot M25.572 ; Bursitis of left foot M77.52 and Sesamoiditis of left foot M25.[address] [address] 08/28/2025 Charity Champion Pain in left foot M79.672 ; Pain in left ankle and joints of left foot M25.572 ; Bursitis of left foot M77.52 and Sesamoiditis of left foot M25.[address] [address] 01/20/2025 Charity Champion [address] [address] 02/17/2025 Charity Champion [address] [address] 06/18/2025 Charity Champion [address] [address] 06/18/2025 Charity Champion Assessments Encounter Date Diagnosis [...] Insured Coverage Start Date Coverage End Date [facility] [employer] Claims [address] [place] [address] [id number] Kavita Roman Self - patient is the insured Medical (General) History Medical History History ICD Code Arthritis CAD (Cholesterol) Heart disease High Blood Pressure raynauds disease Reflux ( GERD) Sjogren syndrome Measles Mumps Chicken pox cystitis Surgical History Surgery Date(Month/Year) Spinal Fusion 10/05/05 Removal of Handware 12/20/06 Stent 05/2019 Back Sx 2021
--- OUTSIDE RECORDS SUMMARY | 2025-11-10 14:44 | XMS_ITS | Clinical Summary ---
Author Organization [facility] Address [address] [place] [address] Phone Care Team Providers Care Bus Mechanic Name Role Phone Johana Jaimes MD Primary Care Provider [phone] Allergies No known active allergies Medications metoprolol [...] on file Insurance MEDICARE REPLACEMENT MEDICARE RE[place] [address] [place] [address] MEDICARE REPLACEMENT [facility] MEDICARE REPLACEMENT [facility] MEDICARE REPLACEMENT [place] [address] MEDICARE REPLACEMENT MEDICARE REPLACEMENT MEDICARE REPLACEMENT [facility] MEDICARE REPLACEMENT Care Teams Bus Mechanic Relationship Specialty Start Date End Date Johana Jaimes MD [address] [place] [address] PCP - General Internal Medicine 08/07/19 Additional Source Comments The information contained in this document represents components of the legal health record. It is not the complete legal health record.[facility]
== END 2025-11-10 11:30 | disposition home or self-care (01) ==
LOC: HO.HMGCLDS 11:29
PROVIDERS: PCP Internal Medicine; Visit Provider Urology
DX: R30.0 Dysuria (principal)
CPT/HCPCS: 81001; 87086